=== PATIENT | female | born 1955 | race American Indian/Alaskan Native ===

== ENCOUNTER 2019-10-28 12:09 | Emergency (ER) | payer BC, OTHER ==
[~2019-10-28] VITALS: Ht 154.9 cm; Wt 74.8 kg
--- OUTSIDE RECORDS SUMMARY | ~2019-10-28 | XMS | Encounter Summary ---
Demographics + + + | Address | [address] | | | [place] [address] | + + + | Home Phone | | + + + | Preferred Language | Unknown | + + + | Marital Status | Single | + + + | Alevism Affiliation | UNK | + + + | Race | or | + + + | Ethnic Group | Not or | + + + Author + + + | Author | [facility] | + + + | Organization | [facility] | + + + | Address | Unknown | + + + | Phone | Unavailable | + + + Support + + +---------+ + | Name | Relationship | Address | Phone | + + +---------+ + | Alysa Yin | ECON | Unknown | | + + +---------+ + Care Team Providers + +------+ + | Care Tab Builder Name | Role | Phone | + +------+ + | Sary De SantiagoP | PCP | | + +------+ + Encounter Details +--------+------+ + + + | Date | Type | Department | Care Team | Description | +--------+------+ + + + | 10/23/ | Lab | Laboratory at [facility] | | Rheumatoid | | 2020 | | [address] | | arthritis, involving | | | | [facility] | | unspecified site, | | | | [address]ilion, 3rd floor | | unspecified | | | | [place], [place] | | rheumatoid factor | | | | [address] | | presence (HCC) | | | | [phone] | | | +--------+------+ + + + Social History + + + +--------+ + | Tobacco Use | Types | Packs/Day | Years | Date | | | | | Used | | + + + +--------+ + | Former Smoker | Cigarettes | 0.5 | | Quit: 05/24/1993 | + + + +--------+ + + +---+---+---+ | Smokeless Tobacco: | | | | | Never Used | | | | + +---+---+---+ + + +---------+ + | Alcohol Use | Drinks/Week | oz/Week | Comments | + + +---------+ + | No | | | | + + +---------+ + + + + | Sex Assigned at | Date Recorded | | | | + + + | Not on file | | + + + + + + + | COVID-19 Exposure | Response | Date Recorded | + + + + | In the last month, have you been in contact | No / Unsure | 10/24/2019 9:49 AM | | with someone who was confirmed or | | PDT | | suspected to have Coronavirus / COVID-19? | | | + + + + documented as of this encounter Plan of Treatment +--------+ + + + + | Date | Type | Specialty | Care Team | Description | +--------+ + + + + | 02/24/ | Telephone-S | Rheumatology | Ron, | | | 2020 | bora | | MD [address] [address] | | | | | | [address] | | | | | | [place], [place] | | | | | | [address] | | | | | | [phone] | | | | | | | | +--------+ + + + + documented as of this encounter Procedures + +--------+ + + + | Procedure Name | Priori | Date/Time | Associated Diagnosis | Comments | | | ty | | | | + +--------+ + + + | CBC AND AUTO DIFF | Routin | 10/24/2019 | Rheumatoid | Results for this | | | e | 12:03 PM | arthritis, involving | procedure are in the | | | | PDT | unspecified site, | results section. | | | | | unspecified | | | | | | rheumatoid factor | | | | | | presence (HCC) | | + +--------+ + + + | CBC, WITH | Routin | 10/24/2019 | Rheumatoid | Results for this | | DIFFERENTIAL | e | 12:03 PM | arthritis, involving | procedure are in the | | | | PDT | unspecified site, | results section. | | | | | unspecified | | | | | | rheumatoid factor | | | | | | presence (HCC) | | + +--------+ + + + | COMPLETE METABOLIC | Routin | 10/24/2019 | Rheumatoid | Results for this | | SET | e | 12:03 PM | arthritis, involving | procedure are in the | | (NA,K,CL,CO2,BUN,CRE | | PDT | unspecified site, | results section. | | AT,GLUC,CA,AST,ALT,B | | | unspecified | | | EMELY TOTAL,ALK | | | rheumatoid factor | | | PHOS,ALB,PROT TOTAL) | | | presence (HCC) | | + +--------+ + + + | CYCLIC CITRUL | Routin | 10/24/2019 | Rheumatoid | Results for this | | PEPTIDE AB IGG, | e | 12:03 PM | arthritis, involving | procedure are in the | | SERUM | | PDT | unspecified site, | results section. | | | | | unspecified | | | | | | rheumatoid factor | | | | | | presence (HCC) | | + +--------+ + + + | RHEUMATOID FACTOR, | Routin | 10/24/2019 | Rheumatoid | Results for this | | SERUM | e | 12:03 PM | arthritis, involving | procedure are in the | | | | PDT | unspecified site, | results section. | | | | | unspecified | | | | | | rheumatoid factor | | | | | | presence (HCC) | | + +--------+ + + + | C-REACTIVE PROTEIN | Routin | 10/24/2019 | Rheumatoid | Results for this | | | e | 12:03 PM | arthritis, involving | procedure are in the | | | | PDT | unspecified site, | results section. | | | | | unspecified | | | | | | rheumatoid factor | | | | | | presence (HCC) | | + +--------+ + + + | SEDIMENTATION RATE | Routin | 10/24/2019 | Rheumatoid | Results for this | | | e | 12:03 PM | arthritis, involving | procedure are in the | | | | PDT | unspecified site, | results section. | | | | | unspecified | | | | | | rheumatoid factor | | | | | | presence (HCC) | | + +--------+ + + + documented in this encounter Results CBC AND AUTO DIFF (10/24/2019 12:03 PM PDT) + + + + + + | Component | Value | Ref Range | Performed | Pathologist | | | | | At | Signature | + + + + + + | WHITE CELL | 5.13 | 3.50 - 10.80 | [facility] | | | COUNT | | K/cu mm | LABORATORY | | | | | | SERVICES, | | | | | | CORE | | + + + + + + | RED CELL | 4.59 | 4.00 - 5.20 | [facility] | | | COUNT | | M/cu mm | LABORATORY | | | | | | SERVICES, | | | | | | CORE | | + + + + + + | HEMOGLOBIN | 13.1 | 12.0 - 16.0 | [facility] | | | | | g/dL | LABORATORY | | | | | | SERVICES, | | | | | | CORE | | + + + + + + | HEMATOCRIT | 40.5 | 36.0 - 46.0 % | [facility] | | | | | | LABORATORY | | | | | | SERVICES, | | | | | | CORE | | + + + + + + | MCV | 88.2 | 80.0 - 100.0 fL | [facility] | | | | | | LABORATORY | | | | | | SERVICES, | | | | | | CORE | | + + + + + + | MCHC | 32.3 | 32.0 - 36.0 | [facility] | | | | | g/dL | LABORATORY | | | | | | SERVICES, | | | | | | CORE | | + + + + + + | RDW SD | 43.2 | 35.1 - 46.3 fL | [facility] | | | | | | LABORATORY | | | | | | SERVICES, | | | | | | CORE | | + + + + + + | PLATELET | 280 | 150 - 400 K/cu | [facility] | | | COUNT | | mm | LABORATORY | | | | | | SERVICES, | | | | | | CORE | | + + + + + + | MPV | 10.7 | 9.7 - 12.3 fL | [facility] | | | | | | LABORATORY | | | | | | SERVICES, | | | | | | CORE | | + + + + + + | NRBC% | 0.0 | 0.0 - 0.3 % | [facility] | | | | | | LABORATORY | | | | | | SERVICES, | | | | | | CORE | | + + + + + + | NRBC# | 0.00 | 0.00 - 0.02 | [facility] | | | | | K/cu mm | LABORATORY | | | | | | SERVICES, | | | | | | CORE | | + + + + + + | NEUTROPHIL | 37.2 (L) | 50.0 - 70.0 % | [facility] | | | % | | | LABORATORY | | | | | | SERVICES, | | | | | | CORE | | + + + + + + | LYMPHOCYTE | 51.5 (H) | 18.0 - 42.0 % | [facility] | | | % | | | LABORATORY | | | | | | SERVICES, | | | | | | CORE | | + + + + + + | MONOCYTE % | 7.4 | 3.5 - 9.0 % | [facility] | | | | | | LABORATORY | | | | | | SERVICES, | | | | | | CORE | | + + + + + + | EOS % | 3.3 (H) | 1.0 - 3.0 % | [facility] | | | | | | LABORATORY | | | | | | SERVICES, | | | | | | CORE | | + + + + + + | BASO % | 0.6 | 0.0 - 2.0 % | [facility] | | | | | | LABORATORY | | | | | | SERVICES, | | | | | | CORE | | + + + + + + | IG% | 0.0 | 0.0 - 1.0 % | [facility] | | | | | | LABORATORY | | | | | | SERVICES, | | | | | | CORE | | + + + + + + | NEUTROPHIL | 1.91 | 1.80 - 7.70 | [facility] | | | # | | K/cu mm | LABORATORY | | | | | | SERVICES, | | | | | | CORE | | + + + + + + | LYMPHOCYTE | 2.64 | 1.00 - 4.80 | [facility] | | | # | | K/cu mm | LABORATORY | | | | | | SERVICES, | | | | | | CORE | | + + + + + + | MONOCYTE # | 0.38 | 0.10 - 0.90 | [facility] | | | | | K/cu mm | LABORATORY | | | | | | SERVICES, | | | | | | CORE | | + + + + + + | EOS # | 0.17 | 0.00 - 0.50 | [facility] | | | | | K/cu mm | LABORATORY | | | | | | SERVICES, | | | | | | CORE | | + + + + + + | BASO # | 0.03 | 0.00 - 0.10 | [facility] | | | | | K/cu mm | LABORATORY | | | | | | SERVICES, | | | | | | CORE | | + + + + + + | IG# | 0.00 | 0.00 - 0.10 | [facility] | | | | | K/cu mm | LABORATORY | | | | | | SERVICES, | | | | | | CORE | | + + + + + + + + | Specimen | + + | Blood - Blood | | (substance) | + + + + + | Narrative | Performed At | + + + | Increased immature granulocytes (IG) define a left shift. Immature | [facility] | | granulocytes (IG) are an automated count of metamyelocytes, myelocytes | LABORATORY | | and promyelocytes. Bands are not included in the IG count. Bands are | SERVICES, CORE | | included in the neutrophil count. | | + + + + + + + + | Performing | Address | City/State/Zipcode | Phone Number | | Organization | | | | + + + + + | [facility] | [address] | [place] [address] | | | SERVICES, CORE | [address] | | | + + + + + RHEUMATOID FACTOR, SERUM (10/24/2019 12:03 PM PDT) + +-------+ + + + | Component | Value | Ref Range | Performed | Pathologist | | | | | At | Signature | + +-------+ + + + | RHEUMATOID | 10 | <=14 IU/mL | [facility] | | [facility] | | | [place] | | | | | | [place] | | + +-------+ + + + + + | Specimen | + + | Blood - Blood | | (substance) | + + + + + + + | Performing | Address | City/State/Zipcode | Phone Number | | Organization | | | | + + + + + | [facility] | [address] | [place] [address] | | | [place] | | | | + + + + + CYCLIC CITRUL PEPTIDE AB IGG, SERUM (10/24/2019 12:03 PM PDT) + + + + + + | Component | Value | Ref Range | Performed | Pathologist | | | | | At | Signature | + + + + + + | CYCLIC | 2Comment: INTERPRETIVE | 0 - 19 Units | [facility] | | | CITRUL | INFORMATION: Cyclic | | REG UNIV | | | PEPTIDE AB, | Citrullinated Peptide | | PTH - [facility] | | | IGG | Antibody, IgG 19 | | | | | | Units or less | | | | | | ................... | | | | | | Negative 20-39 Units | | | | | | ........................ | | | | | | Weak Positive 40-59 | | | | | | Units | | | | | | ........................ | | | | | | Moderate Positive 60 | | | | | | Units or greater | | | | | | ................ Strong | | | | | | Positive Anti-cyclic | | | | | | citrullinated peptide | | | | | | (anti-CCP), IgG | | | | | | antibodies are present | | | | | | in about 69-83 percent | | | | | | of patients with | | | | | | rheumatoid arthritis | | | | | | (RA) and have | | | | | | specificities of 93-95 | | | | | | percent. These | | | | | | autoantibodies may be | | | | | | present in the | | | | | | preclinical phase of | | | | | | disease, are associated | | | | | | with future RA | | | | | | development, and may | | | | | | predict radiographic | | | | | | joint destruction. | | | | | | Patients with weak | | | | | | positive results should | | | | | | be monitored and testing | | | | | | repeated.Performed By: | | | | | | [facility] [place] [address] | | | | | | [facility] | | | | | | [place], [place] [address] | | | | | | Director: Darcy Rai | | | | | | MD Mauro | | | | + + + + + + + + | Specimen | + + | Blood - Blood | | (substance) | + + + + + + + | Performing | Address | City/State/Zipcode | Phone Number | | Organization | | | | + + + + + | [facility] | [address] | [place], [place] | | | UNIV P[facility] | | [id number] | | + + + + + COMPLETE METABOLIC SET (NA,K,CL,CO2,BUN,CREAT,GLUC,CA,AST,ALT,BILI TOTAL,ALK PHOS,ALB,PROT TOTAL) (10/24/2019 12:03 PM PDT) + +---------+ + + + | Component | Value | Ref Range | Performed | Pathologist | | | | | At | Signature | + +---------+ + + + | GLUCOSE, | 79 | 70 - 99 mg/dL | [facility] | | | PLASMA | | | LABORATORY | | | (LAB) | | | SERVICES, | | | | | | CORE | | + +---------+ + + + | BUN, PLASMA | 12 | 6 - 20 mg/dL | [facility] | | | (LAB) | | | LABORATORY | | | | | | SERVICES, | | | | | | CORE | | + +---------+ + + + | CREATININE | 0.80 | 0.60 - 1.10 | [facility] | | | PLASMA | | mg/dL | LABORATORY | | | (LAB) | | | SERVICES, | | | | | | CORE | | + +---------+ + + + | EGFR | >60 | >60 mL/min | [facility] | | | - | | | LABORATORY | | | ESTONIAN | | | SERVICES, | | | | | | CORE | | + +---------+ + + + | EGFR NON | >60 | >60 mL/min | [facility] | | | -LYSSA | | | LABORATORY | | | RICAN | | | SERVICES, | | | | | | CORE | | + +---------+ + + + | SODIUM, | 140 | 136 - 145 | [facility] | | | PLASMA | | mmol/L | LABORATORY | | | (LAB) | | | SERVICES, | | | | | | CORE | | + +---------+ + + + | POTASSIUM, | 3.4 | 3.4 - 5.0 | [facility] | | | PLASMA | | mmol/L | LABORATORY | | | (LAB) | | | SERVICES, | | | | | | CORE | | + +---------+ + + + | CHLORIDE, | 104 | 97 - 108 mmol/L | [facility] | | | PLASMA | | | LABORATORY | | | (LAB) | | | SERVICES, | | | | | | CORE | | + +---------+ + + + | TOTAL CO2, | 31 | 21 - 32 mmol/L | [facility] | | | PLASMA | | | LABORATORY | | | (LAB) | | | SERVICES, | | | | | | CORE | | + +---------+ + + + | CALCIUM, | 8.3 (L) | 8.6 - 10.2 | [facility] | | | PLASMA | | mg/dL | LABORATORY | | | (LAB) | | | SERVICES, | | | | | | CORE | | + +---------+ + + + | CALCIUM(ALB | 8.4 (L) | 8.6 - 10.2 | [facility] | | | CORRECTED) | | mg/dL | LABORATORY | | | | | | SERVICES, | | | | | | CORE | | + +---------+ + + + | BILIRUBIN | 0.4 | 0.3 - 1.2 mg/dL | [facility] | | | TOTAL | | | LABORATORY | | | | | | SERVICES, | | | | | | CORE | | + +---------+ + + + | TOTAL | 7.6 | 6.4 - 8.2 g/dL | [facility] | | | PROTEIN, | | | LABORATORY | | | PLASMA | | | SERVICES, | | | (LAB) | | | CORE | | + +---------+ + + + | ALBUMIN, | 3.9 | 3.5 - 4.7 g/dL | [facility] | | | PLASMA | | | LABORATORY | | | (LAB) | | | SERVICES, | | | | | | CORE | | + +---------+ + + + | ALK PHOS | 66 | 53 - 141 U/L | [facility] | | | | | | LABORATORY | | | | | | SERVICES, | | | | | | CORE | | + +---------+ + + + | AST(SGOT) | 18 | <=41 U/L | [facility] | | | | | | LABORATORY | | | | | | SERVICES, | | | | | | CORE | | + +---------+ + + + | ALT (SGPT) | 20 | <=60 U/L | [facility] | | | | | | LABORATORY | | | | | | SERVICES, | | | | | | CORE | | + +---------+ + + + | ANION GAP | 5 | 4 - 11 mmol/L | [facility] | | | | | | LABORATORY | | | | | | SERVICES, | | | | | | CORE | | + +---------+ + + + | ANION | 5 | 4 - 11 mmol/L | [facility] | | | GAP(ALB | | | LABORATORY | | | CORRECTED) | | | SERVICES, | | | | | | CORE | | + +---------+ + + + | POTASSIUM | No Hemo | | [facility] | | | CMNT | | | LABORATORY | | | | | | SERVICES, | | | | | | CORE | | + +---------+ + + + | BILI T CMNT | No Hemo | | [facility] | | | | | | LABORATORY | | | | | | SERVICES, | | | | | | CORE | | + +---------+ + + + | AST CMNT | No Hemo | | [facility] | | | | | | LABORATORY | | | | | | SERVICES, | | | | | | CORE | | + +---------+ + + + | BUN/CREATIN | 15 | 8 - 25 | [facility] | | | INE RATIO | | | LABORATORY | | | | | | SERVICES, | | | | | | CORE | | + +---------+ + + + | GLOBULIN | 3.7 (H) | 2.3 - 3.5 gm/dL | [facility] | | | LVL | | | LABORATORY | | | | | | SERVICES, | | | | | | CORE | | + +---------+ + + + | ALBUMIN/MARJORIE | 1.1 | 0.7 - 2.8 | [facility] | | | BULIN RATIO | | | LABORATORY | | | | | | SERVICES, | | | | | | CORE | | + +---------+ + + + + + | Specimen | + + | Blood - Blood | | (substance) | + + + + + | Narrative | Performed At | + + + | GFR is estimated using the MDRD equation recommended by the National | [facility] | | Kidney Disease Education Program. Estimated GFR Interpretive | LABORATORY | | Information: <60 mL/min/1.73 sq m Chronic Kidney | SERVICES, CORE | | Disease <15 mL/min/1.73 sq m Kidney Failure | | | Estimated GFR greater than 60 mL/min/1.73 sq m is of limited clinical | | | value. The MDRD equation is not valid in the following situations: | | | - Patients under 18 years of age - Severe malnutrition or obesity | | | - Vegetarian diet - Rapidly changing kidney function - Amputees, | | | paraplegics, or other muscle-wasting diseases | | + + + + + + + + | Performing | Address | City/State/Zipcode | Phone Number | | Organization | | | | + + + + + | [facility] | [address] | [place] [address] | | | SERVICES, CORE | [address] | | | + + + + + C-REACTIVE PROTEIN (10/24/2019 12:03 PM PDT) + +-------+ + + + | Component | Value | Ref Range | Performed | Pathologist | | | | | At | Signature | + +-------+ + + + | C-REACTIVE | <2.9 | <10.0 mg/L | [facility] | | | PROTEIN | | | LABORATORY | | | | | | SERVICES, | | | | | | CORE | | + +-------+ + + + + + | Specimen | + + | Blood - Blood | | (substance) | + + + + + + + | Performing | Address | City/State/Zipcode | Phone Number | | Organization | | | | + + + + + | [facility] | [address] | [place] [address] | | | SERVICES, CORE | [address] | | | + + + + + SEDIMENTATION RATE (10/24/2019 12:03 PM PDT) + +-------+ + + + | Component | Value | Ref Range | Performed | Pathologist | | | | | At | Signature | + +-------+ + + + | SEDIMENTATI | 7 | 0 - 30 mm/hr | [facility] | | | ON RATE | | | LABORATORY | | | | | | SERVICES, | | | | | | CORE | | + +-------+ + + + + + | Specimen | + + | Blood - Blood | | (substance) | + + + + + + + | Performing | Address | City/State/Zipcode | Phone Number | | Organization | | | | + + + + + | [facility] | [address] | [place] [address] | | | SERVICES, CORE | [address] | | | + + + + + documented in this encounter Visit Diagnoses + + | Diagnosis | + + | Rheumatoid arthritis, involving unspecified site, unspecified rheumatoid factor | | presence (HCC) | + + documented in this encounter"
--- OUTSIDE RECORDS SUMMARY | ~2019-10-28 | XMS | Encounter Summary ---
Demographics + + + | Address | [address] | | | [place] [address] | + + + | Home Phone | | + + + | Preferred Language | Unknown | + + + | Marital Status | Single | + + + | Church Affiliation | Unknown | + + + | Race | White | + + + | Ethnic Group | Not or | + + + Author + + + | Author | [facility] | | | and [place] | + + + | Organization | [facility] | | | and [place] | + + + | Address | Unknown | + + + | Phone | Unavailable | + + + Support + + + + + | Name | Relationship | Address | Phone | + + + + + | Maria Luisa Minaya | ECON | [place] | | | | | [address] | | + + + + + Care Team Providers + +------+ + | Care Mathematics Academic Chair Name | Role | Phone | + +------+ + | Chantale Harrington | PCP | | + +------+ + Reason for Referral Evaluate & Treat (Routine) +--------+ + + + + + | Status | Reason | Specialty | Diagnoses / | Referred By | Referred To | | | | | Procedures | Contact | Contact | +--------+ + + + + + | Closed | Specialty | Rheumatology | Diagnoses | Rodrick, | [facility] | | | Services | | | Kalin | ARTHRITIS AND | | | Required | | Costochondri | MD Jayce | RHEUMATOLOGY | | | | | tis | [address] | [address] | | | | | | [address] | [place] | | | | | | [place] | [address] | | | | | | [place], [place] | [place], [place] | | | | | | [address] | [address] | | | | | | Phone: | Phone: | | | | | | [phone] | [phone] | | | | | | Fax: | Fax: | | | | | | [phone] | [phone] | +--------+ + + + + + Reason for Visit + + + | Reason | Comments | + + + | New Patient | | + + + | Back Pain | | + + + Evaluate & Treat (Routine) +--------+--------+ + + + + | Status | Reason | Specialty | Diagnoses / | Referred By | Referred To | | | | | Procedures | Contact | Contact | +--------+--------+ + + + + | Closed | | Neurosurgery | Diagnoses | Len, | [facility] | | | | | Lumbar | Chantale, TECHNICAL OPERATIONS MANAGER | Neurosurgery | | | | | radiculopath | [id number] | [address] | | | | | y | [address] | [address] | | | | | Discogenic | [place], | [place], | | | | | thoracic | [place] [address] | [place] [address] | | | | | pain Lumbar | Phone: | Phone: | | | | | pain | [phone] | [phone] | | | | | | Fax: | Fax: | | | | | | [phone] | [phone] | +--------+--------+ + + + + Encounter Details +--------+---------+ + + + | Date | Type | Department | Care Team | Description | +--------+---------+ + + + | 08/27/ | Office | [facility] | Kalin Mensah | Costochondritis | | 2020 | Visit | [address] | MD Jayce [address] | (Primary Dx); | | | | [address] | [address] | Degeneration of | | | | [place], [place] | [place] | intervertebral disc | | | | [address] | [address] | of thoracic region | | | | [phone] | | with osteophyte; | | | | | | Osteoarthritis, | | | | | | unspecified | | | | | | osteoarthritis type, | | | | | | unspecified site | +--------+---------+ + + + Social History + + + +--------+ + | Tobacco Use | Types | Packs/Day | Years | Date | | | | | Used | | + + + +--------+ + | Former Smoker | Cigarettes | 0.5 | 1 | 02/07/1992 - | | | | | | 05/24/1993 | + + + +--------+ + [...] on file | | + + + documented as of this encounter Last Filed Vital Signs + + + + + | Vital Sign | Reading | Time Taken | Comments | + + + + + | Blood Pressure | 108/70 | 08/28/2019 1:35 PM | | | | | PDT | | + + + + + | Pulse | 68 | 08/28/2019 1:35 PM | | | | | PDT | | + + + + + | Temperature | - | - | | + + + + + | Respiratory Rate | - | - | | + + + + + | Oxygen Saturation | 100% | 08/28/2019 1:35 PM | | | | | PDT | | + + + + + | Inhaled Oxygen | - | - | | | Concentration | | | | + + + + + | Weight | 76.2 kg (167 lb 15.9 | 08/28/2019 1:35 PM | | | | oz) | PDT | | + + + + + | Height | 154.9 cm (5' 1") | 08/28/2019 1:35 PM | | | | | PDT | | + + + + + | Body Mass Index | 31.74 | 08/28/2019 1:35 PM | | | | | PDT | | + + + + + documented in this encounter Progress Notes Kalin Mensah MD - 08/28/2019 1:10 PM PDT Kalin Mensah MD [address] [facility], [address] [place] [address] FAX: [phone] NEUROSURGERY HISTORY AND PHYSICAL EXAMINATION CHIEF COMPLAINT: Chief Complaint Patient presents with New Patient Back Pain HISTORY OF PRESENT ILLNESS: Rachel Yin presents today for evaluation of midthoraci c pain which is been rather severe for the past approximately 3 months. She does have a his tory of somewhat more chronic diffuse spinal pain. [facility] and was placed on several different medications including methotre xate without significant improvement. The pain that she presently experiences is mostly mid line and paraspinous pain along the mid thoracic region. There is noticed significant radia tion along the right and left thorax. She has no complaint of significant pain weakness num bness paresthesias in the upper or lower extremities, significant remedy weakness or spasm. No bowel or bladder dysfunction or saddle anesthesia. No steady gait unsteadiness. She lindsey s been seen by physiatry for evaluation with consideration of intercostal nerve block. PAST MEDICAL HISTORY: Past Medical History: Diagnosis Date Arthralgia Arthritis Fajardo's esophagus Chronic ethmoidal sinusitis Cluster headache Contact dermatitis Degeneration of lumbar or lumbosacral intervertebral disc Depression Depressive disorder Deviated nasal septum Disease related peripheral neuropathy IMANI (generalized anxiety disorder) GERD (gastroesophageal reflux disease) Hypercholesterolemia Insomnia Lumbar back pain Lumbosacral spondylosis Menopausal state Mixed hyperlipidemia Osteoarthritis of finger of right hand Other general symptoms and signs Plantar fasciitis RA (rheumatoid arthritis) ([facility]) Radiculopathy of lumbosacral region 08/30/2012 Seasonal allergic rhinitis Tarsal tunnel syndrome Thoracic back pain TMJ (temporomandibular joint disorder) Urethritis Urticaria Vision impairment PAST SURGICAL HISTORY: Past Surgical History: Procedure Laterality Date APPENDECTOMY CHOLECYSTECTOMY FINGER SURGERY Right 11/29/2016 Procedure: Middle Finger Arthroplasty; Surgeon: Naveen Ferrari MD; Location: [facility]; Service: Orthopedics; Laterality: Right; RT MIDDLE FINGER [facility] silicone implants HYSTERECTOMY CURRENT MEDICATIONS: Current Outpatient Medications Medication Sig Dispense Refill alendronate (FOSAMAX) 35 mg tablet Take 1 tablet by mouth every 7 days. citalopram (CELEXA) 40 mg tablet Take 40 mg by mouth Daily. diclofenac (FLECTOR) 1.3% PTCH estradiol (CLIMARA) 0.025 MG/24HR fluticasone (FLONASE) 50 mcg/nasal spray 2 sprays by Nasal route Daily. methocarbamol (ROBAXIN) 500 mg tablet Take 500 mg by mouth 3 times daily as needed for Muscle spasms Only taking 1 time daily. omeprazole (PRILOSEC) 40 MG capsule Take 40 mg by mouth 2 times daily. ondansetron (ZOFRAN) 4 mg tablet REFRESH OPTIVE SENSITIVE ophthalmic solution tiZANidine (ZANAFLEX) 4 mg tablet Take 4 mg by mouth nightly . UNABLE TO FIND Once a week Med Name: Hormone patch . No current facility-administered medications for this visit. ALLERGIES: Allergies Allergen Reactions Codeine Rash, Nausea And Vomiting and Itching Other reaction(s): Pruritus Morphine Palpitations Tolmetin Swelling Chlorpheniramine Unknown Epinephrine Unknown Erythromycin Unknown Lidocaine Unknown Patient reports that she doesn't remember reaction and doesn't believe that it caused an issue. 12/23/2018 2:21 AM Pseudoephedrine Unknown Trimethoprim-Sulfamethoxazole [Sulfamethoxazole-Trimethoprim] Unknown SOCIAL HISTORY: The patient reports that she quit smoking about 26 years ago. Her smoking use included cig arettes. She started smoking about 27 years ago. She has a 0.50 pack-year smoking history. S he has never used smokeless tobacco. She reports that she does not drink alcohol or use drug s. FAMILY HISTORY: Family History Problem Relation Age of Onset Hypertension Mother Heart disease Father Kidney cancer Brother Other cancer Sister Skin Other cancer Maternal Uncle Bone Review of Systems Constitutional: Gained 10-12 lbs Eyes: Positive for blurred vision (eye glasses). Musculoskeletal: Positive for back pain, myalgias and neck pain. Neurological: Positive for sensory change (feet neuropathy). Psychiatric/Behavioral: Positive for depression. All other systems reviewed and are negative. PHYSICAL EXAMINATION: Blood pressure 108/70, pulse 68, height 1.549 m (5' 1"), weight 76.2 kg (167 lb 15.9 oz), S pO2 100 %. Body mass index is 31.74 kg/m. GENERAL: Mildly obese lady who appears somewhat uncomfortable during examination today. HEENT: Head: Normocephalic/atraumatic with no areas of recent trauma. Eyes: Normal sclerae without icterus. NECK (ANTERIOR): Supple and without palpable masses. CHEST: Clear nonlabored HEART: Regular pulse ABDOMEN: Mild abdominal obesity. SPINE: Moderate tenderness to palpation over the primarily mid thoracic paraspinous muscul ature. Minimal midline tenderness. Much lesser cervical and lumbar tenderness. EXTREMITIES: No cyanosis, clubbing, or edema. Distal pulses are palpable. MUSCULOSKELETAL: Mild arthritic changes in the hands. No atrophy or fasciculations in the upper and lower extremities. No significant right or left hip tenderness or complaint of h ip knee or ankle pain with range of motion. Good range of motion of the right left shoulder without discomfort Patient has rather severe pain radiating from the mid thoracic paraspinous region along the right and left anterior lateral chest wall with moderate bilateral chest wall compression. NEUROLOGICAL EXAM: MENTAL STATUS: The patient is awake, alert, and oriented. She follows simple and complex commands. Her speech is fluent, she comprehends speech well, and she repeats well. She has no apparent deficits with short or fdc memory. MOTOR EXAM: (5 IS NORMAL) * Indicates pain limited MUSCLE/ MOVEMENT: RIGHT LEFT Deltoids 5 5 Biceps 5 5 Triceps 5 5 Wrist Flexion 5 5 Wrist Extension 5 5 Median Intrinsics 5 5 Ulnar Intrinsics 5 5 Hospital Director Strength 5 5 Hip Flexion 5 5 Hip Extension 5 5 Knee Flexion 5 5 Knee Extension 5 5 Dorsiflexion 5 5 Extensor Hallicus Longus 5 5 Plantarflexion 5 5 Foot Inversion 5 5 Foot Eversion 5 5 SENSORY EXAM: Sensory exam shows no diminished sensation to light touch or pain throughout the upper and lower extremities. REFLEXES: (2 OR 2+ IS NORMAL) REFLEX: RIGHT LEFT BICEPS 2+ 2+ BRACHIORADIALIS 2+ 2+ TRICEPS 2+ 2+ PATELLAR 2+ 2+ ACHILLES 2+ 2+ RIVERA'S ABSENT ABSENT CLONUS ABSENT ABSENT GAIT: Gait is steady PERIPHERAL NERVE/MISC: Straight leg raise is negative bilaterally. Christopher's test of the hips is negative bilaterally. TEST AND RADIOGRAPHIC REVIEW: The thoracic MRI from 03/18/2019 reveals chronic appearing mild upper and lower endplate T8 compression fracture without significant kyphosis or retropulsion. No residual edema in the bone. There may be slight increase signal intensity within the T7 vertebral body without d efinite fracture. Significant anterior lateral bridging osteophytes are noted at multiple levels in the midth oracic region. No evidence of significant thoracic degenerative disc disease. No definite significant spo ndylosis noted. No foraminal stenosis or canal stenosis or abnormal signal intensity within the cord. Lumbar x-ray f normal lumbar lordosis. No evidence of spondylolisthesis significant degene rative disc disease. ASSESSMENT: 1. Findings most consistent with midthoracic costochondritis. 2. Moderate bridging osteophytes-heterotopic calcification noted in the thoracic region. 3. No significant thoracic degenerative disc disease noted. No significant thoracic spond ylosis. VISIT DIAGNOSES AND ORDERS: 1. Costochondritis 2. 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 Osteoarthritis, unspecified osteoarthritis type, unspecified site PLAN: Findings were discussed at length with the patient. Options of conservative treatment, further injections in physiatry clinic, rheumatology braxton sandoval of been discussed. I do not feel that there is a surgical option for her. I do not believe that the chronic appearing relatively mild T8 compression deformity is res ponsible for her pain symptoms. She does not have definite thoracic radicular pain or evide nce of foraminal stenosis, however a series of lumbar facet blocks or intercostal blocks may be helpful. She requests that we arrange for a follow-up rheumatology referral. It is been approximate ly 5 years since she was evaluated and her symptoms have significantly changed since then. She will contact physiatry clinic for follow-up. No further neurosurgical intervention recommended at this time. 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
--- OUTSIDE RECORDS SUMMARY | ~2019-10-28 | XMS | Encounter Summary ---
Demographics + + + | Address | [address] | | | [place] [address] | + + + | Home Phone | | + + + | Preferred Language | Unknown | + + + | Marital Status | Single | + + + | Protestant Affiliation | UNK | + + + | Race | or | + + + | Ethnic Group | Not or | + + + Author + + + | Author | [facility] | + + + | Organization | [facility] | + + + | Address | Unknown | + + + | Phone | Unavailable | + + + Support + + +---------+ + | Name | Relationship | Address | Phone | + + +---------+ + | Alysa Yin | ECON | Unknown | | + + +---------+ + Care Team Providers + +------+ + | Care Mail Carrier Name | Role | Phone | + +------+ + | Poncho Nieves MD | PCP | | + +------+ + Encounter Details +--------+ + + + + | Date | Type | Department | Care Team | Description | +--------+ + + + + | 07/13/ | Documentati | Neurology | Nuris, | | | 2008 | on | [facility] | MD Santos | | | | | at [facility] | | | [facility] | | [facility] & [facility] | | | | | | [address] | | | | | | [facility] | | | | | | and Healing, | | | | | | Building | | | | | | Floor [place], [place] | | | | | | [address] | | | | | | [phone] | | | +--------+ + + + + Social History + + + +--------+ + | Tobacco Use | Types | Packs/Day | Years | Date | | | | | Used | | + + + +--------+ + | Former Smoker | Cigarettes | 0.5 | | Quit: 05/24/1993 | + + + +--------+ + + + +---------+ + | Alcohol Use | Drinks/Week | oz/Week | Comments | + + +---------+ + | No | | | | + + +---------+ + + + + | Sex Assigned at | Date Recorded | | | | + + + | Not on file | | + + + documented as of this encounter Miscellaneous Notes Telephone Encounter - Santos Lawler MD - 07/13/2008 9:52 AM PDT Component Reference Range 06/24/2008 LYME AB REYNA Borderline (A) SOURCE, INF SER/PCR Serum PATIENT SPECIMEN O. D. 0.153 REACTIVE CUTOFF O. D. 0.155 BORDERLINE CUTOFF O. D. 0.122 Plan - Recheck serum Lyme REYNA and will check serum Lyme Western blot send to [facility]. - Patient lives in [place] - this can be done locally. Gina Joe LPN , Nurse Identity Access Management Architect will arrange this test. documented in this encounter Plan of Treatment +--------+ + + + + | Date | Type | Specialty | Care Team | Description | +--------+ + + + + | 02/24/ | Telephone-S | Rheumatology | Ron, | | | 2020 | bora | | MD [address] [address] | | | [address] | | | | | | [place] | | | | | | [address] | | | | | | [phone] | | | | | | | | +--------+ + + + + documented as of this encounter Visit Diagnoses Not on filedocumented in this encounter"
--- OUTSIDE RECORDS SUMMARY | ~2019-10-28 | XMS | Encounter Summary ---
Demographics + + + | Address | [address] | | | [place] [address] | + + + | Home Phone | | + + + | Preferred Language | Unknown | + + + | Marital Status | Single | + + + | Jain Affiliation | UNK | + + + | Race | or | + + + | Ethnic Group | Not or | + + + Author + + + | Author | [facility] | + + + | Organization | [facility] | + + + | Address | Unknown | + + + | Phone | Unavailable | + + + Support + + +---------+ + | Name | Relationship | Address | Phone | + + +---------+ + | Alysa Yin | ECON | Unknown | | + + +---------+ + Care Team Providers + +------+ + | Care Web Site Admin Name | Role | Phone | + +------+ + | Sary De SantiagoP | PCP | | + +------+ + Reason for Visit + +--------+ + | Reason | Onset | Comments | | | Date | | + +--------+ + | Visual field testing | 01/22/ | | | | 2012 | | + +--------+ + Office Visit - E/M Services (Routine) +--------+--------+ + + + + | Status | Reason | Specialty | Diagnoses / | Referred By | Referred To | | | | | Procedures | Contact | Contact | +--------+--------+ + + + + | Closed | | Ophthalmology | | Non[facility] | [facility] | | | | | | Epic Dept | [facility] | | | | | | | [address] | | | | | | | [address] Center | | | | | | | for Health | | | | | | | and Healing, | | | | | | | [address], | | | | | | | [address]th Floor | | | | | | | [place], [place] | | | | | | | [address] | | | | | | | Phone: | | | | | | | [phone] | | | | | | | Fax: | | | | | | | [phone] | +--------+--------+ + + + + Encounter Details +--------+ + + + + | Date | Type | Department | Care Team | Description | +--------+ + + + + | 01/21/ | Procedure | [facility] | | Visual field testing | | 2012 | | [place] [facility] | | | | | | [facility] at [facility] [address] | | | | | | [address] [facility] | | | | | | for Health and | | | | | | Healing, [address], | | | | | | [address]th Floor | | | | | | [place], [place] | | | | | | [address] | | | | | | [phone] | | | +--------+ + + + [...] + + documented as of this encounter Progress Janette Boyer - 01/22/2013 7:26 AM PST Rachel Susanna Yin was seen in the [facility] [place] [facility] Department today, 01/06, for HVF 30-2 OU. alonso in this enc ounter Plan of Treatment +--------+ + + + + | Date | Type | Specialty | Care Team | Description | +--------+ + + + + | 02/24/ | Telephone-S | Rheumatology | Ron, | | | 2020 | bora | | MD [facility] [address] | | | | | [address] | | | | | | [place], [place] | | | | | | [address] | | | | | | [phone] | | | | | | | | +--------+ + + + + + + +--------+ + + | Name | Type | Priori | Associated Diagnoses | Order Schedule | | | | ty | | | + + +--------+ + + | [facility] | Procedures | Routin | Subjective visual | Expected: 04/22/2013 | | FIELD | | e | disturbance, | | | | | | unspecified | | + + +--------+ + + documented as of this encounter Visit Diagnoses + + | Diagnosis | + + | Subjective visual disturbance, unspecified - Primary | + + documented in this encounter"
--- OUTSIDE RECORDS SUMMARY | ~2019-10-28 | XMS | Encounter Summary ---
Demographics + + + | Address | [address] | | | [place] [address] | + + + | Home Phone | | + + + | Preferred Language | Unknown | + + + | Marital Status | Single | + + + | Sikhism Affiliation | Unknown | + + + | Race | White | + + + | Ethnic Group | Not or | + + + Author + + + | Author | [facility] | | | and [place] | + + + | Organization | [facility] | | | and [place] | + + + | Address | Unknown | + + + | Phone | Unavailable | + + + Support + + + + + | Name | Relationship | Address | Phone | + + + + + | Maria Luisa Minaya | ECON | [place], [place] | | | | | [address] | | + + + + + Care Team Providers + +------+ + | Care Product Control And Logistics Analyst Name | Role | Phone | + +------+ + PCP | Unavailable | + +------+ + Encounter Details +--------+ + + + + | Date | Type | Department | Care Team | Description | +--------+ + + + + | 01/15/ | Hospital | [facility] | | | | 2000 | Encounter | MED CTR XRAY [address] | | | | | | [address] | | | | | | [place] [address] | | | | | | [phone] | | | +--------+ + + + + Social History + +-------+ +--------+------+ | Tobacco Use | Types | Packs/Day | Years | Date | | | | | Used | | + +-------+ +--------+------+ | Never Assessed | | | | | + +-------+ +--------+------+ + + + | Sex Assigned at | Date Recorded | | | | + + + | Not on file | | + + + documented as of this encounter Plan of Treatment Not on filedocumented as of this encounter Visit Diagnoses Not on filedocumented in this encounter"
--- OUTSIDE RECORDS SUMMARY | ~2019-10-28 | XMS | Encounter Summary ---
Demographics + + + | Address | [address] | | | [place] [address] | + + + | Home Phone | | + + + | Preferred Language | Unknown | + + + | Marital Status | Single | + + + | Rastafarian Affiliation | UNK | + + + | Race | or | + + + | Ethnic Group | Not or | + + + Author + + + | Author | [facility] | + + + | Organization | [facility] | + + + | Address | Unknown | + + + | Phone | Unavailable | + + + Support + + +---------+ + | Name | Relationship | Address | Phone | + + +---------+ + | Alysa Yin | ECON | Unknown | | + + +---------+ + Care Team Providers + +------+ + | Care Sprayer Automatic Spray Machine Name | Role | Phone | + +------+ + | Poncho Burdick MD | PCP | | + +------+ + Reason for Referral Consultation (Routine) +--------+--------+ + + + + | Status | Reason | Specialty | Diagnoses / | Referred By | Referred To | | | | | Procedures | Contact | Contact | +--------+--------+ + + + + | Closed | | Rheumatology | Diagnoses | | Rhm Faculty | | | | | Pain in | Nuris, | [address] | | | | | joint, hand | Santos, | Pavmichelleon | | | | | Procedures | MD | Loop | | | | | CONSULT TO | Neurology | Physician's | | | | | RHEUMATOLOGY | [address] | | | | | | [address] | Floor | | | | | | [place], [place] | [place], [place] | | | | | | [address] | [address] | | | | | | | Phone: | | | | | | | [phone] | | | | | | | Fax: | | | | | | | [phone] | +--------+--------+ + + + + Encounter Details +--------+---------+ + + + | Date | Type | Department | Care Team | Description | +--------+---------+ + + + | 05/07/ | Office | Neurology | Nuris, | Sensory Disturbance; | | 2008 | Visit | Neuromuscular Clinic | MD Santos | Pain in Joint, | | | | at [place] [facility] | | Hand; Vitamin D | | | | Health & Healing | | Deficiency | | | | [address] | | | | | | [facility] | | | | | | and Healing, | | | | | | Building | | | | | | Floor [facility] [place] | | | | | | [address] | | | | | | [phone] | | | +--------+---------+ + + + Social History [...] + documented as of this encounter Progress Notes Moi Álvarez MD - 05/25/2008 7:11 PM PDTI am familiar with this patient's medical his tory and the current active problems as discussed with Dr. Lawler. We reviewed the ass essment and plan and I agree with the plan as outlined. Roger Foss MD - 05/07/2008 3:27 PM PDT Rachel Yin, 52 y.o. RHWF who is referred by Dr. Burdick is seen in Neuromuscular cl in for evaluation of chronic pain syndrome. Ms. Yin reports that she has constant pain in legs and hands started 4-5 months ago on top of her chronic back pain, which she has had for 10-15 years. She describes pain as achi ng and tingling. Pain is severe enough to interfere sleep and physical activity. Her pain seems to be under control with Fentanyl patch. She has tried gabapentin, cymbalta, vicodin. She also complains having swelling in hands and feeling stiff especially in the morning. She has feet swelling occasionally. She denies dysautonomic symptoms. No speech or swallow ing problem. She may be choking sometimes due to Barrette's esophagus. She feels fatigue. No weakness. No increased falls. She has bladder incontinence. Bowel pattern has no wyatt ge. No trouble with vision or hearing. REVIEW OF SYSTEMS: A complete review of systems was performed, including the following: Constitutional Eyes Ears, nose mouth, throat Cardiovascular Respiratory Gastrointestinal Genitourinary Musculoskeletal Skin Neurologic Psychiatric Hematologic or Lymphatic Allergic or immunologic The results were normal with the following exception as mentioned above. Past Medical History Diagnosis Date Other General Symptoms Fajardo's Esophagus Hypercholesterolemia Past Surgical History Procedure Date Hx appendectomy Hx cholecystectomy Family History Problem Relation Hypertension Mother Heart Father Cancer Maternal Uncle bone Cancer Brother renal Cancer Sister skin History Social History Marital Status: Single Spouse Name: N/A Number of Children: N/A Years of Education: N/A Occupational History Not on file. Social History Main Topics Tobacco Use: Quit -- 0.5 packs/day Quit date: 05/24/1993 Alcohol Use: No Drug Use: No Sexually Active: Not on file Other Topics Concern Not on file Social History Narrative No narrative on file amitriptyline 10 mg Oral Tablet, Take 1 Tab by mouth as needed BENADRYL 25 mg Oral Capsule, Take 1 Cap by mouth as needed fentanyl 12 mcg/hr Transdermal Patch 72 hr, Apply 1 Patch to skin every seventy-two hours. PRILOSEC 20 mg Oral Capsule, Delayed Release(E.C.), Take 1 Cap by mouth two times daily. promethazine (PHENERGAN) 25 mg Oral Tablet, Take 1 Tab by mouth four times daily as needed for nausea/vomiting. propranolol 20 mg Oral Tablet, Take 0.5 Tabs by mouth two times daily. Allergies Allergen Reactions Morphine Tachycardia Codeine Nausea/Vomiting, Itching and Rash Tolmetin Sodium Swelling GENERAL EXAM: VITAL SIGNS: There were no vitals taken for this visit. GENERAL: The patient is pleasant, in no acute distress. HEENT: Normocephalic and atraumatic. No icteric sclera or conjunctival injection. No oral u lcer noted. CARDIOVASCULAR: Normal S1 S2 without murmurs. No carotid bruits bilaterally. SKIN: No rashes. LUNGS: Clear to auscultation bilaterally. EXTREMITIES: PIP and DIP joint are swelling and tender without skin redness. NEUROLOGIC: Mental status, the patient is alert and oriented to person, place and date. Rec ent and remote memory appear intact. Concentration appears intact. Language is fluent and sp eech is articulate. Mood is good with appropriate affect. Cranial nerve examination: I - Smell (Not tested) II -PERRLA III,IV, - Full EOM. No nystagmus or diplopia. V - Intact to sensation in all 3 divisions. VII - There is no facial asymmetry or ptosis. Muscle strength is normal. VIII - Hearing is grossly intact bilaterally. IX,X - Uvula is midline. Palate elevates symmetrically. XI - Sternocleidomastoid and trapezius is normal. XII - Tongue is midline. There are no fasciculations or atrophy. Motor Exam: NF NE SAb EF EE WF WE FF FE Intr Right strng strng 5 5 5 5 5 5 5 strng Left - - 5 5 5 5 5 5 5 strng HF HE HAb HAd KF KE ADf APf Invrs Evrs Right 5 5 5 5 5 5 5 5 5 5 Left 5 5 5 5 5 5 5 5 5 5 Reflexes: Right side Left side Brachioradialis 2+ 2+ Biceps tendon 2+ 2+ Triceps 2+ 2+ Patellar 2+ 2+ Achilles 2+ 2+ Plantar response Down-going Down-going Jaw Jerk Normal Márquez's Absent Sensory examination: UE/Rt. UE/Lt. LE/Rt. LE/Lt. Light Touch nl nl nl nl Pin Prick nl nl nl nl Temperature nl nl nl nl Vibration w/Rydel-Seiffer tuning fork 09/13 09/13 09/13 09/13 Joint position nl nl nl nl Romberg's test: Negative Cerebellar function: Dysdiadochokinesia: Absent Scanning Speech: Absent Rftqoa-bf-Vwwtii: Intact Tremor: Absent Tandem walk: Normal Gait: Normal Heel-walking/toe-walking: Normal TESTS: EMG/NCS (05/07/08) - Right upper and lower extremities were tested. No electrophysiologica l evidence of polyneuropathy. ASSESSMENTS: 52 y.o. RHWF history of chronic back pain presents with new pain described as aching and tingling in hands, legs and feet. Neurological exam is normal. There is no carmina ctrophysiological evidence of medium or large fiber neuropathy. However, small fiber neurop athy could not be ruled out. PLANS: 1. Skin biopsy (performed today visit). 2. Will obtain blood and urine tests to screen for possible cause of neuropathy including vitamin deficiency, infection, autoimmune/connective tissue disease, diabetes/prediabetes, t hyroid dysfunction, and heavy metal toxicity. 3. Rheumatology referral for joint pain. 4. Follow up after test. 80 minutes was spent with Ken Humphrey, greater than half in counseling and coordination of care. Case has been reviewed and discussed with Dr. Álvarez who is agreeable with plan. Santos Lawler MD Fellow, Neuromuscular disease/EMG ADDENDUM: Vitamin D level - 15 L (30-80) Supplementation 50,000 iu weekly will be initiated. Script faxed to Tanya Jama ([facility]). Will notify the patient. documented in t his encounter Miscellaneous Notes Scan - Other, Faculty - 06/11/2008 3:50 PM PDT can - Other, Faculty - 06/04/2008 8:58 PM PDT Electronica lly signed by Elizabeth Collazo In at 06/04/2008 8:58 PM PDTdocumented in this encounter Plan of Treatment +--------+ + + + + | Date | Type | Specialty | Care Team | Description | +--------+ + + + + | 02/24/ | Telephone-S | Rheumatology | Ron | | | 2020 | bora | | MD [address] | | | | | | [address] | | | | | | [place], [place] | | | | | | [address] | | | | | | [phone] | | | | | | | | +--------+ + + + + + +------+--------+ + + | Name | Type | Priori | Associated Diagnoses | Order Schedule | | | | ty | | | + +------+--------+ + + | GLUCOSE KIM TEST, | Lab | Routin | Sensory | Ordered: 05/07/2008 | | 2HR(0,1,2) | | e | Disturbance Pain in | | | | | | Joint, Hand | | + +------+--------+ + + | HEAVY METALS, URINE | Lab | Routin | Sensory | Ordered: 05/07/2008 | | | | e | Disturbance Pain in | | | | | | Joint, Hand | | + +------+--------+ + + | MAGNESIUM, URINE | Lab | Routin | Sensory | Ordered: 05/07/2008 | | | | e | Disturbance | | + +------+--------+ + + documented as of this encounter Results C'4 COMPLEMENT, SERUM (05/07/2008 2:33 PM PDT) + +-------+ + + + | Component | Value | Ref Range | Performed | Pathologist | | | | | At | Signature | + +-------+ + + + | C'4 | 30.0 | 16.0 - 47.0 | | | | COMPLEMENT | | mg/dL | | | | SERUM | | | | | + +-------+ + + + + + | Specimen | + + | Blood - Blood | + + + + + | Narrative | Performed At | + + + | Reference Range Change effective | | | 03/04/08 [facility] | | | [place] [address] | | | [place] [address] | | + + + + + + + + | Performing | Address | City/State/Zipcode | Phone Number | | Organization | | | | + + + + + | [facility] | [address] | [place] [address] | | | LABORATORY | | | | + + + + + C'3 COMPLEMENT, SERUM (05/07/2008 2:33 PM PDT) + +-------+ + + + | Component | Value | Ref Range | Performed | Pathologist | | | | | At | Signature | + +-------+ + + + | C'3 | 124 | 88 - 201 mg/dL | | | | COMPLEMENT | | | | | | SERUM | | | | | + +-------+ + + + + + | Specimen | + + | Blood - Blood | + + + + + | Narrative | Performed At | + + + | Reference Range Change effective | | | 03/04/08 [facility] | | | [place] [address] | | | [place] [address] | | + + + + + + + + | Performing | Address | City/State/Zipcode | Phone Number | | Organization | | | | + + + + + | [facility] | [address] | [place] [address] | | | LABORATORY | | | | + + + + + VITAMIN D, 25-HYDROXY, SERUM (05/07/2008 2:33 PM PDT) + + + + + + | Component | Value | Ref Range | Performed | Pathologist | | | | | At | Signature | + + + + + + | VITAMIN D | 15 (L)Comment: TEST | 30 - 80 ng/mL | | | | 25 HYDROXY | INFORMATION: VITAMIN D, | | | | | | 25-HYDROXYThis assay | | | | | | accurately quantifies | | | | | | the sum of vitamin | | | | | | D3,25-hydroxy and | | | | | | vitamin D2, 25-hydroxy. | | | | | | Deficiency: Less than | | | | | | 20 ng/mL Insufficiency: | | | | | | 20-29 ng/mL Optimum | | | | | | Level: 30-80 ng/mL | | | | | | Possible Toxicity: | | | | | | Greater than 80 | | | | | | ng/mLPerformed by [facility] | | | | | | Laboratories,[address] | | | | | | [facility], [place] [address] | | | | | | [phone].[facility]. | | | | | | Moi marie, | | | | | | - Lab. Director | | | | + + + + + + + + | Specimen | + + | Blood - Blood | + + + + + + + | Performing | Address | City/State/Zipcode | Phone Number | | Organization | | | | + + + + + | [facility] | [address] | [place], [place] | | | [facility] | | [address] | | + + + + + VITAMIN B-12, SERUM (05/07/2008 2:33 PM PDT) + +-------+ + + + | Component | Value | Ref Range | Performed | Pathologist | | | | | At | Signature | + +-------+ + + + | VITAMIN | 228 | 180 - 914 pg/ml | | | | B12, SERUM | | | | | + +-------+ + + + + + | Specimen | + + | Blood - Blood | + + + + + | Narrative | Performed At | + + + | [facility] | | | [place] [address] [address] [facility] | | | [place] [address] | | + + + + + + + + | Performing | Address | City/State/Zipcode | Phone Number | | Organization | | | | + + + + + | [facility] | [address] | [place] [address] | | | LABORATORY | | | | + + + + + VITAMIN B6, PLASMA (05/07/2008 2:33 PM PDT) + + + + + + | Component | Value | Ref Range | Performed | Pathologist | | | | | At | Signature | + + + + + + | VITAMIN B6 | 6.1Comment: Performed by | 5.0 - 30.0 | | | | (LAB) | [address] | ng/mL | | | | | [address], [facility] | | | | | | [address] | | | | | | [phone].[facility]. | | | | | | Moi marie, | | | | | | - Tyesha. Director | | | | + + + + + + + + | Specimen | + + | Blood - Blood | + + + + + + + | Performing | Address | City/State/Zipcode | Phone Number | | Organization | | | | + + + + + | [facility] | [address] | [place], [place] | | | [facility] | | [address] | | + + + + + VITAMIN B1, WHOLE BLOOD (05/07/2008 2:33 PM PDT) + + + + + + | Component | Value | Ref Range | Performed | Pathologist | | | | | At | Signature | + + + + + + | VITAMIN B1, | 108.0Comment: TEST | 70.0 - 180.0 | | | | WHOLE | INFORMATION: Vitamin B1, | nmol/L | | | | BLOOD | Whole BloodThe | | | | | | concentration of | | | | | | thiamine diphosphate | | | | | | (TDP), theprimary active | | | | | | form of vitamin B1, is | | | | | | measured in thisassay. | | | | | | Approximately 90% of | | | | | | vitamin B1 present in | | | | | | wholeblood is TDP. | | | | | | Thiamine and thiamine | | | | | | monophosphate, | | | | | | whichcomprise the | | | | | | remaining 10%, are not | | | | | | measured.Performed by | | | | | | [facility],[address] | | | | | | [address], [facility] [place] | | | | | | [address] | | | | | | [phone].[employer]. | | | | | | Moi marie, | | | | | | MD Db Avila | | | | + + + + + + + + | Specimen | + + | Blood - Blood | + + + + + + + | Performing | Address | City/State/Zipcode | Phone Number | | Organization | | | | + + + + + | [facility] | [address] | [place], [place] | | | [facility] | | [address] | | + + + + + TSH (05/07/2008 2:33 PM PDT) + +-------+ + + + | Component | Value | Ref Range | Performed | Pathologist | | | | | At | Signature | + +-------+ + + + | TSH | 2.12 | 0.34 - 5.60 | | | | | | uIU/ml | | | + +-------+ + + + + + | Specimen | + + | Blood - Blood | + + + + + | Narrative | Performed At | + + + | [facility] ([facility]) | | | [facility] [address] | | | [place] [address] | | + + + + + + + + | Performing | Address | City/State/Zipcode | Phone Number | | Organization | | | | + + + + + | [facility] | [address] | [place] [address] | | | LABORATORY | | | | + + + + + SEDIMENTATION RATE (05/07/2008 2:33 PM PDT) + +-------+ + + + | Component | Value | Ref Range | Performed | Pathologist | | | | | At | Signature | + +-------+ + + + | SEDIMENTATI | 14 | <31 mm/hr | [facility] | | | ON RATE | | | DEPARTMENT | | | | | | OF | | | | | | PATHOLOGY | | + +-------+ + + + + + | Specimen | + + | Blood - Blood | + + + + + + + | Performing | Address | City/State/Zipcode | Phone Number | | Organization | | | | + + + + + | [facility]MENT [facility] | [address] | [place] [address] | | | PATHOLOGY | [address] | | | + + + + + | [facility] | [address] | [place] [address] | | | PATHOLOGY | [address] | | | + + + + + FOLATE, RBC (05/07/2008 2:33 PM PDT) + + + + + + | Component | Value | Ref Range | Performed | Pathologist | | | | | At | Signature | + + + + + + | FOLATE, RBC | See NoteComment: The | ng/mL | | | | | Folate RBC value is 1111 | | | | | | ng/mL. A female | | | | | | hematocrit of 35.2 was | | | | | | used in the | | | | | | RBCcalculation since the | | | | | | hematocrit of the | | | | | | patientwas not provided. | | | | | | Whole blood folate = | | | | | | 391 ng/ml.RBC folate = | | | | | | (whole blood folate x | | | | | | 100)/hematocrit.Performe | | | | | | d by [facility] | | | | | | Laboratories,[address] | | | | | | [place] [address] | | | | | | [phone].[facility]. | | | | | | Moi marie, | | | | | | MD Db Arambula. Director | | | | + + + + + + + + | Specimen | + + | Blood - Blood | + + + + + + + | Performing | Address | City/State/Zipcode | Phone Number | | Organization | | | | + + + + + | [facility] | [address] | [place], [place] | | | [facility] | | [address] | | + + + + + RHEUMATOID FACTOR, SERUM (05/07/2008 2:33 PM PDT) + +-------+ + + + | Component | Value | Ref Range | Performed | Pathologist | | | | | At | Signature | + +-------+ + + + | RHEUMATOID | 7 | <15 IU/mL | | | | FACTOR | | | | | + +-------+ + + + + + | Specimen | + + | Blood - Blood | + + + + + | Narrative | Performed At | + + + | Reference Range Change effective 03/04/08 | | | [facility] | | | [place] [address] [address] [facility], | | | [place] [address] | | + + + + + + + + | Performing | Address | City/State/Zipcode | Phone Number | | Organization | | | | + + + + + | [facility] | [address] [facility] | [place] [address] | | | LABORATORY | | | | + + + + + FREE T4, SERUM (05/07/2008 2:33 PM PDT) + +-------+ + + + | Component | Value | Ref Range | Performed | Pathologist | | | | | At | Signature | + +-------+ + + + | FREE T4, | 0.8 | 0.6 - 1.6 ng/dL | | | | SERUM | | | | | + +-------+ + + + + + | Specimen | + + | Blood - Blood | + + + + + | Narrative | Performed At | + + + | [facility] | | | [place] [address] [facility] | | | [place] [address] | | + + + + + + + + | Performing | Address | City/State/Zipcode | Phone Number | | Organization | | | | + + + + + | [facility] | [address] | [place] [address] | | | LABORATORY | | | | + + + + + FRANCHESCA ANTIBODIES IDENTIFICATION, SERUM (05/07/2008 2:33 PM PDT) + + + + + + | Component | Value | Ref Range | Performed | Pathologist | | | | | At | Signature | + + + + + + | WEDDING CONSULTANT AB | Negative | Negative | [facility] | | | | | | DEPARTMENT | | | | | | OF | | | | | | PATHOLOGY | | + + + + + + | SM AB | Negative | Negative | [facility] | | | | | | DEPARTMENT | | | | | | OF | | | | | | PATHOLOGY | | + + + + + + | SSA AB | Negative | Negative | [facility] | | | | | | DEPARTMENT | | | | | | OF | | | | | | PATHOLOGY | | + + + + + + | SSB AB | Negative | Negative | [facility] | | | | | | DEPARTMENT | | | | | | OF | | | | | | PATHOLOGY | | + + + + + + | SCL-70 AB | Negative | Negative | [facility] | | | | | | DEPARTMENT | | | | | | OF | | | | | | PATHOLOGY | | + + + + + + | CENTROMERE | Negative | Negative | [facility] | | | AB | | | DEPARTMENT | | | | | | OF | | | | | | PATHOLOGY | | + + + + + + | ELIZABETH-1 AB | Negative | Negative | [facility] | | | | | | DEPARTMENT | | | | | | OF | | | | | | PATHOLOGY | | + + + + + + + + | Specimen | + + | Blood - Blood | + + + + + | Narrative | Performed At | + + + | FRANCHESCA Antibody Identification | [facility] | | | DEPARTMENT OF | | | PATHOLOGY | + + + + + + + + | Performing | Address | City/State/Zipcode | Phone Number | | Organization | | | | + + + + + | [facility] | [address] | [place] [address] | | | PATHOLOGY | [address] | | | + + + + + | [facility] | [address] | [place] [address] | | | PATHOLOGY | [address] | | | + + + + + CRYOGLOBULIN SCREEN, SERUM (05/07/2008 2:33 PM PDT) + + + + + + | Component | Value | Ref Range | Performed | Pathologist | | | | | At | Signature | + + + + + + | CRYOGLOBULI | NEG 72HourComment: | ([id number]) | | | | N SCREEN, | Performed by [facility] | | | | | SERUM | [address] | | | | | | Jamal [facility] [address] | | | | | | [phone].[employer]. | | | | | | Moi marie, | | | | | | MD Db Arambula. Director | | | | + + + + + + + + | Specimen | + + | Blood - Blood | + + + + + + + | Performing | Address | City/State/Zipcode | Phone Number | | Organization | | | | + + + + + | [facility] | [address] | [place], [place] | | | [facility] | | [address] | | + + + + + CK, PLASMA (05/07/2008 2:33 PM PDT) + +-------+ + + + | Component | Value | Ref Range | Performed | Pathologist | | | | | At | Signature | + +-------+ + + + | CK | 49 | 38 - 234 U/L | [facility] | | | | | | DEPARTMENT | | | | | | OF | | | | | | PATHOLOGY | | + +-------+ + + + + + | Specimen | + + | Blood - Blood | + + + + + + + | Performing | Address | City/State/Zipcode | Phone Number | | Organization | | | | + + + + + | [facility] | [address] | [place] [address] | | | PATHOLOGY | [address] | | | + + + + + | [facility] | [address] [address] | [place] [address] | | | PATHOLOGY | [address] | | | + + + + + [facility] - COMPLETE METABOLIC SET (05/07/2008 2:33 PM PDT) + +---------+ + + + | Component | Value | Ref Range | Performed | Pathologist | | | | | At | Signature | + +---------+ + + + | GLUCOSE-[facility] | 88 | 60 - 99 mg/dL | [facility] | | | | | | DEPARTMENT | | | | | | OF | | | | | | PATHOLOGY | | + +---------+ + + + | UREA | 11 | 6 - 20 mg/dL | [facility] | | | NITROGEN-CH | | | DEPARTMENT | | | H | | | OF | | | | | | PATHOLOGY | | + +---------+ + + + | CREATININE- | 0.8 | 0.6 - 1.1 mg/dL | [facility] | | | [facility] | | | DEPARTMENT | | | | | | OF | | | | | | PATHOLOGY | | + +---------+ + + + | PROTEIN, | 7.2 | 6.3 - 8.0 g/dL | [facility] | | | TOTAL-[facility] | | | DEPARTMENT | | | | | | OF | | | | | | PATHOLOGY | | + +---------+ + + + | ALBUMIN-[facility] | 3.2 (L) | 3.4 - 4.4 g/dL | [facility] | | | | | | DEPARTMENT | | | | | | OF | | | | | | PATHOLOGY | | + +---------+ + + + | CALCIUM-[facility] | 8.8 | 8.8 - 10.9 | [facility] | | | | | mg/dL | DEPARTMENT | | | | | | OF | | | | | | PATHOLOGY | | + +---------+ + + + | BILIRUBIN, | 0.6 | 0.3 - 1.2 mg/dL | [facility] | | | TOTAL-[facility] | | | DEPARTMENT | | | | | | OF | | | | | | PATHOLOGY | | + +---------+ + + + | ALK | 77 | 42 - 98 U/L | [facility] | | | PHOS-[facility] | | | DEPARTMENT | | | | | | OF | | | | | | PATHOLOGY | | + +---------+ + + + | AST-[facility] | 43 (H) | 15 - 41 U/L | [facility] | | | | | | DEPARTMENT | | | | | | OF | | | | | | PATHOLOGY | | + +---------+ + + + | SODIUM-[facility] | 136 | 133 - 141 | [facility] | | | | | mmol/L | DEPARTMENT | | | | | | OF | | | | | | PATHOLOGY | | + +---------+ + + + | POTASSIUM-C | 4.0 | 3.6 - 5.0 | [facility] | | | HH | | mmol/L | DEPARTMENT | | | | | | OF | | | | | | PATHOLOGY | | + +---------+ + + + | CHLORIDE-CH | 102 | 97 - 104 mmol/L | [facility] | | | H | | | DEPARTMENT | | | | | | OF | | | | | | PATHOLOGY | | + +---------+ + + + | CO2 | 30 | 24 - 30 mmol/L | [facility] | | | TOTAL-[facility] | | | DEPARTMENT | | | | | | OF | | | | | | PATHOLOGY | | + +---------+ + + + | ALT-[facility] | 39 | 13 - 48 U/L | [facility] | | | | | | DEPARTMENT | | | | | | OF | | | | | | PATHOLOGY | | + +---------+ + + + + + | Specimen | + + | Blood | + + + + + + + | Performing | Address | City/State/Zipcode | Phone Number | | Organization | | | | + + + + + | [facility]MENT [facility] | [address] | [place] [address] | | | PATHOLOGY | [address] | | | + + + + + | [facility] | [address] | [place] [address] | | | PATHOLOGY | [address] | | | + + + + + C-REACTIVE PROTEIN, SERUM (05/07/2008 2:33 PM PDT) + +-------+ + + + | Component | Value | Ref Range | Performed | Pathologist | | | | | At | Signature | + +-------+ + + + | C-REACTIVE | < 0.5 | <0.6 mg/dl | | | | PROTEIN | | | | | + +-------+ + + + + + | Specimen | + + | Blood - Blood | + + + + + | Narrative | Performed At | + + + | Reference Range Change effective 03/04/08 | | | [email or web address] [facility]) [place] | | | [place] [address] | | | [place] [address] | | + + + + + + + + | Performing | Address | City/State/Zipcode | Phone Number | | Organization | | | | + + + + + | [facility] | [address] | [place] [address] | | | LABORATORY | | | | + + + + + [facility] - CBC AUTODIFF (05/07/2008 2:33 PM PDT) + + + + + + | Component | Value | Ref Range | Performed | Pathologist | | | | | At | Signature | + + + + + + | WHITE CELL | 7.0 | 3.4 - 10.0 K/cu | [facility] | | | COUNT - [facility] | | mm | DEPARTMENT | | | | | | OF | | | | | | PATHOLOGY | | + + + + + + | RED CELL | 4.60 | 3.80 - 5.20 | [facility] | | | COUNT - [facility] | | M/cu mm | DEPARTMENT | | | | | | OF | | | | | | PATHOLOGY | | + + + + + + | HEMOGLOBIN, | 12.8 | 12.2 - 15.0 | [facility] | | | BLOOD - | | g/dL | DEPARTMENT | | | [facility] | | | OF | | | | | | PATHOLOGY | | + + + + + + | HEMATOCRIT | 37.9 | 37.0 - 46.5 % | [facility] | | | - [facility] | | | DEPARTMENT | | | | | | OF | | | | | | PATHOLOGY | | + + + + + + | MCV - [facility] | 82.4 (L) | 85.0 - 95.0 fL | [facility] | | | | | | DEPARTMENT | | | | | | OF | | | | | | PATHOLOGY | | + + + + + + | MCH - [facility] | 27.8 (L) | 29.0 - 32.0 pg | [facility] | | | | | | DEPARTMENT | | | | | | OF | | | | | | PATHOLOGY | | + + + + + + | MCHC - [facility] | 33.8 | 32.6 - 33.9 | [facility] | | | | | g/dL | DEPARTMENT | | | | | | OF | | | | | | PATHOLOGY | | + + + + + + | RDW-[facility] | 14.7 | 11.5 - 15.0 % | [facility] | | | | | | DEPARTMENT | | | | | | OF | | | | | | PATHOLOGY | | + + + + + + | PLATELET | 319 | 150 - 420 K/cu | [facility] | | | COUNT, | | mm | DEPARTMENT | | | BLOOD - [facility] | | | OF | | | | | | PATHOLOGY | | + + + + + + | MPV-[facility] | 9.4 | 7.4 - 10.4 fL | [facility] | | | | | | DEPARTMENT | | | | | | OF | | | | | | PATHOLOGY | | + + + + + + | NEUTROPHIL | 56 | 48 - 65 % | [facility] | | | (%) - [facility] | | | DEPARTMENT | | | | | | OF | | | | | | PATHOLOGY | | + + + + + + | LYMPHOCYTE | 39 | 26 - 41 % | [facility] | | | (%) - [facility] | | | DEPARTMENT | | | | | | OF | | | | | | PATHOLOGY | | + + + + + + | MID-RANGE | 5 (L) | 7 - 15 % | [facility] | | | (%) - [facility] | | | DEPARTMENT | | | | | | OF | | | | | | PATHOLOGY | | + + + + + + | NEUTROPHIL | 3.9 | 2.2 - 5.2 K/cu | [facility] | | | ABSOLUTE - | | mm | DEPARTMENT | | | [facility] | | | OF | | | | | | PATHOLOGY | | + + + + + + | LYMPHOCYTE | 2.7 (H) | 1.6 - 2.6 K/cu | [facility] | | | ABSOLUTE - | | mm | DEPARTMENT | | | [facility] | | | OF | | | | | | PATHOLOGY | | + + + + + + | MID-RANGE | 0.4 | <2.1 K/cu mm | [facility] | | | ABSOLUTE - | | | DEPARTMENT | | | [facility] | | | OF | | | | | | PATHOLOGY | | + + + + + + + + | Specimen | + + | Blood | + + + + + + + | Performing | Address | City/State/Zipcode | Phone Number | | Organization | | | | + + + + + | [facility] | [address] | [place] [address] | | | PATHOLOGY | [address] | | | + + + + + | [facility] | [address] | [place] [address] | | | PATHOLOGY | [address] | | | + + + + + ANTI NEUTROPHIL CYTOPLASMIC AB SCN, SERUM (05/07/2008 2:33 PM PDT) + + + + + + | Component | Value | Ref Range | Performed | Pathologist | | | | | At | Signature | + + + + + + | ANCA | <1:20Comment: The ANCA | <1:20 | | | | -NEUTROPHIL | IFA is <1:20; therefore, | | | | | | the MPO and PR3 has not | | | | | CYTOPLASMIC | beenperformed.TEST | | | | | IGG, SERUM | INFORMATION: | | | | | | Anti-Neutrophil Cyto Ab, | | | | | | IgGNeutrophil | | | | | | Cytoplasmic Antibodies | | | | | | (C-ANCA = | | | | | | granularcytoplasmic | | | | | | staining, P-ANCA = | | | | | | perinuclear staining) | | | | | | arefound in the serum of | | | | | | over 90% of patients | | | | | | with certainnecrotizing | | | | | | systemic vasculitides, | | | | | | and usually in lessthan | | | | | | 5% of patients with | | | | | | collagen vascular | | | | | | disease orarthritis. | | | | | | | | | | | | ANCA'S IN VASCULITIC | | | | | | SYNDROMES | | | | | | | | | | | | Approx % | | | | | | Approx % of | | | | | | | | | | | | Pos ANCA patients | | | | | | | | | | | | demonstrating | | | | | | | | | | | | | | | | | | | | | | | | (combined patterns) C | | | | | | Pattern P | | | | | | PatternWegener's | | | | | | granulomatosis:-Active | | | | | | Generalized 85 - 92 | | | | | | 85 - 90 | | | | | | 2 - 5-Limited forms | | | | | | 60 - 67 | | | | | | 85 - 90 2 | | | | | | - 5-Inactive | | | | | | 30 - 35 | | | | | | 85 - 90 2 | | | | | | - 5Idiopathic | | | | | | CrescenticGlomerulonephr | | | | | | itis 80 | | | | | | some* | | | | | | majority*Polyarteritis | | | | | | Nodosa 50 | | | | | | 86 | | | | | | 14Churg - Wale | | | | | | 50 | | | | | | 80 | | | | | | 20SLE | | | | | | less than 10 | | | | | | 0 greater than | | | | | | 90Rheumatoid Arthritis | | | | | | less than 5 0 | | | | | | greater than | | | | | | 90Sjogren's Syndrome | | | | | | 25 | | | | | | 0 greater than | | | | | | 90 | | | | | | | | | | | | *No | | | | | | quantitation in the | | | | | | literature. | | | | + + + + + + | MYELOPEROXI | TNP | AU/mL | | | | DASE ABS | | | | | + + + + + + | SERINE | TNPComment: Performed by | AU/mL | | | | PROTEASE 3 | [address] | | | | | | [address], [place], [place] | | | | | | [address] | | | | | | [phone].[employer]. | | | | | | Moi marie, | | | | | | - Tyesha. Director | | | | + + + + + + + + | Specimen | + + | Blood - Blood | + + + + + + + | Performing | Address | City/State/Zipcode | Phone Number | | Organization | | | | + + + + + | [facility] | [address] | [place], [place] | | | [facility] | | [address] | | + + + + + ANTI NUCLEAR AB SCREEN, SERUM (05/07/2008 2:33 PM PDT) + + + + + + | Component | Value | Ref Range | Performed | Pathologist | | | | | At | Signature | + + + + + + | EDDIE SCREEN | Negative | Negative | | | | ON HEP | | | | | | 2,SERUM | | | | | + + + + + + + + | Specimen | + + | Blood - Blood | + + + + + | Narrative | Performed At | + + + | New performing lab for Anti DNA Antibody and Anti | | | NDNA Ab Titer effective 04/15/08. [facility] [address] | | | Lab) [facility] [place] [address] | | | [place] [address] | | + + + + + + + + | Performing | Address | City/State/Zipcode | Phone Number | | Organization | | | | + + + + + | [facility] | [address] | [place] [address] | | | LABORATORY | | | | + + + + + ALDOLASE, SERUM (05/07/2008 2:33 PM PDT) + + + + + + | Component | Value | Ref Range | Performed | Pathologist | | | | | At | Signature | + + + + + + | ALDOLASE | 7.2Comment: Performed by | 1.5 - 8.1 U/L | | | | SERUM | [address] | | | | | | [address], [facility] [place] | | | | | | [address] | | | | | | [phone].[employer]. | | | | | | [facility] hospitalMoi, | | | | | | MD Db Arambula. Director | | | | + + + + + + + + | Specimen | + + | Blood - Blood | + + + + + + + | Performing | Address | City/State/Zipcode | Phone Number | | Organization | | | | + + + + + | [facility] | [address] | [place], [place] | | | [facility] | | [address] | | + + + + + VITAMIN E, SERUM (05/07/2008 2:17 PM PDT) + + + + + + | Component | Value | Ref Range | Performed | Pathologist | | | | | At | Signature | + + + + + + | VITAMIN E | 14.9 | 5.5 - 18.0 mg/L | | | | (ALPHA | | | | | | YANDEL), SERUM | | | | | + + + + + + | VITAMIN E | 4.7Comment: Performed by | <6.1 mg/L | | | | (BERNA YANDEL) | [address] | | | | | SERUM | [place], [place] | | | | | | [address] | | | | | | [phone].[employer]. | | | | | | Moi marie, | | | | | | MD Db Judd Director | | | | + + + + + + + + | Specimen | + + | Blood - Blood | + + + + + + + | Performing | Address | City/State/Zipcode | Phone Number | | Organization | | | | + + + + + | [facility] | [address] | [place], [place] | | | [facility] | | [address] | | + + + + + documented in this encounter Visit Diagnoses + + | Diagnosis | + + | Sensory disturbance Disturbance of skin sensation | + + | Pain in joint, hand | + + | Vitamin d deficiency Unspecified vitamin D deficiency | + + documented in this encounter"
--- OUTSIDE RECORDS SUMMARY | ~2019-10-28 | XMS | Encounter Summary ---
Demographics + + + | Address | [address] | | | [place] [address] | + + + | Home Phone | | + + + | Preferred Language | Unknown | + + + | Marital Status | Single | + + + | Congregation Affiliation | UNK | + + + | Race | or | + + + | Ethnic Group | Not or | + + + Author + + + | Organization | Unknown | + + + | Address | Unknown | + + + | Phone | Unavailable | + + + Support + + +---------+ + | Name | Relationship | Address | Phone | + + +---------+ + | Alysa Yin | ECON | Unknown | | + + +---------+ + Care Team Providers + +------+ + | Care Wreath Maker Name | Role | Phone | + +------+ + | Jonnathan Sary Mary LEBLANC | PCP | | + +------+ + Encounter Details +--------+--------+ + + + | Date | Type | Department | Care Team | Description | +--------+--------+ + + + | 10/23/ | Travel | | | | | 2020 | | | | | +--------+--------+ + + + Social History + + [...] 2020 | bora | | MD Hermelindo [address] | | | | | | [address] | | | | | | [place], [place] | | | | | | [address] | | | | | | [phone] | | | | | | | | +--------+ + + + + documented as of this encounter Visit Diagnoses Not on filedocumented in this encounter"
--- OUTSIDE RECORDS SUMMARY | ~2019-10-28 | XMS | Encounter Summary ---
Demographics + + + | Address | [address] | | | [place] [address] | + + + | Home Phone | | + + + | Preferred Language | Unknown | + + + | Marital Status | Single | + + + | Nondenominational Affiliation | Unknown | + + + | Race | White | + + + | Ethnic Group | Not or | + + + Author + + + | Author | [facility] | | | and [place] | + + + | Organization | [facility] | | | and [place] | + + + | Address | Unknown | + + + | Phone | Unavailable | + + + Support + + + + + | Name | Relationship | Address | Phone | + + + + + | Maria Luisa Minaya | ECON | [place] | | | | | [address] | | + + + + + Care Team Providers + +------+ + | Care Cafe Associate Name | Role | Phone | + +------+ + | Unknown, Doctor | PCP | | + +------+ + Reason for Visit + + + | Reason | Comments | + + + | Back Pain | | + + + Encounter Details +--------+ + + + + | Date | Type | Department | Care Team | Description | +--------+ + + + + | 03/18/ | Emergency | [facility] | Hermelindo Waldron, | Right flank pain | | 2018 | | [facility] | MD [address] | (Primary Dx) | | | | CENTER [address] | [place], [place] | | | | | [place], [place] | [address] | | | | | [address] | | | | | | [phone] | | | +--------+ + + + + Social History + +-------+ +--------+------+ | Tobacco Use | Types | Packs/Day | Years | Date | | | | | Used | | + +-------+ +--------+------+ | Never Smoker | | | | | + +-------+ +--------+------+ + +---+---+---+ | Smokeless Tobacco: | | [...] + + + | Blood Pressure | 115/95 | 03/18/2017 7:45 PM | | | | | PST | | + + + + + | Pulse | 74 | 03/18/2017 7:45 PM | | | | | PST | | + + + + + | Temperature | 35.6 C (96 F) | 03/18/2017 5:04 PM | | | | | PST | | + + + + + | Respiratory Rate | 16 | 03/18/2017 5:04 PM | | | | | PST | | + + + + + | Oxygen Saturation | 95% | 03/18/2017 7:45 PM | | | | | PST | | + + + + + | Inhaled Oxygen | - | - | | | Concentration | | | | + + + + + | Weight | 72.6 kg (160 lb) | 03/18/2017 5:04 PM | | | | | PST | | + + + + + | Height | 154.9 cm (5' 1") | 03/18/2017 5:04 PM | | | | | PST | | + + + + + | Body Mass Index | 30.23 | 03/18/2017 5:04 PM | | | | | PST | | + + + + + documented in this encounter Discharge Instructions AttachmentsThe following attachments cannot be sent through Care Everywhere.Abdominal Pain, Adult (Surinamese)documented in this encounter Medications at Time of Discharge + + + +---------+ + + | Medication | Sig | Dispensed | Refills | Start | End Date | | | | | | Date | | + + + +---------+ + + | omeprazole | Take 40 mg by mouth | | 0 | 11/05/19 | | | (PRILOSEC) 40 MG | 2 times daily. | | | 17 | | | capsule | | | | | | + + + +---------+ + + | ondansetron | | | 0 | 11/05/19 | | | (ZOFRAN) 4 mg tablet | | | | 17 | | + + + +---------+ + + | citalopram | Take 40 mg by mouth | | 0 | 10/04/19 | | | (CELEXA) 40 mg | Daily. | | | 17 | 9 | | tablet | | | | | | + + + +---------+ + + | cyanocobalamin | | | 0 | 11/16/19 | | | (VITAMIN B-12) 1,000 | | | | 17 | 9 | | mcg/mL injection | | | | | | + + + +---------+ + + | diclofenac | | | 0 | 10/28/19 | | | (VOLTAREN) 1% GEL | | | | 17 | 0 | + + + +---------+ + + | ergocalciferol | Take by mouth. | | 0 | 05/25/19 | | | (VITAMIN D-2) 50,000 | | | | 09 | 0 | | units capsule | | | | | | + + + +---------+ + + | | Take 1 tablet by | 30 | 0 | 03/18/19 | | | oxyCODONE-acetaminop | mouth every 6 hours | tablet | | 18 | 9 | | hen (PERCOCET) 5-325 | as needed. | | | | | | mg per tablet | | | | | | + + + +---------+ + + | promethazine | Take 1 Tab by mouth | | 0 | 05/08/19 | | | (PHENERGAN) 25 mg | four times daily as | | | 09 | 9 | | tablet | needed for | | | | | | | nausea/vomiting. | | | | | + + + +---------+ + + | promethazine | Take 1 tablet by | 56 | 0 | 03/18/19 | | | (PHENERGAN) 25 mg | mouth every 4 hours | tablet | | 18 | 9 | | tablet | as needed. | | | | | + + + +---------+ + + | tiZANidine | | | 0 | 08/25/19 | | | (ZANAFLEX) 4 mg | | | | 17 | 9 | | tablet | | | | | | + + + +---------+ + + documented as of this encounter ED Notes Hermelindo Waldron MD - 03/18/2017 5:14 PM PSTFormatting of this note might be different fr om the original. [facility] Rachel Yin Emergency Department Encounter Note [address] [place] [address] PCP:Doctor Unknown ED11 CHIEF COMPLAINT: Chief Complaint Patient presents with Back Pain HPI Rachel Yin is a 61 y.o. female who presents to the Emergency Department with right fla nk pain that has been going on for the last 2 days. It comes in waves and is severe. It is associated with nausea and she feels sick to her stomach and the pain radiates around the f lank into her back. No fevers. No pain urinating or blood in the urine or other symptoms. Mild pain in the chest from the flank hurting her. PAST MEDICAL & SURGICAL HISTORY History reviewed. No pertinent past medical history. History reviewed. No pertinent surgical history. CURRENT MEDICATIONS Previous Medications No medications on file ALLERGIES Allergies Allergen Reactions Codeine Rash FAMILY AND SOCIAL HISTORY History reviewed. No pertinent family history. Social History Social History Marital status: Single Spouse name: N/A Number of children: N/A Years of education: N/A Social History Main Topics Smoking status: Never Smoker Smokeless tobacco: Never Used Alcohol use No Drug use: No Sexual activity: Not Asked Other Topics Concern None Social History Narrative None REVIEW OF SYSTEMS Review of Systems Constitutional: Negative for chills, fever and weight loss. HENT: Negative for ear pain, hearing loss and tinnitus. Respiratory: Negative for cough and hemoptysis. Gastrointestinal: Positive for abdominal pain and nausea. Genitourinary: Positive for flank pain. Negative for dysuria, hematuria and urgency. As in history of present illness. A 10 system review was otherwise negative. PHYSICAL EXAM VITAL SIGNS: (first vital signs):Temp: 35.6 C (96 F) Pulse: 88 Resp: 16 SpO2: 99 % BP: 132/80 Body mass index is 30.23 kg/m. Constitutional: female patient, pleasant, alert and appropriate, conversant with nurse and staff. HEENT: Atraumatic, patient follows me around the room with their eyes, PERRL, Oropharynx s hows no redness, moist mucus membranes. Neck: Supple with full range of motion. No JVD, lymphadenopathy, or meningismus. Respiratory: Good air movement bilaterally. No wheezes, no rales. Patient's work of DataRank is normal. Cardiovascular: Normal S1 S2. No rubs or murmurs Abdomen: Soft, nontender. No rebound, guarding, or masses. Bowel tones normal. No puls atile masses Back: No CVA tenderness. No midline thoracic or lumbar spinal tenderness. Extremities: Nontender. No edema, no calf asymmetry. Present distal pulses. Skin: Warm, Dry, No obvious rashes. Capillary refill is brisk <3 seconds and shows good p erfusion on areas of visible skin. Neurologic: Alert & oriented. Cranial nerves II-XII intact. No focal deficits. Gait is n ormal. Speech is normal. Psychiatric: Normal mood, affect and judgement. No evidence of suicidal or homicidal mihir ation at this time. LABS Results for orders placed or performed during the hospital encounter of 03/18/17 CBC with Differential Result Value Ref Range WBC 5.9 4.0 - 11.0 K/uL RBC 4.57 3.70 - 5.20 M/uL Hgb 12.7 11.5 - 16.0 g/dL Hct 39.2 34.0 - 47.0 % MCV 85.7 83.0 - 101.0 fL MCH 27.9 (L) 28.0 - 35.0 pg MCHC 32.5 32.0 - 36.0 g/dL RDW-CV 14.2 <15.0 % Platelet Count 273 140 - 440 K/uL MPV 8.4 fL % Neutrophils 42.4 (L) 45.0 - 82.0 % % Lymphocytes 48.7 (H) 20.0 - 45.0 % % Monocytes 5.3 4.0 - 12.0 % % Eosinophils 2.7 0.0 - 5.0 % % Basophils 0.9 0.0 - 1.0 % Absolute Neutrophils 2.50 1.80 - 8.50 K/uL Absolute Lymphocytes 2.90 0.60 - 3.20 K/uL Absolute Monocytes 0.30 0.00 - 1.00 K/uL Absolute Eosinophils 0.20 0.00 - 0.40 K/uL Absolute Basophils 0.10 0.00 - 0.10 K/uL Comprehensive Metabolic Panel Result Value Ref Range NA 138 136 - 149 mmol/L K 3.7 3.5 - 5.1 mmol/L CL 108 98 - 109 mmol/L CO2 29 24 - 31 mmol/L ANION GAP 1 (L) 3 - 16 mmol/L GLUCOSE 106 70 - 109 mg/dL BUN 10 7 - 18 mg/dL Creatinine, Serum/Plasma 0.89 0.60 - 1.30 mg/dL eGFR if not >60 >=60 mL/min/1.73m2 CALCIUM 8.4 8.3 - 10.5 mg/dL ALBUMIN 3.6 3.2 - 5.0 g/dL BILIRUBIN TOTAL 0.4 0.1 - 1.5 mg/dL Total protein 6.4 6.0 - 7.8 g/dL AST 20 10 - 42 U/L ALT 17 6 - 45 U/L ALK PHOS 64 40 - 110 U/L GLOBULIN 2.8 2.1 - 3.8 g/dL Albumin/Globulin ratio 1.3 0.8 - 2.0 BUN/CREA 11.2 Lipase Result Value Ref Range LIPASE 25 0 - 60 U/L IMAGING STUDIES Recent imaging: No results found for this or any previous visit (from the past 360 hour(s)). ED COURSE & MEDICAL DECISION MAKING Pertinent Labs & Imaging studies were reviewed along with EMS notes and detention record s if applicable. Medication and Allergy lists reviewed in [facility]. Nurses note and old record s were reviewed if available within [facility] ER course 17:14 - Patient care initiated. After introducing myself to the patient, I performed a car eful history and physical examination. Patient with right flank pain. I am concerned that she could have a ureteral stone. Howev er, her examination is fairly benign. We will provide some IV fluids, IV pain relief, and t hen reevaluate her after her CT scan is back. 19:45. CT scan is normal. There is no signs of ureteral stone. Otherwise, her labs are a ll normal. I think this is her chronic musculoskeletal back pain and recommended symptomati c outpatient management at this time. Last Set of Vital Signs: Temp: 35.6 C (96 F) Pulse: 86 Resp: 16 SpO2: 99 % BP: 145/86 FINAL IMPRESSION 1. Right flank pain Disposition: Discharge home Condition: Stable Follow-up Information [facility]. Specialty: Emergency Medicine Contact information: [address] [place] [address] New Prescriptions OXYCODONE-ACETAMINOPHEN (PERCOCET) 5-325 MG PER TABLET Take 1 tablet by mouth every 6 h ours as needed. PROMETHAZINE (PHENERGAN) 25 MG TABLET Take 1 tablet by mouth every 4 hours as needed. Discontinued Medications No medications on file Discharge References/Attachments Abdominal Pain, Adult (Surinamese) Administrations This Visit HYDROmorphone (DILAUDID) injection 1 mg Admin Date 03/18/2017 Action Given Dose 1 mg Route Intravenous Administered By Francia Young RN ketorolac (TORADOL) injection 30 mg Admin Date 03/18/2017 Action Given Dose 30 mg Route Intravenous Administered By Francia Young RN ondansetron (ZOFRAN) injection 8 mg Admin Date 03/18/2017 Action Given Dose 8 mg Route Intravenous Administered By Francia Young RN sodium chloride 0.9% (NS) bolus 1,000 mL Admin Date 03/18/2017 Action New Bag Dose 1000 mL Rate 4,000 mL/hr Route Intravenous Administered By Francia Young RN Portions of this chart may have been created with Fantex voice recognition software. Occasi onal wrong-word or sound-alike substitutions may have occurred due to the inherent cox itations of voice recognition software. Please read the chart carefully and recognize, using context, where these substitutions have occurred. Hermelindo Waldron MD 03/18/17 1949 Yadira Pérez RN - 03/18/2017 5:03 PM PSTPatient reports low back pain that started a couple of days ago, w as seen at [facility] yesterday, was given a muscle relaxer, robaxin. Today patient has had an increase in pain and the muscle relaxers are not working for her Patient reports that p ain goes into her L buttock and around to the lower abdomin at times. documented in this encounter Plan of Treatment + +------+--------+ + + | Name | Type | Priori | Associated Diagnoses | Date/Time | | | | ty | | | + +------+--------+ + + | ED INFORMATION | TRE | Routin | | 03/18/2017 4:43 PM | | EXCHANGE | | e | | PST | + +------+--------+ + + documented as of this encounter Procedures + +--------+ + + + | Procedure Name | Priori | Date/Time | Associated Diagnosis | Comments | | | ty | | | | + +--------+ + + + | EXTRA LAVENDER TOP | Routin | 03/18/2017 | | Results for this | | TUBE | e | 7:02 PM | | procedure are in the | | | | PST | | results section. | + +--------+ + + + | EXTRA GREEN TOP TUBE | Routin | 03/18/2017 | | Results for this | | | e | 7:02 PM | | procedure are in the | | | | PST | | results section. | + +--------+ + + + | EXTRA BLUE TOP TUBE | Routin | 03/18/2017 | | Results for this | | | e | 7:02 PM | | procedure are in the | | | | PST | | results section. | + +--------+ + + + | CBC WITH | STAT | 03/18/2017 | | Results for this | | DIFFERENTIAL | | 7:02 PM | | procedure are in the | | | | PST | | results section. | + +--------+ + + + | LIPASE | STAT | 03/18/2017 | | Results for this | | | | 7:02 PM | | procedure are in the | | | | PST | | results section. | + +--------+ + + + | COMPREHENSIVE | STAT | 03/18/2017 | | Results for this | | METABOLIC PANEL | | 7:02 PM | | procedure are in the | | | | PST | | results section. | + +--------+ + + + | CT RENAL STONE WO | STAT | 03/18/2017 | | Results for this | | CONTRAST | | 5:52 PM | | procedure are in the | | | | PST | | results section. | + +--------+ + + + | ED INFORMATION | Routin | 03/18/2017 | | | | EXCHANGE | e | 4:43 PM | | | | | | PST | | | + +--------+ + + + +---+--------+ | | | | | Proced | | | ure | | | Note - | | | Chuy, | | | Lab In | | | | | | Hlseve | | | n - | | | | | | 2017 | | | 4:44 | | | PM PST | | | | | | Format | | | ting | | | of | | | this | | | note | | | might | | | be | | | differ | | | ent | | | from | | | the | | | origin | | | al.CHUY | | | E?NOTI | | | FICATI | | | ON?02/ | | | | | | 8 | | | 16:41? | | | BRONSO | | | N, | | | RACHEL | | | L?MRN: | | | | | | [id number] | | | [id number] | | | his | | | patien | | | t has | | | regist | | | ered | | | at the | | | | | | Provid | | | ence | | | [facility] | [facility] | | | [facility] | | | | | | Emerge | | | ncy | | | Depart | | | ment | | | For | | | more | | | inform | | | ation | | | visit: | | | | | | https: | | | //secu | | | [email or web address] | | | ecarep | | | [email or web address] | | | m/alba | | | ent/d5 | | | [id number] | | | -[id number] | | | [id number] | | | [id number] | | | [id number] | | | [id number] | | | ED | | | Care | | | Guidel | | | inesTh | | | ere | | | are | | | curren | | | tly no | | | ED | | | Care | | | Guidel | | | martinez | | | in | | | TRE | | | for | | | this | | | patien | | | t. | | | Please | | | check | | | your | | | facili | | | ty's | | | medica | | | l | | | record | | | s | | | system | | | .Recen | | | t | | | Emerge | | | ncy | | | Depart | | | ment | | | Visit | | | Summar | | | yAdmit | | | Date | | | Facili | | | ty | | | City | | | State | | | Type | | | Major | | | Type | | | Diagno | | | ses or | | | Chief | | | | | | Compla | | | int | | | Feb | | | 10, | | | 2018 | | | Provid | | | ence | | | [facility] | | [place] | | | [place] | | | Emerge | | | ncy | | | Emerge | | | ncy | | | back | | | pain | | | E.D. | | | Visit | | | Count | | | (12 | | | mo.)Fa | | | cility | | | | | | Visits | | | Low | | | Acuity | | | | | | Provid | | | ence | | | [facility] | | | [facility] | | | Medica | | | l | | | Center | | | 1 0 | | | Total | | | 1 0 | | | Note: | | | Visits | | | | | | indica | | | te | | | total | | | known | | | visits | | | . | | | Medica | | | id Low | | | | | | Acuity | | | Dx | | | are | | | the | | | number | | | of | | | primar | | | y | | | diagno | | | ses on | | | the | | | Medica | | | id's | | | Low | | | Acuity | | | dx | | | list. | | | | | | Recent | | | | | | Inpati | | | ent | | | Visit | | | Summar | | | yNo | | | record | | | ed | | | inpati | | | ent | | | visits | | | . PDMP | | | | | | Report | | | Rx | | | Detail | | | s (6 | | | Mo.)Fi | | | ll | | | Date | | | Drug | | | Descri | | | ption | | | Qty. | | | Prescr | | | iber | | | CS MED | | | | | | 2017 | | | 1-03 | | | HYDROC | | | ODONE- | | | ACETAM | | | IN | | | 5-325 | | | MG 30 | | | SARAH | | | ADRIANE | | | 2 | | | 18.75 | | | 2017 | | | 0-24 | | | OXYCOD | | | ONE-AC | | | ETAMIN | | | OPHEN | | | 5-325 | | | 30 | | | SARAH | | | ADRIANE | | | 2 | | | 56.25 | | | Rx | | | Summar | | | y (12 | | | Mo.)Me | | | tric | | | Count | | | CS | | | II-V | | | Rx 2 | | | CS-II | | | Rx 2 | | | Quanti | | | ty | | | Dispen | | | sed 60 | | | | | | Unique | | | | | | Prescr | | | ibers | | | 1 | | | Unique | | | | | | Pharma | | | cies 1 | | | | | | Benzos | | | 0 | | | Opioid | | | s 2 | | | Long | | | Acting | | | | | | Opioid | | | s 0 | | | Care | | | Provid | | | ersEDI | | | E has | | | no | | | care | | | provid | | | ers on | | | | | | record | | | at | | | this | | | time. | | | Criter | | | ia met | | | | | | PDMPKn | | | own | | | Aliase | | | sNo | | | known | | | aliase | | | s. The | | | above | | | | | | inform | | | ation | | | is | | | provid | | | ed for | | | the | | | sole | | | purpos | | | e of | | | patien | | | t | | | treatm | | | ent. | | | Use of | | | this | | | inform | | | ation | | | beyond | | | the | | | terms | | | of | | | Data | | | Sharin | | | g | | | Memora | | | ndum | | | of | | | Unders | | | tandin | | | g and | | | Licens | | | e | | | Agreem | | | ent is | | | | | | prohib | | | ited. | | | In | | | certai | | | n | | | cases | | | not | | | all | | | visits | | | may | | | be | | | repres | | | ented. | | | | | | Consul | | | t the | | | aforem | | | ention | | | ed | | | facili | | | ties | | | for | | | additi | | | onal | | | inform | | | ation. | | | ? | | | 2018 | | | Collec | | | tive | | | Medica | | | l | | | [employer] | | | logies | | | , [employer] | | | - | | | [place] | | | [place] | | | [place], | | | [place] - | | | [email or web address] | | | ollect | | | ivemed | | | icalte | | | [email or web address] | | | | +---+--------+ documented in this encounter Results Extra Green Top Tube (03/18/2017 7:02 PM PST) + +-------+ + + + | Component | Value | Ref Range | Performed | Pathologist | | | | | At | Signature | + +-------+ + + + | Extra Green | Done | | [facility] | | | Top Tube | | | [facility] | | | | | | MEDICAL | | | | | | CENTER - | | | | | | LABORATORY | | + +-------+ + + + + + | Specimen | + + | Blood | + + + + + + + | Performing | Address | City/State/Zipcode | Phone Number | | Organization | | | | + + + + + | [facility] | [address] | [place] | [phone] | | [facility] | | [address] | | | - LABORATORY | | | | + + + + + Extra Blue Top Tube (03/18/2017 7:02 PM PST) + +-------+ + + + | Component | Value | Ref Range | Performed | Pathologist | | | | | At | Signature | + +-------+ + + + | Extra Blue | Done | | [facility] | | | Top Tube | | | [facility] | | | | | | MEDICAL | | | | | | CENTER - | | | | | | LABORATORY | | + +-------+ + + + + + | Specimen | + + | Blood | + + + + + + + | Performing | Address | City/State/Zipcode | Phone Number | | Organization | | | | + + + + + | [facility] | [address] | [place] | [phone] | | [facility] | | [address] | | | - LABORATORY | | | | + + + + + Extra Lavender Top Tube (03/18/2017 7:02 PM PST) + +-------+ + + + | Component | Value | Ref Range | Performed | Pathologist | | | | | At | Signature | + +-------+ + + + | Extra | Done | | [facility] | | | Lavender | | | [facility] | | | Top Tube | | | MEDICAL | | | | | | CENTER - | | | | | | LABORATORY | | + +-------+ + + + + + | Specimen | + + | Blood | + + + + + + + | Performing | Address | City/State/Zipcode | Phone Number | | Organization | | | | + + + + + | [facility] | [address] | [place], [place] | [phone] | | [facility] | | [address] | | | - LABORATORY | | | | + + + + + Lipase (03/18/2017 7:02 PM PST) + +-------+ + + + | Component | Value | Ref Range | Performed | Pathologist | | | | | At | Signature | + +-------+ + + + | Lipase | 25 | 0 - 60 U/L | [facility] | | | | | | [facility] | | | | | | MEDICAL | | | | | | CENTER - | | | | | | LABORATORY | | + +-------+ + + + + + | Specimen | + + | Blood | + + + + + + + | Performing | Address | City/State/Zipcode | Phone Number | | Organization | | | | + + + + + | [facility] | [address] | [place] | [phone] | | [facility] | | [address] | | | - LABORATORY | | | | + + + + + Comprehensive Metabolic Panel (03/18/2017 7:02 PM PST) + + + + + + | Component | Value | Ref Range | Performed | Pathologist | | | | | At | Signature | + + + + + + | Na | 138 | 136 - 149 | [facility] | | | | | mmol/L | [facility] | | | | | | MEDICAL | | | | | | CENTER - | | | | | | LABORATORY | | + + + + + + | K | 3.7 | 3.5 - 5.1 | [facility] | | | | | mmol/L | [facility] | | | | | | MEDICAL | | | | | | CENTER - | | | | | | LABORATORY | | + + + + + + | Cl | 108 | 98 - 109 mmol/L | [facility] | | | | | | [facility] | | | | | | MEDICAL | | | | | | CENTER - | | | | | | LABORATORY | | + + + + + + | CO2 | 29 | 24 - 31 mmol/L | [facility] | | | | | | [facility] | | | | | | MEDICAL | | | | | | CENTER - | | | | | | LABORATORY | | + + + + + + | Anion Gap | 1 (L) | 3 - 16 mmol/L | [facility] | | | | | | [facility] | | | | | | MEDICAL | | | | | | CENTER - | | | | | | LABORATORY | | + + + + + + | Glucose | 106 | 70 - 109 mg/dL | [facility] | | | | | | [facility] | | | | | | MEDICAL | | | | | | CENTER - | | | | | | LABORATORY | | + + + + + + | BUN | 10 | 7 - 18 mg/dL | [facility] | | | | | | [facility] | | | | | | MEDICAL | | | | | | CENTER - | | | | | | LABORATORY | | + + + + + + | Creatinine | 0.89 | 0.60 - 1.30 | [facility] | | | | | mg/dL | [facility] | | | | | | MEDICAL | | | | | | CENTER - | | | | | | LABORATORY | | + + + + + + | eGFR, | >60Comment: GLOMERULAR | >=60 | [facility] | | | non- | FILTRATION | mL/min/1.73m2 | [facility] | | | Ethiopian | RATE,ESTIMATED | | MEDICAL | | | | mL/min/1.76c1Xwen than | | CENTER - | | | | 60 Chronic kidney | | LABORATORY | | | | disease,if found over a | | | | | | 3-month period.Less than | | | | | | 15 Kidney failureFor | | | | | | | | | | | | Americans,multiply the | | | | | | calculated GFR by 1.21. | | | | | | | | | | + + + + + + | Calcium | 8.4 | 8.3 - 10.5 | [facility] | | | | | mg/dL | [facility] | | | | | | MEDICAL | | | | | | CENTER - | | | | | | LABORATORY | | + + + + + + | Albumin | 3.6 | 3.2 - 5.0 g/dL | [facility] | | | | | | [facility] | | | | | | MEDICAL | | | | | | CENTER - | | | | | | LABORATORY | | + + + + + + | Bilirubin | 0.4 | 0.1 - 1.5 mg/dL | [facility] | | | Total | | | [facility] | | | | | | MEDICAL | | | | | | CENTER - | | | | | | LABORATORY | | + + + + + + | Total | 6.4 | 6.0 - 7.8 g/dL | [facility] | | | Protein | | | [facility] | | | | | | MEDICAL | | | | | | CENTER - | | | | | | LABORATORY | | + + + + + + | AST | 20 | 10 - 42 U/L | [facility] | | | | | | [facility] | | | | | | MEDICAL | | | | | | CENTER - | | | | | | LABORATORY | | + + + + + + | ALT | 17 | 6 - 45 U/L | [facility] | | | | | | [facility] | | | | | | MEDICAL | | | | | | CENTER - | | | | | | LABORATORY | | + + + + + + | Alkaline | 64 | 40 - 110 U/L | [facility] | | | Phosphatase | | | [facility] | | | | | | MEDICAL | | | | | | CENTER - | | | | | | LABORATORY | | + + + + + + | Globulin | 2.8 | 2.1 - 3.8 g/dL | [facility] | | | | | | [facility] | | | | | | MEDICAL | | | | | | CENTER - | | | | | | LABORATORY | | + + + + + + | Albumin/Keely | 1.3 | 0.8 - 2.0 | [facility] | | | bulin Ratio | | | [facility] | | | | | | [facility] | | | | | | CENTER - | | | | | | LABORATORY | | + + + + + + | BUN/Creatin | 11.2 | | [facility] | | | ine Ratio | | | [facility] | | | | | | [facility] | | | | | | CENTER - | | | | | | LABORATORY | | + + + + + + + + | Specimen | + + | Blood | + + + + + + + | Performing | Address | City/State/Zipcode | Phone Number | | Organization | | | | + + + + + | [facility] | [address] | [place] | [phone] | | [facility] | | [id number] | | | - LABORATORY | | | | + + + + + CBC with Differential (03/18/2017 7:02 PM PST) + + + + + + | Component | Value | Ref Range | Performed | Pathologist | | | | | At | Signature | + + + + + + | White Blood | 5.9 | 4.0 - 11.0 K/uL | [facility] | | | Cells | | | [facility] | | | | | | [facility] | | | | | | CENTER - | | | | | | LABORATORY | | + + + + + + | Red Blood | 4.57 | 3.70 - 5.20 | [facility] | | | Cells | | M/uL | [facility] | | | | | | MEDICAL | | | | | | CENTER - | | | | | | LABORATORY | | + + + + + + | Hemoglobin | 12.7 | 11.5 - 16.0 | [facility] | | | | | g/dL | [facility] | | | | | | MEDICAL | | | | | | CENTER - | | | | | | LABORATORY | | + + + + + + | Hematocrit | 39.2 | 34.0 - 47.0 % | [facility] | | | | | | [facility] | | | | | | [facility] | | | | | | CENTER - | | | | | | LABORATORY | | + + + + + + | MCV | 85.7 | 83.0 - 101.0 fL | [facility] | | | | | | [facility] | | | | | | [facility] | | | | | | CENTER - | | | | | | LABORATORY | | + + + + + + | MCH | 27.9 (L) | 28.0 - 35.0 pg | [facility] | | | | | | [facility] | | | [facility] | | [facility] | | | | | | CENTER - | | | | | | LABORATORY | | + + + + + + | MCHC | 32.5 | 32.0 - 36.0 | [facility] | | | | | g/dL | [facility] | | | | | | [facility]ICAL | | | | | | CENTER - | | | | | | LABORATORY | | + + + + + + | RDW-CV | 14.2 | <15.0 % | [facility] | | | | | | [facility] | | | | | | [facility] | | | | | | CENTER - | | | | | | LABORATORY | | + + + + + + | Platelet | 273 | 140 - 440 K/uL | [facility] | | | Count | | | [facility] | | | | | | [facility]ICAL | | | | | | CENTER - | | | | | | LABORATORY | | + + + + + + | MPV | 8.4 | fL | [facility] | | | | | | [facility] | | | | | | [facility] | | | | | | CENTER - | | | | | | LABORATORY | | + + + + + + | % | 42.4 (L) | 45.0 - 82.0 % | [facility] | | | Neutrophils | | | [facility] | | | | | | MEDICAL | | | | | | CENTER - | | | | | | LABORATORY | | + + + + + + | % | 48.7 (H) | 20.0 - 45.0 % | [facility] | | | Lymphocytes | | | [facility] | | | | | | MEDICAL | | | | | | CENTER - | | | | | | LABORATORY | | + + + + + + | % Monocytes | 5.3 | 4.0 - 12.0 % | [facility] | | | | | | [facility] | | | | | | [facility] | | | | | | CENTER - | | | | | | LABORATORY | | + + + + + + | % | 2.7 | 0.0 - 5.0 % | [facility] | | | Eosinophils | | | [facility] | | | | | | MEDICAL | | | | | | CENTER - | | | | | | LABORATORY | | + + + + + + | % Basophils | 0.9 | 0.0 - 1.0 % | [facility] | | | | | | [facility] | | | | | | [facility] | | | | | | CENTER - | | | | | | LABORATORY | | + + + + + + | Absolute | 2.50 | 1.80 - 8.50 | [facility] | | | Neutrophils | | K/uL | [facility] | | | | | | MEDICAL | | | | | | CENTER - | | | | | | LABORATORY | | + + + + + + | Absolute | 2.90 | 0.60 - 3.20 | [facility] | | | Lymphocytes | | K/uL | [facility] | | | | | | MEDICAL | | | | | | CENTER - | | | | | | LABORATORY | | + + + + + + | Absolute | 0.30 | 0.00 - 1.00 | [facility] | | | Monocytes | | K/uL | [facility] | | | | | [facility] | | | | | | CENTER - | | | | | | LABORATORY | | + + + + + + | Absolute | 0.20 | 0.00 - 0.40 | [facility] | | | Eosinophils | | K/uL | [facility] | | | | | | [facility]ICAL | | | | | | CENTER - | | | | | | LABORATORY | | + + + + + + | Absolute | 0.10 | 0.00 - 0.10 | [facility] | | | Basophils | | K/uL | [facility] | | | | | | MEDICAL | | | | | | CENTER - | | | | | | LABORATORY | | + + + + + + + + | Specimen | + + | Blood | + + + + + + + | Performing | Address | City/State/Zipcode | Phone Number | | Organization | | | | + + + + + | [facility] | [address] | [place], [place] | [phone] | | [facility] | | [id number] | | | - LABORATORY | | | | + + + + + CT Renal Stone Wo Contrast (03/18/2017 5:52 PM PST) + + | Specimen | + + | | + + + + + | Narrative | Performed At | + + + | EXAM: CT RENAL STONE WO CONTRAST dated 03/18/2017 5:44 PM | [facility] | | HISTORY:BACK PAIN Comparison: None. TECHNIQUE: Imaging is | | | performed from the mid liver through the pubic symphysis without | | | contrast. DOSE: DLP 318.58 mGy-cm FINDINGS: LUNG BASES: | | | The lung bases are clear. There is no visible pleural effusion or | | | pneumothorax. There is no significant pericardial thickening. | | | LIVER: The visible unenhanced liver is unremarkable. GALLBLADDER: | | | The gallbladder is surgically absent. The bile ducts are not well | | | seen. SPLEEN: The visible unenhanced spleen is unremarkable. | | | PANCREAS: The unenhanced pancreas is unremarkable. No peripancreatic | | | inflammatory change. ADRENALS: No adrenal enlargement. No | | | adrenal masses. KIDNEYS: The kidneys are unremarkable in | | | attenuation. There are no visible focal renal lesions. There is | | | no nephrolithiasis. There is no obstructive uropathy. BOWEL: | | | The gastrointestinal tract is unremarkable. There is no evidence for | | | gastrointestinal tract obstruction. There is no evidence for | | | appendicitis. There is no significant diverticular disease. | | | VASCULATURE AND LYMPH NODES: There is no aneurysmal dilatation of | | | the abdominal aorta. There is no pelvic or abdominal | | | lymphadenopathy. BLADDER: The bladder is decompressed and not well | | | evaluated. UTERUS AND ADNEXA:The uterus is surgically absent. | | | There are no adnexal masses. BONES: There are no acute osseous | | | abnormalities. There are suspicious no lytic or blastic bone | | | lesions. Circumscribed lucency in the left ischium has internal | | | contents of fat. OTHER: There is no free fluid. There is no free | | | air. IMPRESSION - No CT evidence for acute abdominal or | | | pelvic process. The pulmonary report is provided by Dr. Mcgill | | | on March 18, 2017 at 6:01 PM. Dictated and Signed by: Raul Hernandez | | | MD Mary Electronically signed: 03/19/2017 1:56 PM | | + + + + + | Procedure Note | + + | Chuy, Rad Results In - 03/19/2017 1:59 PM PST EXAM: CT RENAL STONE WO CONTRAST dated | | 03/18/2017 5:44 PMHISTORY:BACK PAINComparison: None.TECHNIQUE: Imaging is performed from | | the mid liver through the pubic symphysiswithout contrast.DOSE: DLP 318.58 | | mGy-cmFINDINGS: LUNG BASES: The lung bases are clear. There is no visible pleural | | effusion orpneumothorax. There is no significant pericardial thickening.LIVER: The | | visible unenhanced liver is unremarkable.GALLBLADDER: The gallbladder is surgically | | absent. The bile ducts are not wellseen. SPLEEN: The visible unenhanced spleen is | | unremarkable. PANCREAS: The unenhanced pancreas is unremarkable. No | | peripancreaticinflammatory change.ADRENALS: No adrenal enlargement. No adrenal | | masses.KIDNEYS: The kidneys are unremarkable in attenuation. There are no visiblefocal | | renal lesions. There is no nephrolithiasis. There is no obstructiveuropathy.BOWEL: The | | gastrointestinal tract is unremarkable. There is no evidence forgastrointestinal tract | | obstruction. There is no evidence for appendicitis. There is no significant | | diverticular disease.VASCULATURE AND LYMPH NODES: There is no aneurysmal dilatation of | | the abdominalaorta. There is no pelvic or abdominal lymphadenopathy.BLADDER: The | | bladder is decompressed and not well evaluated.UTERUS AND ADNEXA:The uterus is | | surgically absent. There are no adnexal masses.BONES: There are no acute osseous | | abnormalities. There are suspicious no lyticor blastic bone lesions. Circumscribed | | lucency in the left ischium has internalcontents of fat.OTHER: There is no free fluid. | | There is no free air.IMPRESSION - No CT evidence for acute abdominal or pelvic | | process.The pulmonary report is provided by Dr. Mcgill on March 18, 2017 at | | 6:01PM.Dictated and Signed by: Raul Hernandez MD Electronically signed: 03/19/2017 | | 1:56 PM | | | |ADRENALS: No adrenal enlargement. No adrenal masses. | | | |KIDNEYS: The kidneys are unremarkable in attenuation. There are no visible | |focal renal lesions. There is no nephrolithiasis. There is no obstructive | |uropathy. | | | |BOWEL: The gastrointestinal tract is unremarkable. There is no evidence for | |gastrointestinal tract obstruction. There is no evidence for appendicitis. | |There is no significant diverticular disease. | | | |VASCULATURE AND LYMPH NODES: There is no aneurysmal dilatation of the abdominal | |aorta. There is no pelvic or abdominal lymphadenopathy. | | | |BLADDER: The bladder is decompressed and not well evaluated. | | | |UTERUS AND ADNEXA:The uterus is surgically absent. There are no adnexal masses. | | | |BONES: There are no acute osseous abnormalities. There are suspicious no lytic | |or blastic bone lesions. Circumscribed lucency in the left ischium has internal | |contents of fat. | | | |OTHER: There is no free fluid. There is no free air. | | | |IMPRESSION - | | | |No CT evidence for acute abdominal or pelvic process. | | | |The pulmonary report is provided by Dr. Mcgill on March 18, 2017 at 6:01 | |PM. | | | |Dictated and Signed by: Raul Hernandez MD | | Electronically signed: 03/19/2017 1:56 PM | + + + +---------+ + + | Performing | Address | City/State/Zipcode | Phone Number | | Organization | | | | + +---------+ + + | [facility] | | | | + +---------+ + + documented in this encounter Visit Diagnoses + + | Diagnosis | + + | Right flank pain - Primary Abdominal pain, unspecified site | + + documented in this encounter Administered Medications + +--------+ +------+------+------+ | Medication Order | MAR | Action | Dose | Rate | Site | | | Action | Date | | | | + +--------+ +------+------+------+ | HYDROmorphone (DILAUDID) | Given | 03/18/19 | 1 mg | | | | injection 1 mg 1 mg, | | 18 7:08 | | | | | Intravenous, ONCE, 03/18/17 at | | PM PST | | | | | 1720, For 1 dose | | | | | | + +--------+ +------+------+------+ +---+---+ | | | +---+---+ + +-------+ +-------+---+---+ | ketorolac (TORADOL) injection | Given | 03/18/19 | 30 mg | | | | 30 mg 30 mg, Intravenous, ONCE, | | 18 7:08 | | | | | 03/18/17 at 1720, For 1 dose | | PM PST | | | | + +-------+ +-------+---+---+ +---+---+ | | | +---+---+ + + + +------+---+---+ | ondansetron (ZOFRAN ODT) | Dispense | 03/18/19 | 4 mg | | | | disintegrating tablet (ED | to Home | 18 8:11 | | | | | homepack) 4 mg 4 mg, Oral, ONCE, | | PM PST | | | | | 03/18/17 at 1950, For 1 dose, | | | | | | | Dissolve on tongue or swallow 1 | | | | | | | or 2 tablets every 8 hours prn | | | | | | | nausea or vomiting Dispense for | | | | | | | home use., | | | | | | + + + +------+---+---+ +---+---+ | | | +---+---+ + +-------+ +------+---+---+ | ondansetron (ZOFRAN) injection | Given | 03/18/19 | 8 mg | | | | 8 mg 8 mg, Intravenous, ONCE, | | 18 7:08 | | | | | 03/18/17 at 1720, For 1 dose | | PM PST | | | | + +-------+ +------+---+---+ +---+---+ | | | +---+---+ + + + + +---+---+ | oxyCODONE-acetaminophen | Dispense | 03/18/19 | 1 tablet | | | | (PERCOCET) 5-325 mg per tablet | to Home | 18 8:10 | | | | | (ED prepack) 1 tablet 1 tablet, | | PM PST | | | | | Oral, EVERY 6 HOURS PRN, Pain, | | | | | | | Starting 03/18/17 at 1948 | | | | | | + + + + +---+---+ +---+---+ | | | +---+---+ + +-------+ + +---+---+ | oxyCODONE-acetaminophen | Given | 03/18/19 | 1 tablet | | | | (PERCOCET) 5-325 mg per tablet 1 | | 18 8:10 | | | | | tablet 1 tablet, Oral, ONCE, Sat | | PM PST | | | | | 03/18/17 at 1950, For 1 dose | | | | | | + +-------+ + +---+---+ +---+---+ | | | +---+---+ + +---------+ +--------+-------+---+ | sodium chloride 0.9% (NS) bolus | New Bag | 03/18/19 | 1,000 | 4000 | | | 1,000 mL 1,000 mL, Intravenous, | | 18 7:07 | mLs | mL/hr | | | Administer over 15 Minutes, | | PM PST | | | | | ONCE, 03/18/17 at 1720, For 1 | | | | | | | dose | | | | | | + +---------+ +--------+-------+---+ +---+---+ | | | +---+---+ documented in this encounter
--- OUTSIDE RECORDS SUMMARY | ~2019-10-28 | XMS | Encounter Summary ---
Demographics + + + | Address | [address] | | | [place] [address] | + + + | Home Phone | | + + + | Preferred Language | Unknown | + + + | Marital Status | Single | + + + | Zoroastrian Affiliation | Unknown | + + + | Race | White | + + + | Ethnic Group | Not or | + + + Author + + + | Author | [facility] | | | and [place] | + + + | Organization | [facility] | | | and [place] | + + + | Address | Unknown | + + + | Phone | Unavailable | + + + Support + + + + + | Name | Relationship | Address | Phone | + + + + + | Maria Luisa Minaya | ECON | [place], [place] | | | | | [address] | | + + + + + Care Team Providers + +------+ + | Care Filling Winder Name | Role | Phone | + +------+ + | Chantale Harrington | PCP | | + +------+ + Encounter Details +--------+ + + + + | Date | Type | Department | Care Team | Description | +--------+ + + + + | 11/05/ | Imaging | [facility] | Provider, | | | 2019 | Exam | [facility] | [facility] [address] | | | | | IMAGING [address] | | | | | [address] | [place] [address] | | | | | [place] [address] | | | | | | [phone] | | | +--------+ + + + [...] Not on filedocumented as of this encounter Procedures + +--------+ + + + | Procedure Name | Priori | Date/Time | Associated Diagnosis | Comments | | | ty | | | | + +--------+ + + + | XR THORACIC SPINE 2 | Routin | 11/04/2016 | | Results for this | | VW | e | 12:00 AM | | procedure are in the | | | | PDT | | results section. | + +--------+ + + + documented in this encounter Results XR Thoracic Spine 2 Vw (11/04/2016 12:00 AM PDT) + + | Specimen | + + | | + + + + + | Narrative | Performed At | + + + | External films for comparison only | [facility] | | | | | No results will be in the chart. | | + + + + +---------+ + + | Performing | Address | City/State/Zipcode | Phone Number | | Organization | | | | + +---------+ + + | [facility] | | | | + +---------+ + + documented in this encounter Visit Diagnoses Not on filedocumented in this encounter"
--- OUTSIDE RECORDS SUMMARY | ~2019-10-28 | XMS | Encounter Summary ---
Demographics + + + | Address | [address] | | | [place] [address] | + + + | Home Phone | | + + + | Preferred Language | Unknown | + + + | Marital Status | Single | + + + | Orthodox Affiliation | Unknown | + + + | Race | White | + + + | Ethnic Group | Not or | + + + Author + + + | Author | [facility] | | | and [place] | + + + | Organization | [facility] | | | and [place] | + + + | Address | Unknown | + + + | Phone | Unavailable | + + + Support + + + + + | Name | Relationship | Address | Phone | + + + + + | Maria Luisa Minaya | ECON | [place], [place] | | | | | [address] | | + + + + + Care Team Providers + +------+ + | Care Power House Control Room Operator Name | Role | Phone | + [...] | | | [address] | [place] [address] | | | | | [place] [address] | | | | | | [phone] | | | +--------+ + + + [...] XR THORACIC SPINE 2 | Routin | 06/22/2016 | | Results for this | | VW | e | 12:00 AM | | procedure are in the | | | | PDT | | results section. | + +--------+ + + + documented in this encounter Results XR Thoracic Spine 2 Vw (06/22/2016 12:00 AM PDT) + + | Specimen [...]
--- OUTSIDE RECORDS SUMMARY | ~2019-10-28 | XMS | Encounter Summary ---
Demographics + + + | Address | [address] | | | [place] [address] | + + + | Home Phone | | + + + | Preferred Language | Unknown | + + + | Marital Status | Single | + + + | Restorationism Affiliation | Unknown | + + + | Race | White | + + + | Ethnic Group | Not or | + + + Author + + + | Author | [facility] | | | and [place] | + + + | Organization | [facility] | | | and [place] | + + + | Address | Unknown | + + + | Phone | Unavailable | + + + Support + + + + + | Name | Relationship | Address | Phone | + + + + + | Maria Luisa Minaya | ECON | [place], [place] | | | | | [address] | | + + + + + Care Team Providers + +------+ + | Care Distance Education Coordinator Name | Role | Phone | + +------+ + | Chantale Harrington | PCP | | + +------+ + Encounter Details +--------+ + + + + | Date | Type | Department | Care Team | Description | +--------+ + + + + | 03/22/ | Imaging | [facility] | Provider, | | | 2019 | Exam | [facility] | [address] | | | | | IMAGING [address] | | | | | [address] | [place] [address] | | | | | [place] [address] | | | | | | [phone] | | | +--------+ + + + [...] | + +--------+ + + + | MRI THORACIC SPINE | Routin | 03/18/2019 | | Results for this | | WO CONTRAST | e | 12:00 AM | | procedure are in the | | | | PST | | results section. | + +--------+ + + + documented in this encounter Results MRI Thoracic Spine wo Contrast (03/18/2019 12:00 AM PST) + + | Specimen | + [...]
--- OUTSIDE RECORDS SUMMARY | ~2019-10-28 | XMS | Encounter Summary ---
Demographics + + + | Address | [address] | | | [place] [address] | + + + | Home Phone | | + + + | Preferred Language | Unknown | + + + | Marital Status | Single | + + + | Buddhist Affiliation | UNK | + + + | Race | or | + + + | Ethnic Group | Not or | + + + Author + + + | Author | [facility] | + + + | Organization | [facility] | + + + | Address | Unknown | + + + | Phone | Unavailable | + + + Support + + +---------+ + | Name | Relationship | Address | Phone | + + +---------+ + | Alysa Yin | ECON | Unknown | | + + +---------+ + Care Team Providers + +------+ + | Care Hide Spreader Name | Role | Phone | + +------+ + | Sary De SantiagoP | PCP | | + +------+ + Encounter Details +--------+------+ + + + | Date | Type | Department | Care Team | Description | +--------+------+ + + + | 01/21/ | Lab | [facility] | | Uveitis | | 2013 | | [address] | | | | | | [facility] [facility] | | | | | | and Healing, | | | | | | [address] | | | | | | [place], [place] | | | | | | [address] | | | | | | [phone] | | | +--------+------+ + + + [...] 2020 | bora | | MD Hermelindo [address] | | | | | | [address] | | | | | | [place], [place] | | | | | | [address] | | | | | | [phone] | | | | | | | | +--------+ + + + + documented as of this encounter Procedures + +--------+ + + + | Procedure Name | Priori | Date/Time | Associated Diagnosis | Comments | | | ty | | | | + +--------+ + + + | QUANTIFERON TB GOLD, | Routin | 01/21/2013 | Uveitis | Results for this | | BLOOD | e | 11:53 AM | | procedure are in the | | | | PST | | results section. | + +--------+ + + + | ANGIOTENSIN CONVERT | Routin | 01/21/2013 | Uveitis | Results for this | | ENZYME, SERUM | e | 11:53 AM | | procedure are in the | | | | PST | | results section. | + +--------+ + + + | LYME ABS TOTAL | Routin | 01/21/2013 | Uveitis | Results for this | | REYNA, SERUM | e | 11:53 AM | | procedure are in the | | | | PST | | results section. | + +--------+ + + + | RPR SERUM | Routin | 01/21/2013 | Uveitis | Results for this | | | e | 11:53 AM | | procedure are in the | | | | PST | | results section. | + +--------+ + + + | FTA, SERUM | Routin | 01/21/2013 | Uveitis | Results for this | | | e | 11:53 AM | | procedure are in the | | | | PST | | results section. | + +--------+ + + + | C-REACTIVE PROTEIN | Routin | 01/21/2013 | Uveitis | Results for this | | | e | 11:53 AM | | procedure are in the | | | | PST | | results section. | + +--------+ + + + | SEDIMENTATION RATE | Routin | 01/21/2013 | Uveitis | Results for this | | | e | 11:53 AM | | procedure are in the | | | | PST | | results section. | + +--------+ + + + documented in this encounter Results C-REACT PRTN (FOR INFLAMMATION) (01/21/2013 11:53 AM PST) + +-------+ + + + | Component | Value | Ref Range | Performed | Pathologist | | | | | At | Signature | + +-------+ + + + | C-REACTIVE | <0.5 | <=0.8 mg/dL | [facility] - | | | PROTEIN | | | AIRPORT - | | [...] + | [facility] - | [address] | [place] [address] | | | [place] | | | | + + + + + SEDIMENTATION RATE (01/21/2013 11:53 AM PST) + +-------+ + + + | Component | Value | Ref Range | Performed | Pathologist | | | | | At | Signature | + +-------+ + + + | SEDIMENTATI | 9 | 0 - 30 mm/hr | [facility] [...] [facility] | [address] | [place] [address] | | | SERVICES, CORE | [address] | | | + + + + + QUANTIFERON TB GOLD, BLOOD (01/21/2013 11:53 AM PST) + + + + + + | Component | Value | Ref Range | Performed | Pathologist | | | | | At | Signature | + + + + + + | QUANTIFERON | Negative | Negative, | [facility] | | | TB GOLD | | Indeterminate | REFERENCE | | | | | | LAB | | + + + + + + | NIL | 0.09 | IU/mL | [facility] | | | | | | REFERENCE | | | | | | LAB | | + + + + + + | TB AG | 0.14 | IU/mL | [facility] | | | | | | REFERENCE | | | | | | LAB | | + + + + + + | MITOGEN | >10.00 | IU/mL | [facility] | | | | | | REFERENCE | | | | | | LAB | | + + + + + + | MITOGEN-NIL | >10.00 | IU/mL | [facility] | | | | | | REFERENCE | | | | | | LAB | | + + + + + + | TB AG-NIL | 0.05 | IU/mL | [facility] | | | | | | REFERENCE | | | | | | LAB | | + + + + + + + + | Specimen | + + | Blood - Blood | + + + + + | Narrative | Performed At | + + + | Interpretation Criteria for QuantiFERON Testing: Interpretation | [facility] | | TB Ag-Nil Nil Mitogen-Nil | REFERENCE LAB | | (IU/mL)* (IU/mL) | | | (IU/mL)* | | | | | | | | | Positive >=0.35 | | | <=8.0 any | | | (and >= 25% of Nil) | | | | | | | | | Negative <0.35 | | | <=8.0 >=0.5 | | | (or <25% of Nil) | | | | | | | | | | | | Indeterminate <0.35 | | | <=8.0 <0.5 | | | (or <25% of Nil) | | | | | | | | | Indeterminate any | | | >8.0 any | | | | | | *Corrected for Nil response. | | | NOTE: Diagnosing or excluding | | | tuberculosis disease, and assessing the probability of LTBI, | | | requires a combination of epidemiological, | | | historical, medical, and diagnostic findings that should be | | | taken into account when interpreting QuantiFERON TB Gold results. | | | | | | See CDC QFT-G Fact Sheet at: | | | | | | http://www.cdc.gov/nchstp/tb/pubs/tbfactssheets/703193.htm | | | Test performed by: [facility] [address] | | [address] [place] [address] | | + + + + + + + + | Performing | Address | City[facility]State[facility] | Phone Number | | Organization | | | | + + + + + | [facility] | | | | + + + + + | [facility] | see below | | | + + + + + LYME ABS TOTAL REYNA, SERUM (01/21/2013 11:53 AM PST) + + + + + + | Component | Value | Ref Range | Performed | Pathologist | | | | | At | Signature | + + + + + + | LYME AB | 0.03Comment: | 0.00 - 1.20 DIMITRY | [facility] | | | REYNA, | INTERPRETIVE | | REG UNIV | | | SERUM | INFORMATION: Borrelia | | PTH - INTFC | | | | Burgdorferi Abs,Total by | | | | | | REYNA 0.99 DIMITRY or | | | | | | Less: ...... Negative: | | | | | | Antibody to Borrelia | | | | | | | | | | | | burgdorferi | | | | | | not detected. 1.00 - | | | | | | 1.20 DIMITRY......... | | | | | | Equivocal: Repeat | | | | | | testing in | | | | | | | | | | | | 10-14 days may be | | | | | | helpful. 1.21 DIMITRY or | | | | | | Greater: ... Positive: | | | | | | Probable presence of | | | | | | | | | | | | antibody to | | | | | | Borrelia | | | | | | | | | | | | burgdorferi | | | | | | detected.Performed by | | | | | | [facility] | | | | | | [address], [facility],[place] | | | | | | [address] | | | | | | [phone]. | | | | | | Pradeep marie, | | | | | | Tyesha MCLEAN. Director | | | | + + + + + + + + | Specimen | + + | Blood - Blood | + + + + + + + | Performing | Address | City/State/Zipcode | Phone Number | | Organization | | | | + + + + + | [facility] | [address] | [place], [place] | | | UNIV PTH - INTFC | | [address] | | + + + + + ANGIOTENSIN CONVERT ENZYME, SERUM (01/21/2013 11:53 AM PST) + + + + + + | Component | Value | Ref Range | Performed | Pathologist | | | | | At | Signature | + + + + + + | ANGIOTENSIN | 32Comment: INTERPRETIVE | 9 - 67 U/L | [facility] | | | CONVERTING | INFORMATION: Angiotensin | | REG UNIV | | | ENZYME, | Converting EnzymeFor | | PTH - INTFC | | | SERUM | related information, see | | | | | | | | | | | | [email or web address] | | | | | | 001Performed by [facility] | | | | | | [facility] | | | | | | Jam[place], [place] [address] | | | | | | [phone]. | | | | | | Pradeep marie, | | | | | | , Lab. Director | | | | + + + + + + + + | Specimen | + + | Blood - Blood | + + + + + + + | Performing | Address | City/State/Zipcode | Phone Number | | Organization | | | | + + + + + | [facility] | [address] | [place], [place] | | | UNIV PTH - INTFC | | [address] | | + + + + + FTA, SERUM (01/21/2013 11:53 AM PST) + + + + + + | Component | Value | Ref Range | Performed | Pathologist | | | | | At | Signature | + + + + + + | T. PALLIDUM | Non ReactiveComment: | Non Reactive | [facility] | | | AB IGG | Performed by [facility] | | REG UNIV | | | (FTA) | Laboratories,[address] | | PTH - INTFC | | | | [facility] [address] | | | | | | [phone]. | | | | | | Pradeep marie, | | | | | | , Tyesha. Director | | | | + + + + + + + + | Specimen | + + | Blood - Blood | + + + + + + + | Performing | Address | City/State/Zipcode | Phone Number | | Organization | | | | + + + + + | [facility] | [address] | [place], [place] | | | UNIV PTH - INTFC | | [address] | | + + + + + RPR SERUM (01/21/2013 11:53 AM PST) + + + + + + | Component | Value | Ref Range | Performed | Pathologist | | | | | At | Signature | + + + + + + | RPR SRM | Non-Reactive | Non-Reactive | [facility] - | | | QUAL | | | AIRPORT - | | | | | | [place] | | + + + + + + + + | Specimen | + + | Blood - Blood | + + + + + + + | Performing | Address | City/State/Zipcode | Phone Number | | Organization | | | | + + + + + | [facility] | [address] | [place] [address] | | | [place] | | | | + + + + + documented in this encounter Visit Diagnoses + + | Diagnosis | + + | Uveitis Unspecified iridocyclitis | + + documented in this encounter"
--- OUTSIDE RECORDS SUMMARY | ~2019-10-28 | XMS | Encounter Summary ---
Demographics + + + | Address | [address] | | | [place] [address] | + + + | Home Phone [...] + + + | Author | [facility] | + + + | Organization | [facility] | + + + | Address | Unknown | + + + | Phone | Unavailable | + + + Support + + +---------+ + | Name | Relationship | Address | Phone | + + +---------+ + | Alysa Yin | ECON | Unknown | | + + +---------+ + Care Team Providers + +------+ + | Care Folder Operator Name | Role | Phone | + +------+ + | Sary De SantiagoP | PCP | | + +------+ + Encounter Details +--------+------+ + + + | Date | Type | Department | Care Team | Description | +--------+------+ + + + | 07/16/ | Lab | Laboratory at [facility] | | Primary | | 2015 | | [address] | | osteoarthritis of | | | | Loop Physician's | | both hands; H/O | | | | [address]ilion, [address] floor | | calcium | | | | [place], [place] | | pyrophosphate | | | | [address] | | deposition disease | | | | [phone] | | (CPPD) | +--------+------+ + + + Social History [...] 2020 | bora | | MD Hermelindo [address] | | | | | | [address] | | | | | | [place], [place] | | | | | | [address] | | | | | | [phone] | | | | | | | | +--------+ + + + + documented as of this encounter Procedures + +--------+ + + + | Procedure Name | Priori | Date/Time | Associated Diagnosis | Comments | | | ty | | | | + +--------+ + + + | CYCLIC CITRUL | Routin | 07/16/2014 | H/O calcium | Results for this | | PEPTIDE AB IGG, | e | 3:29 PM | pyrophosphate | procedure are in the | | SERUM | | PDT | deposition disease | results section. | | | | | (CPPD) | | + +--------+ + + + | RHEUMATOID FACTOR, | Routin | 07/16/2014 | H/O calcium | Results for this | | SERUM | e | 3:29 PM | pyrophosphate | procedure are in the | | | | PDT | deposition disease | results section. | | | | | (CPPD) | | + +--------+ + + + | C-REACTIVE PROTEIN | Routin | 07/16/2014 | H/O calcium | Results for this | | | e | 3:29 PM | pyrophosphate | procedure are in the | | | | PDT | deposition disease | results section. | | | | | (CPPD) | | + +--------+ + + + | SEDIMENTATION RATE | Routin | 07/16/2014 | H/O calcium | Results for this | | | e | 3:29 PM | pyrophosphate | procedure are in the | | | | PDT | deposition disease | results section. | | | | | (CPPD) | | + +--------+ + + + | PHOSPHORUS, PLASMA | Routin | 07/16/2014 | H/O calcium | Results for this | | | e | 3:29 PM | pyrophosphate | procedure are in the | | | | PDT | deposition disease | results section. | | | | | (CPPD) | | + +--------+ + + + | FERRITIN | Routin | 07/16/2014 | Primary | Results for this | | | e | 3:29 PM | osteoarthritis of | procedure are in the | | | | PDT | both hands | results section. | + +--------+ + + + | MAGNESIUM, PLASMA | Routin | 07/16/2014 | H/O calcium | Results for this | | | e | 3:29 PM | pyrophosphate | procedure are in the | | | | PDT | deposition disease | results section. | | | | | (CPPD) | | + +--------+ + + + | IRON AND TIBC, SERUM | Routin | 07/16/2014 | Primary | Results for this | | | e | 3:29 PM | osteoarthritis of | procedure are in the | | | | PDT | both hands | results section. | + +--------+ + + + documented in this encounter Results PHOSPHORUS, PLASMA (07/16/2014 3:29 PM PDT) + +-------+ + + + | Component | Value | Ref Range | Performed | Pathologist | | | | | At | Signature | + +-------+ + + + | PHOSPHORUS, | 2.5 | 2.4 - 4.7 mg/dL | [facility] | | | PLASMA [...] | + + + + + | [facility] | [address] | [place] [address] | | | SERVICES, CORE | [address] | | | + + + + + MAGNESIUM, PLASMA (07/16/2014 3:29 PM PDT) + +-------+ + + + | Component | Value | Ref Range | Performed | Pathologist | | | | | At | Signature | + +-------+ + + + | MAGNESIUM,P | 1.9 | 1.8 - 2.5 mg/dL | [facility] | | | LASMA | | | LABORATORY | | | | | | ARJUN, | | | | | | CORE | | + +-------+ + + + + + | Specimen | + + | Blood - Blood | + + + + + + + | Performing | Address | City/State/Zipcode | Phone Number | | Organization | | | | + + + + + | [facility] | [address] | [place] [address] | | | SERVICES, CORE | [address] | | | + + + + + RHEUMATOID FACTOR, SERUM (07/16/2014 3:29 PM PDT) + +-------+ + + + | Component | Value | Ref Range | Performed | Pathologist | | | | | At | Signature | + +-------+ + + + | RHEUMATOID | <10 | <=14 IU/mL | [facility] - | [...] + | [facility] - | [address] | [place] [address] | | | [place] | | | | + + + + + CYCLIC CITRUL PEPTIDE AB IGG, SERUM (07/16/2014 3:29 PM PDT) + + + + + + | Component | Value | Ref Range | Performed | Pathologist | | | | | At | Signature | + + + + + + | CYCLIC | 3Comment: INTERPRETIVE | 0 - 19 Units | [...] | | | | | | repeated.Performed by | | | | | | [address] | | | | | | [address], [facility] | | | | | | [address] | | | | | | [phone]. | | | | | | [facility], Pradeep Boothe, | | | | | | , [...] [facility] | [address] | [place], [place] | | | UNIV PTH - INTFC | | [address] | | + + + + + C-REACTIVE PROTEIN (07/16/2014 3:29 PM PDT) + + + + + + | Component | Value | Ref Range | Performed | Pathologist | | | | | At | Signature | + + + + + + | C-REACTIVE | 18.0 (H) | <10.0 mg/L | [facility] | | | PROTEIN | | | LABORATORY | | | | | | SERVICES, | | | | | | CORE | | + + + + + + + + | Specimen | + + | Blood - Blood | + + + + + | Narrative | Performed At | + + + | New method, new reference range and new reporting units as of | [facility] | | 07/10/2013. | LABORATORY | | | [address] | + + + + + + + + | Performing | Address | City/State/Zipcode | Phone Number | | Organization | | | | + + + + + | [facility] | [address] | [place] [address] | | | SERVICES, JACK | [address] | | | + + + + + SEDIMENTATION RATE (07/16/2014 3:29 PM PDT) + +-------+ + + + | Component | Value | Ref Range | Performed | Pathologist | | | | | At | Signature | + +-------+ + + + | SEDIMENTATI | 23 | 0 - 30 mm/hr | [facility] [...] + + | [facility] | [address] | [place] [address] | | | SERVICES, CORE | [address] | | | + + + + + IRON AND TIBC (07/16/2014 3:29 PM PDT) + +--------+ + + + | Component | Value | Ref Range | Performed | Pathologist | | | | | At | Signature | + +--------+ + + + | IRON | 38 | 30 - 160 ug/dL | [facility] | | | | | | LABORATORY | | | | | | SERVICES, | | | | | | CORE | | + +--------+ + + + | IRON BIND | 350 | 240 - 450 ug/dL | [facility] | | | CAP | | | LABORATORY | | | | | | SERVICES, | | | | | | CORE | | + +--------+ + + + | % | 11 (L) | 20 - 50 % | [facility] | | | SATURATION | | | LABORATORY | | | TRANSFERRIN | | | SERVICES, | | | , | | | CORE | | + +--------+ + + + + + | Specimen | + + | Blood - Blood | + + + + + + + | Performing | Address | City/State/Zipcode | Phone Number | | Organization | | | | + + + + + | [facility] | [address] | [place] [address] | | | SERVICES, CORE | [address] | | | + + + + + FERRITIN (07/16/2014 3:29 PM PDT) + + + + + + | Component | Value | Ref Range | Performed | Pathologist | | | | | At | Signature | + + + + + + | FERRITIN | 37 (L)Comment: Male and | 50 - 200 ng/mL | [facility] | | | | Female >18 years: | | LABORATORY | | | | <20 ng/mL: | | SERVICES, | | | | Consistant with iron | | CORE | | | | deficiency 21-50 | | | | | | ng/mL: Possible | | | | | | iron deficiency 51-99 | | | | | | ng/mL: Iron | | | | | | deficiency unlikely | | | | | | unless inflammation | | | | | | present or | | | | | | patient | | | | | | >65 years of age | | | | | | 100-200 ng/mL: | | | | | | Normal, not consistent | | | | | | with iron deficiency | | | | | | >200 ng/mL: If | | | | | | transferrin saturation | | | | | | >45%, consider | | | | | | hemochromatosis | | | | + + + + + + + + | Specimen | + + | Blood - Blood | + + + + + + + | Performing | Address | City/State/Zipcode | Phone Number | | Organization | | | | + + + + + | [facility] | [address] | [place] [address] | | | SERVICES, CORE | [address] | | | + + + + + documented in this encounter Visit Diagnoses + + | Diagnosis | + + | Primary osteoarthritis of both hands | + + | H/O calcium pyrophosphate deposition disease (CPPD) Personal history of arthritis | + + documented in this encounter"
--- OUTSIDE RECORDS SUMMARY | ~2019-10-28 | XMS | Encounter Summary ---
Demographics + + + | Address | [address] | | | [place] [address] | + + + | Home Phone | | + + + | Preferred Language | Unknown | + + + | Marital Status | Single | + + + | Denominational Affiliation | Unknown | + + + | Race | White | + + + | Ethnic Group | Not or | + + + Author + + + | Author | [facility] | | | and [place] | + + + | Organization | [facility] | | | and [place] | + + + | Address | Unknown | + + + | Phone | Unavailable | + + + Support + + + + + | Name | Relationship | Address | Phone | + + + + + | Maria Luisa Minaya | ECON | [place] | | | | | [address] | | + + + + + Care Team Providers + +------+ + | Care Wastewater Technician Name | Role | Phone | + [...] | +--------+ + + + + | 12/23/ | Emergency | [facility] | Linwood Hernandes, | Acute bilateral | | 2019 | | [facility] | MD [address] | thoracic back pain | | | | CENTER [address] | [facility] [place] | (Primary Dx) | | | | [place], [place] | [place] [address] | | | | | [address] | [phone] | | | | | [phone] | | | +--------+ + + + [...] + + + | Blood Pressure | 142/98 | 12/23/2018 12:40 AM | | | | | PST | | + + + + + | Pulse | 84 | 12/23/2018 12:40 AM | | | | | PST | | + + + + + | Temperature | 36.1 C (96.9 F) | 12/23/2018 12:40 AM | | | | | PST | | + + + + + | Respiratory Rate | 18 | 12/23/2018 12:40 AM | | | | | PST | | + + + + + | Oxygen Saturation | 99% | 12/23/2018 12:40 AM | | | | | PST | | + + + + + | Inhaled Oxygen | - | - | | | Concentration | | | | + + + + + | Weight | 74.8 kg (165 lb) | 12/23/2018 12:40 AM | | | | | PST | | + + + + + | Height | 154.9 cm (5' 1") | 12/23/2018 12:40 AM | | | | | PST | | + + + + + | Body Mass Index | 31.18 | 12/23/2018 12:40 AM | | | | | PST | | + + + + + documented in this encounter Discharge Instructions Instructions Linwood Hernandes MD - 12/23/2018Stay active Increase your Robaxin to 1500 mg every 8 hours Follow-up with your primary care doctor Continue the outpatient workup Lidocaine patches AttachmentsThe following attachments cannot be sent through Care Everywhere.Back Pain (Acut e or Chronic) (Bulgarian)documented in this encounter Medications at Time of Discharge + + + +---------+ + + | Medication | Sig | Dispensed | Refills | Start | End Date | | | | | | Date | | + + + +---------+ + + | alendronate | Take 1 tablet by | | 0 | 08/28/19 | | | (FOSAMAX) 35 mg | mouth every 7 days. | | | 19 | | | tablet | | | | | | + + + +---------+ + + | fluticasone | 2 sprays by Nasal | | 0 | 06/19/19 | | | (FLONASE) 50 | route Daily. | | | 19 | | | mcg/nasal spray | | | | | | + + + +---------+ + + | methocarbamol | Take 500 mg by mouth | | 0 | 07/11/19 | | | (ROBAXIN) 500 mg | 3 times daily as | | | 19 | | | tablet | needed for Muscle | | | | | | | spasms Only taking 1 | | | | | | | time daily. | | | | | + + [...] + + + +---------+ + + | REFRESH OPTIVE | | | 0 | 11/16/19 | | | SENSITIVE ophthalmic | | | | 19 | | | solution | | | | | | + + + +---------+ + + | celecoxib | Take 100 mg by mouth | | 0 | | | | (CELEBREX) 100 mg | Twice daily as | | | | 0 | | capsule | needed for Pain. | | | | | + + + +---------+ + + | cholecalciferol | Take 1 capsule by | | 0 | 08/23/19 | | | (VITAMIN D-3) 125 | mouth Daily. | | | 19 | 0 | | mcg (5,000 units) | | | | | | | capsule | | | | | | + + + +---------+ + + | diclofenac | | | 0 | 10/28/19 | | | (VOLTAREN) 1% GEL | | | | 17 | 0 | + + + +---------+ + + | DULoxetine | Take 30 mg by mouth | | 0 | | | | (CYMBALTA) [address] | once daily. | | | | 0 | | capsule | | | | | | + + + +---------+ + + | ergocalciferol | Take by mouth. | | 0 | 05/25/19 | | | (VITAMIN D-2) 50,000 | | | | 09 | 0 | | units capsule | | | | | | + + + +---------+ + + | estrogens, | Take by mouth. | | 0 | | | | conjugated, | | | | | 0 | | (PREMARIN) 0.625 mg | | | | | | | tablet | | | | | | + + + +---------+ + + | lidocaine | Place 1-3 patches | 42 | 0 | 12/24/19 | | | (LIDODERM) 5% patch | onto the skin Daily | patch | | 19 | 9 | | | for 14 days. Apply | | | | | | | for 12 hours, then | | | | | | | remove for 12 hours. | | | | | + + + +---------+ + + | omeprazole | Take 40 mg by mouth | | 0 | | | | (PRILOSEC) 20 mg | two times daily. | | | | 0 | | capsule | | | | | | + + + +---------+ + + | | Take 1-2 tablets by | 12 | 0 | 12/24/19 | | | oxyCODONE-acetaminop | mouth every 6 hours | tablet | | 19 | 9 | | hen (PERCOCET) 5-325 | as needed for Pain | | | | | | mg per tablet | for up to 3 days. | | | | | + + + +---------+ + + documented as of this encounter Ariel Dobbs RN - 12/23/2018 2:37 AM PSTPt discharged to home with family. Instruct ions given to pt both verbally and in writing. Pt sts understanding of her instructions at time of dc. Pt left ambulatory in NAD. Electronically signed by Ariel Nuñez RN at 12/07 2:40 AM Linwood Cole MD - 12/23/2018 1:15 AM PSTFormatting of this note mi ght be different from the original. [facility] Yin Emergency Department Encounter Note [address] [place] [address] PCP:DEANA Wright CHIEF COMPLAINT Chief Complaint Patient presents with Back Pain HPI Rachel Yin is a 63 y.o. female who presents to the emergency department with mid ba ck pain. This patient has had ongoing mid back pain. Now the back pain is worse. It start s in the middle of her lower thoracic spine and radiates towards the outside bilaterally. T here was nothing that aggravated the pain. She is currently getting workup and treatment fo r back pain. No fever. No incontinence of bowel or bladder. No urinary retention. She is accompanied by family but is providing her own history. She has been taking Robaxin 500 mg 3 times a day as well as Celebrex without improvement. She had some tramadol at home but d idn't try it. She states the pain is worse when she lays down. Certain movements make the pain get worse also. PAST MEDICAL HISTORY Past Medical History: Diagnosis Date Arthralgia Arthritis Fajardo's esophagus Chronic ethmoidal sinusitis Cluster headache Contact dermatitis Degeneration of lumbar or lumbosacral intervertebral disc Depression Depressive disorder Deviated nasal septum Disease related peripheral neuropathy IMANI (generalized anxiety disorder) GERD (gastroesophageal reflux disease) Hypercholesterolemia Insomnia Lumbar back pain Lumbosacral spondylosis Menopausal state Mixed hyperlipidemia Other general symptoms and signs Plantar fasciitis RA (rheumatoid arthritis) (HCC) Seasonal allergic rhinitis Tarsal tunnel syndrome Thoracic back pain TMJ (temporomandibular joint disorder) Urethritis Urticaria Vision impairment SURGICAL HISTORY Past Surgical History: Procedure Laterality Date APPENDECTOMY CHOLECYSTECTOMY FINGER SURGERY Right 11/29/2016 Procedure: Middle Finger Arthroplasty; Surgeon: Naveen Ferrari MD; Location: [facility] HYSTERECTOMY 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 celecoxib (CELEBREX) 100 mg capsule Take 100 mg by mouth Twice daily as needed for Saran n. cholecalciferol (VITAMIN D-3) 125 mcg (5,000 units) capsule Take 1 capsule by mouth Brianne ly. diclofenac (VOLTAREN) 1% GEL DULoxetine (CYMBALTA) [address] capsule Take 30 mg by mouth once daily. ergocalciferol (VITAMIN D-2) 50,000 units capsule Take by mouth. estrogens, conjugated, (PREMARIN) 0.625 mg tablet Take by mouth. fluticasone (FLONASE) 50 mcg/nasal spray 2 sprays by Nasal route Daily. methocarbamol (ROBAXIN) 500 mg tablet Take 500 mg by mouth 3 times daily as needed for Muscle spasms. omeprazole (PRILOSEC) 20 mg capsule Take 40 mg by mouth two times daily. omeprazole (PRILOSEC) 40 MG capsule Take 40 mg by mouth 2 times daily. ondansetron (ZOFRAN) 4 mg tablet REFRESH OPTIVE SENSITIVE ophthalmic solution ALLERGIES Allergies Allergen Reactions Codeine Rash, Nausea And Vomiting and Itching Other reaction(s): Pruritus Morphine Palpitations Tolmetin Swelling Chlorpheniramine Unknown Epinephrine Unknown Erythromycin Unknown Lidocaine Unknown Patient reports that she doesn't remember reaction and doesn't believe that it caused an issue. 12/23/2018 2:21 AM Pseudoephedrine Unknown Trimethoprim-Sulfamethoxazole [Sulfamethoxazole-Trimethoprim] Unknown FAMILY HISTORY Family History Problem Relation Age of Onset Hypertension Mother Heart disease Father Kidney cancer Brother Other cancer Sister Skin Other cancer Maternal Uncle Bone SOCIAL HISTORY Social History Socioeconomic History Marital status: Single Spouse name: Not on file Number of children: Not on file Years of education: Not on file Highest education level: Not on file Occupational History Employer: [employer] Tobacco Use Smoking status: Former Smoker Packs/day: 0.50 Types: Cigarettes Last attempt to quit: 05/24/1993 Years since quittin.6 Smokeless tobacco: Never Used Substance and Sexual Activity Alcohol use: No Drug use: No REVIEW OF SYSTEMS All systems reviewed and found negative except what is in the HPI PHYSICAL EXAM VITAL SIGNS: BP (!) 142/98 | Pulse 84 | Temp 36.1 C (96.9 F) (Oral) | Resp 18 | Ht 1.549 m (5' 1") | Wt 74.8 kg (165 lb) | SpO2 99% | BMI 31.18 kg/m Constitutional: Well developed, Well nourished, No acute distress, Non-toxic appearance. HENT: Normocephalic, Atraumatic, Bilateral external ears normal, Tympanic membranes normal , Mucous membranes are moist, Nasal mucosa is normal. Eyes: PERRL, EOMI, Conjunctiva normal, No discharge. Palpebral conjunctiva are pink. Neck: Normal range of motion, No tenderness, Supple, No stridor. Respiratory: Clear to auscultation bilaterally, No respiratory distress, No wheezing Chest: Non tender, no signs of trauma Cardiovascular: Normal heart rate, Normal rhythm, No murmurs appreciated. GI: Soft, Non tenderness, No peritoneal signs, No masses Extremities: Warm and well perfused, no edema, no joint swelling or deformity. Good ROM. Back: No CVAT, moderate tenderness of the lower thoracic spine bilaterally. Minimal yeison pancho lumbar tenderness. SKIN: No erythema, No induration, No rash. Neurologic: Alert & oriented x 3, No focal motor or sensory deficits. Speech is clear. G ait is normal. ED COURSE & MEDICAL DECISION MAKING Pertinent Labs & Imaging studies reviewed. (See chart for details) The patient was seen and examined shortly after arriving in the emergency department. Hist ory and physical were obtained, vital signs were noted. I reviewed her history. I treated her with 2 Percocet tablets. I will have her increase her Robaxin. Neurologic compromise. Outpatient workup is already in process. FINAL IMPRESSION 1. Acute bilateral thoracic back pain PLAN Follow-up Information DEANA Wright. Specialty: Nurse Practitioner Contact information: [id number] [place] [id number] Discharge Medication List as of 12/23/2018 1:27 AM START taking these medications Details oxyCODONE-acetaminophen (PERCOCET) 5-325 mg per tablet Take 1-2 tablets by mouth every 6 ho urs as needed for Pain for up to 3 days.Disp-12 tablet, R-0, Print Linwood Hernandes MD 12/23/18 0618 hilltina, Cristel Saleh RN - 12/23/2018 12:41 AM PSTPatient has a history of chronic back pain and is being worke d up by her PCP. States since Monday, she has been having increased pain in the thoracic re gion of her back. Is taking anti-inflammatories and Robaxin for pain. Using heat and ice.E lectronically signed by Cristel Watkins RN at 12/23/2018 12:43 AM PSTdocumented in this encounter Plan of Treatment Not on filedocumented as of this encounter Visit Diagnoses + + | Diagnosis | + + | Acute bilateral thoracic back pain - Primary | + + documented in this encounter Administered Medications + +---------+ +---------+------+ + | Medication Order | MAR | Action | Dose | Rate | Site | | | Action | Date | | | | + +---------+ +---------+------+ + | lidocaine (LIDODERM) 5% patch 1 | Patch | 12/24/19 | 1 patch | | Back-Low | | patch 1 patch, Transdermal, | Applied | 19 2:40 | | | er | | DAILY, First dose on 12/23/18 | | AM PST | | | Middle | | at 0230, Apply for 12 hours, | | | | | | | then remove for 12 hours. Apply | | | | | | | across the back at the point of | | | | | | | pain., Time to remove patch: 3:00 | | | | | | | PM | | | | | | + +---------+ +---------+------+ + +---+---+ | | | +---+---+ + +-------+ +--------+---+---+ | methocarbamol (ROBAXIN) tablet | Given | 12/24/19 | 500 mg | | | | 500 mg 500 mg, Oral, ONCE, Mon | | 19 2:02 | | | | | 12/23/18 at 0200, For 1 dose | | AM PST | | | | + +-------+ +--------+---+---+ +---+---+ | | | +---+---+ + +-------+ +---------+---+---+ | oxyCODONE-acetaminophen | Given | 12/24/19 | 2 | | | | (PERCOCET) 5-325 mg per tablet 2 | | 19 1:25 | tablets | | | | tablet 2 tablet, Oral, ONCE, Sun | | AM PST | | | | | 12/23/18 at 0120, For 1 dose | | | | | | + +-------+ +---------+---+---+ +---+---+ | | | +---+---+ documented in this encounter
--- OUTSIDE RECORDS SUMMARY | ~2019-10-28 | XMS | Encounter Summary ---
Demographics + + + | Address | [address] | | | [place] [address] | + + + | Home Phone | | + + + | Preferred Language | Unknown | + + + | Marital Status | Single | + + + | Taoist Affiliation | Unknown | + + + | Race | White | + + + | Ethnic Group | Not or | + + + Author + + + | Author | [facility] | | | and [place] | + + + | Organization | [facility] | | | and [place] | + + + | Address | Unknown | + + + | Phone | Unavailable | + + + Support + + + + + | Name | Relationship | Address | Phone | + + + + + | Maria Luisa Minaya | ECON | [place], [place] | | | | | [phone] | | + + + + + Care Team Providers + +------+ + | Care Welfare Eligibility Worker Name | Role | Phone | + +------+ + PCP | Unavailable | + +------+ + Encounter Details +--------+ + + + + | Date | Type | Department | Care Team | Description | +--------+ + + + + | 05/06/ | Hospital | [facility] | Raul Torres | | | 2010 - | Encounter | [facility] | DO [address] | | | | | [facility] [address] | [facility] | | | 05/08/ | | [place], | [place] [address] | | | 2010 | | [place] [address] | [phone] | | | | | [phone] | | | +--------+ + + + [...] + + documented as of this encounter Medications at Time of Discharge [...] + + documented as of this encounter H&P Raul Edmonds DO - 05/06/2010 8:06 AM PDTDATE: PREOPERATIVE HISTORY AND PHYSICAL DATE OF PROCEDURE: 05/06/2010 PREOPERATIVE DIAGNOSIS: Symptomatic fibroid uterus. CHIEF COMPLAINT: Pelvic pain. HISTORY OF PRESENT ILLNESS: This is a 54-year-old female, 1, para 1, who had been menopausal for approximately 1 year, who presented on the 29 of April to discuss her pelv ic pain. T he patient states that she had onset of severe pelvic pain and heavy vaginal bleeding on the Mar ruary. That bleeding episode lasted for approximately 1 week. She states it was very heavy associated w ith severe cramps and that pain has now continued. The bleeding has resolved but the patient states that she experience s pain that is constant. She states that is present on a daily basis. It is located primarily in the mi dline of h er lower abdomen with some radiation to her low back, and is cramping in nature. She states that the pain is so severe that she is taking Vicodin on a daily basis to control this pain. A pelvic ultrasound was completed on the April. That pelvic ultrasound demonstrated a 4.5 cm mass in the uterine cavity, most consistent wi th uterine fibroid distorting the endometrial stripe. Ovaries were otherwise normal. The patient is strongly d esiring to proceed with definitive surgical intervention due to her incapacitating pain. She did undergo an en dometrial biopsy due to this postmenopausal bleeding episode. That biopsy was benign. PAST MEDICAL HISTORY: Significant for: 1. Arthritis. 2. Depression. 3. Esophageal reflux. SURGICAL HISTORY 1. Cholecystectomy. 2. Appendectomy. MEDICATIONS 1. Citalopram 20 mg daily. 2. Hydrocodone p.r.n. 3. Prilosec 20 mg daily. 4. Ultram 50 mg p.r.n. ALLERGIES: NONE. SOCIAL HISTORY: No tobacco, alcohol, or drug use. PAST GYNECOLOGICAL HISTORY: She had a Pap within the last year that was normal. She has no history of abnormal Paps in the past. PAST OBSTETRICAL HISTORY: She has had 1 vaginal delivery. REVIEW OF SYSTEMS CARDIOVASCULAR: Negative for palpitations with no history of chest pain. No history of hea rt attack or stroke. No history of DVT. PULMONARY: She denies any shortness of breath, coughing, wheezing. There is no history of asthma. URINARY: No frequency, urgency or pain with urination. GI: No recent change in her bowel habits. No bloody stools or dark, tarry stools. PHYSICAL EXAMINATION VITAL SIGNS: Her temperature is 98.5. Pulse is 60, blood pressure 112/68. Her weight is 14 4. GENERAL: The patient is alert and appropriate, in no acute distress. NECK: Supple without mass. No thyroid enlargement or neck masses. HEART: Regular rate and rhythm. LUNGS: Clear to auscultation. ABDOMEN: Soft, nondistended, with mild tenderness in the lower quadrant in the midline. No palpable abdominal or pelvic mass. GENITOURINARY: On pelvic exam she had normal external female genitalia. Vaginal vault was free of an y discharge. Cervix is multiparous in appearance. No lesions are noted. On bimanual exam, cornell misael is approximately 8 to 10 weeks size. There is a fibroid or enlargement in the fundus th at is palpable, a nd she is exquisitely tender in this area. She has bilateral adnexal tenderness but no palpable mass. No masses over the bladder or urethra. No nodularity in the cul-de-sac. RECTAL EXAMINATION: Her perianal area appears normal. ASSESSMENT: SYMPTOMATIC FIBROID UTERUS. PLAN: The patient will undergo a laparoscopic assisted vaginal hysterectomy, possible ooph orectomy. Surgical risks were discussed with the patient. These include, but are not limited to: 1. Bleeding and risks associated with transfusion for hepatitis, HIV, or transfusion reaction. 2. Infection. 3. Injury to adjacent organs or structures including bowel, bladder, nerves, blood vessels, ureters. 4. Anesthetic complications. The patient understands. She has no further questions at this time and desires to proceed. DICTATED BY: Raul Torres DO Gynecology JOB #: [id number] EXT JOB #:[id number] EDITED: 05/05/2010 10:55 <Electronically Signed by Raul Torres DO> 05/06/10 0718 documented in this encounter Miscellaneous Notes Op Note - Raul Torres DO - 05/06/2010 8:06 AM PDTDATE: 05/06/2010 PREOPERATIVE DIAGNOSIS: Symptomatic fibroid uterus. POSTOPERATIVE DIAGNOSES 1. SYMPTOMATIC FIBROID UTERUS. 2. NORMAL RIGHT TUBE AND OVARY. 3. NORMAL LEFT TUBE AND OVARY WITH APPROXIMATELY A 1 CM SIMPLE CYST. PROCEDURE PERFORMED: Laparoscopic-assisted vaginal hysterectomy. PRIMARY SURGEON: Raul Torres DO SCROLL ASSEMBLER: Marlo Washington MD ANESTHESIA: General. ANESTHESIOLOGIST: Poncho Gonzalez MD INDICATIONS FOR THE PROCEDURE: This is a 54-year-old with severe pelvic and lower abdomina l pain, ultrasound demonstrating a 4.5 cm uterine fibroid. The patient strongly desired to proceed with defin itive surgical intervention. DESCRIPTION OF THE OPERATION: After informed consent was obtained, the patient was brought to the operating room. She underwent adequate general anesthetic. She was placed in the do rsal lithotomy pos ition. She was prepped and draped in the usual sterile fashion. A 16-Sierra Leonean Castorena catheter was lisset veda. The u mbilicus was infiltrated with 0.5% Marcaine with epinephrine. An umbilical incision was made. Optivi ew trocar was passed through the umbilicus entering the peritoneal cavity, which was then insufflated wit h CO2. Sec ond and third trocars, 5 mm disposable, were placed in the right and left lower quadrants under dir ect visual ization. Inspection of the uterus revealed the uterus was approximately 8-week size, large anterior fundal fib roid noted. Right tube and ovary were normal. Left tube and ovary also appeared normal with an approxim ately 1 cm simple cyst involving the left ovary. Anterior and posterior cul-de-sac were free of any ad hesions or endometriosis. The scope was rotated in a 360-degree fashion with no adhesions noted to the anterior abdominal wall. Using our LigaSure device, the fallopian tube on the patient's left side was divided, followed by her ovarian ligament. This was followed by division of the round ligament on the patient's left side. Thi s was carried down through the broad ligament reaching the anterior bladder peritoneum on the pat ient's lef t side. Similarly, on the patient's right side, the fallopian tube was divided using our LigaSure d evice, fol lowed by the ovarian ligament. This was followed by division of the round ligament and carried down thro ugh the br oad ligament, reaching the anterior bladder peritoneum. Attention was then turned to the bladde r peritone um. This was taken down using cautery and blunt dissection, taking the bladder down off the lower ut erine segm ent and cervix. The uterine vessel complexes were divided on both right and left sides using our Li gaSure. Th is was followed by partial division of our cardinal ligament bilaterally. Good hemostasis was note d at the c onclusion of the laparoscopic portion of the procedure. Abdomen was then deflated. The patient was pl aced in st eeper lithotomy. A weighted speculum was placed. The cervix was grasped with a Laura clamp. The c ervix was circumferentially infiltrated with 0.25% Marcaine with vasopressin. A circumferential incis ion was ma de along the cervicovaginal junction. The posterior cul-de-sac was entered sharply without difficult y. Followi ng this, the uterosacral ligaments were cross-clamped on both right and left sides. Pedicle was incised and secure d with a stitch of 0 Vicryl. This stitch was held until closure of the cuff. Attention was then turn ed anterio rly. The anterior cul-de-sac was entered sharply without difficulty. The bladder was retracted super iorly. A s mall portion of the uterosacral ligament as well as cardinal ligament was cross-clamped on both right an d left chan es. That pedicle was incised and secured with a stitch of 0 Vicryl. There was another small pedicle. This was a vascular pedicle that remained on both the right and left sides. That pedicle was secured with a Hea star, and p edicle incised and secured with a stitch of 0 Vicryl. The uterus with cervix was then removed in t jeff withou t complication. Vaginal packing was placed, and all pedicle sites were inspected. The pedicle s were not ed to be hemostatic. A modified Al culdoplasty was then performed using 0 Vic[address]. Following [address] ement of o ur culdoplasty stitch, the peritoneum was reapproximated using 2-0 Vicryl. Following closure o f our yang toneum, the vaginal cuff was reapproximated using multiple [id number] stitches of 0 Vicryl wit h complete closure of the cuff and good hemostasis noted. The modified Al culdoplasty stitch was then tied in the midli ne, plicating her uterosacral ligaments to the midline. No active bleeding was noted. Attention was then turned to the laparoscopy. Copious irrigation of the peritoneal cavity was performed with return of c lear fluid . All pedicle sites inspected laparoscopically; all were noted to be hemostatic. At this time all laparos copic inst ruments were removed and the abdomen was deflated. The umbilical incision was closed with 4-0 Monocryl, and our la teral ports were closed with Steri-Strips. A sterile bandage was applied. The patient was placed on the gur star and brought to the recovery room in good condition. ESTIMATED BLOOD LOSS: 125 mL FLUIDS: 1300 mL URINE OUTPUT: 150 mL COMPLICATIONS: None. DRAINS: A 16-S[place] Leonean Castorena catheter to gravity. DICTATED BY: Raul Torres DO Gynecology JOB #: [id number] EXT JOB #:[id number] <Electronicall y Signed by Raul Torres DO> 05/06/10 1801 documented in this encounter Plan of Treatment Not on filedocumented as of this encounter Procedures + +--------+ + + + | Procedure Name | Priori | Date/Time | Associated Diagnosis | Comments | | | ty | | | | + +--------+ + + + | CBC NO DIFFERENTIAL | Routin | 05/07/2010 | | Results for this | | | e | 7:15 AM | | procedure are in the | | | | PDT | | results section. | + +--------+ + + + | CBC NO DIFFERENTIAL | Routin | 05/06/2010 | | Results for this | | | e | 9:00 AM | | procedure are in the | | | | PDT | | results section. | + +--------+ + + + documented in this encounter Results CBC no Differential (05/07/2010 7:15 AM PDT) + + + + + + | Component | Value | Ref Range | Performed | Pathologist | | | | | At | Signature | + + + + + + | White Blood | 5.9 (A) | 4.0 - 11.0 K/uL | [facility] | | | Cells | | | [facility] | | | | | | [facility] | | | | | [facility] - | | | | | | LABORATORY | | + + + + + + | Red Blood | 3.75 | 3.70 - 5.20 | [facility] | | | Cells | | M/uL | [facility] | | | | | | [facility] | | | | | | [facility] - | | | | | | LABORATORY | | + + + + + + | Hemoglobin | 10.9 (L) | 11.5 - 16.0 | [facility] | | | | | gm/dL | [facility] | | | | | | [facility] | | | | | | [facility] - | | | | | | LABORATORY | | + + + + + + | Hematocrit | 33.5 (L) | 34.0 - 47.0 % | [facility] | | | | | | [facility] | | | | | | [facility] | | | | | | [facility] - | | | | | | LABORATORY | | + + + + + + | MCV | 89.3 | 83.0 - 101.0 fL | [facility] | | | | | | [facility] | | | | | | [facility] | | | | | | [facility] - | | | | | | LABORATORY | | + + + + + + | MCH | 29.0 | 28.0 - 35.0 pg | [facility] | | | | | | [facility] | | | | | | [facility] | | | | | | [facility] - | | | | | | LABORATORY | | + + + + + + | MCHC | 32.5 | 32.0 - 36.0 | [facility] | | | | | g/dL | [facility] | | | | | | [facility] | | | | | | [facility] - | | | | | | LABORATORY | | + + + + + + | RDW-CV | 14.8 | <15.0 % | [facility] | | | | | | [facility] | | | | | | [facility] | | | | | | [facility] - | | | | | | LABORATORY | | + + + + + + | Platelet | 205 | 140 - 440 K/uL | [facility] | | | Count | | | [facility] | | | | | | [facility]ICAL [...] + | [facility] | [address] | [place], [place] | [phone] | | [facility] | | [address] | | | - LABORATORY | | | | + + + + + | [facility] | [address] | [place], [place] | | | [facility] | | [address] [place] [address] | | | - LABORATORY | | | | + + + + + CBC no Differential (05/06/2010 9:00 AM PDT) + +-------+ + + + | Component | Value | Ref Range | Performed | Pathologist | | | | | At | Signature | + +-------+ + + + | White Blood | 5.3 | 4.0 - 11.0 K/uL | [facility] | | | Cells | | | [facility] | | | | | | [facility] | | | | | | [facility] - | | | | | | LABORATORY | | + +-------+ + + + | Red Blood | 4.14 | 3.70 - 5.20 | [facility] | | | Cells | | M/uL | [facility] | | | | | | [facility]ICAL | | | | | | CENTER - | | | | | | LABORATORY | | + +-------+ + + + | Hemoglobin | 12.0 | 11.5 - 16.0 | [facility] | | | | | gm/dL | [facility] | | | | | | [facility] | | | | | | [facility] - | | | | | | LABORATORY | | + +-------+ + + + | Hematocrit | 36.6 | 34.0 - 47.0 % | [facility] | | | | | | [facility] | | | | | | [facility]ICAL | | | | | | [facility] - | | | | | | LABORATORY | | + +-------+ + + + | MCV | 88.4 | 83.0 - 101.0 fL | [facility] | | | | | | [facility] | | | | | | [facility] | | | | | | [facility] - | | | | | | LABORATORY | | + +-------+ + + + | MCH | 29.0 | 28.0 - 35.0 pg | [facility] | | | | | | [facility] | | | | | | [facility] | | | | | | [facility] - | | | | | | LABORATORY | | + +-------+ + + + | MCHC | 32.8 | 32.0 - 36.0 | [facility] | | | | | g/dL | [facility] | | | | | | [facility] | | | | | | CENTER - | | | | | | LABORATORY | | + +-------+ + + + | RDW-CV | 14.5 | <15.0 % | [facility] | | | | | | [facility] | | | | | | [facility] | | | | | | [facility] - | | | | | | LABORATORY | | + +-------+ + + + | Platelet | 226 | 140 - 440 K/uL | [facility] | | | Count | | | [facility] | | | | | | [facility] [...] + | [facility] | [address] | [place], [place] | [phone] | | [facility] | | [address] | | | - LABORATORY | | | | + + + + + | [facility] | [address] | [place], [place] | | | [facility] | | [address] | | | - LABORATORY | | | | + + + + + documented in this encounter Visit Diagnoses Not on filedocumented in this encounter"
--- OUTSIDE RECORDS SUMMARY | ~2019-10-28 | XMS | Encounter Summary ---
Demographics + + + | Address | [address] | | | [place] [address] | + + + | Home Phone | | + + + | Preferred Language | Unknown | + + + | Marital Status | Single | + + + | Yazdanism Affiliation | UNK | + + + | Race | or | + + + | Ethnic Group | Not or | + + + Author + + + | Author | [facility] [employer] [facility] | + + + | Organization | [facility] [employer] [facility] | + + + | Address | Unknown | + + + | Phone | Unavailable | + + + Support + + +---------+ + | Name | Relationship | Address | Phone | + + +---------+ + | Alysa Yin | ECON | Unknown | | + + +---------+ + Care Team Providers + +------+ + | Care Answerer Name | Role | Phone | + +------+ + | Poncho Nieves MD | PCP | | + +------+ + Encounter Details +--------+------+ + + + | Date | Type | Department | Care Team | Description | +--------+------+ + + + | 08/25/ | Lab | Laboratory at [facility] | | Arthralgia | | 2008 | | [address] | | | | | | [facility] | | | | | | [address] | | | | | | [place], [place] | | | | | | [address] | | | | | | [phone] | | | +--------+------+ + + + [...] 2020 | bora | | MD Hermelindo [address] | | | | | | [address] | | | | | | [place], [place] | | | | | | [address] | | | | | | [phone] | | | | | | | | +--------+ + + + + documented as of this encounter Procedures + +--------+ + + + | Procedure Name | Priori | Date/Time | Associated Diagnosis | Comments | | | ty | | | | + +--------+ + + + | LYME ABS TOTAL | Routin | 08/25/2008 | Arthralgia | Results for this | | REYNA, CSF | e | 10:08 AM | | procedure are in the | | | | PDT | | results section. | + +--------+ + + + | CYCLIC CITRUL | Routin | 08/25/2008 | Arthralgia | Results for this | | PEPTIDE AB IGG, | e | 10:08 AM | | procedure are in the | | SERUM | | PDT | | results section. | + +--------+ + + + | HEPATITIS B SURFACE | Routin | 08/25/2008 | Arthralgia | Results for this | | AG, SERUM | e | 10:08 AM | | procedure are in the | | | | PDT | | results section. | + +--------+ + + + | HEPATITIS C VIRUS | Routin | 08/25/2008 | Arthralgia | Results for this | | W/CONFIRMATION | e | 10:08 AM | | procedure are in the | | | | PDT | | results section. | + +--------+ + + + documented in this encounter Results CYCLIC CITRUL PEPTIDE AB IGG, SERUM (08/25/2008 10:08 AM PDT) + + + + + + | Component | Value | Ref Range | Performed | Pathologist | | | | | At | Signature | + + + + + + | CYCLIC | 1Comment: REFERENCE | <20 Units | | | | CITRUL | INTERVAL: Cyclic | | | | | PEPTIDE AB, | Citrullinated Peptide | | | | | IGG | Ab, IgG Less than 20 | | | | | | Units ...... Negative | | | | | | 20-39 Units | | | | | | ............. Weak | | | | | | Positive 40-59 Units | | | | | | ............. Moderate | | | | | | Positive 60 Units or | | | | | | greater ..... Strong | | | | | | Positive Approximately | | | | | | 70% of patients with RA | | | | | | are positive forCCP IgG, | | | | | | while only 2% of random | | | | | | blood donors and | | | | | | diseasecontrol are | | | | | | positive. The diagnostic | | | | | | value of antibodiesto | | | | | | CCP in juvenile | | | | | | rheumatoid arthritis | | | | | | patients has notbeen | | | | | | determined.Performed by | | | | | | [employer] | | | | | [address] [facility], [facility] | | | | | | [address] | | | | | | [phone]. | | | | | | [facility], Moi Petersen, | | | | | | - Tyesha. Director | | | | + + + + + + + + | Specimen | + + | Blood - Blood | + + + + + + + | Performing | Address | City/State/Zipcode | Phone Number | | Organization | | | | + + + + + | [facility] | [address] | [place] [address] | | | PATHOLOGY | [address] | | | + + + + + [facility] [place] CSF (08/25/2008 10:08 AM PDT) + + + + + + | Component | Value | Ref Range | Performed | Pathologist | | | | | At | Signature | + + + + + + | LYME AB | Borderline (A)Comment: | | [facility] | | | REYNA, CSF | Test performed by: | | [facility] | | | | [facility] | | PATH DEPT | | | | [facility] Path Dept. | | | | | | [facility] | | | | | | [place] [facility] [place] | | | | | | [place], [place] | | | | | | [address] | | | | + + + + + + | SOURCE, INF | Serum | | [facility] | | | SER/PCR | | | [facility] | | | | | | PATH DEPT | | + + + + + + | PATIENT | 0.122 | | [facility] | | | SPECIMEN | | | [facility] | | | O.D. | | | PATH DEPT | | + + + + + + | REACTIVE | 0.146 | | [facility] | | | CUTOFF O.D. | | | [facility] | | | | | | PATH DEPT | | + + + + + + | BORDERLINE | 0.114 | | [facility] | | | CUTOFF O.D. | | | [facility] | | | | | | PATH DEPT | | + + + + + + + + | Specimen | + + | | + + + + + + + | Performing | Address | City/State/Zipcode | Phone Number | | Organization | | | | + + + + + | [facility] | [address] | [place] [address] | | | PATHOLOGY | [address] | | | + + + + + | [facility] | [facility] | [place], [place] | | | [facility] PATH DEPT | AT [place] | [address] | | + + + + + HEPATITIS C AB, SERUM (08/25/2008 10:08 AM PDT) + + + + + + | Component | Value | Ref Range | Performed | Pathologist | | | | | At | Signature | + + + + + + | HEPATITIS C | Negative | Negative | | | | AB | | | | | + + + + + + + + | Specimen | + + | Blood - Blood | + + + + + | Narrative | Performed At | + + + | [facility]) [place] | [place] | | [place] [address] [facility] | DEPARTMENT OF | | [place] [address] | PATHOLOGY | + + + + + + + + | Performing | Address | City/State/Zipcode | Phone Number | | Organization | | | | + + + + + | [place] DEPARTMENT OF | [address] | [place] [address] | | | PATHOLOGY | [address] | | | + + + + + | [facility] | [address] | [place] [address] | | | PATHOLOGY | [address] | | | + + + + + HEPATITIS B SURFACE AG, SERUM (08/25/2008 10:08 AM PDT) + + + + + + | Component | Value | Ref Range | Performed | Pathologist | | | | | At | Signature | + + + + + + | HEPATITIS B | Negative | Negative | | | | SURFACE | | | | | | AG, SERUM | | | | | + + + + + + + + | Specimen | + + | Blood - Blood | + + + + + | Narrative | Performed At | + + + | [facility] ([facility] | [facility] | | [place] [address] [facility] | DEPARTMENT OF | | [place] [address] | PATHOLOGY | + + + + + + + + | Performing | Address | City/State/Zipcode | Phone Number | | Organization | | | | + + + + + | [facility] DEPARTMENT OF | [address] | [place] [address] | | | PATHOLOGY | [address] | | | + + + + + | [facility] | [address] | [place] [address] | | | PATHOLOGY | [address] | | | + + + + + documented in this encounter Visit Diagnoses + + | Diagnosis | + + | Arthralgia Pain in joint, site unspecified | + + documented in this encounter"
--- OUTSIDE RECORDS SUMMARY | ~2019-10-28 | XMS | Encounter Summary ---
Demographics + + + | Address | [address] | | | [place] [address] | + + + | Home Phone | | + + + | Preferred Language | Unknown | + + + | Marital Status | Single | + + + | Rastafari Affiliation | UNK | + + + | Race | or | + + + | Ethnic Group | Not or | + + + Author + + + | Author | [facility] | + + + | Organization | [facility] | + + + | Address | Unknown | + + + | Phone | Unavailable | + + + Support + + +---------+ + | Name | Relationship | Address | Phone | + + +---------+ + | Alysa Yin | ECON | Unknown | | + + +---------+ + Care Team Providers + +------+ + | Care Bowling Alley Mechanic Name | Role | Phone | + +------+ + | Sary De SantiagoP | PCP | | + +------+ + Reason for Visit + + + | Reason | Comments | + + + | Eye examination | Patient had an episode of a severe headache and nausea 3 weeks | | | ago, followed by bilatearal eyelid swelling. Since then the | | | patient has been having persistent headache and decreased vision. | | | Seen by an outside eye provider, Dr. 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 Had MRI which was reportedly normal. | | | Currently the patient reports that her facial swelling is | | | resolved but her poor vision has since persisted. Also having | | | light sensitivity. Difficult to drive and work at a computer. | + + + Office Visit - E/M Services (Routine) +--------+--------+ + + + + | Status | Reason | Specialty | Diagnoses / | Referred By | Referred To | | | | | Procedures | Contact | Contact | +--------+--------+ + + + + | Closed | | Ophthalmology | | Non-[facility] | Keyona Velasquez | | | | | | Epic Dept | MD [facility] [address] | | | | | | [address] | | | | | | | [place], [place] | | | | | | | [address] | | | | | | | Phone: | | | | | | | [phone] | | | | | | | Fax: | | | | | | | [phone] | +--------+--------+ + + + + Encounter Details +--------+---------+ + + + | Date | Type | Department | Care Team | Description | +--------+---------+ + + + | 11/26/ | Office | [facility] | Keyona Velasquez MD | Subjective visual | | 2012 | Visit | [place] | [address] | disturbance, | | | | ogy at [facility] [address] | [facility] [place] | unspecified (Primary | | | | [facility] Figuero[facility] for | [address] | Dx); Headache | | | | [facility], | [phone] | | | | | | | | | | | [place], [place] | | | | | | [address] | | | | | | [phone] | | | +--------+---------+ + + + [...] documented as of this encounter Progress Notes Keyona Velasquez MD - 11/26/2012 10:34 AM PDTFormatting of this note might be different from t he original. COMPREHENSIVE OPHTHALMOLOGY PROGRESS NOTE 11/26/2012 HPI: 57 y.o. year old female from [place] : Patient presents with: Eye examination - Patient had an episode of a severe headache and nausea 3 weeks ago, fol lowed by bilatearal eyelid swelling. Since then the patient has been having persistent heada jennifer and decreased vision. Seen by an outside eye provider, Dr. Florez, noted swollen optic n erves and uveitis. Had MRI which was reportedly normal. Currently the patient reports that h er facial swelling is resolved but her poor vision has since persisted. Also having light se nsitivity. Difficult to drive and work at a computer. No jaw claudication. No fevers, weight loss, or proximal muscle weakness. No recent travel or camping outdoor exposures. Tobacco use: reports that she quit smoking about 19 years ago. Her smoking use included Ci garettes. She smoked 0.50 packs per day. She has never used smokeless tobacco. Primary Care Provider: Poncho Burdick MD Past ocular history: No specialty comments on file. Family ocular history: family history includes Cancer in her brother (renal), maternal uncle, and sister (skin); H eart Disease in her father; and Hypertension in her mother. Allergies: is allergic to codeine; morphine; and tolmetin sodium. Medications: Current Outpatient Prescriptions Medication Sig BENADRYL 25 mg Oral Capsule Take 1 Cap by mouth as needed conjugated estrogens 0.625 mg Oral Tablet Take 0.625 mg by mouth once daily. ergocalciferol (VITAMIN D) 50,000 unit Oral Capsule Take 1 Cap by mouth every seven day s. folic acid 1 mg Oral tablet Take 1 mg by mouth once daily. gabapentin (NEURONTIN) 300 mg Oral Capsule Take 2 Caps by mouth once. hydroxychloroquine 200 mg Oral Tablet Take 2 Tabs by mouth once daily. INFLIXIMAB (REMICADE IV) Inject into the vein (IV). lorazepam (ATIVAN) 0.5 mg Oral Tablet Take 1 Tab by mouth once daily at bedtime. meperidine (DEMEROL) 50 mg Oral tablet Take 50 mg by mouth three times daily. ondansetron 4 mg Oral tablet Take 4 mg by mouth every eight hours. PRILOSEC 20 mg Oral Capsule, Delayed Release(E.C.) Take 1 Cap by mouth two times daily. promethazine (PHENERGAN) 25 mg Oral Tablet Take 1 Tab by mouth four times daily as need ed for nausea/vomiting. traMADol 50 mg Oral tablet Take 50 mg by mouth three times daily as needed. traZODone 50 mg Oral tablet Take 50 mg by mouth once daily at bedtime. No current facility-administered medications for this visit. Medical history/PMH/Review of systems: There is no problem list on file for this patient. Past Medical History Diagnosis Date Other general symptoms Fajardo's esophagus Hypercholesterolemia Depression has past surgical history that includes appendectomy and cholecystectomy. Reviewed systems for: fever, wt. loss, ENT, cardiovascular, pulmonary, GI, urinary, neurolo gic, endocrine, bleeding/blood disorders, AIDS/HIV, cancer/tumors, arthritis - all were nega tive except as noted above. EXAMINATION: Pain score: 7 Visual acuity CC SC PH (SC/CC) Right eye 20/25-1 20/20-1, Left eye 20/20-2 , Pupils: PERRL APD Right eye None Left eye None EOM: Full; Ortho; CVF: OD: Full OS: Full IOP Color OD 13 OS 14 IOP method: Applanation Drops for dilation: 2.5% Phenylephrine, 1.0% Mydriacyl Both eyes 10:32 AM Neuro/Psych: Oriented x3 Mood/Affect: Normal External Exam Right Eye Left Eye Normal Normal Comments: Slit Lamp Exam Right Eye Left Eye Lids Normal Normal Conjunctiva White and quiet White and quiet Cornea Epithelium intact, SN neovascularization with circular perilimbal stromal opacity at 2oclock, otherwise clear stroma, no thickening Epithelium intact, scant calcific changes te mporally, SN neovascularization with circular perilimbal stromal opacity at 2oclock, otherwi se clear stroma, no thickening AC Slightly narrow by VH, on gonio open to TM in 4/.4 quadrants with no PAS, quiet with no cell Slightly narrow by VH, on gonio open to TM in 4/.4 quadrants with no PAS, trace cell vi sualized Iris Normal Normal Lens 1+ NS 1+ NS Comments: Fundus Exam Right Eye Left Eye Vitreous Normal Normal Disc Normal, no edema or pallor Normal, no edema or pallor C/D 0.2 0.3 Macula Normal Normal Vessels Normal Normal Periphery Normal Normal Comments: See [facility] Ophthalmology Exam Module for additional exam information Outside [place] Visual Field 24-2 11/09/2012 Left Eye: Moderate to poor reliability, size III stimulus, white, 5/11 Fixation Losses, 0% False Positives, 11% False Negatives, normal blind spot, dense superior arcuate depression. Right Eye: Moderate reliability, size III stimulus, white, 10/11 Fixation Losses, 0% False Positives, 8% False Negatives, normal blind spot, non-specific general depression, inferior greater than superior. Overall: Bilateral visual defects which could be suggestive of a bilateral optic nerve proc ess, although not highly reliable visual mason. Outside Head CT 11/04/2012 Impression: no acute intracranial abnormality. Outside Face/Orbital/Neck MRI 11/12/2012 Impression: no significant pathology. Impression: 57 yo female Headache with Subjective Visual Disturbance - patient reports a severe headache with nausea and vomiting 3 weeks ago. Also reports bilateral periocular swelling.Was evaluated by an [facility] rat farmer who noted bilateral optic disc edema. Her visual mason were also abno rmal at that time (see above). She underwent CT and MRI imaging of the brain and orbits whic h were normal. Since that time, the patient reports that her periocular edema has since reso lved, headaches have improved, although her vision is not back to baseline with occasional l ight sensitivity. On exam today the patient demonstrates reasonable visual acuity, normal co bro vision, normal pupillary responses, and healthy appearing optic nerves with resolution o f her previous bilateral optic disc edema. 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 I have reviewed this case with Dr. Gian Hurt in our neuro-ophthalmology division. As we ar e not evaluating the patient in her active state, it is difficult to narrow a diagnosis. How ever, based on her previous symptoms, reported clinical findings, it may be possible that alyce christine had an infectious or inflammatory DYNAMOMETER REPAIRER process such as meningitis with elevated ICP or orbi hoa pseudotumor. Her head and orbital imaging was normal although no CSF labs were obtained. Other things to consider on the differential would be ocular migraines or allergic response to her Topamax which was taken a few days before the onset of her symptoms. That being said , the likelihood of Topamax being the causative agent seems less likely and as it is a good medication for headache control it may be reasonable to suggest a medication re-challenge wi th close supervision of her prescribing PCP or neurologist. The patient has no other symptoms to suggest GCA although we can certainly revisit this pos sibility in the future. She has a been previously been evaluated by Rheumatology here at [facility] for arthritis which was not felt to be inflammatory in nature. Her ESR and CRP back in 200 9 were normal. She has taken Hydroxychloroquine in the past but is no longer taking this med ication. She is now followed by an outside provider for possible RA and is taking Methotrexa te and Remicade. At this time, the patient's acute episode seems to have resolved and her clinical exam find ings are improving. We recommend following this patient and will plan on a repeat visual jame t in 1 month's time. In the mean time, I have asked that Rachel see her PCP or neurologist fo r further evaluation of her headaches which could represent migraines. We will defer to thei r expertise regarding options for medication management. Rachel agreed to let me know if she experiences any acute new visual concerns as I am happy to see her anytime. Plan: Order repeat HVF 30-2 Refer to PCP or neurology for further evaluation and management of headaches Letter sent to the referring rat farmer, Dr. Florez today RTC 1 month, sooner PRFerny [place] MD Alarm Technician [facility] Physician: Keyona Velasquez MD, 11/26/2012 documented in this encou nter Plan of Treatment +--------+ + + + + | Date | Type | Specialty | Care Team | Description | +--------+ + + + + | 02/24/ | Telephone-S | Rheumatology | Ron, | | | 2020 | bora | | MD [place] [address] | | | | | [address] | | | | | | [place], [place] | | | | | | [address] | | | | | | [phone] | | | | | | | | +--------+ + + + + + + +--------+ + + | Name | Type | Priori | Associated Diagnoses | Order Schedule | | | | ty | | | + + +--------+ + + | B[facility]ON VISUAL | Procedures | Routin | Subjective visual | Expected: 02/26/2013 | | FIELD | | e | disturbance, | | | | | | unspecified | | + + +--------+ + + documented as of this encounter Visit Diagnoses + + | Diagnosis | + + | Subjective visual disturbance, unspecified - Primary | + + | Headache(784.0) Headache | + + documented in this encounter"
--- OUTSIDE RECORDS SUMMARY | ~2019-10-28 | XMS | Encounter Summary ---
Demographics + + + | Address | [address] | | | [place] [address] | + + + | Home Phone | | + + + | Preferred Language | Unknown | + + + | Marital Status | Single | + + + | Pentecostal Affiliation | UNK | + + + | Race | or | + + + | Ethnic Group | Not or | + + + Author + + + | Author | [facility] | + + + | Organization | [facility] | + + + | Address | Unknown | + + + | Phone | Unavailable | + + + Support + + +---------+ + | Name | Relationship | Address | Phone | + + +---------+ + | Alysa Yin | ECON | Unknown | | + + +---------+ + Care Team Providers + +------+ + | Care Board Winder Name | Role | Phone | + +------+ + | Sary De Santiago | PCP | | + +------+ + Reason for Visit + +--------+ + | Reason | Onset | Comments | | | Date | | + +--------+ + | Request For Records | 10/23/ | | | | 2020 | | + +--------+ + Encounter Details +--------+ + + + + | Date | Type | Department | Care Team | Description | +--------+ + + + + | 10/23/ | Telephone | Rheumatology at | Ron | Request For Records | | 2019 | | [facility] [place] | MD [place] [address] | | | | | [address] | [facility] | | | | | Loop Physician's | [place], [place] | | | | | [place], [facility] Floor | [address] | | | | | [place], [place] | [phone] | | | | | [address] | | | | | | [phone] | | | +--------+ + + + [...] this encounter Miscellaneous Notes Telephone Encounter - Aly Sanchez - 10/25/2019 9:25 AM PDTUploading MACIE for [facility]'s Dr. Jones. elephone Encounter - Aly Sanchez - 10/24/2019 3:34 PM PDTFaxed request for records to [facility] Rheumatology. Med records fax: [phone]. P DTdocumented in this encounter Plan of Treatment +--------+ + + + + | Date | Type | Specialty | Care Team | Description | +--------+ + + + + | 02/24/ | Telephone-S | Rheumatology | Ron, | | | 2020 | bora | | MD [place] [address] | | | | [address] | | | | | | [place] | | | | | | [address] | | | | | | [phone] | | | | | | | | +--------+ + + + + documented as of this encounter Visit Diagnoses Not on filedocumented in this encounter"
--- OUTSIDE RECORDS SUMMARY | ~2019-10-28 | XMS | Encounter Summary ---
Demographics + + + | Address | [address] | | | [place] [address] | + + + | Home Phone | | + + + | Preferred Language | Unknown | + + + | Marital Status | Single | + + + | Advent Affiliation | UNK | + + + | Race | or | + + + | Ethnic Group | Not or | + + + Author + + + | Author | [facility] | + + + | Organization | [facility] | + + + | Address | Unknown | + + + | Phone | Unavailable | + + + Support + + +---------+ + | Name | Relationship | Address | Phone | + + +---------+ + | Alysa Yin | ECON | Unknown | | + + +---------+ + Care Team Providers + +------+ + | Care Manager Social Name | Role | Phone | + +------+ + | Poncho Nieves MD | PCP | | + +------+ + Encounter Details +--------+------+ + + + | Date | Type | Department | Care Team | Description | +--------+------+ + + + | 05/07/ | Lab | Laboratory at [facility] | | Sensory Disturbance; | | 2008 | | [address] | | Pain in Joint, Hand | | | | [facility] for [facility] | | | | | | and Healing, | | | | | | [address] | | | | | | [place], [place] | | | | | | [address] | | | | | | [phone] | | | +--------+------+ + + + Social History + +-------+ [...] | bora | | MD Hermelindo [address] | | | | | [address] | | | | | | [place], [place] | | | | | | [address] | | | | | | [phone] | | | | | | | | +--------+ + + + + documented as of this encounter Procedures + +--------+ + + + | Procedure Name | Priori | Date/Time | Associated Diagnosis | Comments | | | ty | | | | + +--------+ + + + | [facility] - COMPLETE | Routin | 05/07/2008 | Sensory | Results for this | | METABOLIC SET | e | 2:33 PM | Disturbance Pain in | procedure are in the | | | | PDT | Joint, Hand | results section. | + +--------+ + + + | RACHAEL WRIGHT W | Routin | 05/07/2008 | Sensory | Results for this | | DIFFERENTIAL | e | 2:33 PM | Disturbance Pain in | procedure are in the | | | | PDT | Joint, Hand | results section. | + +--------+ + + + | VITAMIN B1, WHOLE | Routin | 05/07/2008 | Sensory | Results for this | | BLOOD | e | 2:33 PM | Disturbance Pain in | procedure are in the | | | | PDT | Joint, Hand | results section. | + +--------+ + + + | VITAMIN D, | Routin | 05/07/2008 | Sensory | Results for this | | 25-HYDROXY, SERUM | e | 2:33 PM | Disturbance | procedure are in the | | | | PDT | | results section. | + +--------+ + + + | VITAMIN B6, PLASMA | Routin | 05/07/2008 | Sensory | Results for this | | | e | 2:33 PM | Disturbance Pain in | procedure are in the | | | | PDT | Joint, Hand | results section. | + +--------+ + + + | ANTI NUCLEAR AB | Routin | 05/07/2008 | Sensory | Results for this | | SCREEN, SERUM | e | 2:33 PM | Disturbance Pain in | procedure are in the | | | | PDT | Joint, Hand | results section. | + +--------+ + + + | CRYOGLOBULIN SCREEN, | Routin | 05/07/2008 | Sensory | Results for this | | SERUM | e | 2:33 PM | Disturbance Pain in | procedure are in the | | | | PDT | Joint, Hand | results section. | + +--------+ + + + | RHEUMATOID FACTOR, | Routin | 05/07/2008 | Sensory | Results for this | | SERUM | e | 2:33 PM | Disturbance Pain in | procedure are in the | | | | PDT | Joint, Hand | results section. | + +--------+ + + + | FRANCHESCA ANTIBODIES | Routin | 05/07/2008 | Sensory | Results for this | | IDENTIFICATION, | e | 2:33 PM | Disturbance Pain in | procedure are in the | | SERUM | | PDT | Joint, Hand | results section. | + +--------+ + + + | C'4 COMPLEMENT, | Routin | 05/07/2008 | Sensory | Results for this | | SERUM | e | 2:33 PM | Disturbance | procedure are in the | | | | PDT | | results section. | + +--------+ + + + | C'3 COMPLEMENT, | Routin | 05/07/2008 | Sensory | Results for this | | SERUM | e | 2:33 PM | Disturbance | procedure are in the | | | | PDT | | results section. | + +--------+ + + + | ANTI NEUTROPHIL | Routin | 05/07/2008 | Sensory | Results for this | | CYTOPLASMIC AB SCN, | e | 2:33 PM | Disturbance Pain in | procedure are in the | | SERUM | | PDT | Joint, Hand | results section. | + +--------+ + + + | C-REACTIVE PROTEIN | Routin | 05/07/2008 | Sensory | Results for this | | | e | 2:33 PM | Disturbance Pain in | procedure are in the | | | | PDT | Joint, Hand | results section. | + +--------+ + + + | SEDIMENTATION RATE | Routin | 05/07/2008 | Sensory | Results for this | | | e | 2:33 PM | Disturbance Pain in | procedure are in the | | | | PDT | Joint, Hand | results section. | + +--------+ + + + | FOLATE, RBC | Routin | 05/07/2008 | Sensory | Results for this | | | e | 2:33 PM | Disturbance Pain in | procedure are in the | | | | PDT | Joint, Hand | results section. | + +--------+ + + + | FREE T4 | Routin | 05/07/2008 | Sensory | Results for this | | | e | 2:33 PM | Disturbance Pain in | procedure are in the | | | | PDT | Joint, Hand | results section. | + +--------+ + + + | TSH | Routin | 05/07/2008 | Sensory | Results for this | | | e | 2:33 PM | Disturbance Pain in | procedure are in the | | | | PDT | Joint, Hand | results section. | + +--------+ + + + | ALDOLASE, SERUM | Routin | 05/07/2008 | Sensory | Results for this | | | e | 2:33 PM | Disturbance Pain in | procedure are in the | | | | PDT | Joint, Hand | results section. | + +--------+ + + + | VITAMIN B-12 | Routin | 05/07/2008 | Sensory | Results for this | | | e | 2:33 PM | Disturbance Pain in | procedure are in the | | | | PDT | Joint, Hand | results section. | + +--------+ + + + | CK, PLASMA | Routin | 05/07/2008 | Sensory | Results for this | | | e | 2:33 PM | Disturbance Pain in | procedure are in the | | | | PDT | Joint, Hand | results section. | + +--------+ + + + | VITAMIN E, SERUM | Routin | 05/07/2008 | Sensory | Results for this | | | e | 2:17 PM | Disturbance Pain in | procedure are in the | | | | PDT | Joint, Hand | results section. | + +--------+ + + + documented in this encounter Results C'4 COMPLEMENT, SERUM (05/07/2008 [...] | | 03/04/[address] [facility] [address] [facility]) [facility] | | | [place] [address] | | | [place] [address] | | + + + + + + + + | Performing | Address | City/State/Zipcode | Phone Number | | Organization | | | | + + + + + | [facility] | [address] | [place] [address] | | | LABORATORY | | | [...] Change effective | | | 03/04/08 [facility] [address] [facility]) [place] | | | [place] [address] [address] | | | [place] [address] | | + + + + + + + + | Performing | Address | City/State/Zipcode | Phone Number | | Organization | | | | + + + + + | [facility] | [address] | [place] [address] | | | LABORATORY | | | [...] | | | | | ng/mLPerformed by [facility] | | | | | | [facility],[address] [facility] [address] | | | | | | [place] [address] | | | | | | [phone].[employer].uplab. | | | | | | Moi [...] [facility] | [address] | [place], [place] | | | UN[facility] INTFC | | [address] | | + + + + + [...] At | + + + | [facility] ([address] [facility]) [facility] | | | [place] [address] [facility] | | | [place] [address] | | + + + + + + + + | Performing | Address | City/State/Zipcode | Phone Number | | Organization | | | | + + + + + | [facility] | [address] | [place] [address] | | | LABORATORY | | | [...] 30.0 | | | | (LAB) | cloud.IQ,500 | ng/mL | | | | | Corey [place], [facility] | | | | | | [address] | | | | | | [phone].[employer]lab. | | | | | | Moi [...] | + + + + + | [facility] | [address] | [place], [place] | | | [facility] [place] | | [address] | | + + + + + [...] by | | | | | | cloud.IQ,500 | | | | | | [place], [place] | | | | | | [address] | | | | | | [phone].Pearltrees. | | | | | | Moi [...] [facility] | [address] | [place], [place] | | | UN[facility] [place] [place] | | [address] | | + + + + + [...] + + | [facility] ([facility]) | | | [facility] [address] [address] | | | [place] [address] | | + + + + + + + + | Performing | Address | City/State/Zipcode | Phone Number | | Organization | | | | + + + + + | [facility] | [address] | [place] [address] | | | LABORATORY | | | [...] | + + + + + | [facility] | [facility] | [place] [address] | | | PATHOLOGY | [address] | | | + + + + + | [facility] | [facility] | [place] [address] | | | PATHOLOGY | [address] [...] | | | | | d by [facility] | | | | | | [facility],[address] [place] [address] | | | | | | [place] [address] | | | | | | [phone].Microventureslab. | | | | | | Moi [...] [facility] | [address] | [place], [place] | | | UN[facility] [place] | | [address] | | + + + + + [...] | | | [facility] ([address] [facility]) [facility] | | | [place] [address] [address] [facility], | | | [place] [address] | | + + + + + + + + | Performing | Address | City/State/Zipcode | Phone Number | | Organization | | | | + + + + + | [facility] | [address] | [place] [address] | | | LABORATORY | | | [...] + + + | [facility] ([address] [facility]) [facility] | | | [place] [address] | | | [place] [address] | | + + + + + + + + | Performing | Address | City/State/Zipcode | Phone Number | | Organization | | | | + + + + + | [facility] | [address] | [place] [address] | | | LABORATORY | | | | + + + + + FRANCHESCA ANTIBODIES IDENTIFICATION, SERUM (05/07/2008 2:33 PM PDT) + + + + + + | Component | Value | Ref Range | Performed | Pathologist | | | | | At | Signature | + + + + + + | SOFT METALS HAND ENGRAVER AB | Negative | Negative | [facility] [...] | + + + + + | [facility] | [address] [facility] | [place] [address] | | | PATHOLOGY | [address] | | | + + + + + | [facility] | [address] [facility] | [place] [address] | | | PATHOLOGY | [address] | | | + + + + + CRYOGLOBULIN SCREEN, SERUM (05/07/2008 2:33 PM PDT) + + + + + + | Component | Value | Ref Range | Performed | Pathologist | | | | | At | Signature | + + + + + + | CRYOGLOBULI | NEG 72HourComment: | ([id number]) | | | | N SCREEN, | Performed by [facility] | | | | | SERUM | Laboratories,[address] | | | | | | [place] [address] | | | | | | [phone].aruplab. | | | | | | Moi [...] [facility] | [address] | [place], [place] | | | UN[facility] [place] [place] | | [address] | | + + + + + [...] + | [facility] DEPARTMENT OF | [address] [facility] | [place] [address] | | | PATHOLOGY | [address] | | | + + + + + | [facility] DEPARTMENT OF | [address] [facility] | [facility] [place] [address] | | | PATHOLOGY | [address] [...] | + + + + + | [facility] DEPARTMENT OF | [address] | [place] [address] | | | PATHOLOGY | [address] | | | + + + + + | [facility] DEPARTMENT OF | [address] | [place] [address] | | | PATHOLOGY | [address] [...] | | | [facility] ([facility] [address] [facility]) [facility] | | | [place] [address] | | | [place] [address] | | + + + + + + + + | Performing | Address | City/State/Zipcode | Phone Number | | Organization | | | | + + + + + | [facility] | [address] | [place] [address] | | | LABORATORY | | | [...] | + + + + + | [facility] DEPARTMENT OF | [address] | [place] [address] | | | PATHOLOGY | [address] | | | + + + + + | [facility] DEPARTMENT OF | [address] | [place] [address] | | | PATHOLOGY | [address] [...] | | | | PROTEASE 3 | cloud.IQ,500 | | | | | | [place]y Berry, [facility] | | | | | | [address] | | | | | | [phone].Pearltrees. | | | | | | Moi [...] [facility] | [address] | [place], [place] | | | UN[facility] [place] INT[place] | | [address] | | + + + + + [...] | NDNA Ab Titer effective 04/15/08. [facility] | | | Lab) [facility] [place] [address] [address] | | [place] [address] | | + + + + + + + + | Performing | Address | City/State/Zipcode | Phone Number | | Organization | | | | + + + + + | [facility] | [address] | [place] [address] | | | LABORATORY | | | [...] U/L | | | | SERUM | cloud.IQ,500 | | | | | | Corey Berry, [place], [place] | | | | | | [address] | | | | | | [phone].aruplab. | | | | | | Moi [...] [facility] | [address] | [place], [place] | | | [place] [facility] [place] | | [address] | | + + + + + [...] | | | | (BERNA YANDEL) | cloud.IQ,500 | | | | | SERUM | [place], [place] | | | | | | [address] | | | | | | [phone].Microventureslab. | | | | | | comMoi, | | | | | | - [...] [facility] | [address] | [place], [place] | | | [place] [facility] [place] | | [address] | | + + + + + documented in this encounter Visit Diagnoses + + | Diagnosis | + + | Sensory disturbance Disturbance of skin sensation | + + | Pain in joint, hand | + + documented in this encounter"
--- OUTSIDE RECORDS SUMMARY | ~2019-10-28 | XMS | Encounter Summary ---
Demographics + + + | Address | [address] | | | [place] [address] | + + + | Home Phone | | + + + | Preferred Language | Unknown | + + + | Marital Status | Single | + + + | Confucianism Affiliation | UNK | + + + | Race | or | + + + | Ethnic Group | Not or | + + + Author + + + | Author | [facility] | + + + | Organization | [facility] [employer] [facility] | + + + | Address | Unknown | + + + | Phone | Unavailable | + + + Support + + +---------+ + | Name | Relationship | Address | Phone | + + +---------+ + | Alysa Yin | ECON | Unknown | | + + +---------+ + Care Team Providers + +------+ + | Care Site Engineer Name | Role | Phone | + +------+ + | Sary De SantiagoP | PCP | | + +------+ + Encounter Details +--------+ + + + + | Date | Type | Department | Care Team | Description | +--------+ + + + + | 10/23/ | Hospital | Diagnostic | Yumi Tyson MD | | | 2020 | Encounter | Radiology at [facility] | [address] | | | | | [address] | [facility], | | | | | Loop Physician's | [place] [address] | | | | | [address], [address] Floor | [phone] | | | | | [place] | | | | | | [address] | | | | | | [phone] | | | +--------+ + + + [...] + + + +---------+ + + | calcitonin-salmon | Instill 1 spray in | | 0 | 10/07/19 | | | 200 unit/actuation | nose once daily. | | | 20 | | | nasal | | | | | | | spray,non-aerosol | | | | | | + + + +---------+ + + | conjugated | Take 0.625 mg by | | 0 | | | | estrogens 0.625 mg | mouth once daily. | | | | | | Oral Tablet | | | | | | + + + +---------+ + + | DULoxetine 30 mg | Take 30 mg by mouth | | 0 | | | | oral capsule,delayed | once daily. | | | | | | release(DR/EC) | | | | | | + + + +---------+ + + | ergocalciferol | Take 1 Cap by mouth | 4 | 3 | 05/25/19 | | | (VITAMIN D) 50,000 | every seven days. | | | 09 | | | unit Oral Capsule | | | | | | + + + +---------+ + + | fluticasone | Instill 2 sprays | | 0 | 09/16/19 | | | propionate 50 | into each nostril | | | 20 | | | mcg/actuation nasal | once daily. | | | | | | spray,suspension | | | | | | + + + +---------+ + + | furosemide 20 mg | Take 20 mg by mouth | | 0 | | | | oral tablet | once daily. | | | | | + + + +---------+ + + | | Take 1 tablet by | | 0 | 10/11/19 | | | HYDROcodone-acetamin | mouth four times | | | 20 | | | ophen 5-325 mg oral | daily. | | | | | | tablet | | | | | | + + + +---------+ + + | ondansetron ODT 4 | Dissolve 4 mg on | | 0 | 09/26/19 | | | mg oral | tongue and swallow | | | 20 | | | tablet,disintegratin | once daily. | | | | | | g | | | | | | + + + +---------+ + + | PRILOSEC 20 mg | Take 40 mg by mouth | | 0 | | | | Oral Capsule, | two times daily. | | | | | | Delayed | | | | | | | Release(E.C.) | | | | | | + + + +---------+ + + | promethazine | Take 1 Tab by mouth | 4 | 0 | 05/08/19 | | | (PHENERGAN) 25 mg | four times daily as | | | 09 | | | Oral Tablet | needed for | | | | | | | nausea/vomiting. | | | | | + + + +---------+ + + | traMADol 50 mg | Take 50 mg by mouth | | 0 | | | | Oral tablet | three times daily as | | | | | | | needed. | | | | | + + + +---------+ + + | traZODone 50 mg | Take 125 mg by mouth | | 0 | | | | Oral tablet | once daily at | | | | | | | bedtime. | | | | | + + + +---------+ + + documented as of this encounter Plan of Treatment +--------+ + + + + | Date | Type | Specialty | Care Team | Description | +--------+ + + + + | 02/24/ | Telephone-S | Rheumatology | Ron, | | | 2020 | bora | | MD [place] [address] | | | | | [address] | | | | | | [place], [place] | | | | | | [address] | | | | | | [phone] | | | | | | | | +--------+ + + + + documented as of this encounter Procedures + +--------+ + + + | Procedure Name | Priori | Date/Time | Associated Diagnosis | Comments | | | ty | | | | + +--------+ + + + | X-RAY HAND 1 VIEWS | Routin | 10/24/2019 | Rheumatoid | Results for this | | BILATERAL | e | 11:48 AM | arthritis, involving | procedure are in the | | | | PDT | unspecified site, | results section. | | | | | unspecified | | | | | | rheumatoid factor | | | | | | presence (HCC) | | + +--------+ + + + documented in this encounter Results X-RAY HAND 1 VIEWS BILATERAL (10/24/2019 11:48 AM PDT) + + | Specimen | + + | | + + + + + | Narrative | Performed At | + + + | EXAM: HAND 1 VIEW BILATERAL HISTORY: Prior diagnosis of | [facility] | | rheumatoid arthritis. Looking for signs of inflammatory disease vs | RADIOLOGY VOICE | | osteoarthritis COMPARISON: 07/16/2014 FINDINGS: On the | RECOGNITION 2 | | left, there is no fracture or focal osseous destruction. Joint space | | | narrowing and spurring are observed, severe at the first CMC, | | | moderate at the triscaphe, severe at the middle and index finger PIPs | | | and mild to moderate at additional IP and several MCP joints, | | | progressed since the prior exam. No erosions are observed. There is no | | | chondrocalcinosis. There is mild ulnar/angulation at the middle and | | | index PIP joints with associated soft tissue swelling. On the | | | right, there has been arthroplasty of the middle finger PIP joint with | | | mild residual radial ulnar angulation. At the ring finger PIP joint, | | | faint lucency at the middle phalanx and concavity at the head of the | | | proximal phalanx could represent erosions. Otherwise no additional | | | erosions are seen. Multifocal mild/moderate interphalangeal and MCP | | | joint space narrowing and osteophyte formation, progressed. Mild | | | triscaphe and moderate thumb CMC joint space narrowing and spurs are | | | present, progressed. There is no chondrocalcinosis. No fracture or | | | focal osseous destruction is present. Mild soft tissue swelling is | | | seen about the middle finger PIP joint. IMPRESSION: | | | Postsurgical changes at right middle finger PIP joint status post | | | arthroplasty with no apparent complication. Progressed multifocal | | | osteoarthrosis involving triscaphe, first carpometacarpal, | | | metacarpophalangeal and interphalangeal joints as outlined. | | | Questionable erosions at the right ring finger PIP joint. I have | | | personally reviewed the images and, if necessary, edited the report. I | | | agree with the report as now presented. Final signature: Kay | | | MD Wen 10/24/2019 1:13 PM Preliminary: Shruthi Candelaria | | Dictation initiated: Kay Carver MD 10/24/2019 1:04 | | | PM | | + + + + + | Procedure Note | + + | Service Account, [facility] - 10/24/2019 1:14 PM PDT EXAM: HAND 1 VIEW | | BILATERAL HISTORY: Prior diagnosis of rheumatoid arthritis. Looking for signs of | | inflammatory disease vs osteoarthritis COMPARISON: 07/16/2014 FINDINGS: On the left, | | there is no fracture or focal osseous destruction. Joint space narrowing and spurring | | are observed, severe at the first CMC, moderate at the triscaphe, severe at the middle | | and index finger PIPs and mild to moderate at additional IP and several MCP joints, | | progressed since the prior exam. No erosions are observed. There is no | | chondrocalcinosis. There is mild ulnar/angulation at the middle and index PIP joints | | with associated soft tissue swelling. On the right, there has been arthroplasty of the | | middle finger PIP joint with mild residual radial ulnar angulation. At the ring finger | | PIP joint, faint lucency at the middle phalanx and concavity at the head of the proximal | | phalanx could represent erosions. Otherwise no additional erosions are seen. Multifocal | | mild/moderate interphalangeal and MCP joint space narrowing and osteophyte formation, | | progressed. Mild triscaphe and moderate thumb CMC joint space narrowing and spurs are | | present, progressed. There is no chondrocalcinosis. No fracture or focal osseous | | destruction is present. Mild soft tissue swelling is seen about the middle finger PIP | | joint. IMPRESSION: Postsurgical changes at right middle finger PIP joint status post | | arthroplasty with no apparent complication. Progressed multifocal osteoarthrosis | | involving triscaphe, first carpometacarpal, metacarpophalangeal and interphalangeal | | joints as outlined. Questionable erosions at the right ring finger PIP joint. I have | | personally reviewed the images and, if necessary, edited the report. I agree with the | | report as now presented. Final signature: Kay Carver MD 10/24/2019 1:13 PM | | Preliminary: Kay Carver MD Dictation initiated: Kay Carver MD | | 10/24/2019 1:04 PM | | | |Final signature: Kay Carver MD 10/24/2019 1:13 PM | |Preliminary: Kay Carver MD | |Dictation initiated: Kay Carver MD 10/24/2019 1:04 PM | + + + +---------+ + + | Performing | Address | City/State/[facility] | Phone Number | | Organization | | | | + +---------+ + + | [facility] | | | | | VOICE RECOGNITION 2 | | | | + +---------+ + + documented in this encounter Visit Diagnoses + + | Diagnosis | + + | Rheumatoid arthritis, involving unspecified site, unspecified rheumatoid factor | | presence (HCC) | + + documented in this encounter"
--- OUTSIDE RECORDS SUMMARY | ~2019-10-28 | XMS | Encounter Summary ---
Demographics + + + | Address | [address] | | | [place] [address] | + + + | Home Phone | | + + + | Preferred Language | Unknown | + + + | Marital Status | Single | + + + | Congregational Affiliation | Unknown | + + + | Race | White | + + + | Ethnic Group | Not or | + + + Author + + + | Author | [facility] | | | and [place] | + + + | Organization | [facility] | | | and [place] | + + + | Address | Unknown | + + + | Phone | Unavailable | + + + Support + + + + + | Name | Relationship | Address | Phone | + + + + + | Maria Luisa Minaya | ECON | [place] | | | | | [address] | | + + + + + Care Team Providers + +------+ + | Care Social Insurance Analyst Name | Role | Phone | + +------+ + | Chantale Harrington | PCP | | + +------+ + Reason for Visit + +--------+ + | Reason | Onset | Comments | | | Date | | + +--------+ + | Referral | 08/28/ | | | | 2019 | | + +--------+ + Encounter Details +--------+ + + + + | Date | Type | Department | Care Team | Description | +--------+ + + + + | 08/28/ | Telephone | [facility] | Kalin Mensah | Referral | | 2020 | | [address] | MD Jay[address] | | | | | [address] | [address] | | | | | [place], [place] | [place] | | | | | [address] | [address] | | | | | [phone] | | | +--------+ + + + [...] this encounter Miscellaneous Notes Telephone Encounter - Ashtyn Monzon RN - 08/29/2019 12:43 PM PDTSpoke with Rachel and she s aid she has been to [place] and [facility] in the past. She said she would like to be [facility] for rheumatology. Advised their office would call once authorized and ready to s chedule. Message sent to auth team. elephone Encounter - Ashtyn Monzon RN - 08/29/2019 11:42 AM PDTMultiple attemsusan ts made to contact Rachel regarding location of audio visual collections coordinator. I left a message with her sis ter to have her call so we can clarify referral. Will update auth team once I hear back. Dr Mensah states patient did not want to return to previous audio visual collections coordinator and wanted a local MD which we don't have. Will see if she had one in mind or try [facility] providers.Electronical ly signed by Ashtyn Monzon RN at 08/29/2019 11:49 AM PDTdocumented in this encounter Plan of Treatment Not on filedocumented as of this encounter Visit Diagnoses Not on filedocumented in this encounter"
--- OUTSIDE RECORDS SUMMARY | ~2019-10-28 | XMS | Encounter Summary ---
Demographics + + + | Address | [address] | | | [place] [address] | + + + | Home Phone | | + + + | Preferred Language | Unknown | + + + | Marital Status | Single | + + + | Mu-Ism Affiliation | Unknown | + + + | Race | White | + + + | Ethnic Group | Not or | + + + Author + + + | Author | [facility] | | | and [place] | + + + | Organization | [facility] | | | and [place] | + + + | Address | Unknown | + + + | Phone | Unavailable | + + + Support + + + + + | Name | Relationship | Address | Phone | + + + + + | Maria Luisa Minaya | ECON | [place], [place] | | | | | [address] | | + + + + + Care Team Providers + +------+ + | Care Network Engineering Advisor Name | Role | Phone | + +------+ + | Unknown, Doctor | PCP | | + +------+ + Encounter Details +--------+ + + + + | Date | Type | Department | Care Team | Description | +--------+ + + + + | 09/05/ | Orders Only | [facility] | Provider, | | | 2019 | | SYSTEM GENERIC OP | MD Avery Carroll | | | | | [address] | [place] | | | | | [address] [place], [place] | [place] [address] | | | | | [address] | | | | | | [phone] | | | +--------+ + + + [...]
--- OUTSIDE RECORDS SUMMARY | ~2019-10-28 | XMS | Encounter Summary ---
Demographics + + + | Address | [address] | | | [place] [address] | + + + | Home Phone | | + + + | Preferred Language | Unknown | + + + | Marital Status | Single | + + + | Anglican Affiliation | Unknown | + + + | Race | White | + + + | Ethnic Group | Not or | + + + Author + + + | Author | [facility] | | | and [place] | + + + | Organization | [facility] | | [...] [place] | | | | | [address] | | + + + + + Care Team Providers + +------+ + | Care Machine Worker Name | Role | Phone | + +------+ + PCP | Unavailable | + +------+ + Encounter Details +--------+ + + + + | Date | Type | Department | Care Team | Description | +--------+ + + + + | 04/02/ | [facility] | [facility] | Lino Tna, | | | 2004 | Encounter | MED CTR XRAY [address] | [address] | | | | | [place] | [place] | | | | | [place] [address] | [address] | | | | | [phone] | | | +--------+ + + + [...]
--- OUTSIDE RECORDS SUMMARY | ~2019-10-28 | XMS | Encounter Summary ---
Demographics + + + | Address | [address] | | | [place] [address] | + + + | Home Phone | | + + + | Preferred Language | Unknown | + + + | Marital Status | Single | + + + | Synagogue Affiliation | UNK | + + + | Race | or | + + + | Ethnic Group | Not or | + + + Author + + + | Author | [facility] | + + + | Organization | [facility] [employer] [facility] | + + + | Address | Unknown | + + + | Phone | Unavailable | + + + Support + + +---------+ + | Name | Relationship | Address | Phone | + + +---------+ + | Alysa Yin | ECON | Unknown | | + + +---------+ + Care Team Providers + +------+ + | Care Apartment Rental Clerk Name | Role | Phone | + +------+ + | Poncho Nieves MD | PCP | | + +------+ + Reason for Visit + + + | Reason | Comments | + + + | Return Patient | | + + + Encounter Details +--------+---------+ + + + | Date | Type | Department | Care Team | Description | +--------+---------+ + + + | 10/28/ | Office | Neurology | Nuris, | Myalgia; Back Pain; | | 2008 | Visit | Neuromuscular Clinic | MD Santos | Vitamin D | | | | at [facility] | | Deficiency; | | | | Health & Healing | | Magnesium Deficiency | | | | [address] | | | | | | [facility] | | | | | | and Healing, | | | | | | Building | | | | | | Floor [place], [place] | | | | | | [address] | | | | | | [phone] | | | +--------+---------+ + + + [...] + + + | Blood Pressure | 102/62 | 10/28/2008 2:30 PM | | | | | PDT | | + + + + + | Pulse | 67 | 10/28/2008 2:30 PM | | | | | PDT | | + + + + + | Temperature | - | - | | + + + + + | Respiratory Rate | 18 | 10/28/2008 2:30 PM | | | | | PDT | | + + + + + | Oxygen Saturation | - | - | | + + + + + | Inhaled Oxygen | - | - | | | Concentration | | | | + + + + + | Weight | 71.7 kg (158 lb) | 10/28/2008 2:30 PM | | | | | PDT | | + + + + + | Height | 154.9 cm (5' 1") | 10/28/2008 2:30 PM | | | | | PDT | | + + + + + | Body Mass Index | 29.85 | 10/28/2008 2:30 PM | | | | | PDT | | + + + + + documented in this encounter Patient Instructions Patient Instructions Santos Lawler MD - 10/28/2008 2:53 PM PDTPlease take magnesi um oxide 400 mg daily Please continue take vitamin D 50,000 iu for 1-2 month (until you run out of medicint) Recommend taking calcium+vitamin daily Start Neurontin 300 mg 1 cap at night for couple days then increase to 2 caps at night. Please call Dr. Amaya if itching could be caused by hydroxychloroquine.Electronically sign ed by Santos Lawler MD at 10/28/2008 2:56 PM PDT documented in this encounter Progress Notes Santos Lawler MD - 10/28/2008 2:02 PM PDTFormatting of this note might be differe nt from the original. RACHEL BRIGITTE OMAYRA, 53 y.o. RHWF who is seen in neuromuscular clinic for evaluation of sens ory disturbance (tingling in hands and legs) returns to clinic for follow-up. Ms. Yin was last seen in clinic 06/24/08. She was referred to rheumatology due to hand s stiffness and swollen. She was evaluated by Dr. Amaya and inflammatory arthritis was fel t to be less likely. She was placed on a trial of hydroxychloroquine for osteoarthritis quoc ns, which had helped her hand pain but she developed itching. Therefore she stopped taking hydroxychloroquine 2 weeks ago. She has not called and asked Dr. Amaya about the medicatio n causing itching. She takes Benadryl for itching. Serum Lyme revealed borderline result with 2 occasions. Lyme Western blot was done locally that was negative. Tingling in hands, feet, legs are more pronounced at night. - She has no longer take amitriptyline due to causing nightmare. - Taking vit D 50,000 iu every 2 weeks. Last level checked was on 10/06/08 was 47. Skin biopsy was normal. Past Medical History Diagnosis Date Other General Symptoms Fajardo's Esophagus Hypercholesterolemia Depression Past Surgical History Procedure Date Hx appendectomy Hx cholecystectomy amitriptyline 25 mg Oral Tablet, Take 25 mg by mouth once daily at bedtime. BENADRYL 25 mg Oral Capsule, Take 1 Cap by mouth as needed conjugated estrogens 0.625 mg Oral Tablet, Take 0.625 mg by mouth once daily. ergocalciferol (VITAMIN D) 50,000 unit Oral Capsule, Take 1 Cap by mouth every seven days. fentanyl 12 mcg/hr Transdermal Patch 72 hr, Apply 1 Patch to skin every seventy-two hours. hydroxychloroquine 200 mg Oral Tablet, Take 2 Tabs by mouth once daily. omeprazole 20 mg Oral Capsule, Delayed Release(E.C.), Take 20 mg by mouth two times daily. PRILOSEC 20 mg Oral Capsule, Delayed Release(E.C.), Take 1 Cap by mouth two times daily. promethazine (PHENERGAN) 25 mg Oral Tablet, Take 1 Tab by mouth four times daily as needed for nausea/vomiting. propranolol 20 mg Oral Tablet, Take 0.5 Tabs by mouth two times daily. Allergies Allergen Reactions Morphine Tachycardia Codeine Nausea/Vomiting, Itching and Rash Tolmetin Sodium Swelling EXAM: BP 102/62 | Pulse 67 | Resp 18 | Ht 1.549 m (5' 1") | Wt 71.668 kg (158 lb) Ms. Yin is pleasant. She is not in acute distress. Both hands have no redness or swel ling. She could not make a fist well in the right hand. TEST: SOURCE OF SPECIMEN:A Skin Biopsy-PGP, left ankle SOURCE OF SPECIMEN:B Skin Biopsy-PGP, left thigh Final Pathologic Diagnosis: A. Skin, left ankle, biopsy for epidermal nerve fiber density: - No significant reduction in epidermal nerve fiber density (6.58/mm) (see comment) - No amyloid deposition by Congo Red stain - No evidence of inflammation or vasculitis B. Skin, left thigh, biopsy for epidermal nerve fiber density: - No significant reduction in epidermal nerve fiber density (9.56/mm) (see comment) - No amyloid deposition by Congo Red stain - No evidence of inflammation or vasculitis Comment: These repeat biopsies show epidermal nerve fiber densities within normal ranges. Published lower limits of normal (5th percentile) for adults are 3.8-4.5/mm for the distal leg (Vincenzo, 2001) and slightly higher for the thigh (Adrián, Justina). Vincenzo et al. Acta Neuropathol 102:455-461, 2001 Adrián et al. Arch Neurol 55:8815-0151, 1997 Case seen by: Sally Frank M.D., Ph.D. / Neuropathologist 07/08/2008 Clinical History: The patient is a 52 year old woman with a six month history of pain in her legs and hands. Gross Description: The specimen is received in PLP fixative in two parts, labeled with the patient's name (initials TB). Part A is labeled "left ankle" and consists of a olmos punch biopsy of skin measuring 0.3 cm in diameter. Part B is labeled "left thigh" and consists of a olmos punch biopsy of skin measuring 0.3 cm in diameter. Both specimens are entirely frozen for immunohistochemical studies and other stains. Microscopic Description: Both specimens are stained using immunohistochemistry for PGP 9.5 on 50 micron thick sections. The number of positively stained epidermal nerve fibers was counted in twelve 1mm diameter mason, from four sections for part A and nine 1mm diameter mason, from three sections for part B. This analysis resulted in an epidermal nerve fiber density of 6.58/mm for the ankle (A) and 9.56/mm for the thigh (B). The dermal axons appear normal and show no varicosities or other abnormalities. Hematoxylin and eosin stains are performed on 4 micron thick sections and Congo red stains on 10 micron thick sections. No inflammation or amyloid is identified. In part B, there are focal, linear to round structures that are Congo Red positive, but when viewed under polarized light have a pink to yellow color that is more consistent with collagen than amyloid. (Analyte specific reagents are used in many laboratory tests necessary for standard medical care and generally do not require FDA approval. This test was developed and its performance characteristics determined by [employer] It has not been cleared or approved by the U.S. Food and Drug Administration.) Rendering Diagnostician: Sally Frank M.D., Ph.D. Pathologist Electronically Signed 07/08/2008 Urine heavy metal (10/06/08) - wnl Urine magnesium 24 hr (10/06/08) - 36 mg/day ASSESSMENTS: 52 y.o. RHWF history of chronic back pain presents with 4-5 month of pain desc ribed as aching and tingling in hands, legs and feet. She is also found to have vitamin D d eficiency. Neurological exam is normal. There is no electrophysiological evidence of medium or large fiber neuropathy form EDX. Skin biopsy showed no evidence of small fiber neuropath y. Hand pain was felt to be from osteoarthritis and had benefit from hydroxychloroquine. I as sure Ms. Yin that there is no evidence of neuropathy that could explain itching and ting ling in her feet and legs. PLANS: 1. To follow with clinical informatics spec for hand pain. 2. Recommend taking Neurontin 600 mg at night to see if this helps tingling at night. Dose can be increased to 900 mg nightly if this helps. 3. Vitamin D level is normalized (47). I would recommend continuing the same dose for 1 mo re month or till runs out of it (she has couple left). 4. She is found to have low magnesium excretion (36 mg/day). Recommend taking magnesium 40 0 mg daily for 1 weeks and then increase to 400 mg twice daily if tolerated. 5. Follow-up in clinic as needed. On today visit I have discussed about lab results and gave Ms. Yin an opportunity to as k questions that were answered to the best of my knowledge. 30 minutes was spent with Ms. Lisa alejandro, greater than half in counseling and coordination of care. Case has been reviewed and discussed with Dr. Álvarez who is agreeable with plan. Santos Lawler MD Fellow, Neuromuscular disease/EMG documented in this encounter Miscellaneous Notes Scan - Other, Faculty - 10/28/2008 2:57 PM PDTAssociated Order(s): LAB REPORTS can - Other, Faculty - 10/06/2008 12:00 AM PDTAssociated Order(s): LAB REPORTS can - Other, Faculty - 05/01/2008 12:00 AM PDT can - Other, Faculty - 02/27/2008 12:00 AM PST can - Other, Faculty - 02/25/2007 12:00 AM PST documented in this encou nter Plan of Treatment +--------+ + + + + | Date | Type | Specialty | Care Team | Description | +--------+ + + + + | 02/24/ | Telephone-S | Rheumatology | Ron, | | | 2020 | chekong | | MD [address] [address] | | | [address] | | | | | | [place], [place] | | | | | | [address] | | | | | | [phone] | | | | | | | | +--------+ + + + + documented as of this encounter Procedures + +--------+ + + + | Procedure Name | Priori | Date/Time | Associated Diagnosis | Comments | | | ty | | | | + +--------+ + + + | LAB REPORTS | | 10/28/2008 | | Results for this | | | | 2:57 PM | | procedure are in the | | | | PDT | | results section. | + +--------+ + + + | LAB REPORTS | | 10/06/2008 | | Results for this | | | | 12:00 AM | | procedure are in the | | | | PDT | | results section. | + +--------+ + + + documented in this encounter Results LAB REPORTS (10/28/2008 2:57 PM PDT) + + + | Narrative | Performed At | + + + | | | + + + + + | Procedure Note | + + | Priscilla Stephens - 10/28/2008 2:57 PM PDT | | | + + LAB REPORTS (10/06/2008 12:00 AM PDT) + + + | Narrative | Performed At | + + + | | | + + + + + | Procedure Note | + + | Kat Faculty - 10/06/2008 12:00 AM PDT | | | + + documented in this encounter Visit Diagnoses + + | Diagnosis | + + | Myalgia Mylagia and myositis, unspecified | + + | Back pain Backache, unspecified | + + | Vitamin d deficiency Unspecified vitamin D deficiency | + + | Magnesium deficiency Disorders of magnesium metabolism | + + documented in this encounter
--- OUTSIDE RECORDS SUMMARY | ~2019-10-28 | XMS | Encounter Summary ---
Demographics + + + | Address | [address] | | | [place] [address] | + + + | Home Phone | | + + + | Preferred Language | Unknown | + + + | Marital Status | Single | + + + | Scientologist Affiliation | UNK | + + + | Race | or | + + + | Ethnic Group | Not or | + + + Author + + + | Author | [facility] | + + + | Organization | [facility] | + + + | Address | Unknown | + + + | Phone | Unavailable | + + + Support + + +---------+ + | Name | Relationship | Address | Phone | + + +---------+ + | Alysa Yin | ECON | Unknown | | + + +---------+ + Care Team Providers + +------+ + | Care Engine Repairer Name | Role | Phone | + +------+ + | Sary De SantiagoP | PCP | | + +------+ + Encounter Details +--------+ + + + + | Date | Type | Department | Care Team | Description | +--------+ + + + + | 07/16/ | Hospital | Diagnostic | | | | 2014 | Encounter | Radiology at [facility] | | | | | | [address] | | | | | | [address] | | | | | | [address], [address] Floor | | | | | | [place], [place] | | | | | | [address] | | | | | | [phone] | | | +--------+ + + + [...] 2020 | bora | | MD [address] | | | | | | [address] | | | | | | [place], [place] | | | | | | [address] | | | | | | [phone] | | | | | | | | +--------+ + + + + documented as of this encounter Procedures + +--------+ + + + | Procedure Name | Priori | Date/Time | Associated Diagnosis | Comments | | | ty | | | | + +--------+ + + + | X-RAY HAND 2 VIEWS | Routin | 07/16/2014 | Primary | Results for this | | BILATERAL | e | 3:23 PM | osteoarthritis of | procedure are in the | | | | PDT | both hands | results section. | + +--------+ + + + documented in this encounter Results X-RAY HAND 2 VIEWS BILATERAL (07/16/2014 3:23 PM PDT) + + + + + + | Component | Value | Ref Range | Performed | Pathologist | | | | | At | Signature | + + + + + + | HAND 2 | EXAM: HAND 2 VIEWS | | | | | VIEWS | BILATERAL 07/16/14 | | | | | BILATERAL | 15:23:00 HISTORY: | | | | | | Evaluate for CPPD | | | | | | COMPARISON: 06/24/2008. | | | | | | FINDINGS:On the left, | | | | | | there is no fracture or | | | | | | focal osseous | | | | | | destruction. Joint | | | | | | spacenarrowing and | | | | | | spurring are moderately | | | | | | severe at the first CMC, | | | | | | mild attriscaphe, | | | | | | severe at the middle and | | | | | | index finger PIPs and | | | | | | mild at additional IPand | | | | | | several MCP joints, | | | | | | progressed since the | | | | | | prior exam. No definite | | | | | | erosion isobserved. | | | | | | There is no | | | | | | chondrocalcinosis. There | | | | | | is mild ulnar/dorsal | | | | | | subluxationof the middle | | | | | | finger middle phalanx | | | | | | in relation to the | | | | | | proximal phalanx. | | | | | | Mildsoft tissue swelling | | | | | | is seen about the index | | | | | | and middle finger PIP | | | | | | joints. On the right, | | | | | | there is multifocal | | | | | | mild/moderate | | | | | | interphalangeal and MCP | | | | | | jointspace narrowing. | | | | | | Mild triscaphe and thumb | | | | | | CMC joint space | | | | | | narrowing is present.The | | | | | | findings have | | | | | | progressed since the | | | | | | prior exam. Lucencies at | | | | | | the margin ofthe middle | | | | | | finger PIP joint are | | | | | | new since the prior exam | | | | | | and may reflect | | | | | | smallerosions. No | | | | | | additional erosion is | | | | | | identified. There is | | | | | | incidental | | | | | | capsularcalcification at | | | | | | the ulnar aspect of the | | | | | | little finger DIP | | | | | | joint. There is | | | | | | nochondrocalcinosis. No | | | | | | fracture or focal | | | | | | osseous destruction is | | | | | | present. Mildsoft tissue | | | | | | swelling is seen about | | | | | | the middle finger PIP | | | | | | joint. IMPRESSION: | | | | | | Progressive multifocal | | | | | | degenerative joint | | | | | | disease of both hands, | | | | | | as described.Lucencies | | | | | | about the right middle | | | | | | finger PIP joint may | | | | | | reflect marginal | | | | | | erosionsof rheumatoid | | | | | | arthritis or | | | | | | seronegative | | | | | | spondyloarthropathy, | | | | | | although atypicalerosive | | | | | | osteoarthritis is | | | | | | conceivable, given lack | | | | | | of erosions at either | | | | | | joint. No specific | | | | | | radiographic evidence of | | | | | | CPPD arthropathy. | | | | | | Attending Radiologists: | | | | | | DANIEL KESSLER, | | | | | | MDAuthor: GÉNESIS PEREZ, | | | | | | I have personally | | | | | | viewed this | | | | | | procedure/exam, reviewed | | | | | | this report, and | | | | | | madechanges to it where | | | | | | appropriate. | | | | | | Final/Electronically | | | | | | signed / DANIEL | | | | | | CHECO 07/16/2014 15:40 | | | | | | PM | | | | + + + + + + + + | Specimen | + + | | + + + +---------+ + + | Performing | Address | City/State/Zipcode | Phone Number | | Organization | | | | + +---------+ + + | [facility] | | | | | RADIOLOGY | | | | + +---------+ + + documented in this encounter Visit Diagnoses + + | Diagnosis | + + | Primary osteoarthritis of both hands | + + documented in this encounter"
--- OUTSIDE RECORDS SUMMARY | ~2019-10-28 | XMS | Encounter Summary ---
Demographics + + + | Address | [address] | | | [place] [address] | + + + | Home Phone [...] Author + + + | Author | [facility] | + + + | Organization | [facility] | + + + | Address | Unknown | + + + | Phone | Unavailable | + + + Support + + +---------+ + | Name | Relationship | Address | Phone | + + +---------+ + | Alysa Yin | ECON | Unknown | | + + +---------+ + Care Team Providers + +------+ + | Care Template Storage Clerk Name | Role | Phone | + +------+ + | Sary De Santiago | PCP | | + +------+ + Encounter Details +--------+ + + + + | Date | Type | Department | Care Team | Description | +--------+ + + + + | 04/16/ | Document-Sc | UNKNOWN DEPARTMENT | Unknown . | | | 2015 | anned | [address] | | | | | [address] | | | | | | [place], [place] | | | | | | [address] | | | +--------+ + + + [...] 2020 | bora | | MD [address] | | | | | | [address] | | | | | | [place], [place] | | | | | | [address] | | | | | | [phone] | | | | | | | | +--------+ + + + + documented as of this encounter Procedures + +--------+ + + + | Procedure Name | Priori | Date/Time | Associated Diagnosis | Comments | | | ty | | | | + +--------+ + + + | RADIOLOGY | | 04/16/2014 | | Results for this | | | | 12:00 AM | | procedure are in the | | | | PDT | | results section. | + +--------+ + + + documented in this encounter Results RADIOLOGY (04/16/2014 12:00 AM PDT) + + + | Narrative | Performed At | + + + | | | + + + documented in this encounter Visit Diagnoses Not on filedocumented in this encounter"
--- OUTSIDE RECORDS SUMMARY | ~2019-10-28 | XMS | Encounter Summary ---
Demographics + + + | Address | [address] | | | [place] [address] | + + + | Home Phone | | + + + | Preferred Language | Unknown | + + + | Marital Status | Single | + + + | Sabianism Affiliation | UNK | + + + | Race | or | + + + | Ethnic Group | Not or | + + + Author + + + | Author | [facility] | + + + | Organization | [facility] | + + + | Address | Unknown | + + + | Phone | Unavailable | + + + Support + + +---------+ + | Name | Relationship | Address | Phone | + + +---------+ + | Alysa Yin | ECON | Unknown | | + + +---------+ + Care Team Providers + +------+ + | Care Tone Artist Apprentice Name | Role | Phone | + +------+ + | Sary De Santiago | PCP | | + +------+ + Reason for Visit + +--------+ + | Reason | Onset | Comments | | | Date | | + +--------+ + | Medical Records | 02/26/ | | | Review | 2014 | | + +--------+ + Encounter Details +--------+ + + + + | Date | Type | Department | Care Team | Description | +--------+ + + + + | 02/26/ | Telephone | [facility] | Keyona Velasquez MD | Medical Records | | 2014 | | [facility] | [address] | Review | | | | ogy at [facility] [address] | [place], [place] | | | | | [facility] | [address] | | | | | Health and Healing, | [phone] | | | | | [facility] | | | | | | Floor [place], [place] | | | | | | [address] | | | | | | [phone] | | | +--------+ + + + [...] this encounter Miscellaneous Notes Telephone Encounter - Keyona Velasquez MD - 02/26/2013 10:57 AM PSTBrief Ophthalmology Update I received a fax containing information about the patient's most recent outside sinus CT re sults from [facility]. 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 I have already sent a letter to update both the patient's outside ey e provider and her PCP of my recent findings. I will upload this outside fax into our [employer] system for future review. Keyona Velasquez MD Marking Machine Operator [facility] documented in this encou nter Plan of Treatment +--------+ + + + + | Date | Type | Specialty | Care Team | Description | +--------+ + + + + | 02/24/ | Telephone-S | Rheumatology | Ron | | | 2020 | bora | | MD [address] | | | | | | [address] | | | | | | [place], [place] | | | | | | [address] | | | | | | [phone] | | | | | | | | +--------+ + + + + documented as of this encounter Visit Diagnoses Not on filedocumented in this encounter
--- OUTSIDE RECORDS SUMMARY | ~2019-10-28 | XMS | Encounter Summary ---
Demographics + + + | Address | [address] | | | [place] [address] | + + + | Home Phone | | + + + | Preferred Language | Unknown | + + + | Marital Status | Single | + + + | Uatsdin Affiliation | Unknown | + + + | Race | White | + + + | Ethnic Group | Not or | + + + Author + + + | Author | [facility] | | | and [place] | + + + | Organization | [facility] | | | and [place] | + + + | Address | Unknown | + + + | Phone | Unavailable | + + + Support + + + + + | Name | Relationship | Address | Phone | + + + + + | Maria Luisa Minaya | ECON | [place] | | | | | [address] | | + + + + + Care Team Providers + +------+ + | Care Tin Can Laborer Name | Role | Phone | + +------+ + | Chantale Harrington | PCP | | + +------+ + Encounter Details +--------+ + + + + | Date | Type | Department | Care Team | Description | +--------+ + + + + | 08/27/ | [facility] | [facility] | Kalin Mensah | Lumbar radiculopathy | | 2020 | Encounter | MED CTR XRAY [address] | MD Jayce [address] | | | | | [place] | [address] | | | | | [place] [address] | [place], [place] | | | | | [phone] | [address] | | | | | | | [...] | | 0 | | | | (CELEXA) 40 mg | Daily. | | | | | | tablet | | | | | | + + + +---------+ + + | diclofenac | | | 0 | 08/15/19 | | | (FLECTOR) 1.3% PTCH | | | | 20 | | + + + +---------+ + + | estradiol | | | 0 | 08/15/19 | | | (CLIMARA) 0.025 | | | | 20 | | | MG/24HR | | | | | | + [...] + +---------+ + + | tiZANidine | Take 4 mg by mouth | | 0 | 08/15/19 | | | (ZANAFLEX) 4 mg | nightly . | | | 20 | | | tablet | | | | | | + + + +---------+ + + | UNABLE TO FIND | Once a week Med | | 0 | | | | | Name: Hormone patch | | | | | | | . | | | | | + + + +---------+ + + documented as of this encounter Plan of Treatment Not on filedocumented as of this encounter Procedures + +--------+ + + + | Procedure Name | Priori | Date/Time | Associated Diagnosis | Comments | | | ty | | | | + +--------+ + + + | XR LUMBAR SPINE 2 OR | Routin | 08/28/2019 | Lumbar | Results for this | | 3 VW | e | 12:50 PM | radiculopathy | procedure are in the | | | | PDT | | results section. | + +--------+ + + + documented in this encounter Results XR Lumbar Spine 2 or 3 Vw (08/28/2019 12:50 PM PDT) + + | Specimen | + + | | + + + + + | Impressions | Performed At | + + + | No acute findings. No evidence of dynamic listhesis. Mild | [facility] | | early multilevel degenerative changes of the lumbar spine. | | | Electronically signed by Mamadou Del Toro MD 08/28/2019 2:33 PM | | + + + + + + | Narrative | Performed At | + + + | XR LUMBAR SPINE 2 OR 3 VW 08/28/2019 12:40 PM HISTORY: Back pain. | [facility] | | COMPARISON: 12/20/2017 FINDINGS: There are no acute osseous | | | findings. Vertebral body height are preserved with no evidence for | | | compression fractures. Mild multilevel disc marginal osteophytosis | | | and endplate sclerosis. Mild facet spondylosis. Intervertebral disc | | | spaces are preserved. Facets are intact. Visualized ribs and pelvic | | | osseous structures show no acute findings. Soft tissues are | | | unremarkable. | | + + + + + | Procedure Note | + + | Pan[place], [id number] - 08/28/2019 2:36 PM PDT XR LUMBAR SPINE 2 OR 3 VW 08/28/2019 12:40 PM | | | | HISTORY: Back pain. | | | | COMPARISON: 12/20/2017 | | | | FINDINGS: | | There are no acute osseous findings. Vertebral body height are | | preserved with no evidence for compression fractures. Mild multilevel | | disc marginal osteophytosis and endplate sclerosis. Mild facet | | spondylosis. Intervertebral disc spaces are preserved. Facets are | | intact. Visualized ribs and pelvic osseous structures show no acute | | findings. Soft tissues are unremarkable. | | | | IMPRESSION: | | No acute findings. | | | | No evidence of dynamic listhesis. | | | | Mild early multilevel degenerative changes of the lumbar spine. | | | | Electronically signed by Mamadou Del Toro MD 08/28/2019 2:33 PM | + + + +---------+ + + | Performing | Address | City/State/Zipcode | Phone Number | | Organization | | | | + +---------+ + + | [facility] | | | | + +---------+ + + documented in this encounter Visit Diagnoses + + | Diagnosis | + + | Lumbar radiculopathy Thoracic or lumbosacral neuritis or radiculitis, unspecified | + + documented in this encounter"
--- OUTSIDE RECORDS SUMMARY | ~2019-10-28 | XMS | Clinical Summary ---
Demographics + + + | Address | [address] | | | [place] [address] | + + + | Home Phone | | + + + | Preferred Language | Unknown | + + + | Marital Status | Single | + + + | Sabianist Affiliation | UNK | + + + | Race | or | + + + | Ethnic Group | Not or | + + + Author + + + | Author | [facility] | + + + | Organization | [facility] | + + + | Address | Unknown | + + + | Phone | Unavailable | + + + Support + + +---------+ + | Name | Relationship | Address | Phone | + + +---------+ + | Alysa Yin | ECON | Unknown | | + + +---------+ + Care Team Providers + +------+ + | Care Tmd Teacher Assistant Name | Role | Phone | + +------+ + | Sary De SantiagoP | PCP | | + +------+ + Source Comments ALEJA is fully live on both [facility] Ambulatory and [facility] InPatient.[facility] Allergies + + + + + + | Active Allergy | Reactions | Severity | Noted | Comments | | | | | Date | | + + + + + + | Codeine | Nausea/Vomiting, | High | 05/08/19 | | | | Pruritus, Rash | | 09 | | + + + + + + | Morphine | Tachycardia | High | 05/08/19 | | | | | | 09 | | + + + + + + | Tolmetin Sodium | Edema | High | 05/08/19 | | | | | | 09 | | + + + + + + Medications + + + +---------+------+------+-------+ | Medication | Sig | Dispensed | Refills | Star | End | Statu | | | | | | t | Date | s | | | | | | Date | | | + + + +---------+------+------+-------+ | PRILOSEC 20 mg | Take 40 mg by mouth | | 0 | | | Activ | | Oral Capsule, | two times daily. | | | | | e | | Delayed | | | | | | | | Release(E.C.) | | | | | | | + + + +---------+------+------+-------+ | promethazine | Take 1 Tab by mouth | 4 | 0 | 04/0 | | Activ | | (PHENERGAN) 25 mg | four times daily as | | | 1/20 | | e | | Oral Tablet | needed for | | | 09 | | | | | nausea/vomiting. | | | | | | + + + +---------+------+------+-------+ | ergocalciferol | Take 1 Cap by mouth | 4 | 3 | 04/1 | | Activ | | (VITAMIN D) 50,000 | every seven days. | | | 8/20 | | e | | unit Oral Capsule | | | | 09 | | | + + + +---------+------+------+-------+ | conjugated | Take 0.625 mg by | | 0 | | | Activ | | estrogens 0.625 mg | mouth once daily. | | | | | e | | Oral Tablet | | | | | | | + + + +---------+------+------+-------+ | traMADol 50 mg | Take 50 mg by mouth | | 0 | | | Activ | | Oral tablet | three times daily as | | | | | e | | | needed. | | | | | | + + + +---------+------+------+-------+ | traZODone 50 mg | Take 125 mg by mouth | | 0 | | | Activ | | Oral tablet | once daily at | | | | | e | | | bedtime. | | | | | | + + + +---------+------+------+-------+ | DULoxetine 30 mg | Take 30 mg by mouth | | 0 | | | Activ | | oral capsule,delayed | once daily. | | | | | e | | release(/FRANKI) | | | | | | | + + + +---------+------+------+-------+ | furosemide 20 mg | Take 20 mg by mouth | | 0 | | | Activ | | oral tablet | once daily. | | | | | e | + + + +---------+------+------+-------+ | | Take 1 tablet by | | 0 | 09/0 | | Activ | | HYDROcodone-acetamin | mouth four times | | | 4/20 | | e | | ophen 5-325 mg oral | daily. | | | 20 | | | | tablet | | | | | | | + + + +---------+------+------+-------+ | fluticasone | Instill 2 sprays | | 0 | 08/1 | | Activ | | propionate 50 | into each nostril | | | 0/20 | | e | | mcg/actuation nasal | once daily. | | | 20 | | | | spray,suspension | | | | | | | + + + +---------+------+------+-------+ | calcitonin-salmon | Instill 1 spray in | | 0 | 08/3 | | Activ | | 200 unit/actuation | nose once daily. | | | 1/20 | | e | | nasal | | | | 20 | | | | spray,non-aerosol | | | | | | | + + + +---------+------+------+-------+ | ondansetron ODT 4 | Dissolve 4 mg on | | 0 | 08/2 | | Activ | | mg oral | tongue and swallow | | | 0/20 | | e | | tablet,disintegratin | once daily. | | | 20 | | | | g | | | | | | | + + + +---------+------+------+-------+ | leflunomide 10 mg | Take 2 tablets by | 60 | 3 | 10/07 | | Activ | | oral | mouth once daily. | tablet | | 09/25 | | e | | tabletIndications: | Indications: | | | 20 | | | | rheumatoid arthritis | rheumatoid arthritis | | | | | | + + + +---------+------+------+-------+ Active Problems + + + | Problem | Noted Date | + + + | Primary osteoarthritis of both hands | 07/16/2014 | + + + Encounters +--------+ + + + + | Date | Type | Specialty | Care Team | Description | +--------+ + + + + | 10/24/ | Telephone | Rheumatology | Ron | Follow-up Plan | | 2020 | | | MD [place] | | +--------+ + + + + | 10/23/ | Lab | Phlebotomy | | Rheumatoid | | 2020 | | | | arthritis, involving | | | | | | unspecified site, | | | | | | unspecified | | | | | | rheumatoid factor | | | | | | presence (HCC) | +--------+ + + + + | 10/23/ | Hospital | Radiology | Yumi Tyson MD | | | 2019 | Encounter | | | | +--------+ + + + + | 10/23/ | Office | Rheumatology | Ron | Rheumatoid | | 2019 | Visit | | MD [place] | arthritis, involving | | | | | | unspecified site, | | | | | | unspecified | | | | | | rheumatoid factor | | | | | | presence (HCC) | | | | | | (Primary Dx); | | | | | | Primary | | | | | | osteoarthritis of | | | | | | both hands | +--------+ + + + + | 10/23/ | Telephone | Rheumatology | Ron | Request For Records | | 2019 | | | MD [place] | | +--------+ + + + + | 10/23/ | Travel | | | | | 2019 | | | | | +--------+ + + + + from Last 3 Months Family History + + +------+ + | Medical History | Relation | Name | Comments | + + +------+ + | Cancer | Brother | | renal | + + +------+ + | Heart Disease | Father | | | + + +------+ + | Cancer | Maternal | | bone | | | Uncle | | | + + +------+ + | Hypertension | Mother | | | + + +------+ + | Cancer | Sister | | skin | + + +------+ + + +------+--------+ + | Relation | Name | Status | Comments | + +------+--------+ + | Brother | | | | + +------+--------+ + | Father | | | | + +------+--------+ + | Maternal Uncle | | | | + +------+--------+ + | Mother | | | | + +------+--------+ + | Sister | | | | + +------+--------+ + Social History + + + +--------+ [...] | | | + + + + Last Filed Vital Signs + + + + + | Vital Sign | Reading | Time Taken | Comments | + + + + + | Blood Pressure | 122/71 | 10/24/2019 10:07 AM | | | | | PDT | | + + + + + | Pulse | 68 | 10/24/2019 10:07 AM | | | | | PDT | | + + + + + | Temperature | 36.7 C (98.1 F) | 10/24/2019 10:07 AM | | | | | PDT | | + + + + + | Respiratory Rate | 18 | 10/28/2008 2:30 PM | | | | | PDT | | + + + + + | Oxygen Saturation | 100% | 10/24/2019 10:07 AM | | | | | PDT | | + + + + + | Inhaled Oxygen | - | - | | | Concentration | | | | + + + + + | Weight | 75.4 kg (166 lb 3.6 | 10/24/2019 10:07 AM | | | | oz) | PDT | | + + + + + | Height | 154.9 cm (5' 1") | 07/16/2014 2:03 PM | | | | | PDT | | + + + + + | Body Mass Index | 31.41 | 07/16/2014 2:03 PM | | | | | PDT | | + + + + + Plan of Treatment +--------+ + + + + | Date | Type | Specialty | Care Team | Description | +--------+ + + + + | 02/24/ | Telephone-S | Rheumatology | Ron | | | 2020 | bora | | MD [address] | | | | | | [address] | | | | | | [place], [place] | | | | | | [address] | | | | | | [phone] | | | | | | | | +--------+ + + + + + + + + + | Health Maintenance | Due Date | Last | Comments | | | | Done | | + + + + + | Pneumococcal | | 01/23/20 | | | vaccination (2 of 3 | 1 | 10 | | | - PCV13) | | | | + + + + + | Influenza (Flu) | | 11/15/19 | | | vaccination (#1) | 0 | 19, | | | | | 01/02/20 | | | | | 18, | | | | | 11/02/19 | | | | | 17, | | | | | Addition | | | | | al | | | | | history | | | | | exists | | + + + + + Procedures + +--------+ + + + | [...] | | + +--------+ + + + from Last 3 Months Results CBC AND AUTO DIFF (10/24/2019 12:03 [...] [facility] | [address] | [place] [address] | | | SERVICES, CORE | PARK [...] | | | LABORATORY | | | EMIRATI | | | SERVICES, | | | [...] MDRD equation recommended by the National | [facility] | | Kidney Disease Education Program. Estimated [...] + + + + | [facility] | [address] | [place] [address] | | | SERVICES, CORE | PARK [...] By: | | | | | | [facility] Technologies[facility] | | | | | | [facility] | | | | | | [place], [place] [address]Ubzqkpkvva | | | | | | Director: [...] [facility] | [address] | [place], [place] | | | [facility] | | [address] | | + + + + + [...] + | [facility] - | [address] | [place] [address] | | | [place] | | | | + + + [...] [facility] | [address] | [place] [address] | | | SERVICES, CORE | PARK [...] + + + + | 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 | | | | | VOICE RECOGNITION 2 | | | | + +---------+ + + from Last 3 Months Insurance + +--------+ +--------+ + +--------+ | Payer | Benefi | Subscriber | Effect | Phone | Address | Type | | | t Plan | ID | mary grace | | | | | | / | | Dates | | | | | | Group | | | | | | + +--------+ +--------+ + +--------+ | [place] | BLUE | [id number] | 02/06/19 | [phone] | [address] | PPO | | | CROSS | | 20-Pre | 8 | [id number] | | | | [place] | | sent | | [place], | | | | [place] | | | | [place] [address] | | + +--------+ +--------+ + +--------+ | [employer] | AMERICAN | [id number] | Effect | | | Agency | | SERVICE | | | mary grace | | | | | | HEALTH | | for | | | | | | | | all | | | | | | SERVIC | | dates | | | | | | E | | | | | | + +--------+ +--------+ + +--------+ + +--------+ +--------+ + + | Guarantor Name | Accoun | Relation to | Date | Phone | Billing Address | | | t Type | Patient | of | | | | | | | | | | + +--------+ +--------+ + + | Rachel Yin | Person | Self | [birth year] | [address] | | | al/Fam | | 1955 | [phone] | [place] [address] | | | dea | | | 0 (Home) | | + +--------+ +--------+ + + | [place],Rachel Susanna | Agency | Self | [birth year] | [address] | | | | | 1955 | [phone] | [place] [address] | | | | | | 0 (Home) | | + +--------+ +--------+ + + Advance Directives + + + + + | Type | Date Recorded | Patient | Explanation | | | | 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
--- OUTSIDE RECORDS SUMMARY | ~2019-10-28 | XMS | Encounter Summary ---
Demographics + + + | Address | [address] | | | [place] [address] | + + + | Home Phone | | + + + | Preferred Language | Unknown | + + + | Marital Status | Single | + + + | Anabaptist Affiliation | UNK | + + + | Race | or | + + + | Ethnic Group | Not or | + + + Author + + + | Author | [facility] | + + + | Organization | [facility] | + + + | Address | Unknown | + + + | Phone | Unavailable | + + + Support + + +---------+ + | Name | Relationship | Address | Phone | + + +---------+ + | Alysa Yin | ECON | Unknown | | + + +---------+ + Care Team Providers + +------+ + | Care Owner Name | Role | Phone | + +------+ + PCP | Unavailable | + +------+ + Encounter Details +--------+ + + + + | Date | Type | Department | Care Team | Description | +--------+ + + + + | 05/01/ | 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 | Moi Álvarez, | Chronic Pain | | 2008 | | Neuromuscular Clinic | MD | Syndrome (Primary | | | | at [facility] | | Dx) | | | | Health & Healing | | | | | | [address] | | | | | | [facility] | | | | | | and Healing, | | | | | | Building | | | | | | Floor [place], [place] | | | | | | [address] | | | | | | [phone] | | | +--------+ + + + [...] this encounter Miscellaneous Notes Telephone Encounter - Ravi Aguilar - 05/01/2008 10:50 AM PDTPatient to have EMG for cons ultation in the Neuromuscular clinic per review of referring physician's chart notesJeromy damico by Ravi Aguilar at 05/01/2008 10:50 AM PDTdocumented in this encounter Plan of [...] [address] | | | | | | [place], [place] | | | | | | [address] | | | | | | [phone] | | | | | | | | +--------+ + + + + + + +--------+ + + | Name | Type | Priori | Associated Diagnoses | Order Schedule | | | | ty | | | + + +--------+ + + | EMG/NERVE CONDUCTION | Procedures | Routin | Chronic Pain | Ordered: 05/01/2008 | | STUDIES - NEUROLOGY | | e | Syndrome | | + + +--------+ + + documented as of this encounter Visit Diagnoses + + | Diagnosis | + + | Chronic pain syndrome - Primary | + + documented in this encounter"
--- OUTSIDE RECORDS SUMMARY | ~2019-10-28 | XMS | Encounter Summary ---
Demographics + + + | Address | [address] | | | [place] [address] | + + + | Home Phone | | + + + | Preferred Language | Unknown | + + + | Marital Status | Single | + + + | Catholic Affiliation | Unknown | + + + | Race | White | + + + | Ethnic Group | Not or | + + + Author + + + | Author | [facility] | | | and [place] | + + + | Organization | [facility] | | | and [place] | + + + | Address | Unknown | + + + | Phone | Unavailable | + + + Support + + + + + | Name | Relationship | Address | Phone | + + + + + | Maria Luisa Minaya | ECON | [place] | | | | | [address] | | + + + + + Care Team Providers + +------+ + | Care [employer] Combination Teacher Name | Role | Phone | + +------+ + | Chantale Harrington | PCP | | + +------+ + Reason for Referral Diagnostic/Screening (Routine) +--------+--------+ + + + + | Status | Reason | Specialty | Diagnoses / | Referred By | Referred To | | | | | Procedures | Contact | Contact | +--------+--------+ + + + + | Closed | | MRI | Diagnoses | Alexandr | [facility] | | | | | Thoracic | [facility] | | | | | radiculopath | GEORGI Sánchez | [address] | | | | | y | [address] | [address] | | | | | Procedures | [address] | [place], [place] | | | | | MRI Thoracic | STREET | [address] | | | | | Spine wo | [address] | Phone: | | | | | Contrast | [place], | [phone] | | | | | 02/21>PEND | [place] [address] | Fax: | | | | | DOS | Phone: | [phone] | | | | | | [phone] | | | | | | | Fax: | | | | | | | [phone] | | +--------+--------+ + + + + Reason for Visit + + + | Reason | Comments | + + + | New Patient | | + + + | Back Pain | | + + + Evaluate & Treat (Routine) + +--------+ + + + + | Status | Reason | Specialty | Diagnoses / | Referred By | Referred To | | | | | Procedures | Contact | Contact | + +--------+ + + + + | Authorized | | Physical | Diagnoses | Len, | Janett, | | | | Medicine and | Back pain, | [place] | Blanco Hernandez MD | | | | Rehabilitatio | thoracic | [id number] | [address] | | | | n | Lumbar back | [address] | [place] | | | | | pain | [place], | [place], [place] | | | | | Procedures | [place] [address] | [address] Phone: | | | | | IN OFFICE | Phone: | [phone] | | | | | OUTPATIENT | [phone] | Fax: | | | | | VISIT 25 | Fax: | [phone] | | | | | MINUTES | [phone] | | | | | | 03/26>PEND | | | | | | | [facility] DOS | | | | | | | 04/17/19 | | | + +--------+ + + + + Encounter Details +--------+---------+ + + + | Date | Type | Department | Care Team | Description | +--------+---------+ + + + | 12/12/ | Office | [facility] | [facility] Strange | Thoracic | | 2018 | Visit | PHYSIATRY [address] | [address] S[address] | radiculopathy | | | | [address] | [address] | (Primary Dx); | | | | [place], [place] | [address] [place], [place] | Osteopenia, | | | | [address] | [address] | unspecified location | | | | [phone] | | | +--------+---------+ + + + [...] + + + | Blood Pressure | 127/77 | 12/12/2018 3:17 PM | | | | | PST | | + + + + + | Pulse | 80 | 12/12/2018 3:17 PM | | | | | PST | | + + + + + | Temperature | - | - | | + + + + + | Respiratory Rate | 16 | 12/12/2018 3:17 PM | | | | | PST | | + + + + + | Oxygen Saturation | - | - | | + + + + + | Inhaled Oxygen | - | - | | | Concentration | | | | + + + + + | Weight | 74.8 kg (165 lb) | 12/12/2018 3:17 PM | | | | | PST | | + + + + + | Height | 152.4 cm (5') | 12/12/2018 3:17 PM | | | | | PST | | + + + + + | Body Mass Index | 32.22 | 12/12/2018 3:17 PM | | | | | PST | | + + + + + documented in this encounter Patient Instructions Patient Instructions Victoria Strange PA-C - 12/12/2018 4:00 PM PSTX-ray orders have been sent to [facility] for the thoracic spine. I will call you with r esults when they are available. A thoracic MRI order has been placed. Once authorized we will call you to schedule this.El ectronically signed by Victoria Strange PA-C at 12/12/2018 3:54 PM PST documented in this encounter Progress Notes Victoria Strange PA-C - 12/12/2018 4:00 PM PSTFormatting of this note might be diffe rent from the original. Codi Strange PA-C [address] [facility], [address] [place] [address] PHONE: FAX: PHYSIATRY HISTORY AND PHYSICAL EXAMINATION CHIEF COMPLAINT: Chief Complaint Patient presents with New Patient Back Pain HISTORY OF PRESENT ILLNESS: The patient is a 63 y.o. female with the complaint of back sym ptoms that began 4 years ago with progression in the last year. The patient describes sympt om onset following no particular incident. The symptoms have been rapidly worsening. She rates the pain as moderate and rated a 8/10. The symptoms are daily. She describes th e pain as sharp and tight band. The patient reports thoracic radiculopathy on the left about the T7-10 range on occasion. The patient does not report any change in bowel or bladder function recently. Her symptoms improve with sitting. Her symptoms worsen with bending and twisting. She has tried Chiropactic, Muscle relaxers and Accupuncture. . PAST MEDICAL HISTORY: Past Medical History: Diagnosis [...] Finger Arthroplasty; Surgeon: Naveen Ferrari MD; Location: [facility] HYSTERECTOMY CURRENT MEDICATIONS: Current Outpatient Medications Medication [...] mg tablet REFRESH OPTIVE SENSITIVE ophthalmic solution traMADol (ULTRAM) 50 mg tablet Take by mouth. No current facility-administered medications for this visit. ALLERGIES: Allergies Allergen Reactions Codeine Rash, Nausea And Vomiting and Itching Other reaction(s): Pruritus Morphine Palpitations Tolmetin Swelling Chlorpheniramine Unknown Epinephrine Unknown Erythromycin Unknown Lidocaine Unknown Pseudoephedrine Unknown Trimethoprim-Sulfamethoxazole [Sulfamethoxazole-Trimethoprim] Unknown SOCIAL HISTORY: The patient reports that she quit smoking about 25 years ago. Her smoking use included cig arettes. She smoked 0.50 packs per day. She has never used smokeless tobacco. She reports th at she does not drink alcohol or use drugs. FAMILY HISTORY: Family History Problem Relation Age of Onset Hypertension Mother Heart disease Father Kidney cancer Brother Other cancer Sister Skin Other cancer Maternal Uncle Bone REVIEW OF SYSTEMS: GENERALLY: No fever, no night sweats, no anemia, no fatigue, no recent profound weight ch anges. EYES: No eye problems, no impaired sight, + use of corrective lenses, no eye injury, no do uble vision, no transient blindness. EARS, NOSE, AND THROAT: No changes in taste or smell, no hearing difficulty, no ringing in the ears, no ear drainage, no ear injury, no dizziness, no voice changes, no difficulty swa llowing, no significant snoring, no sleep apnea/CPAP, no sinus problems, no major dental wor k. NEUROLOGICALLY: Please see the review of systems discussed above in the history of present illness. In addition, She has muscle aching, pain in back. PSYCHIATRIC: No depression, no difficulty sleeping, no anxiety, no bipolar disorder. CARDIOVASCULAR: No heart attacks, no heart murmur, no heart fluttering, no chest pain, no ankle swelling. LUNG DISEASE: No shortness of breath, no cough, no tuberculosis, no bloody cough, no asthm a, no emphysema/COPD. GASTROINTESTINAL: No bowel disease, no nausea or vomiting, no rectal bleeding, no constipa tion, no fecal stool incontinence, no liver/gallbladder disease, no abdominal pain, no ulcer s. KIDNEY DISEASE: No urinary frequency, no painful or difficult urination, no urinary incont inence, no bladder problems, no impotence. ENDOCRINE: No diabetes, no thyroid disease, no osteopenia or osteoporosis, no breast drain age. SKIN: No breast lumps, no skin disease or skin changes, no rashes/itches. HEMATOLOGIC/LYMPHATIC: No enlarged lymph nodes, no easy or unusual bleeding, no personal h istory of cancer. RHEUMATOLOGIC: No joint pain/arthritis, no rheumatoid arthritis. PHYSICAL EXAMINATION: Blood pressure 127/77, pulse 80, resp. rate 16, height 1.524 m (5'), weight 74.8 kg (165 lb ). Body mass index is 32.22 kg/m. GENERAL: Rachel Yin is in no acute distress with unlabored respirations. She does not appear uncomfortable throughout the exam today. HEENT: Head: Normocephalic/atraumatic with no areas of recent trauma. Eyes: Normal sclerae without icterus. Ears: No drainage or tenderness. Nasopharynx: Clear without drainage. Oropharynx: Clear without erythema. NECK (ANTERIOR): Supple and without palpable masses. CHEST: Unlabored respirations HEART: No lower extremity edema noted ABDOMEN: Soft, non-tender, non-distended, and without palpable masses. The patient is obes e. NEUROLOGICAL: The patient is awake, alert, and oriented to time, place, person. She follows simple and complex commands. Her speech is fluent. She comprehends speech well. She has no apparent deficits with short or detention memory. Cranial nerves 2-12 appear grossly intact. Sensory exam does not show diminished sensation to light touch in the bilateral lower extr emities. EXTREMITIES: No cyanosis, clubbing, or edema. Distal pulses are palpable. PHYSICAL EXAM: MENTAL STATUS: She is awake, alert, and oriented. She follows simple and complex commands. Her speech is fluent, she comprehends speech well, and she repeats well. 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 CRANIAL NERVES: II: Acuity is intact. Franco are full to confrontation. III, IV, : The pupils are reactive. Extraocular movements are intact. No ptosis is note d. V: Facial sensation is intact and symmetric. VII: Facial movements are symmetric. VIII: Hearing is intact bilaterally. IX, X: The uvula and palate move appropriately. XI: Shrug is equal bilaterally. XII: Tongue protrusion is midline. MOTOR EXAM: (5 IS NORMAL) * Indicates pain limited MUSCLE/ MOVEMENT: RIGHT LEFT Hip Flexion 5 5 Hip Extension 5 5 Knee Flexion 5 5 Knee Extension 5 5 Dorsiflexion 5 5 Extensor Hallicus Longus 5 5 Plantarflexion 5 5 REFLEXES: (2 OR 2+ IS NORMAL) REFLEX: RIGHT LEFT PATELLAR 2 2 ACHILLES 2 2 RIVERA'S ABSENT ABSENT PLANTAR DOWNGOING DOWNGOING GAIT: Gait is steady. Patient is able to demonstrate heel walk but is unable to tiptoe walk.alba ent reports pain in lumbar flexion in the mid thoracic region TEST AND RADIOGRAPHIC REVIEW: Thoracic x-rays dated 11/04/2016 show slight anterior wedging of the T8 vertebrae associated with DDD. ASSESSMENT: NEUROSURGICAL DIAGNOSES: Encounter Diagnoses Name Primary? Thoracic radiculopathy Yes Osteopenia, unspecified location GENERAL DIAGNOSES: Past Medical History: Diagnosis Date Arthralgia Arthritis [...] (temporomandibular joint disorder) Urethritis Urticaria Vision impairment PLAN: Rachel Villedan Humphrey presented today, and it was a pleasure seeing this patient and assessing her problems. The patient has a known prior small anterior wedge at T6 8 with progression of pain in the midthoracic region 1) Today we discussed the patient's differential diagnosis with the likely primary issue be ing thoracic spondylosis. Patient's description of symptoms, physical exam, and imaging sugg est this diagnosis at this time. 2) I counseled patient on treatment options which included conservative self management usi ng OTC NSAIDs/Ice and heat packs, physical therapy, prescription medications, epidural stero id injection, neuromodulation therapies, as well as possible surgical intervention. 3) Imaging: As descibed above in radiology review. Thoracic MRI was ordered to assess lumbar spine for herniation, disc pathology, and/or nerv e root impingement that may be contributing to patient's symptoms. 4) The patient has had significant conservative care including medications (NSAIDS and narc otics), PT (multiple sessions over the years) and career and guidance counselor. Unfortunately Rachel Yin continues to have significant discomfort. It appears to me that the pain is prima rily coming from potential progression of T8 wedge deformity or associated spondylosis from old wedge. I did feel that Rachel Yin would be a good candidate for interventional procedur es and I offered a HARISH to be done pending MRI findings. 5) patient will be notified by phone the results of the MRI and treatment options at that p oint. I spent 30 minutes in visit with Rachel Yin today with the majority of time spent c ounselling the patient on her diagnosis, options for her care, and coordinating her care. 12/13/18 ELECTRONICALLY SIGNED BY: Coid Strange PA-C, 12/13/2018 11:19 documented in this encounter Plan of Treatment + +---------+--------+ + + | Name | Type | Priori | Associated Diagnoses | Order Schedule | | | | ty | | | + +---------+--------+ + + | XR Thoracic Spine 2 | Imaging | Routin | Thoracic | Expected: | | Vw | | e | radiculopathy | 12/12/2018, Expires: | | | | | Osteopenia, | 12/13/2019 | | | | | unspecified location | | + +---------+--------+ + + | MRI Thoracic Spine | Imaging | Routin | Thoracic | Expected: | | wo Contrast | | e | radiculopathy | 12/12/2018, Expires: | | | | | | 12/13/2019 | + +---------+--------+ + + documented as of this encounter Visit Diagnoses + + | Diagnosis | + + | Thoracic radiculopathy - Primary Thoracic or lumbosacral neuritis or radiculitis, | | unspecified | + + | Osteopenia, unspecified location | + + documented in this encounter"
--- OUTSIDE RECORDS SUMMARY | ~2019-10-28 | XMS | Encounter Summary ---
Demographics + + + | Address | [address] | | | [place] [address] | + + + | Home Phone | | + + + | Preferred Language | Unknown | + + + | Marital Status | Single | + + + | Synagogue Affiliation | Unknown | + + + | Race | White | + + + | Ethnic Group | Not or | + + + Author + + + | Author | [facility] | | | and [place] | + + + | Organization | [facility] | | | and [place] | + + + | Address | Unknown | + + + | Phone | Unavailable | + + + Support + + + + + | Name | Relationship | Address | Phone | + + + + + | Maria Luisa Minaya | ECON | [place], [place] | | | | | [address] | | + + + + + Care Team Providers + +------+ + | Care Music Researcher Name | Role | Phone | + [...] | | | [address] [place] | [place] [address] | | | | | [place] [address] | | | | | | [phone] | | | +--------+ + + + [...] LUMBAR SPINE 2 OR | Routin | 03/23/2017 | | Results for this | | 3 VW | e | 12:00 AM | | procedure are in the | | | | PST | | results section. | + +--------+ + + + documented in this encounter Results XR Lumbar Spine 2 or 3 Vw (03/23/2017 12:00 AM PST) + + | Specimen [...]
--- OUTSIDE RECORDS SUMMARY | ~2019-10-28 | XMS | Encounter Summary ---
Demographics + + + | Address | [address] | | | [place] [address] | + + + | Home Phone | | + + + | Preferred Language | Unknown | + + + | Marital Status | Single | + + + | Confucianism Affiliation | Unknown | + + + | Race | White | + + + | Ethnic Group | Not or | + + + Author + + + | Author | [facility] | | | and [place] | + + + | Organization | [facility] | | | and [place] | + + + | Address | Unknown | + + + | Phone | Unavailable | + + + Support + + + + + | Name | Relationship | Address | Phone | + + + + + | Maria Luisa Minaya | ECON | [place] | | | | | [address] | | + + + + + Care Team Providers + +------+ + | Care Bath Solution Maker Name | Role | Phone | + +------+ + PCP | Unavailable | + +------+ + Encounter Details +--------+ + + + + | Date | Type | Department | Care Team | Description | +--------+ + + + + | 12/15/ | Hospital | [facility] | Conversion | Pain | | 2017 | Encounter | CONVERSION DEP [address] | Transaction, | | | | | [address] | Provider Unknown | | | | | [place] | | | | | | [address] | | | | | | [phone] | | | +--------+ + + + [...] + +--------+ + + + | XR HAND LEFT 3 + VW | Routin | 06/22/2016 | | Results for this | | | e | 11:12 PM | | procedure are in the | | | | PDT | | results section. | + +--------+ + + + documented in this encounter Results XR Hand Left 3 + Vw (06/22/2016 11:12 PM PDT) + + | Specimen | + + | | + + + + + | Narrative | Performed At | + + + | This is a non-reportable procedure without a radiologist report and | | | is used for image storage only | | + + + + + | Procedure Note | + + | Kit Mott - 09/19/2018 11:01 PM PDT This is a non-reportable procedure | | without a radiologist report and isused for image storage only | + + documented in this encounter Visit Diagnoses + + | Diagnosis | + + | Pain Generalized pain | + + documented in this encounter"
--- OUTSIDE RECORDS SUMMARY | ~2019-10-28 | XMS | Encounter Summary ---
Demographics + + + | Address | [address] | | | [place] [address] | + + + | Home Phone | | + + + | Preferred Language | Unknown | + + + | Marital Status | Single | + + + | Baptism Affiliation | UNK | + + + | Race | or | + + + | Ethnic Group | Not or | + + + Author + + + | Author | [facility] | + + + | Organization | [facility] | + + + | Address | Unknown | + + + | Phone | Unavailable | + + + Support + + +---------+ + | Name | Relationship | Address | Phone | + + +---------+ + | Alysa Yin | ECON | Unknown | | + + +---------+ + Care Team Providers + +------+ + | Care Lead Generation Representative Name | Role | Phone | + +------+ + | Poncho Nieves MD | PCP | | + +------+ + Reason for Visit + + + | Reason | Comments | + + + | New patient | | | consultation | | + + + Encounter Details +--------+---------+ + + + | Date | Type | Department | Care Team | Description | +--------+---------+ + + + | 08/25/ | Office | Rheumatology at | Stephanie Amaya, | Arthralgia (Primary | | 2008 | Visit | [facility] | | Dx) | | | | [address] | | | | | | [address] [facility] | | | | | | [place], [facility] Floor | | | | | | [place], [place] | | | | | | [address] | | | | | | [phone] | | | +--------+---------+ + + + [...] + + + | Blood Pressure | 114/68 | 08/25/2008 8:55 AM | | | | | PDT | | + + + + + | Pulse | 80 | 08/25/2008 8:55 AM | | | | | PDT | | + + + + + | Temperature | - | - | | + + + + + | Respiratory Rate | - | - | | + + + + + | Oxygen Saturation | 99% | 08/25/2008 8:55 AM | | | | | PDT | | + + + + + | Inhaled Oxygen | - | - | | | Concentration | | | | + + + + + | Weight | 74.8 kg (165 lb) | 08/25/2008 8:55 AM | | | | | PDT | | + + + + + | Height | - | - | | + + + + + | Body Mass Index | 31.18 | 05/07/2008 1:16 PM | | | | | PDT | | + + + + + documented in this encounter Progress Notes Geetha Cavanaugh MD - 2008 6:50 AM PDTI have repeated grijalva portions of the histor y and physical exam with the rheumatology fellow and was directly involved in the management of the care of the patient. Please refer to the fellow's note for details of the history, e xam and plan of care. GEETHA CAVANAUGH MD RHEUMATOLOGY FELLOWS [address] [facility] Mailcode: [id number] [facility] [address] Geetha Mayers MD - 09/01/2008 10:23 AM PDTI have repeated grijalva portions of the history and physical exa m with the rheumatology fellow and was directly involved in the management of the care of th e patient. Please refer to the fellow's note for details of the history, exam and plan of ca re. GEETHA CAVANAUGH MD RHEUMATOLOGY FELLOWS [facility] Mailcode: [id number] [facility] [place] [address] Stephanie June MD - 08/25/2008 9:11 AM PDT RHEUMATOLOGY NEW PATIENT CONSULT This patient was referred by: ROWENA EDWARDS [address] [place] [address], CC: Chief Complaint Patient presents with New patient consultation HPI: This is a 52 y.o. female, here for consultation regarding arthralgias. Saw Neurology 06/14 aching and tingling in hands, legs, feet. Neurological exam was normal. There is no electrophysiological evidence of medium or large fiber neuropathy form EDX. Ski n biopsy is inconclusive for small fiber neuropathy. Tingling has resolved. Patient reports hand pain started 1 year ago, progressive. Now notices swelling in hands.Ti me of day does not affect hand pain. Hands feel stiff due to swelling, not stiff before swel ling started.Hands feel worse if she uses them on computer. Has foot pain in morning, points to MTPs and tells me pain is on bottom of feet. Has never had that before. Has back pain th at comes up upon ROS, has had since her 20s. Her back hurts if she gets tired. Feels worse w ith activity. Is taking Vit D 50,000units every other week without taking a Vit D daily supplement. Has n ot noticed any change. Does not take NSAIDs due to Barrets Esophagus. Has used prednisone in the past for trochanteric bursitis. None recently. ROS: General: No constitutional symptoms of fatigue, weakness, fevers, night sweats. Eyes: No changes in visual acuity, diplopia or amaurosis, no discharge, matting, redness, tearing or eye pain. Ears/Nose/Throat: No sore throat, dental pain, hoarseness, dysphagia, oral or tongue lesio ns. No history of hearing loss, ear pain, tinnitus or aural discharge. Musculoskeletal: No symptoms of joint pain, swelling, myalgias or back pain. Gastrointestinal: No abdominal or flank pain, anorexia, nausea or vomiting, dysphagia, norberto nge in bowel habits or black or bloody stools or weight loss. Neurologic:The patient denies any symptoms of neurological impairment or TIAs; no amaurosis , diplopia, dysphasia, or unilateral disturbance of motor or sensory function. No loss of ba cachorro or vertigo. Heme/Lymphatic: The patient denies abnormal bruising, abnormal bleeding or enlarged lymph nodes. PMH: Past Medical History Diagnosis Date Other General Symptoms Fajardo's Esophagus Hypercholesterolemia Depression PSH: Past Surgical History Procedure Date Hx appendectomy Hx cholecystectomy Meds: Current outpatient prescriptions Medication Sig amitriptyline 25 mg Oral Tablet Take 25 mg by mouth once daily at bedtime. BENADRYL 25 mg Oral Capsule Take 1 Cap by mouth as needed conjugated estrogens 0.625 mg Oral Tablet Take 0.625 mg by mouth once daily. ergocalciferol (VITAMIN D) 50,000 unit Oral Capsule Take 1 Cap by mouth every seven day s. fentanyl 12 mcg/hr Transdermal Patch 72 hr Apply 1 Patch to skin every seventy-two hour s. omeprazole 20 mg Oral Capsule, Delayed Release(E.C.) Take 20 mg by mouth two times eusebia y. PRILOSEC 20 mg Oral Capsule, Delayed Release(E.C.) Take 1 Cap by mouth two times daily. promethazine (PHENERGAN) 25 mg Oral Tablet Take 1 Tab by mouth four times daily as need ed for nausea/vomiting. propranolol 20 mg Oral Tablet Take 0.5 Tabs by mouth two times daily. Allergies: Morphine, Codeine and Tolmetin sodium Social History: Rachel reports that she quit using tobacco about 15 years ago. Her tobacco use included cigarettes. She smoked 0.5 packs per day. She reports that she does not curr ently drink alcohol or use illicit drugs. Vaccinations: There is no immunization history on file for this patient. FH: family history includes Cancer in her brother (renal), maternal uncle, and sister (skin ); Heart in her father; and Hypertension in her mother. Exam: Vital Signs: BP 114/68 | Pulse 80 | Wt 74.844 kg (165 lb) | SpO2 99% Pain Score: 10 Gen: Well nourished, well developed, in NAD HEENT: PERRLA, EOMI, O/P clear, no facial rash or alopecia Neck: supple, no lymphadenopathy, FROM Lungs: clear to ausculation bilaterally CVS: S1S2, RRR, no murmurs, rubs or gallops Abd: normal BS, soft, NT, ND Ext: no clubbing, cyanosis or edema M/S: no synovitis and full range of motion Right 3rd PIP with bony enlargement +Heberdons and Bouchards nodes Skin:possibly some skin thickening distal to PIPs Neuro: CN intact, sensory exam intact, strength full, reflexes normal and symmetric Labs: Lab Results Component Value Date/Time WBC 7.0 05/07/08 2:33 PM HB 12.8 05/07/08 2:33 PM HCT 37.9 05/07/08 2:33 PM PLT 319 05/07/08 2:33 PM MCV 82.4 05/07/08 2:33 PM RDW 14.7 05/07/08 2:33 PM Lab Results Component Value Date/Time NA 136 05/07/08 2:33 PM K 4.0 05/07/08 2:33 PM CL 102 05/07/08 2:33 PM BICARB 30 05/07/08 2:33 PM BUN 11 05/07/08 2:33 PM CR 0.8 05/07/08 2:33 PM GLU 88 05/07/08 2:33 PM CA 8.8 05/07/08 2:33 PM AST 43 05/07/08 2:33 PM ALT 39 05/07/08 2:33 PM AP 77 05/07/08 2:33 PM TBILI 0.6 05/07/08 2:33 PM TP 7.2 05/07/08 2:33 PM ALB 3.2 05/07/08 2:33 PM Lab Results Component Value Date/Time ESR 13 06/24/08 2:04 PM Radiology: EXAM: PA and lateral bilateral hands. 06/24/08. HISTORY: Evaluate for rheumatoid arthritis. COMPARISON: None. FINDINGS: Left: No acute fracture or focal destruction is seen. There is mild narrowing of the triscaphe and first carpometacarpal joint spaces, with spurring. Minimal narrowing is present at the distal interphalangeal joint spaces. The other joint spaces of the hand are preserved. No metacarpophalangeal or interphalangeal marginal erosions are seen. Right: No acute fracture or focal destruction is seen. There is mild narrowing of the first, second, and third metacarpophalangeal joints. Soft tissue fullness is present about these joints without definite erosions. Mild narrowing is present at the triscaphe and first carpometacarpal joint spaces, with spurring. There is minimal narrowing of the distal interphalangeal joint spaces. IMPRESSION: 1. Mild narrowing of the first, second, and third metacarpophalangeal joints, with soft tissue fullness, of the right hand. This may be seen with early inflammatory arthropathy. 2. 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 I have personally viewed this procedure/exam and reviewed this report. Author: QUINTIN BASS M.D. Reviewer: TARA TORRES M.D. STATUS FINAL / Dr. TARA TORRES EXAM: Two views sacroiliac joints. 06/24/08. HISTORY: Evaluate for rheumatoid arthritis. COMPARISON: None. FINDINGS: The left posterior oblique view is suboptimal. The bony margins of the right and left sacroiliac joints are well defined without sclerosis. The visualized bony structures are intact without acute fracture or focal destruction. IMPRESSION: Normal right and left sacroiliac joints. Suboptimal left posterior oblique view. An attempt to recall the patient for a repeat exam will be made and an addendum will be made at that time. I have personally viewed this procedure/exam and reviewed this report. Author: QUINTIN BASS M.D. Reviewer: TARA TORRES M.D. Impression: This is a 52 y.o. female, here for evaluation of arthralgias present for 1 year . History and exam are c/w osteoarthritis causing arthralgias including hand pains with Hebe rdens and Bouchards nodes. No synovitis on exam to suggest inflammatory arthritis. RF, EDDIE a nd ESR are wnl. Reassured patient today that she does not have inflammatory arthritis. Will order a few more tests to rule out other causes of arthralgias. Discussed with patient today the option of using trial of hydroxychloroquine for osteoarthritis pains given that there i s some inflammation involved. Discussed potential risks and benefits. Patient is interested in trial of this. Recommendations: -checking Hep B sAg and Hep C Ab -Recheck Lyme and if positive will confirm with Western blot -Replete Vit D given history of deficiency that may be contributing to arthralgias -Check CCP -hydroxychloroquine trial for osteoarthritis pain and patient will need annual eye exam if she continues this RTC PRN The history, findings and treatment plan that I have documented were reviewed with the kam fernando physician at the time of this visit. He agrees that my assessment plan and services provid ed are appropriate. STEPHANIE AMAYA MD RHEUMATOLOGY FELLOWS [address] [facility] Mailcode: [id number] [facility] [address] documented in this e ncounter Miscellaneous Notes Scan - Other, Faculty - 09/04/2008 8:34 AM PDT documented in t his encounter Plan of Treatment +--------+ + + + + | Date | Type | Specialty | Care Team | Description | +--------+ + + + + | 02/24/ | Telephone-S | Rheumatology | Ron | | | 2020 | bora | | MD Quintin [address] | | | | | | [facility] | | | | | | [place], [place] | | | | | | [address] | | | | | | [phone] | | | | | | | | +--------+ + + + + documented as of this encounter Results CYCLIC CITRUL PEPTIDE AB [...] by | | | | | | Vocab Moda Operandi,[address] | | | | | | Corey Berry, [facility] [place], [place] | | | | | | [address] | | | | | | [phone].BuildOutlab. | | | | | | Moi [...] | + + + + + | [facility] | [address] | [place] [address] | | | PATHOLOGY | [address] | | | + + + + + LYME AB [facility], SERUM OR CSF (08/25/2008 10:08 AM PDT) [...] | | CTR-[facility] | | | | [facility] | | PATH DEPT | | | | [facility] Path Dept. | | | | | | [facility] | | | | | | [facility] | | | | | | [place], [place] | | | | | | [address] | | | | + + + [...] | + + + + + | [facility] | [address] | [place] [address] | | | PATHOLOGY | [address] | | | + + + + + | [facility] | [facility] | [place], [place] | | | CTR-S[facility] PATH DEPT | AT [address] | [address] | | + + + + + [...] | [facility] [facility]) Benny | [place] | | [facility] [address] [facility] | DEPARTMENT | | [place] [address] | PATHOLOGY | + + + + + + + + | Performing | Address | City/State/Zipcode | Phone Number | | Organization | | | | + + + + + | [facility] | [facility] | [place] [address] | | | PATHOLOGY | [address] | | | + + + + + | [facility] | [address] [place] [address] | [place] [address] | | | PATHOLOGY | [address] [...] At | + + + | [facility] ([facility] [address] [facility]) Benny | [place] | | [place] [address] [place] [facility] | DEPARTMENT | | [place] [address] | PATHOLOGY | + + + + + + + + | Performing | Address | City/State/Zipcode | Phone Number | | Organization | | | | + + + + + | [facility] | [address] | [place] [address] | | | PATHOLOGY | [address] | | | + + + + + | [facility] | [address] [place] [address] [address] | [place] [address] | | | PATHOLOGY | [address] | | | + + + + + documented in this encounter Visit Diagnoses + + | Diagnosis | + + | Arthralgia - Primary Pain in joint, site unspecified | + + documented in this encounter"
--- OUTSIDE RECORDS SUMMARY | ~2019-10-28 | XMS | Encounter Summary ---
Demographics + + + | Address | [address] | | | [place] [address] | + + + | Home Phone [...] Author + + + | Author | [facility] | | | and [place] | + + + | Organization | [facility] | | | and [place] | + + + | Address | Unknown | + + + | Phone | Unavailable | + + + Support + + + + + | Name | Relationship | Address | Phone | + + + + + | Maria Luisa Minaya | ECON | [place] | | | | | [address] | | + + + + + Care Team Providers + +------+ + | Care Db2 Systems Programmer Name | Role | Phone | + +------+ + | Chantale Harrington | PCP | | + +------+ + Reason for Visit + + + | Reason | Comments | + + + | Pain Management | inital encounter | + + + Encounter Details +--------+ + + + + | Date | Type | Department | Care Team | Description | +--------+ + + + + | 08/26/ | Documentati | [facility] | Kalin Mensah | Pain Management | | 2020 | on | NEUROSURGERY [address] | MD Jayce [address] | (inital encounter) | | | | [address] | [address] | | | | | [place] | [place] | | | | | [address] | [address] | | | | | [phone] | | | +--------+ + + + [...] + documented as of this encounter Progress Isis Merchant CMA - 08/27/2019 8:07 AM PDT The following information was obtained from https://[employer].GAMINSIDE.gov/myAccess/saw/select .do on 08/27/19. [facility] MATCHBOOK MAKER was checked on 08/27/19 and no pain medications have been dispens ed in the last 3 months. documented in this e ncounter Plan of Treatment Not on filedocumented as of this encounter Visit Diagnoses Not on filedocumented in this encounter"
--- OUTSIDE RECORDS SUMMARY | ~2019-10-28 | XMS | Encounter Summary ---
Demographics + + + | Address | [address] | | | [place] [address] | + + + | Home Phone | | + + + | Preferred Language | Unknown | + + + | Marital Status | Single | + + + | Taoist Affiliation | UNK | + + + | Race | or | + + + | Ethnic Group | Not or | + + + Author + + + | Author | [facility] | + + + | Organization | [facility] | [...] Team Providers + +------+ + | Care Rivet Hole Machine Operator Name | Role | Phone | + +------+ + | Sary De Santiago | PCP | | + +------+ + Encounter Details +--------+ + + + + | Date | Type | Department | Care Team | Description | +--------+ + + + + | 10/30/ | Document-Sc | Health Information | Other, Faculty | | | 2014 | anned | Services [address] | [phone] | | | | | [address] | | | | | | Mailcode: [id number] | | | | | | [facility] | | | | | | [place], [place] | | | | | | [address] | | | | | | [phone] | | | +--------+ + + + [...] + + | 02/24/ | Telephone-S | Griselda Velasquez | | | 2020 | bora | | MD Hermelindo [address] | | | | | | [address] | | | | | | [place], [place] | | | | | | [address] | | | | | | [phone] | | | | | | | | +--------+ + + + + documented as of this encounter Visit Diagnoses Not on filedocumented in this encounter"
--- OUTSIDE RECORDS SUMMARY | ~2019-10-28 | XMS | Encounter Summary ---
Demographics + + + | Address | [address] | | | [place] [address] | + + + | Home Phone | | + + + | Preferred Language | Unknown | + + + | Marital Status | Single | + + + | Holiness Affiliation | Unknown | + + + | Race | White | + + + | Ethnic Group | Not or | + + + Author + + + | Author | [facility] | | | and [place] | + + + | Organization | [facility] | | [...] [place], [place] | | | | | [address] | | + + + + + Care Team Providers + +------+ + | Care Cash Applications Analyst Name | Role | Phone | + +------+ + PCP | Unavailable | + +------+ + Encounter Details +--------+ + + + + | Date | Type | Department | Care Team | Description | +--------+ + + + + | 05/22/ | [facility] | [facility] | | | | 2002 | Encounter | MED CTR GENERIC OP | | | | | | CONV DEPT [address] | | | | | | [place], | | | | | | [place] [address] | | | | | | [phone] | | | +--------+ + + + [...]
--- OUTSIDE RECORDS SUMMARY | ~2019-10-28 | XMS | Encounter Summary ---
Demographics + + + | Address | [address] | | | [place] [address] | + + + | Home Phone | | + + + | Preferred Language | Unknown | + + + | Marital Status | Single | + + + | Druze Affiliation | UNK | + + + | Race | or | + + + | Ethnic Group | Not or | + + + Author + + + | Author | [facility] | + + + | Organization | [facility] | + + + | Address | Unknown | + + + | Phone | Unavailable | + + + Support + + +---------+ + | Name | Relationship | Address | Phone | + + +---------+ + | Alysa Yin | ECON | Unknown | | + + +---------+ + Care Team Providers + +------+ + | Care Warehouse Worker 2Nd Shift Name | Role | Phone | + +------+ + | Sary De Santiago | PCP | | + +------+ + Reason for Visit + + + | Reason | Comments | + + + | Follow-up visit | visual disturbance | + + + Office Visit - [...] | | | | | | | [place], [place] | | | | | | | [address] | | | | | | | Phone: | | | | | | | [phone] | | | | | | | Fax: | | | | | | | [phone] | +--------+--------+ + + + + Encounter Details +--------+---------+ + + + | Date | Type | Department | Care Team | Description | +--------+---------+ + + + | 01/21/ | Office | [facility] | Hammad Velasquez MD | Uveitis (Primary Dx) | | 2012 | Visit | [facility] | [address] | | | | | ogy at [address] | [place], [place] | | | | | [facility] | [address] | | | | | Health and Healing, | [phone] | | | | | Building | | | | | | Floor [place], [place] | | | | | | [address] | | | | | | [phone] | | | +--------+---------+ + + + [...] documented as of this encounter Progress Notes Hammad Velasquez MD - 01/22/2013 6:42 PM PSTFaculty Staffing Note: Personally repeated grijalva elements of history and physical and agree with documentation by finesse monae on this progress note. Assisted Resident and conferred with patient in regards to diagnosis and management plan. Hammad Velasquez MD News Gathering Technician [facility] Celestino Dickey MD - 1 03/24/2012 10:54 AM PST COMPREHENSIVE OPHTHALMOLOGY PROGRESS NOTE 01/21/2013 HPI: 57 y.o. year old female from [place] : Patient presents with: Follow-up visit - visual disturbance Feels her vision in her left eye is "weaker" than prior to the headaches she experienced pr eviously. Takes tramadol or meperidine when she "feels a headache coming" and that seems to manage it well. The headaches she has been having are not as severe as before, feels like "s inus pressure." Not taking topamax. No eye pain, no double vision. Does have eye "strain", mostly in left eye. Also having more "dry eye" problems with eye itchiness and watering. Tobacco use: reports that she quit smoking about 19 years ago. Her smoking use included Ci garettes. She smoked 0.50 packs per day. She has never used smokeless tobacco. Primary Care Provider: DEANA Ty Past ocular history: Headache with Subjective Visual Disturbance - see full discussion of ddx in Dr. Velasquez's note. Outside referring garage mechanic: Dr. Jhoan Florez [place], [place] . Outside [facility] Visual Field 24-2 11/09/2012 Bilateral visual defects which could be suggestive of a bilateral optic nerve process, alth ough not highly reliable visual franco. Outside Head CT 11/04/2012 Impression: no acute intracranial abnormality. Outside Face/Orbital/Neck MRI 11/12/2012 Impression: no significant pathology. Outside records scanned into [facility]. Family ocular history: family history includes Cancer in her brother (renal), maternal uncle, and sister (skin); H eart Disease in her father; and Hypertension in her mother. See scanned intake form for full Family ocular and medical history. Allergies: is allergic to codeine; morphine; and tolmetin sodium. Medications: Current Outpatient Prescriptions (Other) Medication Sig BENADRYL Take 1 Cap by mouth as needed conjugated estrogens Take 0.625 mg by mouth once daily. ergocalciferol Take 1 Cap by mouth every seven days. folic acid Take 1 mg by mouth once daily. gabapentin Take 2 Caps by mouth once. hydroxychloroquine Take 2 Tabs by mouth once daily. INFLIXIMAB (REMICADE IV) Inject into the vein (IV). meperidine Take 50 mg by mouth three times daily. ondansetron Take 4 mg by mouth every eight hours. PriLOSEC Take 1 Cap by mouth two times daily. promethazine Take 1 Tab by mouth four times daily as needed for nausea/vomiting. traMADol Take 50 mg by mouth three times daily as needed. traZODone Take 50 mg by mouth once daily at bedtime. Medical history/PMH/Review of systems: There is no [...] nega tive except as noted above. EXAMINATION: Base Exam Visual Acuity Right Left Dist cc 20/20 -1 20/20 -2 Method: Snellen - Linear Correction: Glasses Tonometry Right Left Pressure 11 12 Method: Applanation Time: 11:11 AM Dilation Both eyes: 2.5% Phenylephrine, 1.0% Mydriacyl @ 11:11 AM Pupils Dark Light APD Right 4 2 None Left 4 2 None Visual Franco Left Right Result Full Full Slit Lamp and Fundus Exam External Exam Right Left External Normal Normal Slit Lamp Exam Right Left Lids/Lashes Normal Normal Conjunctiva/Sclera White and quiet White and quiet Cornea Epithelium intact, SN neovascularization with circular perilimbal stromal opacity at 2oclock, otherwise clear stroma, no thickening Epithelium intact, scant calcific changes te mporally, SN neovascularization with circular perilimbal stromal opacity at 2oclock, otherwi se clear stroma, no thickening Anterior Chamber Trace Cells (1-2 cells) Deep and quiet Iris Normal Normal Lens 1+ NS 1+ NS Vitreous Normal Superonasal condensation Fundus Exam Right Left Disc Normal, no edema or pallor Normal, no edema or pallor C/D Ratio 0.2 0.3 Macula Normal Normal Vessels Normal Normal Periphery 1DD nevus superior to distal arcade Normal See [facility] Ophthalmology Exam Module for additional exam information VISUAL FIELD INTERPRETATION - HVF 30-2 01/21/2013 Reliability: excellent OS and good OD normal blind spot, foveal sensitivity 38, MD -2.44, and ?superior arcuate with nasal step, Right Eye normal blind spot, foveal sensitivity 37, MD -1.31, and superior arcuate, Left Eye Impression/Plan: 1. Headache with Subjective Visual Disturbance - see full discussion of ddx in Dr. Velasquez's no te from 11/26/12. Visual field today confirms the presence of bilateral visual field defects which are consistent with an optic neuropathy which likely occurred at the time of her acut e presentation of bilateral optic disc edema. The patient still endorses occasional headache s which have since improved. 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 There is no signs of active optic disc edema on exam today. At this point, I feel that it would be reasonable to proceed with some serologic work up to exclude the possibility of infectious or inflammatory causes of bilateral optic disc edema and anterior uveitis. If the patient remains clinically active, will discuss with Dr. Gian pate whether or not she requires further work up including repeat LP and MRI. - Will send Quantiferon TB Gold, ALONSO, RPR, FTA, Lyme - Will discuss with Dr. Hurt. - If repeat episode or worsening symptoms, consider repeat LP and MRI RTC 1 month to re-check for active inflammation and review labs, sooner PRN worsening heada jennifer or acute visual changes. Patient seen and examined with physician: Hammad Velasquez MD, 01/21/2013 Celestino Parsons MD Resident, Ophthalmology [facility] Addendum: Lab results received and are negative. Called the patient to update her with the results. W ill follow up as planned. RPR non-reactive FTA non-reactive ALONSO 32 (normal) Lyme 0.03 (negative) TB Quantiferon negative ESR 9 CRP <0.5 Hammad Velasquez MD News Gathering Technician [facility] documented in this encou nter Miscellaneous Notes Addendum Note - Hammad Velasquez MD - 01/21/2013 11:59 AM PST Addended by: HAMMAD VELASQUEZ MD on: 01/21/2013 11:59 AM Modules accepted: Orders documented in this enc ounter Plan of Treatment +--------+ + + + + | Date | Type | Specialty | Care Team | Description | +--------+ + + + + | 02/24/ | Telephone-S | Rheumatology | Ron, | | | 2020 | bora | | MD [address] | | | | | | [address] | | | | | | [place], [place] | | | | | | [address] | | | | | | [phone] | | | | | | | | +--------+ + + + + documented as of this encounter Results C-REACT PRTN (FOR INFLAMMATION) [...] + | [facility] | [address] | [place] [address] | | | [place] | | | [...] + + + + + | [facility] | [address] | [place] [address] | | | JACK D[address]AZ | [address] | | | + [...] at: | | | | | | http://www.cdc.gov/nchstp/tb/pubs/tbfactssheets/414028.htm | | | Test performed by: [facility] [address] [place] [address] | | + + + + + + + + | Performing | Address | City/State/Inscription House Health Centercode | Phone Number | | Organization | [...] by | | | | | | [employer],[address] | | | | | | [address], [facility] [place] | | | | | | [address] | | | | | | [phone].[facility]. | | | | | | cynthia, Pradeep Boothe, | | | | | [...] [facility] | [address] | [place], [place] | | | [facility] | | [address] | | + + + + + [...] | | | | | | | [email or web address] | | | | | | 001Performed by [facility] | | | | | | [facility],[address] | | | | | | [place] [address] | | | | | | [phone].[facility]. | | | | | | Pradeep [...] [facility] | [address] | [place], [place] | | | [facility] | | [address] | | + + + + + [...] PTH - [facility] | | | | Jamal, [place] [address] | | | | | | [phone].[facility]. | | | | | | Pradeep [...] [facility] | [address] | [place], [place] | | | [facility] | | [address] | | + + + + + [...] - | | | | | | [facility] | | + + + + + + + + | Specimen | + + | Blood - Blood | + + + + + + + | Performing | Address | City/State/Zipcode | Phone Number | | Organization | | | | + + + + + | [facility] | [address] | [place] [address] | | | [place] | | | | + + + + + documented in this encounter Visit Diagnoses + + | Diagnosis | + + | Uveitis - Primary Unspecified iridocyclitis | + + documented in this encounter
--- OUTSIDE RECORDS SUMMARY | ~2019-10-28 | XMS | Encounter Summary ---
Demographics + + + | Address | [address] | | | [place] [address] | + + + | Home Phone | | + + + | Preferred Language | Unknown | + + + | Marital Status | Single | + + + | Congregational Affiliation | UNK | + + + | Race | or | + + + | Ethnic Group | Not or | + + + Author + + + | Author | [facility] | + + + | Organization | [facility] | + + + | Address | Unknown | + + + | Phone | Unavailable | + + + Support + + +---------+ + | Name | Relationship | Address | Phone | + + +---------+ + | Alysa Yin | ECON | Unknown | | + + +---------+ + Care Team Providers + +------+ + | Care Osteopathy Doctor Name | Role | Phone | + +------+ + | Poncho Nieves MD | PCP | | + +------+ + Encounter Details +--------+------+ + + + | Date | Type | Department | Care Team | Description | +--------+------+ + + + | 06/24/ | Lab | Laboratory at [facility] | | Sensory Disturbance | | 2008 | | [address] | | | | | | [place] [facility] | | | | | | and Healing, | | | | | | [address] | | | | | | [place], [place] | | | | | | [address] | | | | | | [phone] | | | +--------+------+ + + + [...] 2020 | bora | | MD [address] | | | | | | [address] | | | | | | [place], [place] | | | | | | [address] | | | | | | [phone] | | | | | | | | +--------+ + + + + documented as of this encounter Procedures + +--------+ + + + | Procedure Name | Priori | Date/Time | Associated Diagnosis | Comments | | | ty | | | | + +--------+ + + + | LYME ABS TOTAL | Routin | 06/24/2008 | Sensory | Results for this | | REYNA, CSF | e | 2:04 PM | Disturbance | procedure are in the | | | | PDT | | results section. | + +--------+ + + + | ANGIOTENSIN CONVERT | Routin | 06/24/2008 | Sensory | Results for this | | ENZYME, SERUM | e | 2:04 PM | Disturbance | procedure are in the | | | | PDT | | results section. | + +--------+ + + + | C-REACTIVE PROTEIN | Routin | 06/24/2008 | Sensory | Results for this | | | e | 2:04 PM | Disturbance | procedure are in the | | | | PDT | | results section. | + +--------+ + + + | SEDIMENTATION RATE | Routin | 06/24/2008 | Sensory | Results for this | | | e | 2:04 PM | Disturbance | procedure are in the | | | | PDT | | results section. | + +--------+ + + + documented in this encounter Results ANGIOTENSIN CONVERT ENZYME, SERUM (06/24/2008 2:04 PM PDT) + + + + + + | Component | Value | Ref Range | Performed | Pathologist | | | | | At | Signature | + + + + + + | ANGIOTENSIN | 53Comment: TEST | 9 - 67 U/L | | | | CONVERTING | INFORMATION: Angiotensin | | | | | ENZYME, | Converting EnzymeFor | | | | | SERUM | related information, see | | | | | | | | | | | | [email or web address] | | | | | | 001Performed by [facility] | | | | | | [address]mita,[address] | | | | | | [place] [address] | | | | | | [phone]. | | | | | | Moi [...] | + + + + + | [facility] | [address] | [place], [place] | | | [facility] | | [address] | | + + + + + LYME AB REYNA [facility], SERUM OR CSF (06/24/2008 2:04 PM PDT) + + + + + + | Component | Value | Ref Range | Performed | Pathologist | | | | | At | Signature | + + + + + + | LYME AB | Borderline (A)Comment: | | [facility] | | | REYNA, CSF | Test performed by: | | [facility] | | | | [facility] | | PATH DEPT | | | | [place] Path Dept. | | | | | | [facility] | | | | | | [facility] | | | | | | [place], [place] | | | | | | [address] | | | | + + + + + + | SOURCE, INF | Serum | | [facility] | | | SER/PCR | | | [facility] | | | | | | PATH DEPT | | + + + + + + | PATIENT | 0.153 | | [facility] | | | SPECIMEN | | | [facility] | | | O.D. | | | PATH DEPT | | + + + + + + | REACTIVE | 0.155 | | [facility] | | | CUTOFF O.D. | | | [facility] | | | | | | PATH DEPT | | + + + + + + | BORDERLINE | 0.122 | | [facility] | [...] + + + | [facility] | [facility] | [place], [place] | | | [facility] PATH DEPT | AT [address] | [address] | | + + + + + C-REACTIVE PROTEIN, SERUM (06/24/2008 2:04 PM PDT) + +-------+ + + + [...] Change effective 03/04/08 | | | [facility] [address] | | | [place] [address] [facility] | | | [place] [address] | | + + + + + + + + | Performing | Address | City/State/Zipcode | Phone Number | | Organization | | | | + + + + + | [facility] | [address] | [place] [address] | | | LABORATORY | | | | + + + + + SEDIMENTATION RATE (06/24/2008 2:04 PM PDT) + +-------+ + + + | Component | Value | Ref Range | Performed | Pathologist | | | | | At | Signature | + +-------+ + + + | SEDIMENTATI | 13 | <31 mm/hr | [facility] | | [...] + + + + + | [facility] | [address] | [place] [address] | | | PATHOLOGY | [address] | | | + + + + + | [facility] | [facility] [address] | [place] [address] | | | PATHOLOGY | [address] | | | + + + + + documented in this encounter Visit Diagnoses + + | Diagnosis | + + | Sensory disturbance Disturbance of skin sensation | + + documented in this encounter"
--- OUTSIDE RECORDS SUMMARY | ~2019-10-28 | XMS | Encounter Summary ---
Demographics + + + | Address | [address] | | | [place] [address] | + + + | Home Phone | | + + + | Preferred Language | Unknown | + + + | Marital Status | Single | + + + | Buddhist Affiliation | Unknown | + + + | Race | White | + + + | Ethnic Group | Not or | + + + Author + + + | Author | [facility] | | | and [place] | + + + | Organization | [facility] | | | and [place] | + + + | Address | Unknown | + + + | Phone | Unavailable | + + + Support + + + + + | Name | Relationship | Address | Phone | + + + + + | Maria Luisa Minaya | ECON | [place] | | | | | [address] | | + + + + + Care Team Providers + +------+ + | Care Security System Installer Name | Role | Phone | + [...] + + | Closed | Specialty | Physical | Diagnoses | Shruthi Strange | | | Services | Therapy | Intercostal | [facility] | | | Required | | neuritis | GEORGI Sánchez | PHYSICAL | | | | | Myalgia | [address] | [address]AP[address] | | | | | Obesity (BMI | [address] | [place] | | | | | 30.0-34.9) | [address] | [place], [place] | | | | | | [address] | [address] | | | | | | [place], | Phone: | | | | | | [place] [address] | [phone] | | | | | | Phone: | Fax: | | | | | | [phone] | [phone] | | | | | | Fax: | | | | | | | [phone] | | +--------+ + + + + + Reason for Visit + + + | Reason | Comments | + + + | Follow-up | | + + + | Back [...] | | | Rehabilitatio | thoracic | [address] | [address] | | | | n | Lumbar back | [address] | [address] [place] | | | | | pain | [place], | [place] | | | | | Procedures | [place] [address] | [address] Phone: | | | | | [place] OFFICE | Phone: | [phone] | | | | | OUTPATIENT | [phone] | Fax: | | | | | VISIT 25 | Fax: | [phone] | | | | | MINUTES | [phone] | | | | | | 03/26>PEND | | | | | | | YH DOS | | | | | | | 04/17/19 | | | + +--------+ + + + + Encounter Details +--------+---------+ + + + | Date | Type | Department | Care Team | Description | +--------+---------+ + + + | 04/16/ | Office | [facility] [place] | Victoria Strange | Intercostal neuritis | | 2020 | Visit | PHYSIATRY [address] | GEORGI Sánchez [address] | (Primary Dx); | | | | [address] | [address] | Myalgia; Obesity | | | | [place] | [address] [place] | (BMI 30.0-34.9) | | | | [address] | [address] | | | | | [phone] | | | +--------+---------+ + + + [...] + + + | Blood Pressure | 136/81 | 04/17/2019 2:26 PM | | | | | PDT | | + + + + + | Pulse | 76 | 04/17/2019 2:26 PM | | | | | PDT [...] Weight | 74.8 kg (165 lb) | 04/17/2019 2:26 PM | | | | | PDT | | + + + + + | Height | 154.9 cm (5' 1") | 04/17/2019 2:26 PM | | | | | PDT | | + + + + + | Body Mass Index | 31.18 | 04/17/2019 2:26 PM | | | | | PDT | | + + + + + documented in this encounter Patient Instructions Patient Instructions Victoria Strange PA-C - 04/17/2019 2:40 PM PDT1. I placed orde rs for you to return to physical therapy at the [facility]. 2. A prescription for prednisone pills was sent to your pharmacy. You can take half as mu ch as directed to decrease the dose and side effects. documented in this encounter Progress Notes Victoria Strange PA-C - 04/17/2019 2:40 PM PDTFormatting of this note might be diffe rent from the original. Codi Strange PA-C [address] [facility] [address] [place] [address] PHONE: FAX: PHYSIATRY HISTORY AND PHYSICAL EXAMINATION CHIEF COMPLAINT: Chief Complaint Patient presents with Follow-up Back Pain HISTORY OF PRESENT ILLNESS: The patient is a 63 y.o. female with the complaint of back sym ptoms that began 4 years ago with progression in the last year. The patient describes sympt om onset following no particular incident. The symptoms have been rapidly worsening. The susan peñaloza was last seen for this complaint on 12/12/2018 by me where an MRI of the thoracic spin e was recommended. She presents today for MRI review and treatment options. She rates the pain as moderate and rated a 8/10. The symptoms are daily. She describes th e pain as sharp and tight band. At times deep respiration can aggravate her pain and she al so finds it hard to walk. The patient reports thoracic radiculopathy on the bilateral lower posterior thoracic region . The patient does not report any change [...] Finger Arthroplasty; Surgeon: Naveen Ferrari MD; Location: [facility]ST[facility] CURRENT MEDICATIONS: Current Outpatient Medications Medication Sig Dispense Refill alendronate (FOSAMAX) 35 mg tablet Take 1 tablet by mouth every 7 days. celecoxib (CELEBREX) 100 mg capsule Take 100 mg by mouth Twice daily as needed for Saran n. fluticasone (FLONASE) 50 mcg/nasal spray 2 sprays by Nasal route Daily. methocarbamol (ROBAXIN) 500 mg tablet Take 500 mg by mouth 3 times daily as needed for Muscle spasms. methylPREDNISolone (MEDROL DOSEPAK) 4 mg tablet Follow package directions. 21 tablet 0 omeprazole (PRILOSEC) 40 MG capsule Take 40 mg by mouth 2 times daily. ondansetron (ZOFRAN) 4 mg tablet REFRESH OPTIVE SENSITIVE ophthalmic solution No current facility-administered medications for this visit. [...] no rheumatoid arthritis. PHYSICAL EXAMINATION: Blood pressure 136/81, pulse 76, height 1.549 m (5' 1"), weight 74.8 kg (165 lb). Body mass index is 31.18 kg/m. GENERAL: Rachel Yin is in no [...] has no apparent deficits with short or jail memory. Cranial nerves 2-12 appear grossly intact. EXTREMITIES: No cyanosis, clubbing, or edema. Distal pulses are palpable. PHYSICAL EXAM: MENTAL STATUS: She is awake, alert, and oriented. She follows simple and complex commands. Her speech is fluent, she comprehends speech well, and she repeats well. She has no apparent deficits with short or jail memory. CRANIAL NERVES: II: Acuity is intact. [...] heel walk but is unable to tiptoe walk. Patient has tenderness to palpation over the lateral ribs in the posterior thorax bilateral . She does not have any midline C, T or L-spine pain. Patient also directs a component of her pain to be around the bra line and midline. TEST AND RADIOGRAPHIC REVIEW: Thoracic x-rays dated 11/04/2016 show slight anterior wedging of the T8 vertebrae associated with DDD. Thoracic MRI dated 03/18/2019 shows stable mild T8 compression fracture and otherwise unrema rkable scan. ASSESSMENT: NEUROSURGICAL DIAGNOSES: Encounter Diagnoses Name Primary? Intercostal neuritis Yes Myalgia Obesity (BMI 30.0-34.9) GENERAL DIAGNOSES: Past Medical History: Diagnosis Date [...] disorder) Urethritis Urticaria Vision impairment PLAN: Rachel Yin presented today, and it was a pleasure seeing this patient and assessing her problems. Patient returns today with MRI findings showing mild T8 compression fracture . Her symptoms do not quite match her MRI and may be related to epigastric radiation of saran n posteriorly or myalgia from slight thoracic kyphosis. We did discuss that when she gains weight her breasts enlarge and this is extra weight for her low back which may be contributi ng to her kyphosis and back pain. 1) Today we discussed the patient's differential diagnosis with the likely primary issue be ing thoracic spondylosis, intercostal neuritis, old T8 compression fracture with kyphosis an d obesity. Patient's description of symptoms, physical exam, and imaging suggest this diagno sis at this time. 2) I counseled patient on treatment options which included conservative self management usi ng OTC NSAIDs/Ice and heat packs, physical therapy, prescription medications, epidural stero id injection, neuromodulation therapies, as well as possible surgical intervention. 3) Imaging: As descibed above in radiology review. 4) The patient has had significant conservative care including medications (NSAIDS and narc otics), PT (multiple sessions over the years) and primary health care nurse. Unfortunately Rachel Yin continues to have significant discomfort. It appears to me that the pain is prima rily coming from results of T8 wedge deformity in combination with large breasts that may be causing exaggeration of thoracic kyphosis and myalgia. 5) I do think that Ms. Yin would be a good candidate for return to PT, weight loss and possible intercostal nerve blocks in the future. I spent 20 minutes in visit with Rachel Yin today with the majority of time spent c ounselling the patient on her diagnosis, options for her care, and coordinating her care. 04/17/19 ELECTRONICALLY SIGNED BY: Codi Strange PA-C, 04/17/2019 2:58 PM documented in this encounter Plan of Treatment + + +--------+ + + | Name | Type | Priori | Associated Diagnoses | Order Schedule | | | | ty | | | + + +--------+ + + | AMB REFERRAL TO [facility] | Outpatient | Routin | Intercostal | Ordered: 04/17/2019 | | PHYSICAL THERAPY | Referral | e | neuritis Myalgia | | | | | | Obesity (BMI | | | | | | 30.0-34.9) | | + + +--------+ + + documented as of this encounter Visit Diagnoses + + | Diagnosis | + + | Intercostal neuritis - Primary Other nerve root and plexus disorders | + + | Myalgia Mylagia and myositis, unspecified | + + | Obesity (BMI 30.0-34.9) Obesity, unspecified | + + documented in this encounter
--- OUTSIDE RECORDS SUMMARY | ~2019-10-28 | XMS | Encounter Summary ---
Demographics + + + | Address | [address] | | | [place] [address] | + + + | Home Phone | | + + + | Preferred Language | Unknown | + + + | Marital Status | Single | + + + | Jewish Affiliation | UNK | + + + | Race | or | + + + | Ethnic Group | Not or | + + + Author + + + | Author | [facility] [employer] [facility] | + + + | Organization | [facility] [facility] | + + + | Address | Unknown | + + + | Phone | Unavailable | + + + Support + + +---------+ + | Name | Relationship | Address | Phone | + + +---------+ + | Alysa Yin | ECON | Unknown | | + + +---------+ + Care Team Providers + +------+ + | Care Staff Climate Scientist Name | Role | Phone | + +------+ + | Sary De Santiago | PCP | | + +------+ + Reason for Visit + + + | Reason | Comments | + + + | New patient | | | consultation | | + + + Intake Referral (Routine) + +--------+ + + + + | Status | Reason | Specialty | Diagnoses / | Referred By | Referred To | | | | | Procedures | Contact | Contact | + +--------+ + + + + | Authorized | | Rheumatology | Diagnoses | Rod[place], | [facility] | | | | | | MD Kalin | [address] | | | | | Costochondri | [address] | Pavilion | | | | | tis | [address] | [address] | | | | | Procedures | [address] | Physician's | | | | | [place] | [place], | Pavilion, 4th | | | | | PATIENT | [place] [address] | Floor | | | | | LEV[address] | Phone: | [place], [place] | | | | | | [phone] | [address] | | | | | | Fax: | Phone: | | | | | | [phone] | [phone] | | | | | | | Fax: | | | | | | | [phone] | + +--------+ + + + + Encounter Details +--------+---------+ + + + | Date | Type | Department | Care Team | Description | +--------+---------+ + + + | 10/23/ | Office | Rheumatology at | [place], | Rheumatoid | | 2020 | Visit | Shalini العلي | MD Hermelindo [address] | arthritis, involving | | | | [address] | [address] | unspecified site, | | | | Loop Physician's | [place], [place] | unspecified | | | | Pavilion, 4th Floor | [address] | rheumatoid factor | | | | [place], [place] | [phone] | presence (HCC) | | | | [address] | | (Primary Dx); | | | | [phone] | | Primary | | | | | | osteoarthritis of | | | | | | both hands | +--------+---------+ + + + Social History [...] + documented in this encounter Progress Notes Yumi Tyson MD - 10/24/2019 10:30 AM PDTI have evaluated the patient with Dr Boateng and prasanth dasilva with the history, findings, assessment and plan. Yumi Tyson M.D. [address] [place] [address] Mailcode: [id number] [facility] [place] [id number] signed by Yumi Tyson MD at 10/25/2019 8:37 AM Hermelindo Gregory MD - 10/24/2019 10:30 AM PDTFormatting of this note might be different fro m the original. RHEUMATOLOGY NEW PATIENT CONSULT This consultation was requested by: Kalin Mensah MD [address] [address] fax: [phone] CC: Chief Complaint Patient presents with New patient consultation HPI: Rachel Yin is a 64 y.o. female, here for consultation from Kalin denny g diagnosis, and possible change in therapy for rheumatoid arthritis. (the patient was not very consistent with her timeline and she was guessing for much of the therapies she thinks she has tried for her RA) Patient was diagnosed in the past with RA ([facility]) but it has been over 5 years she said since she's seen him. Patient tried HCQ in the distant past years ago. Patient has tried MTX for months about a year ago. Has t ried subQ injections (like Enbrel didn't help). Patient was getting infusions (she thinks it was infliximab) then she went into remission. Last time of infusion was 5 years. She says a fter she went into remission that she was told she has osteoarthritis. She has had steroid i njections in her fingers before which helped a lot. Cannot close her hands; she feels joints are getting worse. Has 1-2 hours of morning stiffness, that improves with activity. Her carlota ateral PIPs tend to swell. Can feel changing weather in bones. Patient has hand OT in [facility], a long time ago. No major trauma to her hands. Patient takes OTC Motrin only when she's really bad (taken twice in the last two weeks). It helps. Also uses CBD oil on hands which helps. And has tried diclofenac gel on hands (helpe d a little) but stopped that. Patient has thoracic vertebrae fracture for the last 2 months of unclear cause. Patient is taking Fosamax for brittle bones (for last 6 months). She has also noted swelling in her forearms for the last year (like globs of fat). It comes and goes and is not painful, it's just that patient would like to know what it is. ROS: A questionnaire was provided to the patient with more than 10 ROS, and the pertinent positi ves and negatives were reviewed with the patient as in the HPI. PMH: Past Medical History: Diagnosis Date Fajardo's esophagus Depression Hypercholesterolemia Other general symptoms(780.99) PSH: Past Surgical History Procedure Laterality Date Appendectomy Cholecystectomy Meds: Current Outpatient Medications Medication Sig calcitonin-salmon 200 unit/actuation nasal spray,non-aerosol Instill 1 spray in nose on ce daily. conjugated estrogens 0.625 mg Oral Tablet Take 0.625 mg by mouth once daily. DULoxetine 30 mg oral capsule,delayed release(DR/EC) Take 30 mg by mouth once daily. ergocalciferol (VITAMIN D) 50,000 unit Oral Capsule Take 1 Cap by mouth every seven day s. fluticasone propionate 50 mcg/actuation nasal spray,suspension Instill 2 sprays into ea ch nostril once daily. furosemide 20 mg oral tablet Take 20 mg by mouth once daily. HYDROcodone-acetaminophen 5-325 mg oral tablet Take 1 tablet by mouth four times daily. ondansetron ODT 4 mg oral tablet,disintegrating Dissolve 4 mg on tongue and swallow onc e daily. PRILOSEC 20 mg Oral Capsule, Delayed Release(E.C.) Take 40 mg by mouth two times daily. promethazine (PHENERGAN) 25 mg Oral Tablet Take 1 Tab by mouth four times daily as need ed for nausea/vomiting. traMADol 50 mg Oral tablet Take 50 mg by mouth three times daily as needed. traZODone 50 mg Oral tablet Take 125 mg by mouth once daily at bedtime. No current facility-administered medications for this visit. Allergies: Codeine, Morphine, and Tolmetin sodium Social History: Social History Socioeconomic History Marital status: Single Spouse name: Not on file Number of children: Not on file Years of education: Not on file Highest education level: Not on file Occupational History Not on file Social Needs Financial resource strain: Not on file Food insecurity Worry: Not on file Inability: Not on file Transportation needs Medical: Not on file Non-medical: Not on file Tobacco Use Smoking status: Former Smoker Packs/day: 0.50 Types: Cigarettes Quit date: 05/24/1993 Years since quittin.4 Smokeless tobacco: Never Used Substance and Sexual Activity Alcohol use: No Drug use: No Sexual activity: Not on file Lifestyle Physical activity Days per week: Not on file Minutes per session: Not on file Stress: Not on file Relationships Social connections Talks on phone: Not on file Gets together: Not on file Attends zoroastrianism service: Not on file Active member of club or organization: Not on file Attends meetings of clubs or organizations: Not on file Relationship status: Not on file Other Topics Concern Not on file Social History Narrative Not on file Vaccinations: There is no immunization history on file for this patient. FH: Family history includes Cancer in her brother (renal), maternal uncle, and sister (skin ); Heart Disease in her father; and Hypertension in her mother. Rapid 3 MHAQ: 3.7 (10/24/19 1000) PAIN LEVEL: 8 (10/24/19 1000) GLOBAL ASSESSMENT: 9 (10/24/19 1000) RAPID 3: 6.9 (10/24/19 1000) Exam: Vital Signs: BP 122/71 (BP Location: Right upper arm, Patient Position: Sitting) | Pulse 6 8 | Temp 36.7 C (98.1 F) (Oral) | Wt 75.4 kg (166 lb 3.6 oz) | SpO2 100% | BMI 31.41 kg/m | BSA 1.8 m Pain Score: 8 | Pain Location: Back (Upper) | | Gen: Well nourished, well developed, in NAD HEENT: PERRLA, EOMI, O/P clear, no facial rash or alopecia Ext: no clubbing, cyanosis or edema M/S: Has Heberden and Cesar nodes diffusely on fingers. No overt joint swelling, warmth or erythema, but all joints of her hands and wrists were tender.Ulnar deviation of fingers. +Prayer sign, cannot make full claw or fist. Left knee crepitus. She also has point tenderne ss over a mid-thoracic vertebrae. Skin: has a small subcutaneous nodules/lump near the brachioradialis of both forearms witho ut tenderness to palpation Neuro: sensory normal; strength full Labs: No new labs in the last couple years. No records of RF or anti-CCP in our system. Radiology: 08/2019 Lumbar X-ray FINDINGS: There are no acute osseous findings. Vertebral body height are preserved with no evidence for compression fractures. Mild multilevel disc marginal osteophytosis and endplate sclerosis. Mild facet spondylosis. Intervertebral disc spaces are preserved. Facets are intact. Visualized ribs and pelvic osseous structures show no acute findings. Soft tissues are unremarkable. IMPRESSION: No acute findings. No evidence of dynamic listhesis. Mild early multilevel degenerative changes of the lumbar spine. 04/2014 Bilateral Hand X-ray Assessment: Rachel Yin is a 64 y.o. female, here for evaluation and possible change in manageme nt of rheumatoid arthritis with likely large contribution to her pain by osteoarthritis. #Osteoarthritis/?Rheumatoid Arthritis Ms. Yin had a prior diagnosis of rheumatoid arthritis in the past and has tried and bridgette led HCQ, MTX, etanercept and then went into remission with infliximab so was tapered off ove r 5 years ago. She continues to have hand pain so she is seeking rheumatologic care again. H er prior physician had noted the patient likely had OA and on exam today she has notable fin dings of OA including Heberden/Bourchard notes and hand radiographs from 2015 with findings c/w OA. Although the prior imaging could not rule out RA. On exam today, she does not have o vert signs of synovitis but she does have diffuse tenderness in the joints of her hands and wrist. Given our lack of prior medical records, it is difficult to assess purely based on to days exam. Before we consider starting a DMARD, we would like to gather more information to ensure that she does have an inflammatory arthritis like RA at work here, in addition to the OA that the patient definitively has. 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 Tyson, who agrees with the ab ove assessment and plan. Hermelindo Velasquez M.D. Rheumatology Fellow Pager: [phone] documented in this encounter Plan of Treatment +--------+ + + + + | Date | Type | Specialty | Care Team | Description | +--------+ + + + + | 02/24/ | Telephone-S | Rheumatology | Ron, | | | 2020 | bora | | MD Hermelindo [address] | | | | | [address] | | | | | | [place], [place] | | | | | | [address] | | | | | | [phone] | | | | | | | | +--------+ + + + + documented as of this encounter Results RHEUMATOID FACTOR, SERUM (10/24/2019 12:03 PM PDT) + +-------+ + + + | Component | Value | Ref Range | Performed | Pathologist | | | | | At | Signature | + +-------+ + + + | RHEUMATOID | 10 | <=14 IU/mL | [facility] | | [facility] | | | [facility] | | | | | | [place] | | + +-------+ + + + + + | Specimen | + + | Blood - Blood | | (substance) | + + + + + + + | Performing | Address | City/State/Zipcode | Phone Number | | Organization | | | | + + + + + | [facility] | [address] | [place] [address] | | | [place] | | | [...] By: | | | | | | [facility] [id number] | | | | | | [facility] | | | | | | [place], [place] [id number] | | | | | | Director: [...] [facility] | [address] | [place], [place] | | | [facility] | | [address] | | + + + + + [...] | | | LABORATORY | | | [facility] | | | SERVICES, | | | [...] MDRD equation recommended by the National | [facility] | | Kidney Disease Education Program. Estimated [...] | + + + + + | [facility] | [address] | [place] [address] | | | SERVICES, CORE | [address] [...] [facility] | [address] | [place] [address] | | | SERVICES, CORE | PARK [...] | + + + + + | [facility] | [address] | [place] [address] | | | SERVICES, [facility] | [address] | | | + [...] | MD Wen 10/24/2019 1:13 PM Preliminary: Kay Carver | | | Dictation initiated: Kay Carver MD 10/24/2019 1:04 | | | PM | | + + + + + | Procedure Note | + + | Service Account, [employer] In Interface - 10/24/2019 1:14 PM PDT [...] unspecified rheumatoid factor | | presence (HCC) - Primary | + + | Primary osteoarthritis of both hands | + + documented in this encounter"
--- OUTSIDE RECORDS SUMMARY | ~2019-10-28 | XMS | Encounter Summary ---
Demographics + + + | Address | [address] | | | [place] [address] | + + + | Home Phone | | + + + | Preferred Language | Unknown | + + + | Marital Status | Single | + + + | Jehovah'S Witness Affiliation | Unknown | + + + | Race | White | + + + | Ethnic Group | Not or | + + + Author + + + | Author | [facility] | | | and [place] | + + + | Organization | [facility] | | | and [place] | + + + | Address | Unknown | + + + | Phone | Unavailable | + + + Support + + + + + | Name | Relationship | Address | Phone | + + + + + | Maria Luisa Minaya | ECON | [place] | | | | | [address] | | + + + + + Care Team Providers + +------+ + | Care Paste Mixer Liquid Name | Role | Phone | + +------+ + PCP | Unavailable | + +------+ + Encounter Details +--------+ + + + + | Date | Type | Department | Care Team | Description | +--------+ + + + + | 12/15/ | Hospital | [facility] | Conversion | Pain | | 2017 | Encounter | CONVERSION DEP [address] | Transaction, | | | | | [address] | Provider Unknown | | | | | [place] | | | | | | [address] | | | | | | [phone] | | | +--------+ + + + [...] +--------+ + + + | XR HAND RIGHT 3 + VW | Routin | 06/22/2016 | | Results for this | | | e | 11:12 PM | | procedure are in the | | | | PDT | | results section. | + +--------+ + + + documented in this encounter Results XR Hand Right 3 + Vw (06/22/2016 11:12 PM PDT) [...] | Procedure Note | + + | Pantera Kit Edwin - 09/19/2018 11:01 PM PDT This is a non-reportable procedure | | without a radiologist report and isused for image storage only | + + documented in this encounter Visit Diagnoses + + | Diagnosis | + + | Pain Generalized pain | + + documented in this encounter"
--- OUTSIDE RECORDS SUMMARY | ~2019-10-28 | XMS | Encounter Summary ---
Demographics + + + | Address | [address] | | | [place] [address] | + + + | Home Phone | | + + + | Preferred Language | Unknown | + + + | Marital Status | Single | + + + | Religion Affiliation | Unknown | + + + | Race | White | + + + | Ethnic Group | Not or | + + + Author + + + | Author | [facility] | | | and [place] | + + + | Organization | [facility] | | | and [place] | + + + | Address | Unknown | + + + | Phone | Unavailable | + + + Support + + + + + | Name | Relationship | Address | Phone | + + + + + | Maria Luisa Minaya | ECON | [place] | | | | | [address] | | + + + + + Care Team Providers + +------+ + | Care Gas Engine Operator Generators Name | Role | Phone | + +------+ + PCP | Unavailable | + +------+ + Encounter Details +--------+ + + + + | Date | Type | Department | Care Team | Description | +--------+ + + + + | 04/19/ | [facility] | [facility] | Lino Tan, | | | 2004 | Encounter | MED CTR XRAY [address] | [address] | | | | | [place] | [place] | | | | | [place] [id number] | [address] | | | | | [phone] | | | +--------+ + + + [...]
--- OUTSIDE RECORDS SUMMARY | ~2019-10-28 | XMS | Clinical Summary ---
Demographics + + + | Address | [address] | | | [place] [address] | + + + | Home Phone | | + + + | Preferred Language | Unknown | + + + | Marital Status | Single | + + + | Hinduism Affiliation | Unknown | + + + | Race | White | + + + | Ethnic Group | Not or | + + + Author + + + | Author | [facility] | | | and [place] | + + + | Organization | [facility] | | | and [place] | + + + | Address | Unknown | + + + | Phone | Unavailable | + + + Support + + + + + | Name | Relationship | Address | Phone | + + + + + | Maria Luisa Minaya | ECON | [place] | | | | | [phone] | | + + + + + Care Team Providers + +------+ + | Care Animal Shelter Supervisor Name | Role | Phone | + +------+ + | Chantale Harrington | PCP | | + +------+ + Allergies + + + + + + | Active Allergy | Reactions | Severity | Noted | Comments | | | | | Date | | + + + + + + | Chlorpheniramine | Unknown | | | | + + + + + + | Codeine | Rash, Nausea And | High | 05/08/19 | Other reaction(s): | | | Vomiting, Itching | | 09 | Pruritus | + + + + + + | Epinephrine | Unknown | | | | + + + + + + | Erythromycin | Unknown | | | | + + + + + + | Lidocaine | Unknown | | | Patient reports | | | | | | that she doesn't | | | | | | remember reaction | | | | | | and doesn't believe | | | | | | that it caused an | | | | | | issue. 12/23/2018 | | | | | | 2:21 AM | + + + + + + | Morphine | Palpitations | High | 05/08/19 | | | | | | 09 | | + + + + + + | Pseudoephedrine | Unknown | | | | + + + + + + | Tolmetin | Swelling | High | 05/08/19 | | | | | | 09 | | + + + + + + | Sulfamethoxazole-Tri | Unknown | | | | | methoprim | | | | | + + + + + + Medications + + + +---------+------+------+-------+ | Medication | Sig | Dispensed | Refills | Star | End | Statu | | | | | | t | Date | s | | | | | | Date | | | + + + +---------+------+------+-------+ | omeprazole | Take 40 mg by mouth | | 0 | 09/2 | | Activ | | (PRILOSEC) 40 MG | 2 times daily. | | | 9/20 | | e | | capsule | | | | 17 | | | + + + +---------+------+------+-------+ | ondansetron | | | 0 | 09/2 | | Activ | | (ZOFRAN) 4 mg tablet | | | | 9/20 | | e | | | | | | 17 | | | + + + +---------+------+------+-------+ | alendronate | Take 1 tablet by | | 0 | 07/2 | | Activ | | (FOSAMAX) 35 mg | mouth every 7 days. | | | 2/20 | | e | | tablet | | | | 19 | | | + + + +---------+------+------+-------+ | fluticasone | 2 sprays by Nasal | | 0 | 05/1 | | Activ | | (FLONASE) 50 | route Daily. | | | 20 | | e | | mcg/nasal spray | | | | 19 | | | + + + +---------+------+------+-------+ | methocarbamol | Take 500 mg by mouth | | 0 | 06/0 | | Activ | | (ROBAXIN) 500 mg | 3 times daily as | | | 4/20 | | e | | tablet | needed for Muscle | | | 19 | | | | | spasms Only taking 1 | | | | | | | | time daily. | | | | | | + + + +---------+------+------+-------+ | REFRESH OPTIVE | | | 0 | 10/1 | | Activ | | SENSITIVE ophthalmic | | | | 0/20 | | e | | solution | | | | 19 | | | + + + +---------+------+------+-------+ | estradiol | | | 0 | 07/0 | | Activ | | (ANNAARA) 0.025 | | | | 9/20 | | e | | MG/24HR | | | | 20 | | | + + + +---------+------+------+-------+ | diclofenac | | | 0 | 07/0 | | Activ | | (FLECTOR) 1.3% PTCH | | | | 9/20 | | e | | | | | | 20 | | | + + + +---------+------+------+-------+ | tiZANidine | Take 4 mg by mouth | | 0 | 07/0 | | Activ | | (ZANAFLEX) 4 mg | nightly . | | | 9/20 | | e | | tablet | | | | 20 | | | + + + +---------+------+------+-------+ | citalopram | Take 40 mg by mouth | | 0 | | | Activ | | (CELEXA) 40 mg | Daily. | | | | | e | | tablet | | | | | | | + + + +---------+------+------+-------+ | UNABLE TO FIND | Once a week Med | | 0 | | | Activ | | | Name: Hormone patch | | | | | e | | | . | | | | | | + + + +---------+------+------+-------+ Active Problems + + + | Problem | Noted Date | + + + | Osteoarthritis of finger of right hand | 11/21/2016 | + + + + + | Overview: Overview: | | Added automatically from request for surgery [id number] | + + + + + | Primary osteoarthritis of both hands | 07/16/2014 | + + + | Low back pain | 10/25/2012 | + + + | Radiculopathy of lumbosacral region | 08/30/2012 | + + + Encounters +--------+ + + + + | Date | Type | Specialty | Care Team | Description | +--------+ + + + + | 08/28/ | Telephone | Neurosurgery | Kalin Mensah | Referral | | 2019 | | | MD Jayce | | +--------+ + + + + | 08/27/ | Office | Neurosurgery | Kalin Mensah | Costochondritis | | 2019 | Visit | | MD Jayce | (Primary Dx); | | | | | | 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 | | | | | | of thoracic region | | | | | | with osteophyte; | | | | | | Osteoarthritis, | | | | | | unspecified | | | | | | osteoarthritis type, | | | | | | unspecified site | +--------+ + + + + | 08/27/ | Hospital | Radiology | Kalin Mensah | Lumbar radiculopathy | | 2019 | Encounter | | MD Jayce | | +--------+ + + + + | 08/26/ | Documentati | Neurosurgery | Kalin Mnesah | Pain Management | | 2020 | on | | MD Jayce | (inital encounter) | +--------+ + + + + | 08/18/ | Abstract | Neurosurgery | Provider, | | | 2019 | | | MD Glen | | +--------+ + + + + | 08/04/ | Orders Only | Neurosurgery | Kalin Mensah | Lumbar radiculopathy | | 2019 | | | MD Jayce | (Primary Dx) | +--------+ + + + + from Last 3 Months Family History + + + + + | Medical History | Relation | Name | Comments | + + + + + | Kidney cancer | Brother | | | + + + + + | Heart disease | Father | Rae | | | | | [place] | | | | | [place] | | + + + + + | Other cancer | Maternal | | Bone | | | Uncle | | | + + + + + | Hypertension | Mother | Alysa L | | | | | [place] | | + + + + + | Other cancer | Sister | | Skin | + + + + + + + + + + | Relation | Name | Status | Comments | + + + + + | Brother | | | | + + + + + | Father | Rae W | | | | | [place] | | | + + + + + | Maternal Uncle | | | | + + + + + | Mother | Alysa L | Alive | | | | [place] | | | + + + + + | Sister | | | | + + + + + Social History + [...] on file | | + + + Last Filed Vital Signs [...] + + + + Plan of Treatment + + + + + | Health Maintenance | Due Date | Last | Comments | | | | Done | | + + + + + | Hepatitis C | | | | | Screening | 8 | | | + + + + + | Medication | | | | | Management | 8 | | | + + + + + | Cervical Cancer | | | | | Screening (Pap) | 8 | | | + + + + + | Colorectal Cancer | | | | | Screening | 8 | | | | (Colonoscopy) | | | | + + + + + | Vaccine: Zoster (1 | | | | | of 2) | 8 | | | + + + + + | Breast Cancer | | | | | Screening | 3 | | | + + + + + | Med Mgmt: BUN | | 03/18/19 | | | | 9 | 18 | | + + + + + | Med Mgmt: Cr | | 03/18/19 | | | | 9 | 18 | | + + + + + | Med Mgmt: eGFR | | 03/18/19 | | | | 9 | 18 | | + + + + + | Vaccine: Influenza | | 11/15/19 | | | (#1) | 0 | 19, | | | | | 01/02/20 | | | | | 18, | | | | | 11/02/19 | | | | | 17, | | | | | Addition | | | | | al | | | | | history | | | | | exists | | + + + + + | Vaccine: | | 09/02/19 | | | Dtap/Tdap/Td (2 - | 2 | 12 | | | Td) | | | | + + + + + Implants + +------+--------+ +--------+--------+--------+ | Implanted | Type | Area | Manufacture | Device | Shelf | Model | | | | | r | | Expira | / | | | | | | Identi | tion | Serial | | | | | | fier | Date | / Lot | + +------+--------+ +--------+--------+--------+ | Imp Finger Virginia Sz2 - | | Right: | PASTOR | | 06/05/ | 470-00 | | SunknownImplanted: Qty: 1 on | | Hand | MEDICAL | | 2024 | 02 | | 11/29/2016 by Naveen Ferrari | | | TECH Db BRYAN | | | /UNKNO | | MD [place] | | | | | | [place] | | | | | | | | /[id number] | | | | | | | | 19 | + +------+--------+ +--------+--------+--------+ Procedures + +--------+ + + + | [...] section. | + +--------+ + + + from Last 3 Months Results XR Lumbar Spine 2 or 3 [...] Procedure Note | + + | Pantera, [id number] - 08/28/2019 2:36 PM PDT XR LUMBAR [...] from Last 3 Months Insurance + +--------+ +--------+-------+---------+--------+ | Payer | Benefi | Subscriber | Effect | Phone | Address | Type | | | t Plan | ID | mary grace | | | | | | / | | Dates | | | | | | Group | | | | | | + +--------+ +--------+-------+---------+--------+ | BCBS | BCBS | [id number] | 02/06/19 | | | PPO | | | FEDERA | | 20-Pre | | | | | | L FEP | | sent | | | | + +--------+ +--------+-------+---------+--------+ | [employer] | IHS | [id number] | | | | Indemn | | SERVICE | YELLOW | | 958-Pr | | | ity | | | HAWK | | esent | | | | + +--------+ +--------+-------+---------+--------+ + +--------+ +--------+ + + | Guarantor Name | Accoun | Relation to | Date | Phone | Billing Address | | | t Type | Patient | of | | | | | | | | | | + +--------+ +--------+ + + | Rachel Yin | Person | Self | [birth year] | [address] | | | al/Fam | | 1956 | [phone] | [place] [address] | | | dea | | | 0 (Home) | | + +--------+ +--------+ + + | Rachel Yin | Person | Self | [birth year] | | [address] | | | al/Fam | | 1956 | [phone] | [place] [address] | | | dea | | | 0 (Home) | | + +--------+ +--------+ + + Advance Directives + + + + + | Type | Date Recorded | Patient | Explanation | | | | 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
--- OUTSIDE RECORDS SUMMARY | ~2019-10-28 | XMS | Encounter Summary ---
Demographics + + + | Address | [address] | | | [place] [address] | + + + | Home Phone | | + + + | Preferred Language | Unknown | + + + | Marital Status | Single | + + + | Hindu Affiliation | UNK | + + + | Race | or | + + + | Ethnic Group | Not or | + + + Author + + + | Author | [facility] | + + + | Organization | [facility] | [...] Team Providers + +------+ + | Care Absence Management Consultant Name | Role | Phone | + +------+ + | Sary De Santiago | PCP | | + +------+ + Encounter Details +--------+ + + + + | Date | Type | Department | Care Team | Description | +--------+ + + + + | 11/23/ | Document-Sc | UNKNOWN DEPARTMENT | Unknown . | | | 2012 | anned | [address] | | | | | | [address] | | | | | | [place], [place] | | | | | | [address] | | | +--------+ + + + [...] documented as of this encounter Miscellaneous Notes Scan - Other, Faculty - 12/05/2012 9:57 AM PDTElectronically signed by Faculty Other at 9:57 AM PDTdocumented in this encounter Plan of Treatment +--------+ + + + + | Date | Type | Specialty | Care Team | Description | +--------+ + + + + | 02/24/ | Telephone-S | Rheumatology | Ron, | | | 2020 | bora | | MD Hermelindo [address] | | | [address] | | | | | | [place] | | | | | | [address] | | | | | | [phone] | | | | | | | | +--------+ + + + + documented as of this encounter Visit Diagnoses Not on filedocumented in this encounter"
--- OUTSIDE RECORDS SUMMARY | ~2019-10-28 | XMS | Encounter Summary ---
Demographics + + + | Address | [address] | | | [place] [address] | + + + | Home Phone | | + + + | Preferred Language | Unknown | + + + | Marital Status | Single | + + + | Rastafari Affiliation | Unknown | + + + | Race | White | + + + | Ethnic Group | Not or | + + + Author + + + | Author | [facility] | | | and [place] | + + + | Organization | [facility] | | | and [place] | + + + | Address | Unknown | + + + | Phone | Unavailable | + + + Support + + + + + | Name | Relationship | Address | Phone | + + + + + | Maria Luisa Minaya | ECON | [place], [place] | | | | | [address] | | + + + + + Care Team Providers + +------+ + | Care Aquaculture Worker Name | Role | Phone | + +------+ + PCP | Unavailable | + +------+ + Encounter Details +--------+ + + + + | Date | Type | Department | Care Team | Description | +--------+ + + + + | 12/21/ | [facility] | [facility] | | | | 2003 | Encounter | MED CTR GENERIC OP | | | | | | CONV DEPT [address] | | | | | | [place], | | | | | | [place] [address] | | | | | | [phone] | | | +--------+ + + + [...]
--- OUTSIDE RECORDS SUMMARY | ~2019-10-28 | XMS | Encounter Summary ---
Demographics + + + | Address | [address] | | | [place] [address] | + + + | Home Phone | | + + + | Preferred Language | Unknown | + + + | Marital Status | Single | + + + | Jew Affiliation | UNK | + + + | Race | or | + + + | Ethnic Group | Not or | + + + Author + + + | Author | [facility] | + + + | Organization | [facility] | [...] Team Providers + +------+ + | Care Cigar Making Supervisor Name | Role | Phone | + +------+ + | Sary De Santiago | PCP | | + +------+ + Reason for Visit + + + | Reason | Comments | + + + | Follow-up visit | | + + + Office Visit - [...] | | | | | | | [facility] | | | | | | | for Health | | | | | | | and Healing, | | | | | | | Building [address], | | | | | | | 11th Floor | | | | | | | [place], [place] | | | | | | | [address] | | | | | | | Phone: | | | | | | | [phone] | | | | | | | Fax: | | | | | | | [phone] | +--------+--------+ + + + + Encounter Details +--------+---------+ + + + | Date | Type | Department | Care Team | Description | +--------+---------+ + + + | 02/14/ | Office | [facility] | Keyona Velasquez MD | Optic neuropathy of | | 2013 | Visit | [place] | [address] [facility] | both eyes (Primary | | | | ogy at [facility] [address] | [place], [place] | Dx); Anterior | | | | [address] [place] for | [address] | uveitis | | | | Health and [facility], | [phone] | | | | | [facility] | | | | | | Floor [place], [place] | | | | | | [address] | | | | | | [phone] | | | +--------+---------+ + + + [...] encounter Progress Notes Keyona Velasquez MD - 02/14/2013 12:47 PM PSTFormatting of this note might be different from t juju original. COMPREHENSIVE OPHTHALMOLOGY PROGRESS NOTE 02/14/2013 HPI: 57 y.o. year old female from [place] : Patient presents with: Follow-up visit Patient says vision is about the same but having more headaches. Currently has low grade o ne now. Saw PCP who ordered a sinus CT, reportedly has some sinus issues which are being braxton luated. Patient wondering if some of the sinus problem may be contributing to headache. Tobacco use: reports that she quit smoking about 19 years ago. Her smoking use included Ci garettes. She smoked 0.50 packs per day. She has never used smokeless tobacco. Primary Care Provider: DEANA Ty Past ocular history: Headache with Subjective Visual Disturbance - see full discussion of ddx in Dr. Velasquez's note from 11/26/12. Outside referring car porter: Dr. Jhoan Florez, [place], [place] . Outside [facility] Visual Field 24-2 11/09/2012 Bilateral visual defects which could be suggestive of a bilateral optic nerve process, alth ough not highly reliable visual mason. Outside Head CT 11/04/2012 Impression: no acute intracranial abnormality. Outside Face/Orbital/Neck MRI 11/12/2012 Impression: no significant pathology. Outside records scanned into [facility]. [facility] Labs: RPR non-reactive FTA non-reactive ALONSO 32 (normal) Lyme 0.03 (negative) TB Quantiferon negative ESR 9 CRP <0.5 Family ocular history: family history includes Cancer [...] IV) Inject into the vein (IV). meperidine (DEMEROL) 50 mg Oral tablet Take [...] nega tive except as noted above. EXAMINATION: Visual acuity CC SC Right eye 20/20-2 Left eye 20/20-3 Pupils: PERRL APD Right eye None Left eye None EOM: Full; Ortho; IOP Color OD OS IOP method: Tonopen Drops for dilation: 2.5% Phenylephrine, 1.0% Mydriacyl Both eyes 12:40 PM Neuro/Psych: Oriented x3 Mood/Affect: Normal External Exam Right Eye Left Eye Normal Normal Comments: Slit Lamp Exam Right Eye Left Eye Lids Normal Normal Conjunctiva White and quiet White and quiet Cornea Epithelium intact, early nasal neovascularization with circular perilimbal stromal o pacity at 2oclock, otherwise clear stroma, scant endopigment Epithelium intact, scant calcif ic changes temporally, early nasal neovascularization with circular perilimbal stromal opaci ty at 11oclock, otherwise clear stroma, scant endopigment AC Deep and quiet Deep and quiet Iris Normal Normal Lens 1+ NS 1+ NS Comments: Fundus Exam Right Eye Left Eye Vitreous Normal Superonasal condensation Disc Normal, no edema or pallor Normal, no edema or pallor C/D 0.25 0.3 Macula Normal Normal Vessels Normal Normal Periphery Normal Normal Comments: See [facility] Ophthalmology Exam Module for additional exam information [facility] Visual Field 30-2 01/21/2013 Left Eye: Moderate reliability, size III stimulus, white, 0/20 Fixation Losses, 0% False Po sitives, 6% False Negatives, normal blind spot, superior arcuate defect. Right Eye: Poor reliability, size III stimulus, white 3/21 Fixation losses, 4% False Positi ves, 11% False Negatives, normal blind spot, inferior nasal step and mild peripheral superio r depression. Overall: Only moderately reliable visual mason but suggestive of defects associated with a bilateral optic neuropathy.Overall stable to slightly improved compared to prior outside vi sual mason. Outside Head CT 11/04/2012 Impression: no acute intracranial abnormality. Outside Face/Orbital/Neck MRI 11/12/2012 Impression: no significant pathology. [facility] Labs: RPR non-reactive FTA non-reactive ALONSO 32 (normal) Lyme 0.03 (negative) TB Quantiferon negative ESR 9 CRP <0.5 Impression: 1. Headache 2. Bilateral Optic Neuropathy 3. Anterior Uveitis Rachel Yin is a 57 year old female who presented with severe headache, nausea/vomiting, periocular edema, and bilateral visual disturbances during Oct 2012. She was seen by an out side eye provider, Dr. Florez who noted bilateral optic disc edema and anterior uveitis at t hat time. Her visual mason were also abnormal and suggestive of a bilateral optic neuropath y. She underwent head/orbital MRI imaging which was negative for an acute process. The patient was referred to [facility] for further evaluation. Since that initial episode, the pat ient's clinical findings of bilateral optic disc edema and anterior uveitis have now resolve d. Her follow up visual field testing re-confirms the presence of bilateral visual field def ects that are suggestive of a previous optic neuropathy and correlates with her known histor y of optic disc edema. I have reviewed this case with Dr. Hurt from our [facility] Neuro-ophthalmo logy division who feels that Rachel could have experienced an infectious or inflammatory CONTRACT ADMINISTRATION COORDINATOR process with meningitis and/or elevated ICP. Pseudotumor cerebri is another consideration. H er head and orbital imaging were normal although no CSF labs were obtained. Her infectious l aboratory work up here at [facility] has also been negative. At this time, the patient's acute episode seems to have resolved and her clinical exam find ings are now quiescent. We recommend a repeat exam and follow up visual field test in 3 camila hs. As the patient travels a long distance for her appts, we feel that it would be reasonabl e for her to resume care with Dr. Florez in [place]. He is welcome to refer the patient ba to [facility] at any time should she develop any new or recurrent findings. I have also asked that Rachel follow up with her PCP regarding her persistent low grade head aches that could represent ocular migraines. Rachel also mentioned that a follow up outside s inus CT has been performed and could be suggestive of a sinus disease for which she is being evaluated. Plan: Headache and sinus disease evaluation per PCP or ENT Patient can follow up with outside eye provider, Dr. Florez in 3 months for follow up exam and visual field testing. Keyona Velasquez MD Group Insurance Specialist [facility] [place] Physician: Keyona Velasquez MD, 02/14/2013 documented in this encou nter Procedure Notes Other, Faculty - 03/06/2013 12:54 PM PSTAssociated Order(s): RADIOLOGY documented in this encounter Plan of Treatment +--------+ + + + + | Date | Type | Specialty | Care Team | Description | +--------+ + + + + | 02/24/ | Telephone-S | Rheumatology | Ron, | | | 2020 | bora | | MD [address] | | | | | | [address] | | | | | | [place], [place] | | | | | | [address] | | | | | | [phone] | | | | | | | | +--------+ + + + + documented as of this encounter Procedures + +--------+ + + + | Procedure Name | Priori | Date/Time | Associated Diagnosis | Comments | | | ty | | | | + +--------+ + + + | RADIOLOGY | | 01/25/2013 | | Results for this | | | | 12:00 AM | | procedure are in the | | | | PST | | results section. | + +--------+ + + + documented in this encounter Results RADIOLOGY (01/25/2013 12:00 AM PST) + + + | Narrative | Performed At | + + + | | | | | | + + + + + | Procedure Note | + + | Priscilla Stephens - 03/06/2013 12:54 PM PST | + + documented in this encounter Visit Diagnoses + + | Diagnosis | + + | Optic neuropathy of both eyes - Primary Other optic neuritis | + + | Anterior uveitis Unspecified iridocyclitis | + + documented in this encounter"
--- OUTSIDE RECORDS SUMMARY | ~2019-10-28 | XMS | Encounter Summary ---
Demographics + + + | Address | [address] | | | [place] [address] | + + + | Home Phone | | + + + | Preferred Language | Unknown | + + + | Marital Status | Single | + + + | Gnosticism Affiliation | UNK | + + + | Race | or | + + + | Ethnic Group | Not or | + + + Author + + + | Author | [facility] | + + + | Organization | [facility] | + + + | Address | Unknown | + + + | Phone | Unavailable | + + + Support + + +---------+ + | Name | Relationship | Address | Phone | + + +---------+ + | Alysa Yin | ECON | Unknown | | + + +---------+ + Care Team Providers + +------+ + | Care Targeting Acquisition Officer Name | Role | Phone | + +------+ + | Poncho Nieves MD | PCP | | + +------+ + Encounter Details +--------+ + + + + | Date | Type | Department | Care Team | Description | +--------+ + + + + | 06/24/ | Hospital | Radiology/Imaging | | | | 2008 | Encounter | Lab at [facility] [address] | | | | | | [place] [facility] | | | | | | [facility] and He[facility], | | | | | | [address] | | | | | | Floor [place], [place] | | | | | | [address] | | | | | | [phone] | | | +--------+ + + + [...] | 2020 | chekong | | MD Quintin [address] | | | | | | [address] | | | | | | [place], [place] | | | | | | [address] | | | | | | [phone] | | | | | | | | +--------+ + + + + documented as of this encounter Procedures + +--------+ + + + | Procedure Name | Priori | Date/Time | Associated Diagnosis | Comments | | | ty | | | | + +--------+ + + + | X-RAY HAND 2 VIEWS | Routin | 06/24/2008 | Sensory | Results for this | | BILATERAL | e | 2:34 PM | Disturbance | procedure are in the | | | | PDT | | results section. | + +--------+ + + + documented in this encounter Results X-RAY HAND 2 VIEWS BILATERAL (06/24/2008 2:34 PM PDT) + + + + + + | Component | Value | Ref Range | Performed | Pathologist | | | | | At | Signature | + + + + + + | HAND 2 | EXAM: PA and lateral | | | | | VIEWS | bilateral hands. | | | | | BILATERAL | 06/24/08.HISTORY: | | | | | | Evaluate for | | | | | | rheumatoid | | | | | | arthritis.COMPARISON: | | | | | | None.FINDINGS:Left: No | | | | | | acute fracture or focal | | | | | | destruction is seen. | | | | | | There is mildnarrowing | | | | | | of the triscaphe and | | | | | | first carpometacarpal | | | | | | joint spaces,with | | | | | | spurring. Minimal | | | | | | narrowing is present at | | | | | | the | | | | | | distalinterphalangeal | | | | | | joint spaces. The | | | | | | other joint spaces of | | | | | | the hand arepreserved. | | | | | | No metacarpophalangeal | | | | | | or interphalangeal | | | | | | marginalerosions are | | | | | | seen.Right: No acute | | | | | | fracture or focal | | | | | | destruction is seen. | | | | | | There is mildnarrowing | | | | | | of the first, second, | | | | | | and third | | | | | | metacarpophalangeal | | | | | | joints. Soft tissue | | | | | | fullness is present | | | | | | about these joints | | | | | | without | | | | | | definiteerosions. Mild | | | | | | narrowing is present at | | | | | | the triscaphe and | | | | | | firstcarpometacarpal | | | | | | joint spaces, with | | | | | | spurring. There is | | | | | | minimalnarrowing of the | | | | | | distal interphalangeal | | | | | | joint | | | | | | spaces.IMPRESSION:1. | | | | | | Mild narrowing of the | | | | | | first, second, and | | | | | | thirdmetacarpophalangeal | | | | | | joints, with soft | | | | | | tissue fullness, of the | | | | | | righthand. This may be | | | | | | seen with early | | | | | | inflammatory | | | | | | arthropathy.2. Mild | | | | | | bilateral degenerative | | | | | | joint disease of the | | | | | | hands and wrists.I have | | | | | | personally viewed this | | | | | | procedure/exam and | | | | | | reviewed this | | | | | | report.Author: QUINTIN | | | | | | [facility] BASSReviewer: | | | | | | TARA TORRES | | | | | | HermelindoSTATUS FINAL / | | | | | | TARA WRIGHT | | | | | | PENDING FINAL APPROVAL / | | | | | | Dr. QUINTIN BASS | | | | + + + [...]
--- OUTSIDE RECORDS SUMMARY | ~2019-10-28 | XMS | Encounter Summary ---
Demographics + + + | Address | [address] | | | [place] [address] | + + + | Home Phone | | + + + | Preferred Language | Unknown | + + + | Marital Status | Single | + + + | Mormonism Affiliation | Unknown | + + + | Race | White | + + + | Ethnic Group | Not or | + + + Author + + + | Author | [facility] | | | and [place] | + + + | Organization | [facility] | | [...] [place], [place] | | | | | [address] | | + + + + + Care Team Providers + +------+ + | Care Projector Booth Operator Name | Role | Phone | [...] | | | [address] | [place] [address] | | | | | [place] [address] | | | | | | [phone] | | | +--------+ + + + [...] XR THORACIC SPINE 2 | Routin | 03/18/2016 | | Results for this | | VW | e | 12:00 AM | | procedure are in the | | | | PST | | results section. | + +--------+ + + + documented in this encounter Results XR Thoracic Spine 2 Vw (03/18/2016 12:00 AM PST) + + | Specimen [...]
--- OUTSIDE RECORDS SUMMARY | ~2019-10-28 | XMS | Encounter Summary ---
Demographics + + + | Address | [address] | | | [place] [address] | + + + | Home Phone [...] + + | Author | [facility] [employer] [facility] | + + + | Organization | [facility] | + + + | Address | Unknown | + + + | Phone | Unavailable | + + + Support + + +---------+ + | Name | Relationship | Address | Phone | + + +---------+ + | Alysa Yin | ECON | Unknown | | + + +---------+ + Care Team Providers + +------+ + | Care Cap And Hat Production Supervisor Name | Role | Phone | + +------+ + | Poncho Nieves MD | PCP | | + +------+ + Reason for Visit + + + | Reason | Comments | + + + | New patient | | | consultation | | + + + | BX - Biopsy | skin | + + + Encounter Details +--------+ + + + + | Date | Type | Department | Care Team | Description | +--------+ + + + + | 05/07/ | Procedure | Neurology | Nuris, | New patient | | 2008 | | [facility] | MD Santos | consultation; BX - | | | | at [facility] | | Biopsy (skin) | | | | Health & Healing | | | | | | [address] | | | | | | [facility] | | | | | | and Healing, | | | | | | Building | | | | | | Floor [place], [place] | | | | | | [address] | | | | | | [phone] | | | +--------+ + + + [...] + + + | Blood Pressure | 117/86 | 05/07/2008 1:16 PM | | | | | PDT | | + + + + + | Pulse | 74 | 05/07/2008 1:16 PM | | | | | PDT | | + + + + + | Temperature | - | - | | + + + + + | Respiratory Rate | 18 | 05/07/2008 1:16 PM | | | | | PDT | | + + + + + | Oxygen Saturation | - | - | | + + + + + | Inhaled Oxygen | - | - | | | Concentration | | | | + + + + + | Weight | 77.1 kg (170 lb) | 05/07/2008 1:16 PM | | | | | PDT | | + + + + + | Height | 154.9 cm (5' 1") | 05/07/2008 1:16 PM | | | | | PDT | | + + + + + | Body Mass Index | 32.12 | 05/07/2008 1:16 PM | | | | | PDT | | + + + + + documented in this encounter Progress Notes Santos Lawler MD - 05/07/2008 2:54 PM PDTProcedure note: Skin Biopsy x2 Diagnosis: sensation disorder r/o Small fiber neuropathy Procedure: 1. Punch skin biopsy lateral thigh at the level of the pubis 2. Punch skin biopsy lateral leg 10 cm above the lateral malleolus BP 117/86 | Pulse 74 | Resp 18 | Ht 1.549 m (5' 1") | Wt 77.111 kg (170 lb) Anesthesia: Lidocaine 1% without epinephrine 2 cc subcutaneous Closure: Steri-strips Complications: none Description of procedure: After obtaining informed consent, the patient was prepared in the usual sterile manner. Lid ocaine 1% without epinephrine was infiltrated into the skin at both sites. A punch skin biop sy was preformed at both sites. The skin was closed with Steri-strips and a dressing was amy lied. The patient tolerated the procedure well and there were no immediate complications. A follow up appointment was scheduled. Santos Lawler MD Fellow, Neuromuscular disease/EMG documented in this encounter Miscellaneous Notes Priscilla George - 06/11/2008 12:47 PM PDT documented in this encounter Plan of Treatment +--------+ + + + + | Date | Type | Specialty | Care Team | Description | +--------+ + + + + | 02/24/ | Telephone-S | Rheumatology | Ron, | | | 2018 | bora | | MD Hermelindo [address] | | | | | [address] | | | | | | [place], [place] | | | | | | [address] | | | | | | [phone] | | | | | | | | +--------+ + + + + + + +--------+ + + | Name | Type | Priori | Associated Diagnoses | Order Schedule | | | | ty | | | + + +--------+ + + | AZ BIOPSY OF SKIN | Procedures | Routin | Sensory | Ordered: 05/18/2008 | | LESION | | e | Disturbance | | + + +--------+ + + | AZ BIOPSY, EACH | Procedures | Routin | Sensory | Ordered: 05/18/2008 | | ADDED LESION | | e | Disturbance | | + + +--------+ + + documented as of this encounter Procedures + +--------+ + + + | Procedure Name | Priori | Date/Time | Associated Diagnosis | Comments | | | ty | | | | + +--------+ + + + | LAB OTHER | Routin | 05/07/2008 | Sensory | Results for this | | | e | 2:13 PM | Disturbance | procedure are in the | | | | PDT | | results section. | + +--------+ + + + | SURGICAL PATHOLOGY | Routin | 05/07/2008 | | Results for this | | | e | | | procedure are in the | | | | | | results section. | + +--------+ + + + documented in this encounter Results LAB OTHER (05/07/2008 2:13 PM PDT) + + + + + + | Component | Value | Ref Range | Performed | Pathologist | | | | | At | Signature | + + + + + + | MISC REF | Nerve fiber density, | | [facility] | | | TEST NAME | skin | | DEPARTMENT | | | | | | OF | | | | | | PATHOLOGY | | + + + + + + | MISC REF | See cmnt | | [facility] | | | TEST RESULT | | | DEPARTMENT | | | | | | OF | | | | | | PATHOLOGY | | + + + + + + + + | Specimen | + + | Skin | + + + + + | Narrative | Performed At | + + + | See report | [facility] | | | DEPARTMENT OF | | | PATHOLOGY | + + + + + + + + | Performing | Address | City/State/Zipcode | Phone Number | | Organization | | | | + + + + + | [facility] DEPARTMENT OF | [address] | [place] [address] | | | PATHOLOGY | [address] | | | + + + + + | [facility] DEPARTMENT | [address] | [place] [address] | | | PATHOLOGY | [address] | | | + + + + + SURGICAL PATHOLOGY (05/07/2008) + + + + + + | Component | Value | Ref Range | Performed | Pathologist | | | | | At | Signature | + + + + + + | SURGICAL | SOURCE OF SPECIMEN:A | | [facility] | | | PATHOLOGY | Skin Biopsy-PGP, right | | DEPARTMENT | | | | ankleSOURCE OF | | OF | | | | SPECIMEN:B Skin | | PATHOLOGY | | | | Biopsy-PGP, right | | | | | | thighFinal Pathologic | | | | | | Diagnosis:A. Skin, right | | | | | | ankle, biopsy for | | | | | | epidermal nerve fiber | | | | | | density: - See | | | | | | comment regarding | | | | | | epidermal nerve fiber | | | | | | density - No | | | | | | amyloid deposition by | | | | | | Congo Red stain - | | | | | | No evidence of | | | | | | inflammation or | | | | | | vasculitisB. Skin, right | | | | | | thigh, biopsy for | | | | | | epidermal nerve fiber | | | | | | density: - See | | | | | | comment regarding | | | | | | epidermal nerve fiber | | | | | | density- No amyloid | | | | | | deposition by Congo Red | | | | | | stain - No | | | | | | evidence of inflammation | | | | | | or vasculitisComment: | | | | | | The epidermal nerve | | | | | | fiber analysis resulted | | | | | | in an epidermal | | | | | | nervefiber density of | | | | | | 0/mm for the ankle (A) | | | | | | and 1.67/mm for the | | | | | | thigh (B).There are some | | | | | | dermal axons that stain | | | | | | in both specimens, but | | | | | | the overallstaining is | | | | | | light, and I am | | | | | | concerned that these | | | | | | numbers may | | | | | | beartificially low. | | | | | | Clinical correlation | | | | | | is required. | | | | | | .Published lowerlimits | | | | | | of normal (5th | | | | | | percentile) for adults | | | | | | are 3.8-4.5/mm for the | | | | | | distalleg (Vincenzo, 2000) | | | | | | and slightly higher for | | | | | | the thigh (Adrián | | | | | | 1997).Vincenzo et al. | | | | | | Acta Neuropathol | | | | | | [phone], | | | | | | 2000Mcelizabeth Byers al. | | | | | | Arch Neurol | | | | | | [phone], 1997Case | | | | | | seen by:Sally Ivy | | | | | | [facility] Frank, Ph.D. / | | | | | | Neuropathologist | | | | | | 9Clinical History:The | | | | | | patient is a 52 year old | | | | | | woman with pain in her | | | | | | hands and | | | | | | burning,tingling | | | | | | sensations in her feet. | | | | | | EMG and NCV studies | | | | | | were normal.Gross | | | | | | Description:The specimen | | | | | | is received in PLP | | | | | | fixative in two parts, | | | | | | labeled with | | | | | | thepatient's name | | | | | | (initials TB). Part A | | | | | | is labeled "rt ankle" | | | | | | and consists ofa olmos | | | | | | punch biopsy of skin | | | | | | measuring 0.3 cm in | | | | | | diameter. Part B is | | | | | | labeled"rt thigh" and | | | | | | consists of a olmos punch | | | | | | biopsy of skin measuring | | | | | | 0.3 cm indiameter. | | | | | | Both specimens are | | | | | | entirely frozen for | | | | | | immunohistochemicalstudi | | | | | | es and other | | | | | | stains.Microscopic | | | | | | Description:Both | | | | | | specimens are stained | | | | | | using | | | | | | immunohistochemistry for | | | | | | PGP 9.5 on 50micron | | | | | | thick sections. The | | | | | | number of positively | | | | | | stained epidermal | | | | | | nervefibers was counted | | | | | | in twelve 1mm diameter | | | | | | mason, from 4 sections | | | | | | for partA and twelve 1mm | | | | | | diameter mason, from 4 | | | | | | sections for part B. | | | | | | Thisanalysis resulted | | | | | | in an epidermal nerve | | | | | | fiber density of 0/mm | | | | | | for the ankle(A) and | | | | | | 1.67/mm for the thigh | | | | | | (B). There are some | | | | | | dermal axons that | | | | | | stainin both specimens, | | | | | | but the overall staining | | | | | | is light, and I am | | | | | | concernedthat these | | | | | | numbers may be | | | | | | artificially low. The | | | | | | PGP stains were | | | | | | repeated,but the repeat | | | | | | stains were less | | | | | | satisfactory than the | | | | | | original | | | | | | stains.Hematoxylin and | | | | | | eosin stains are | | | | | | performed on 4 micron | | | | | | thick sections and[place]ongo | | | | | | red stains on 10 micron | | | | | | thick sections. No | | | | | | inflammation or | | | | | | amyloidis | | | | | | identified.(Analyte | | | | | | specific reagents are | | | | | | used in many laboratory | | | | | | tests necessary | | | | | | [facility] | | | | | | and generally do not | | | | | | require FDA approval. | | | | | | This testwas developed | | | | | | and its performance | | | | | | characteristics | | | | | | determined by | | | | | | [facility]. It | | | | | | has not been cleared or | | | | | | approved by the U.S. | | | | | | Food andDrug | | | | | | Administration.)Renderin | | | | | | g Diagnostician: | | | | | | Sally Frank M.D., | | | | | | | | | | | | Ph.D.PathologistElectr | | | | | | onically Signed | | | | | | 05/28/2008 | | | | + + + + + + + + | Specimen | + + | Other | + + + + + + + | Performing | Address | City/State/Zipcode | Phone Number | | Organization | | | | + + + + + | [facility] | [address] | [place] [address] | | | PATHOLOGY | [address] | | | + + + + + | [facility] DEPARTMENT OF | [address] | [place] [address] | | | PATHOLOGY | [address] | | | + + + + + documented in this encounter Visit Diagnoses + + | Diagnosis | + + | Sensory disturbance - Primary Disturbance of skin sensation | + + documented in this encounter
--- OUTSIDE RECORDS SUMMARY | ~2019-10-28 | XMS | Encounter Summary ---
Demographics + + + | Address | [address] | | | [place] [address] | + + + | Home Phone [...] Author + + + | Author | [facility] | + + + | Organization | [facility] | + + + | Address | Unknown | + + + | Phone | Unavailable | + + + Support + + +---------+ + | Name | Relationship | Address | Phone | + + +---------+ + | Alysa Yin | ECON | Unknown | | + + +---------+ + Care Team Providers + +------+ + | Care Employment Interviewer Name | Role | Phone | + [...] + + + | Closed | | Orthopedics | Diagnoses | Geovani Ratliff | Kartik, | | | | | Primary | MD Adelaida | MD Poncho | | | | | osteoarthrit | [address] | [address] | | | | | is of both | [address] | [address] | | | | | hands | Rd | Rd [place], | | | | | Procedures | [place], [place] | [place] | | | | | CONSULT TO | [address] | [address] | | | | | ORTHO | Phone: | Phone: | | | | | WRIST/HAND | [phone] | [phone] | | | | | | Fax: | Fax: | | | | | | [phone] | [phone] | +--------+--------+ + + + + Reason for Visit + + + | Reason | Comments | + + + | New patient | | | consultation | | + + + Consultation (Routine) +--------+--------+ + + + + | Status | Reason | Specialty | Diagnoses / | Referred By | Referred To | | | | | Procedures | Contact | Contact | +--------+--------+ + + + + | Closed | | Rheumatology | Diagnoses | Sophia, | Geovani Ratliff, | | | | | "To | Josh Holt MD | MD Adelaida | | | | | eval/treat | [facility] | [address] | | | | | RA or OA, | [place] | [facility] | | | | | abnormal | Health | Rd [place], | | | | | joints in | Center | [place] | | | | | hands" | [address] | [address] | | | | | Procedures | [place] | Phone: | | | | | [place] | Way | [phone] | | | | | PATIENT | [place], | Fax: | | | | | LEVEL I | [place] [address] | [phone] | | | | | | Phone: | | | | | | | [phone] | | | | | | | Fax: | | | | | | | [phone] | | +--------+--------+ + + + + Encounter Details +--------+---------+ + + + | Date | Type | Department | Care Team | Description | +--------+---------+ + + + | 07/16/ | Office | Rheumatology at | Adelaida Humphries, | H/O calcium | | 2015 | Visit | [facility] | [address] | pyrophosphate | | | | [address] | deposition disease | | | | Loop [facility] | [place] [address] | (CPPD) (Primary Dx); | | | | [facility], [address]th Floor | [phone] | Primary | | | | [place], [place] | | osteoarthritis of | | | | [address] | | both hands | | | | [phone] | | | +--------+---------+ + + + [...] + + + | Blood Pressure | 125/73 | 07/16/2014 2:03 PM | | | | | PDT | | + + + + + | Pulse | 72 | 07/16/2014 2:03 PM | | | [...] + + + + | Weight | 67.6 kg (149 lb) | 07/16/2014 2:03 PM | | | | | PDT | | + + + + + | Height | 154.9 cm (5' 1") | 07/16/2014 2:03 PM | | | | | PDT | | + + + + + | Body Mass Index | 28.15 | 07/16/2014 2:03 PM | | | | | PDT | | + + + + + documented in this encounter Progress Notes Adelaida Ratliff MD - 07/16/2014 2:29 PM PDT Rheumatology New Patient Consult This consultation was requested by Josh Cortes MD [address] [address] F: [phone] Date:07/16/2014 Rachel Yin -1955 [facility] ID: Rachel Yin is a 58 y.o. female referred here for evaluation of joint pain. HPI: she had jt pain. Initially dx as RA then only OA. Has been Rxed w MTX, SSZ, HCQ, Arava , Orencia, Remicade, prednisone,, none of which helped. Pain meds help. [place] seen Dr Tal[place] in [place]. Dx w seroneg RA or hand OA. Unresponsive to meds. She has had hand pain for ~10 yes, worse for 5 yrs. Worst wrists down. Also in foot. Left s mera mcgarry recently had burstis and had an injection which helped. Her 'bones hurt'. Feels deep pain. Travels in diff parts of her body. But constant in her hands. Doesn't get any jt swelling. Review of Systems: positive as above and those in bold below: General: fevers, fatigue, weight loss or drenching night sweats. Skin: Unusual Hair loss, malar rash, other rash, Raynauds. Eyes: visual loss, diplopia, photosensitivity, Significant dry eyes/ gritty eyes/ need for use of eye drops; painful red eye Oral: significant dry mouth; oral sores ENT: recurrent sinususitis, difficulty swallowing or getting stuck in chest, or GERD. Neurologic: unusual headaches, unilateral persistent numbness, tingling, Wrist drop or fo ot drops, recurrent strokes. Respiratory: unusual shortness of breath, coughing up blood, excessive sputum, cough, pleur itic chest pain or wheezing. Cardiovascular: Anginal chest pain, orthopnea, or edema. Gastrointestinal: loss of appetite, vomiting, nausea, abdominal pain, diarrhea, bloody sto ols or dark tarry stools. Genitourinary: urinary frequency, blood in urine, bubbly/ frothy urine/ discharge, painful urination or genital sores. Psychological: abnormal anxiety, depression, thoughts of suicide or hallucinations. Heme/Lymphatic: enlarged lymph nodes. hx of blood clots/ losses (in females). Current Medication List Name Sig CONJUGATED ESTROGENS 0.625 MG TABLET Take 0.625 mg by mouth once daily. DULOXETINE 30 MG CAPSULE,DELAYED RELEASE Take 30 mg by mouth once daily. ERGOCALCIFEROL (VITAMIN D2) 50,000 UNIT CAPSULE Take 1 Cap by mouth every seven days. FUROSEMIDE 20 MG TABLET Take 20 mg by mouth once daily. PRILOSEC 20 MG CAPSULE,DELAYED RELEASE Take 40 mg by mouth two times daily. PROMETHAZINE 25 MG TABLET Take 1 Tab by mouth four times daily as needed for nausea/vomitin g. TRAMADOL 50 MG TABLET Take 50 mg by mouth three times daily as needed. TRAZODONE 50 MG TABLET Take 125 mg by mouth once daily at bedtime. There is no problem list on file for this patient. PSH: Non-contributory- PEDRO 2010. FH: Non-contributory SH: no significant t/e/d Examination BP 125/73 | Pulse 72 | Ht 1.549 m (5' 1") | Wt 67.586 kg (149 lb) | BMI 28.17 kg/(m^2) Last 3 Rapid 3 MHAQ: 6.0 (07/16/141399) MHAQ: 2.3 (08/25/08899) PAIN LEVEL: 10 (07/16/141399) PAIN LEVEL: 10 (08/25/08899) GLOBAL ASSESSMENT: 10 (07/16/141399) GLOBAL ASSESSMENT: 7.5 (08/25/08899) RAPID 3: 8.67 (07/16/141399) RAPID 3: 6.6 (08/25/08899) Gen: NAD. HEENT: EOMI, no conjunctival erythema. No lymphadenopathy. Lungs: clear to ausculation bilaterally. CVS: S1S2, RRR, no murmurs. Abd: soft, NT. Ext: no edema. Neuro: Grossly Nonfocal Skin: no psoriasis Nails: martina Joints: no synovitis. Has very ttp wrists, b 2,3 mcps, and 3 pip - c, 3 pip b/l is severely deformed and probably fused w dec rom, and bony osteophytes c/w OA. DIPs dont hurt oddly en ough but do have mild heberden nodes. 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 Impression: 58 y.o. female with arthralgias in distribution concerning for inflammatory ar thritis But lack of inflammatory markers, and radiographic e/o inflammation makes OA more l ikely. One other possibility is chronic CPPD of hands given mcp distribution. Hand xrays not available for review so will repeat them here since pt travels from far. Orders Placed This Encounter X-RAY HAND 2 VIEWS BILATERAL FERRITIN IRON AND TIBC ESR (Sedimentation rate) CRP (C-reactive protein) Anti - CCP Rheumatoid Factor Magnesium Phosphorus I think her arthritis is most likely hand OA. Reviewed Management for hand OA. Consider loc al injections, braces, paraffin hand bath, capsaicin crams and in he end surgery. B/l 3 pip joints are already probably end stage, recommend surgeyr for this, referral provided. Add ty lenol. cymbalta - low dose, can increase the dose, good med forhand OA. Follow up as needed I spent 60 minutes rjyi-ts-eerx with the patient with over 50% in counseling the patient re garding her disease. Adelaida Ratliff MD Instructor, Division of Arthritis and Rheumatic Diseases Pager- [phone] Mail Code [id number] [address] [place] [address] documented in this encount er Miscellaneous Notes Addendum Note - Adelaida Ratliff MD - 07/16/2014 2:58 PM PDT Addended by: ADELAIDA RATLIFF MD on: 07/07 02:58 PM Modules accepted: Orders documented in this enc nter Plan of Treatment +--------+ + + + + | Date | Type | Specialty | Care Team | Description | +--------+ + + + + | 02/24/ | Telephone-S | Rheumatology | Ron, | | | 2018 | bora | | MD Hermelindo [address] | | [address] | | | | | | [place], [place] | | | | | | [address] | | | | | | [phone] | | | | | | | | +--------+ + + + + documented as of this encounter Results PHOSPHORUS, PLASMA (07/16/2014 3:29 [...] | + + + + + | [facility] | [address] | [place] [address] | | | SERVICES, CORE | [address] | | | + + + + + MAGNESIUM, PLASMA (07/16/2014 3:29 PM PDT) + +-------+ + + + | Component | Value | Ref Range | Performed | Pathologist | | | | | At | Signature | + +-------+ + + + | MAGNESIUM,P | 1.9 | 1.8 - 2.5 mg/dL | [facility] | | | LASMA | | | [...] + + + + + | [facility] | [address] | [place] [address] | | | SERVICES, JACK | [address] | | | + [...] + | [facility] - | [address] | [place] [address] | | | [place] | | | [...] by | | | | | | [address] | | | | | | Corey [address], [facility] [place] | | | | | | [address] | | | | | | [phone].ApplyMaplab. | | | | | | Pradeep [...] [facility] | [address] | [place], [place] | | | [facility] | | [address] | | + + + + + [...] and new reporting units as of | [facility] | | 07/10/2013. | LABORATORY | | | SERVICES, CORE | + + + + + + + + | Performing | Address | City/State/Zipcode | Phone Number | | Organization | | | | + + + + + | [facility] | [address] | [place] [address] | | | SERVICES, CORE | [address] [...] | + + + + + | [facility] | [address] | [place] [address] | | | SERVICES, CORE | [address] [...] + | [facility] | [address] | [place] [address] | | | SERVICES, CORE | [address] [...] | + + + + + | [facility] | [address] | [place] [address] | | | SERVICES, CORE | [address] | | | + + + + + X-RAY HAND 2 VIEWS BILATERAL (07/16/2014 3:23 [...] | | + +---------+ + + | [facility] DEPARTMENT OF | | | | | RADIOLOGY | | | | + +---------+ + + documented in this encounter Visit Diagnoses + + | Diagnosis | + + | H/O calcium pyrophosphate deposition disease (CPPD) - Primary Personal history of | | arthritis | + + | Primary osteoarthritis of both hands | + + documented in this encounter
--- OUTSIDE RECORDS SUMMARY | ~2019-10-28 | XMS | Encounter Summary ---
Demographics + + + | Address | [address] | | | [place] [address] | + + + | Home Phone | | + + + | Preferred Language | Unknown | + + + | Marital Status | Single | + + + | Anabaptism Affiliation | UNK | + + + | Race | or | + + + | Ethnic Group | Not or | + + + Author + + + | Author | [facility] | + + + | Organization | [facility] | + + + | Address | Unknown | + + + | Phone | Unavailable | + + + Support + + +---------+ + | Name | Relationship | Address | Phone | + + +---------+ + | Alysa Yin | ECON | Unknown | | + + +---------+ + Care Team Providers + +------+ + | Care Administrative Fellow Name | Role | Phone | + +------+ + | Poncho Nieves MD | PCP | | + +------+ + Reason for Visit + +--------+ + | Reason | Onset | Comments | | | Date | | + +--------+ + | Refill Request | 09/15/ | | | | 2008 | | + +--------+ + Encounter Details +--------+--------+ + + + | Date | Type | Department | Care Team | Description | +--------+--------+ + + + | 09/15/ | Refill | Rheumatology at | Stephanie Amaya, | Refill Request | | 2008 | | [facility] | | | | | | [address] | | | | | | [address] [facility] | | | | | | [address], [address] | | | | | | [place], [place] | | | | | | [address] | | | | | | [phone] | | | +--------+--------+ + + + [...] this encounter Miscellaneous Notes Telephone Encounter - Uyen Kong - 09/15/2008 12:52 PM PDTPt is out of [facility] refill today. Medication pended and pharmacy verified. documented in this encounter Plan of Treatment +--------+ + + + + | Date | Type | Specialty | Care Team | Description | +--------+ + + + + | 02/24/ | Telephone-S | Rheumatology | Ron, | | | 2018 | bora | | MD Hermelindo [address] | | | | [address] | | | | | | [place] | | | | | | [address] | | | | | | [phone] | | | | | | | | +--------+ + + + + documented as of this encounter Visit Diagnoses Not on filedocumented in this encounter"
--- OUTSIDE RECORDS SUMMARY | ~2019-10-28 | XMS | Encounter Summary ---
Demographics + + + | Address | [address] | | | [place] [address] | + + + | Home Phone | | + + + | Preferred Language | Unknown | + + + | Marital Status | Single | + + + | Evangelical Affiliation | Unknown | + + + | Race | White | + + + | Ethnic Group | Not or | + + + Author + + + | Author | [facility] | | | and [place] | + + + | Organization | [facility] | | | and [place] | + + + | Address | Unknown | + + + | Phone | Unavailable | + + + Support + + + + + | Name | Relationship | Address | Phone | + + + + + | Maria Luisa Minaya | ECON | [place], [place] | | | | | [address] | | + + + + + Care Team Providers + +------+ + | Care Creative Consultant Name | Role | Phone | + +------+ + | Chantale Harrington | PCP | | + +------+ + Encounter Details +--------+ + + + + | Date | Type | Department | Care Team | Description | +--------+ + + + + | 12/11/ | Abstract | [facility] | Provider, | | | 2019 | | [address]SIATRY [address] | MD [address] | | | | | [address] | [address] | | | | | [place] [address] | [place] [address] | | | | | [address] | | | | | | [phone] | | | +--------+ + + + [...]
--- OUTSIDE RECORDS SUMMARY | ~2019-10-28 | XMS | Encounter Summary ---
Demographics + + + | Address | [address] | | | [place] [address] | + + + | Home Phone | | + + + | Preferred Language | Unknown | + + + | Marital Status | Single | + + + | Bahai Affiliation | UNK | + + + | Race | or | + + + | Ethnic Group | Not or | + + + Author + + + | Author | [facility] | + + + | Organization | [facility] | + + + | Address | Unknown | + + + | Phone | Unavailable | + + + Support + + +---------+ + | Name | Relationship | Address | Phone | + + +---------+ + | Alysa Yin | ECON | Unknown | | + + +---------+ + Care Team Providers + +------+ + | Care Night Baker Name | Role | Phone | + [...] [address] | | | | | | [place], [place] | | | | | | [address] | | | +--------+ + + + [...] 2020 | bora | | MD Hermelindo [address] | | | | | | [address] | | | | | | [place], [place] | | | | | | [address] | | | | | | [phone] | | | | | | | [...]
--- OUTSIDE RECORDS SUMMARY | ~2019-10-28 | XMS | Encounter Summary ---
Demographics + + + | Address | [address] | | | [place] [address] | + + + | Home Phone [...] + + + | Author | [facility] | | | and [place] | + + + | Organization | [facility] | | | and [place] | + + + | Address | Unknown | + + + | Phone | Unavailable | + + + Support + + + + + | Name | Relationship | Address | Phone | + + + + + | Maria Luisa Minaya | ECON | [place] | | | | | [address] | | + + + + + Care Team Providers + +------+ + | Care Community Services Officer Name | Role | Phone | + +------+ + | Chantale Harrington | PCP | | + +------+ + Reason for Visit + +--------+ + | Reason | Onset | Comments | | | Date | | + +--------+ + | Appointment | 02/20/ | | | | 2020 | | + +--------+ + | Imaging Only | 02/20/ | | | | 2020 | | + +--------+ + Encounter Details +--------+ + + + + | Date | Type | Department | Care Team | Description | +--------+ + + + + | 02/20/ | Telephone | [facility] | Vitcoria Strange | Appointment; Imaging | | 2019 | | [address] | GEORGI Sánchez [address] | Only | | | | [facility] [address] | [facility] | | | | | [place] | [address] | | | | | [address] | [address] | | | | | [phone] | | | +--------+ + + + [...] this encounter Miscellaneous Notes Telephone Encounter - Mayelin Bell - 02/20/2019 8:51 AM PSTI called the patient to resche dule her appt on 02/25/19 with Princess, she has not completed her MRI yet. Unable to LVM to ca ll back. documented in this encounter Plan of Treatment Not on filedocumented as of this encounter Visit Diagnoses Not on filedocumented in this encounter"
--- OUTSIDE RECORDS SUMMARY | ~2019-10-28 | XMS | Encounter Summary ---
Demographics + + + | Address | [address] | | | [place] [address] | + + + | Home Phone | | + + + | Preferred Language | Unknown | + + + | Marital Status | Single | + + + | Yazidism Affiliation | UNK | + + + | Race | or | + + + | Ethnic Group | Not or | + + + Author + + + | Author | [facility] | + + + | Organization | [facility] | [...] Team Providers + +------+ + | Care Harbor Boat Pilot Name | Role | Phone | + +------+ + | Poncho Nieves MD | PCP | | + +------+ + Encounter Details +--------+ + + + + | Date | Type | Department | Care Team | Description | +--------+ + + + + | 05/07/ | Hospital | Neurophysiology | Moi Álvarez, | | | 2008 | Encounter | [facility] at [facility] [address] | Marcie Hauser | | | | | [facility] | [address] | | | | | Health and Healing, | [address] [place], | | | | | Building | [place] [address] | | | | | Floor [place], [place] | [phone] | | | | | [address] | | | | | | [phone] | | | +--------+ + + + [...] 2020 | bora | | MD Hermelindo [address] | | | | | | [address] | | | | | | [place], [place] | | | | | | [address] | | | | | | [phone] | | | | | | | | +--------+ + + + + documented as of this encounter Visit Diagnoses Not on filedocumented in this encounter"
--- OUTSIDE RECORDS SUMMARY | ~2019-10-28 | XMS | Encounter Summary ---
Demographics + + + | Address | [address] | | | [place] [address] | + + + | Home Phone | | + + + | Preferred Language | Unknown | + + + | Marital Status | Single | + + + | Episcopalian Affiliation | UNK | + + + | Race | or | + + + | Ethnic Group | Not or | + + + Author + + + | Author | [facility] | + + + | Organization | [facility] | + + + | Address | Unknown | + + + | Phone | Unavailable | + + + Support + + +---------+ + | Name | Relationship | Address | Phone | + + +---------+ + | Alysa Yin | ECON | Unknown | | + + +---------+ + Care Team Providers + +------+ + | Care Blueprinting Machine Operator Name | Role | Phone | + +------+ + | Sary De SantiagoP | PCP | | + +------+ + Reason for Visit + +--------+ + | Reason | Onset | Comments | | | Date | | + +--------+ + | Follow-up Plan | 10/24/ | | | | 2020 | | + +--------+ + Encounter Details +--------+ + + + + | Date | Type | Department | Care Team | Description | +--------+ + + + + | 10/24/ | Telephone | Rheumatology at | Ron, | Follow-up Plan | | 2020 | | [facility] | MD Hermelindo [address] | | | | | [address] | [facility] [address] | | | | | Loop Physician's | [place], [place] | | | | | [place], [facility] Floor | [address] | | | | | [place], [place] | [phone] | | | | | [address] | | | | | | [phone] | | | +--------+ + + + [...] this encounter Miscellaneous Notes Telephone Encounter - Hermelindo Velasquez MD - 10/25/2019 8:57 AM PDTFormatting of this no te might be different from the original. I spoke to Ms. Yin to let her know her lab and X-ray results. Lab Results Component Value Date WBC 5.13 10/24/2019 HB 13.1 10/24/2019 HCT 40.5 10/24/2019 PLT 280 10/24/2019 MCV 88.2 10/24/2019 RDW 43.2 10/24/2019 Lab Results Component Value Date NA 140 10/24/2019 K 3.4 10/24/2019 CL 104 10/24/2019 BICARB 31 10/24/2019 BUN 12 10/24/2019 CR 0.80 10/24/2019 GLU 79 10/24/2019 CA 8.3 10/24/2019 AST 18 10/24/2019 ALT 20 10/24/2019 AP 66 10/24/2019 TBILI 0.4 10/24/2019 TP 7.6 10/24/2019 ALB 3.9 10/24/2019 ANIONGAP 5 10/24/2019 ANIONALBCOR 5 10/24/2019 Lab Results Component Value Date ESR 7 10/24/2019 Lab Results Component Value Date CRP <2.9 10/24/2019 10/24/19 Xray of hands IMPRESSION: Postsurgical changes at right middle finger PIP joint status post arthroplasty with no appa rent complication. Progressed multifocal osteoarthrosis involving triscaphe, first carpometacarpal, metacarpop halangeal and interphalangeal joints as outlined. Questionable erosions at the right ring finger PIP joint. It think given the possible erosion on X-rays, it is reasonable to trail leflunomide for ab out 3 months to see if the patient has any improvement in her symptoms. If not, then we may need to escalate therapy. Regardless she will need to address her osteoarthritis with NSAIDs , perhaps topical gels, and hand therapy. Hermelindo Velasquez MD RHEUMATOLOGY AT [address] [place] [address] documented in this encounter Plan of Treatment +--------+ + + + + | Date | Type | Specialty | Care Team | Description | +--------+ + + + + | 02/24/ | Telephone-S | Rheumatology | Ron, | | | 2020 | chekong | | MD Hermelindo [address] | | | | | | [facility] | | | | | | [place], [place] | | | | | | [address] | | | | | | [phone] | | | | | | | | +--------+ + + + + documented as of this encounter Visit Diagnoses Not on filedocumented in this encounter"
--- OUTSIDE RECORDS SUMMARY | ~2019-10-28 | XMS | Encounter Summary ---
Demographics + + + | Address | [address] | | | [place] [address] | + + + | Home Phone | | + + + | Preferred Language | Unknown | + + + | Marital Status | Single | + + + | Jewish Affiliation | Unknown | + + + | Race | White | + + + | Ethnic Group | Not or | + + + Author + + + | Author | [facility] | | | and [place] | + + + | Organization | [facility] | | [...] [place] | | | | | [address] | | + + + + + Care Team Providers + +------+ + | Care Real Estate Teacher Name | Role | Phone | + +------+ + | Chantale Harrington | PCP | | + +------+ + Reason for Visit + +--------+ + | Reason | Onset | Comments | | | Date | | + +--------+ + | Imaging | 03/07/ | | | | 2020 | | + +--------+ + | Appointment | 03/07/ | | | | 2020 | | + +--------+ + Encounter Details +--------+ + + + + | Date | Type | Department | Care Team | Description | +--------+ + + + + | 03/07/ | Telephone | [facility] | Victoria Strange | Imaging; Appointment | | 2019 | | [address] | GEORGI Sánchez [address] | | | | | [facility] [address] | [facility] | | | | | [place] | [address] | | | | | [address] | [address] | | | | | [phone] | | | +--------+ + + + [...] Notes Telephone Encounter - Mayelin Bell - 03/07/2019 9:14 AM PSTI called the patient to resche dule her appt on 03/14/2019 with Princess. Rachel is scheduled for her MRI at [facility] on 03/18/2019 madina Diggs at [facility]. Unable to LVM to reschedule. documented in this encounter Plan of Treatment Not on filedocumented as of this encounter Visit Diagnoses Not on filedocumented in this encounter"
--- OUTSIDE RECORDS SUMMARY | ~2019-10-28 | XMS | Encounter Summary ---
Demographics + + + | Address | [address] | | | [place] [address] | + + + | Home Phone | | + + + | Preferred Language | Unknown | + + + | Marital Status | Single | + + + | Judaism Affiliation | UNK | + + + | Race | or | + + + | Ethnic Group | Not or | + + + Author + + + | Author | [facility] | + + + | Organization | [facility] | + + + | Address | Unknown | + + + | Phone | Unavailable | + + + Support + + +---------+ + | Name | Relationship | Address | Phone | + + +---------+ + | Alysa Yin | ECON | Unknown | | + + +---------+ + Care Team Providers + +------+ + | Care Coconut Jelly Roller Name | Role | Phone | + +------+ + | Poncho Nieves MD | PCP | | + +------+ + Encounter Details +--------+ + + + + | Date | Type | Department | Care Team | Description | +--------+ + + + + | 06/24/ | Hospital | Radiology/Imaging | | | | 2008 | Encounter | Lab at [facility] [address] | | | | | | [place] for | | | | | | Health and Healing, | | | | | | [address] | | | | | | Floor [place], [place] | | | | | | [address] | | | | | | [phone] | | | +--------+ + + + [...] 2020 | chekong | | MD Quintin [address] | | | | | | [address] | | | | | | [place], [place] | | | | | | [address] | | | | | | [phone] | | | | | | | | +--------+ + + + + documented as of this encounter Procedures + +--------+ + + + | Procedure Name | Priori | Date/Time | Associated Diagnosis | Comments | | | ty | | | | + +--------+ + + + | X-RAY SACROILIAC | Routin | 06/24/2008 | Sensory | Results for this | | JOINTS 2 VIEWS | e | 2:34 PM | Disturbance | procedure are in the | | | | PDT | | results section. | + +--------+ + + + documented in this encounter Results X-RAY SACROILIAC JOINTS 2 VIEWS (06/24/2008 2:34 PM PDT) + + + + + + | Component | Value | Ref Range | Performed | Pathologist | | | | | At | Signature | + + + + + + | SACROILIAC | EXAM: Two views | | | | | JOINTS 2 | sacroiliac joints. | | | | | VIEWS | 06/24/08.HISTORY: | | | | | | Evaluate for | | | | | | rheumatoid | | | | | | arthritis.COMPARISON: | | | | | | None.FINDINGS:The left | | | | | | posterior oblique view | | | | | | is suboptimal. The | | | | | | bony margins ofthe right | | | | | | and left sacroiliac | | | | | | joints are well defined | | | | | | withoutsclerosis. The | | | | | | visualized bony | | | | | | structures are intact | | | | | | without acutefracture or | | | | | | focal | | | | | | destruction.IMPRESSION:N | | | | | | ormal right and left | | | | | | sacroiliac | | | | | | joints.Suboptimal left | | | | | | posterior oblique view. | | | | | | An attempt to recall | | | | | | thepatient for a repeat | | | | | | exam will be made and an | | | | | | addendum will be madeat | | | | | | that time.I have | | | | | | personally viewed this | | | | | | procedure/exam and | | | | | | reviewed this | | | | | | report.Author: QUINTIN | | | | | | Hermelindo BASSReviewer: | | | | | | TARA TORRES, | | | | | | HermelindoSTATUS [...] | | + +---------+ + + | [facility] DEPARTMENT OF | | | | | RADIOLOGY | | | | + +---------+ + + documented in this encounter Visit Diagnoses + + | Diagnosis | + + | Sensory disturbance Disturbance of skin sensation | + + documented in this encounter"
--- OUTSIDE RECORDS SUMMARY | ~2019-10-28 | XMS | Encounter Summary ---
Demographics + + + | Address | [address] | | | [place] [address] | + + + | Home Phone | | + + + | Preferred Language | Unknown | + + + | Marital Status | Single | + + + | Congregation Affiliation | Unknown | + + + | Race | White | + + + | Ethnic Group | Not or | + + + Author + + + | Author | [facility] | | | and [place] | + + + | Organization | [facility] | | | and [place] | + + + | Address | Unknown | + + + | Phone | Unavailable | + + + Support + + + + + | Name | Relationship | Address | Phone | + + + + + | Maria Luisa Minaya | ECON | [place], [place] | | | | | [address] | | + + + + + Care Team Providers + +------+ + | Care Director Global Development Name | Role | Phone | + +------+ + | Chantale Harrington | PCP | | + +------+ + Encounter Details +--------+ + + + + | Date | Type | Department | Care Team | Description | +--------+ + + + + | 08/18/ | Abstract | [facility] | Lupis, | | | 2019 | | [address] | MD [address] | | | | | [address] | [address] | | | | | [address] | [place] [address] | | | | | [address] | | | | | | [phone] | | | +--------+ + + + [...]
--- OUTSIDE RECORDS SUMMARY | ~2019-10-28 | XMS | Encounter Summary ---
Demographics + + + | Address | [address] | | | [place] [address] | + + + | Home Phone | | + + + | Preferred Language | Unknown | + + + | Marital Status | Single | + + + | Mormon Affiliation | UNK | + + + | Race | or | + + + | Ethnic Group | Not or | + + + Author + + + | Author | [facility] | + + + | Organization | [facility] | + + + | Address | Unknown | + + + | Phone | Unavailable | + + + Support + + +---------+ + | Name | Relationship | Address | Phone | + + +---------+ + | Alysa Yin | ECON | Unknown | | + + +---------+ + Care Team Providers + +------+ + | Care School Janitor Name | Role | Phone | + +------+ + | Poncho Nieves MD | PCP | | + +------+ + Encounter Details +--------+ + + + + | Date | Type | Department | Care Team | Description | +--------+ + + + + | 06/24/ | Procedure | Neurology | Nuris, | | | 2008 | | Neuromuscular Clinic | MD Santos | | | | | at [facility] | | | | | | Health & Healing | | | | | | [address] | | | | | | [facility] | | | | | | and Healing, | | | | | | Building | | | | | | Floor [place], [place] | | | | | | [address] | | | | | | [phone] | | | +--------+ + + + [...] documented as of this encounter Progress Notes Santos Lawler MD - 06/24/2008 10:24 PM PDTProcedure note: Skin Biopsy x2 Diagnosis: sensation disorder, r/o small fiber neuropathy Procedure: 1. Punch skin biopsy lateral thigh at the level of the pubis 2. Punch skin biopsy lateral leg 10 cm above the lateral malleolus There were no vitals taken for this visit. Anesthesia: Lidocaine 1% without epinephrine 2 cc [...] complications. A follow up appointment was scheduled. documented in t his encounter Plan of Treatment +--------+ + + + + | Date | Type | Specialty | Care Team | Description | +--------+ + + + + | 02/24/ | Telephone-S | Rheumatology | Ron, | | | 2020 | bora | | MD Hermelindo [address] | | | | | [address] | | | | | | [place], [place] | | | | | | [address] | | | | | | [phone] | | | | | | | | +--------+ + + + + + + +--------+ + + | Name | Type | Priori | Associated Diagnoses | Order Schedule | | | | ty | | | + + +--------+ + + | MS BIOPSY OF SKIN | Procedures | Routin | Skin Sensation | Ordered: 06/25/2008 | | LESION | | e | Disturbance | | + + +--------+ + + | MS BIOPSY, EACH | Procedures | Routin | Skin Sensation | Ordered: 06/25/2008 | | ADDED LESION | | e | Disturbance | | + + +--------+ + + documented as of this encounter Procedures + +--------+ + + + | Procedure Name | Priori | Date/Time | Associated Diagnosis | Comments | | | ty | | | | + +--------+ + + + | LAB OTHER | Urgent | 06/24/2008 | Skin Sensation | Results for this | | | | 2:42 PM | Disturbance | procedure are in the | | | | PDT | | results section. | + +--------+ + + + documented in this encounter Results LAB OTHER (06/24/2008 2:42 PM PDT) + + + + + + | Component | Value | Ref Range | Performed | Pathologist | | | | | At | Signature | + + + + + + | MISC REF | intra epidural nerve | | [facility] | | | TEST NAME | fiber density, skin | | DEPARTMENT | | | | | | OF | | | | | | PATHOLOGY | | + + + + + + | MISC REF | See results under | | [facility] | | | TEST RESULT | Pathology Report. | | DEPARTMENT | | | | [...] + + + + + | [facility] | [address] | [place] [address] | | | PATHOLOGY | [address] | | | + + + + + | [facility] | [address] [facility] | [place] [address] | | | PATHOLOGY | [address] | | | + + + + + documented in this encounter Visit Diagnoses + + | Diagnosis | + + | Skin sensation disturbance - Primary Disturbance of skin sensation | + + documented in this encounter"
--- OUTSIDE RECORDS SUMMARY | ~2019-10-28 | XMS | Encounter Summary ---
Demographics + + + | Address | [address] | | | [place] [address] | + + + | Home Phone | | + + + | Preferred Language | Unknown | + + + | Marital Status | Single | + + + | Roman Catholic Affiliation | UNK | + + + | Race | or | + + + | Ethnic Group | Not or | + + + Author + + + | Author | [facility] | + + + | Organization | [facility] | + + + | Address | Unknown | + + + | Phone | Unavailable | + + + Support + + +---------+ + | Name | Relationship | Address | Phone | + + +---------+ + | Alysa Yin | ECON | Unknown | | + + +---------+ + Care Team Providers + +------+ + | Care Propeller Engineer Name | Role | Phone | [...] [address] | | | | | joint | [place], | [place] | | | | | involving | | Loop | | | | | hand | Neurology | Physician's | | | | | Procedures | [address] | [place], [address] | | | | | CONSULT TO | Anton Figueroa | Floor | | | | | RHEUMATOLOGY | [place], [place] | [place], [place] | | | | | | [address] | [address] | | | | | | | Phone: | | | | | | | [phone] | | | | | | | Fax: | | | | | | | [phone] | +--------+--------+ + + + + Reason for Visit + + + | Reason | Comments | + + + | Return Patient | | + + + Encounter Details +--------+---------+ + + + | Date | Type | Department | Care Team | Description | +--------+---------+ + + + | 06/24/ | Office | Neurology | Nuris, | Sensory Disturbance | | 2008 | Visit | [facility] | MD Santos | (Primary Dx); Pain | | | | at [place] for | | in Joint Involving | | | | Health & Healing | | Hand | | | | [address] | | | | | | [facility] | | | | | | and Healing, | | | | | | Building , | | | | | | Floor [place], [place] | | | | | | [address] | | | | | | [phone] | | | +--------+---------+ + + + [...] + + + | Blood Pressure | 135/89 | 06/24/2008 12:54 PM | | | | | PDT | | + + + + + | Pulse | 100 | 06/24/2008 12:54 PM | | | | | PDT | | + + + + + | Temperature | - | - | | + + + + + | Respiratory Rate | 16 | 06/24/2008 12:54 PM | | | | | PDT | | + + + + + | Oxygen Saturation | - | - | | + + + + + | Inhaled Oxygen | - | - | | | Concentration | | | | + + + + + | Weight | 76.2 kg (168 lb) | 06/24/2008 12:54 PM | | | | | PDT | | + + + + + | Height | - | - | | + + + + + | Body Mass Index | 31.74 | 05/07/2008 1:16 PM | | | | | PDT | | + + + + + documented in this encounter Patient Instructions Patient Instructions Santos Lawler MD - 06/24/2008 1:49 PM PDT- Skin biopsy is te sted fo "small fiber neuropathy". - Increase amitriptylline to full tablet (50 mg) nighttime. - Call to report symptoms in 1-2 weeks. General multivitamin 1 daily B-complex 1 tablet twice daily Vitamin C 1000 mg twice daily Vitamin E 400 IU twice daily Alpha lipoic acid 200 mg twice daily Avoid medications known to cause neuropathy. Limit alcohol intake. Avoid exposures to chemicals and heavy metals like lead, aluminum, arsenic, and mercury. El ectronically signed by Santos Lawler MD at 06/24/2008 1:51 PM PDT documented in this encounter Progress Notes Moi Álvarez MD - 07/13/2008 7:49 PM PDTI am familiar with this patient's medical his tory and the current active problems as discussed with Dr. Lawler. We reviewed the ass essment and plan and I agree with the plan as outlined. Roger Foss MD - 07/06/2008 10:27 AM PDT Rachel Yin, 52 y.o.RHF returns to clinic for follow-up of sensory disturbance. Ms. Yin has not had GTT and urine heavy metal tested. She complains of having pain in both hands. They are swollen and stiff especially in the morning. She uses Fentanyl patch for pain. Tingling and aching in hands, feet, and legs have remained unchanged. Last night she experienced a feeling of numbing/sleeping leg but transient. For pain medication, she tried gabapentin, lyrica, cymbalta in the past with no benefit. She denies nausea and vomit ing. No lightheadedness or fainting spell. She complains of having pain at SI joint area. Past Medical History Diagnosis Date Other General Symptoms Fajardo's Esophagus Hypercholesterolemia Past Surgical History Procedure Date Hx appendectomy Hx cholecystectomy amitriptyline 25 mg Oral Tablet, Take 25 mg by mouth once daily at bedtime. BENADRYL 25 mg Oral Capsule, Take 1 Cap by mouth as needed ergocalciferol (VITAMIN D) 50,000 unit Oral Capsule, [...] and Rash Tolmetin Sodium Swelling EXAM: BP 135/89, Pulse 100, RR 16, Wt 76.204 kg (168 lbs)( < 3 %ile). Ms. Yin is alert, awake and oriented. She is not in acute distress. CNII-XII are inta ct. Muscle strength is normal. DTRs are symmetric and normal throughout. Gait is normal p attern. Both hands: MCP, PIP, DIP are swollen and painful; no redness or warm to touch. TESTS: Component Reference Range 05/07/2008 WHITE CELL COUNT 3.4-10.0 K/cu mm 7.0 RED CELL COUNT 3.80-5.20 M/cu mm 4.60 HEMOGLOBIN 12.2-15.0 g/dL 12.8 HEMATOCRIT 37.0-46.5 % 37.9 MCV 85.0-95.0 fL 82.4 (L) MCH 29.0-32.0 pg 27.8 (L) MCHC 32.6-33.9 g/dL 33.8 RDW 11.5-15.0 % 14.7 PLATELET COUNT 150-420 K/cu mm 319 MPV 7.4-10.4 fL 9.4 NEUTROPHIL % 48-65 % 56 LYMPHOCYTE % 26-41 % 39 MID-RANGE (%) 7-15 % 5 (L) NEUTROPHIL # 2.2-5.2 K/cu mm 3.9 LYMPHOCYTE # 1.6-2.6 K/cu mm 2.7 (H) MID-RANGE ABSOLUTE Low: < 2.1 K/cu mm 0.4 GLUCOSE, PLASMA 60-99 mg/dL 88 BUN 6-20 mg/dL 11 CREATININE 0.6-1.1 mg/dL 0.8 TOTAL PROTEIN 6.3-8.0 g/dL 7.2 ALBUMIN 3.4-4.4 g/dL 3.2 (L) CALCIUM 8.8-10.9 mg/dL 8.8 TOTAL BILIRUBIN 0.3-1.2 mg/dL 0.6 ALK PHOS 42-98 U/L 77 AST (SGOT) 15-41 U/L 43 (H) SODIUM 133-141 mmol/L 136 POTASSIUM 3.6-5.0 mmol/L 4.0 CHLORIDE 97-104 mmol/L 102 CO2 24-30 mmol/L 30 ALT (SGPT) 13-48 U/L 39 EPOXY FABRICATION SUPERVISOR AB Low: Negative Negative SM AB Low: Negative Negative SSA AB Low: Negative Negative SSB AB Low: Negative Negative SCL-70 AB Low: Negative Negative CENTROMERE AB Low: Negative Negative ELIZABETH-1 AB Low: Negative Negative NEUTROPHIL CYTOPLASMIC AB, IGG Low: <1:20 <1:20 MYELOPEROXIDASE ABS AU/mL TNP SERINE PROTEASE 3 AU/mL TNP ALPHA TOCOPHEROL (VIT E) 5.5-18.0 mg/L 14.9 GAMMA TOCOPHEROL(VIT E) Low: < 6.1 mg/L 4.7 ALDOLASE 1.5-8.1 U/L 7.2 EDDIE SCREEN ON HEP 2, SERUM Low: Negative Negative C-REACTIVE PROTEIN Low: < 0.6 mg/dl < 0.5 CK 38-234 U/L 49 CRYOGLOBULIN SCREEN, SERUM Low: ([id number]) NEG 72Hour FREE T4, SERUM 0.6-1.6 ng/dL 0.8 RHEUMATOID FACTOR, QUANT Low: <15 IU/mL 7 FOLATE, RBC, WHOLE BLOOD ng/mL See Note SEDIMENTATION RATE Low: < 31 mm/hr 14 TSH, SERUM 0.34-5.60 uIU/ml 2.12 VITAMIN B1, WHOLE BLOOD 70.0-180.0 nmol/L 108.0 VITAMIN B6, PLASMA 5.0-30.0 ng/mL 6.1 VITAMIN B12 180-914 pg/ml 228 VITAMIN D 25 HYDROXY, SERUM 30-80 ng/mL 15 (L) C'3 COMPLEMENT 88-201 mg/dL 124 C'4 COMPLEMENT 16.0-47.0 mg/dL 30.0 SOURCE OF SPECIMEN:A Skin Biopsy-PGP, right ankle SOURCE OF SPECIMEN:B Skin Biopsy-PGP, right thigh Final Pathologic Diagnosis: A. Skin, right ankle, biopsy for epidermal nerve fiber density: - See comment regarding epidermal nerve fiber density - No amyloid deposition by Congo Red stain - No evidence of inflammation or vasculitis B. Skin, right thigh, biopsy for epidermal nerve fiber density: - See comment regarding epidermal nerve fiber density - No amyloid deposition by Congo Red stain - No evidence of inflammation or vasculitis Comment: The epidermal nerve fiber analysis resulted in an epidermal nerve fiber density of 0/mm for the ankle (A) and 1.67/mm for the thigh (B). There are some dermal axons that stain in both specimens, but the overall staining is light, and I am concerned that these numbers may be artificially low. Clinical correlation is required. .Published lower limits of normal (5th percentile) for adults are 3.8-4.5/mm for the distal leg (Vincenzo, 2001) and slightly higher for the thigh (Adrián, Justina). Vincenzo et al. Acta Neuropathol [id number], 2001 Adrián et al. Arch Neurol [id number], 1997 Case seen by: Sally Frank M.D., Ph.D. / Neuropathologist 05/28/2008 Clinical History: The patient is a 52 year old woman with pain in her hands and burning, tingling sensations in her feet. EMG and NCV studies were normal. Gross Description: The specimen is received in PLP fixative in two parts, labeled with the patient's name (initials TB). Part A is labeled "rt ankle" and consists of a olmos punch biopsy of skin measuring 0.3 cm in diameter. Part B is labeled "rt thigh" and consists of a olmos punch biopsy of skin measuring 0.3 cm in diameter. Both specimens are entirely frozen for immunohistochemical studies and other stains. Microscopic Description: Both specimens are stained using immunohistochemistry for PGP 9.5 on 50 micron thick sections. The number of positively stained epidermal nerve fibers was counted in twelve 1mm diameter mason, from 4 sections for part A and twelve 1mm diameter mason, from 4 sections for part B. This analysis resulted in an epidermal nerve fiber density of 0/mm for the ankle (A) and 1.67/mm for the thigh (B). There are some dermal axons that stain in both specimens, but the overall staining is light, and I am concerned that these numbers may be artificially low. The PGP stains were repeated, but the repeat stains were less satisfactory than the original stains. Hematoxylin and eosin stains are performed on 4 micron thick sections and Congo red stains on 10 micron thick sections. No inflammation or amyloid is identified. (Analyte specific reagents are used in many laboratory tests necessary for standard medical care and generally do not require FDA approval. This test was developed and its performance characteristics determined by [employer]. It has not been cleared or approved by the U.S. Food and Drug Administration.) Rendering Diagnostician: Sally Frank M.D., Ph.D. Pathologist Electronically Signed 05/28/2008 ASSESSMENTS: 52 y.o. RHWF history of chronic back pain presents with 4-5 month of pain rahel cribed as aching and tingling in hands, legs and feet. Neurological exam is normal. There is no electrophysiological evidence of medium or large fiber neuropathy form EDX. Skin biopsy is inconclusive for small fiber neuropathy. Blood test revealed vitamin D deficiency. PLANS: 1. Re-obtain skin biopsy (performed on today visit) 2. Ms. Yin takes amitriptyline 25 mg nightly. She could increase to 50 mg - full table t. Currently she uses 50 mg tablet. 3. I elect to order x-ray hands and SI joint and reconsult Rheumatology for possible rheuma tological condition given history of joint in hands stiffness, pain and swollen. 4. Continue Vitamin D 50,000 iu weekly. 5. Order Glucose tolerance test, urine heavy metal, urine magnesium, serum ALONSO, Lyme, CRP, and ESR. 6. Encourage taking vitamins and supplement for nerve health. Written instruction provided . 7. Return in 4 months or sooner if needed. On today visit I have discussed [...] Miscellaneous Notes Scan - Other, Faculty - 07/16/2008 8:23 AM PDT documented in t his encounter Plan of Treatment +--------+ + + + + | Date | Type | Specialty | Care Team | Description | +--------+ + + + + | 02/24/ | Telephone-S | Rheumatology | Ron | | | 2018 | bora | | MD [address] | | | | | | [facility] | | | | | | [place], [place] | | | | | | [address] | | | | | | [phone] | | | | | | | | +--------+ + + + + + +------+--------+ + + | Name | Type | Priori | Associated Diagnoses | Order Schedule | | | | ty | | | + +------+--------+ + + | HEAVY METALS, URINE | Lab | Routin | Sensory | Ordered: 06/24/2008 | | | | e | Disturbance | | + +------+--------+ + + | GLUCOSE KIM TEST, | Lab | Routin | Sensory | Ordered: 06/24/2008 | | 2HR(0,1,2) | | e | Disturbance | | + +------+--------+ + + documented as of this encounter Procedures + +--------+ + + + | Procedure Name | Priori | Date/Time | Associated Diagnosis | Comments | | | ty | | | | + +--------+ + + + | SURGICAL PATHOLOGY | Routin | 06/24/2008 | | Results for this | | [...] BASSReviewer: | | | | | | Shruthi LOMAS | | | | | HermelindoSTATUS FINAL [...] | | | + +---------+ + + X-RAY HAND 2 VIEWS BILATERAL (06/24/2008 2:34 [...] | | | | HermelindoSTATUS FINAL / DrKen | | | | | | TARA [...] | | + +---------+ + + | [facility] DEPARTMENT OF | | | | | RADIOLOGY | | | | + +---------+ + + ANGIOTENSIN CONVERT ENZYME, SERUM (06/24/2008 2:04 PM [...] | | | | | | | [email or web address] | | | | | | 001Performed by [facility] | | | | | | Amtia,Pancho Nicole | | | | | | [place] [address] | | | | | | [phone] | | | | | | Moi [...] [facility] | [address] | [place], [place] | | | [facility] | | [address] | | + + + + + LYME AB REYNA STONYBROOK, SERUM OR CSF (06/24/2008 2:04 PM PDT) [...] | | [facility] | | | | [facility] | | PATH DEPT | | | | [facility] Path Dept. | | | | | | [facility] | | | | | | [facility] | | | | | | [place], [place] | | | | | | [address] | | | | + + + [...] + + + | [facility] | [facility] | [place], [place] | | | [facility] PATH DEPT | AT [place] | [address] | | + + + + + [...] Change effective 03/04/08 | | | [facility] [address] | | | [place] [address] [place] [address] [facility] | | | [place] [address] | | + + + + + + + + | Performing | Address | City/State/Zipcode | Phone Number | | Organization | | | | + + + + + | [facility] | [address] | [place] [address] | | | LABORATORY | | | [...] | + + + + + | [facility] | [address] | [place] [address] | | | PATHOLOGY | [address] | | | + + + + + | [facility] | [address] | [place] [address] | | | PATHOLOGY | [address] | | | + + + + + SURGICAL PATHOLOGY (06/24/2008) + + + + + + | Component | Value | Ref Range | Performed | Pathologist | | | | | At | Signature | + + + + + + | SURGICAL | SOURCE OF SPECIMEN:A | | [facility] | | | PATHOLOGY | Skin Biopsy-PGP, left | | DEPARTMENT | | | | ankleSOURCE OF | | OF | | | | SPECIMEN:B Skin | | PATHOLOGY | | | | Biopsy-PGP, left | | | | | | thighFinal Pathologic | | | | | | Diagnosis:A. Skin, left | | | | | | ankle, biopsy for | | | | | | epidermal nerve fiber | | | | | | density: - No | | | | | | significant reduction in | | | | | | epidermal nerve fiber | | | | | | density (6.58/mm)(see | | | | | | comment) - No | | | | | | amyloid deposition by | | | | | | Congo Red stain - | | | | | | No evidence of | | | | | | inflammation or | | | | | | vasculitisB. Skin, left | | | | | | thigh, biopsy for | | | | | | epidermal nerve fiber | | | | | | density: - No | | | | | | significant reduction in | | | | | | epidermal nerve fiber | | | | | | density (9.56/mm)(see | | | | | | comment)- No amyloid | | | | | | deposition by Congo Red | | | | | | stain - No | | | | | | evidence of inflammation | | | | | | or vasculitisComment: | | | | | | These repeat biopsies | | | | | | show epidermal nerve | | | | | | fiber densities | | | | | | withinnormal ranges. | | | | | | Published lower limits | | | | | | of normal (5th | | | | | | percentile) foradults | | | | | | are 3.8-4.5/mm for the | | | | | | distal leg (Vincenzo, 2000) | | | | | | and slightly higherfor | | | | | | the thigh (Adrián, | | | | | | 1997).Vincenzo et al. | | | | | | Acta Neuropathol | | | | | | [id number], | | | | | | 2000McZeeshan et al. | | | | | | Arch Neurol | | | | | | [id number], 1997Case | | | | | | seen by:Sally Ivy | | | | | | Hermelindo Frank, Ph.D. / | | | | | | Neuropathologist07/08/2008 | | | | | | Clinical History:The | | | | | | patient is a 52 year old | | | | | | woman with a six month | | | | | | history of pain in | | | | | | herlegs and hands.Gross | | | | | | Description:The specimen | | | | | | is received in PLP | | | | | | fixative in two parts, | | | | | | labeled with | | | | | | thepatient's name | | | | | | (initials TB). Part A | | | | | | is labeled "left ankle" | | | | | | and consistsof a olmos | | | | | | punch biopsy of skin | | | | | | measuring 0.3 cm in | | | | | | diameter. Part B | | | | | | islabeled "left thigh" | | | | | | and consists of a olmos | | | | | | punch biopsy of skin | | | | | | measuring0.3 cm in | | | | | | diameter. Both | | | | | | specimens are entirely | | | | | | frozen | | | | | | forimmunohistochemical | | | | | | studies and other | | | | | [...] | | | | | mason, from four | | | | | | sections forpart A and | | | | | | nine 1mm diameter | | | | | | mason, from three | | | | | | sections for part B. | | | | | | Thisanalysis resulted | | | | | | in an epidermal nerve | | | | | | fiber density of 6.58/mm | | | | | | for theankle (A) and | | | | | | 9.56/mm for the thigh | | | | | | (B). The dermal axons | | | | | | appear normaland show no | | | | | | varicosities or other | | | | | | abnormalities.Hematoxyli | | | | | | n and eosin stains are | | | | | | performed on 4 micron | | | | | | thick sections andCongo | | | | | | red stains on 10 micron | | | | | | thick sections. No | | | | | | inflammation or | | | | | | amyloidis identified. | | | | | | In part B, there are | | | | | | focal, linear to round | | | | | | structures thatare Congo | | | | | | Red positive, but when | | | | | | viewed under polarized | | | | | | light have a pinkto | | | | | | yellow color that is | | | | | | more consistent with | | | | | | collagen than | | | | | | amyloid.(Analyte | | | | | | specific reagents are | | | | | | used in many laboratory | | | | | | tests necessary | | | | | | [facility] | | | | | | and [...] Signed | | | | | | 07/08/2008 | | | | + + + + + + + + | Specimen | + + | Other | + + + + + + + | Performing | Address | City/State/Zipcode | Phone Number | | Organization | | | | + + + + + | [facility] DEPARTMENT | [address] | [place] [address] | | | PATHOLOGY | [address] | | | + + + + + | [facility] DEPARTMENT OF | [address] | [place] [address] | | | PATHOLOGY | [address] | | | + + + + + documented in this encounter Visit Diagnoses + + | Diagnosis | + + | Sensory disturbance - Primary Disturbance of skin sensation | + + | Pain in joint involving hand Pain in joint, hand | + + documented in this encounter
--- OUTSIDE RECORDS SUMMARY | ~2019-10-28 | XMS | Encounter Summary ---
Demographics + + + | Address | [address] | | | [place] [address] | + + + | Home Phone [...] Author + + + | Author | [facility] | + + + | Organization | [facility] [employer] [facility] | + + + | Address | Unknown | + + + | Phone | Unavailable | + + + Support + + +---------+ + | Name | Relationship | Address | Phone | + + +---------+ + | Alysa Yin | ECON | Unknown | | + + +---------+ + Care Team Providers + +------+ + | Care Landscape Crew Leader Name | Role | Phone | + +------+ + | Poncho Nieves MD | PCP | | + +------+ + Reason for Visit + +--------+ + | Reason | Onset | Comments | | | Date | | + +--------+ + | Lab Results | 09/04/ | Lyme | | | 2008 | | + +--------+ + Encounter Details +--------+ + + + + | Date | Type | Department | Care Team | Description | +--------+ + + + + | 09/04/ | Telephone | Rheumatology at | Stephanie Amaya, | Lab Results (Lyme) | | 2008 | | [facility] | | | | | | [address] | | | | | | [address] | | | | | | [address] | | | | | | [place], [place] | | | | | | [address] | | | | | | [phone] | | | +--------+ + + + [...] Notes Telephone Encounter - Uyen Kong - 09/05/2008 10:04 AM PDTSpoke with pt, she underst ood and would call Dr. Nieves's office. Electronically signed by Uyen Kong at 2008 10:04 AM PDTTelephone Encounter - Stephanie Amaya MD - 09/04/2008 4:12 PM PDTIf she is concerned about restless legs she should talk to her PCP. It would be best if she continu ed plaquenil if she thinks it is helpingElectronically signed by Stephanie Amaya MD at 08/08 4:12 PM PDTTelephone Encounter - Uyen Kong - 09/04/2008 3:56 PM PDTPt would like to have labs done closer to home. I faxed orders to [facility] in [place]. Pt says the plaquenil is working well for reducing the swelling in her hands, but she is st arting to experience restless legs. She is curious about Requip. Please advise elephone Encounter - Stephanie Amaya MD - 09/04/2008 3:45 PM PDTPlease inform patient that her Lyme test came back inconclusiv e again. I would like her to go to lab for them to test Lyme in a different way. Also have o rdered a Vit D level that was not collected last time. Her other tests came back normalElect ronically signed by Stephanie Amaya MD at 09/04/2008 3:45 PM PDTdocumented in this encount er Plan of Treatment +--------+ + + + + | Date | Type | Specialty | Care Team | Description | +--------+ + + + + | 02/24/ | Telephone-S | Rheumatology | Ron, | | | 2020 | bora | | MD [address] | | | | | | [facility] [address] | | | | | | [place], [place] | | | | | | [address] | | | | | | [phone] | | | | | | | | +--------+ + + + + + +------+--------+ + + | Name | Type | Priori | Associated Diagnoses | Order Schedule | | | | ty | | | + +------+--------+ + + | LYME AB WESTERN | Lab | Urgent | Arthralgia | Ordered: 09/04/2008 | | BLOT, SERUM | | | | | + +------+--------+ + + | VITAMIN D, | Lab | Urgent | Arthralgia | Ordered: 09/04/2008 | | 25-HYDROXY, SERUM | | | | | + +------+--------+ + + documented as of this encounter Visit Diagnoses + + | Diagnosis | + + | Arthralgia - Primary Pain in joint, site unspecified | + + documented in this encounter"
--- OUTSIDE RECORDS SUMMARY | ~2019-10-28 | XMS | Encounter Summary ---
Demographics + + + | Address | [address] | | | [place] [address] | + + + | Home Phone | | + + + | Preferred Language | Unknown | + + + | Marital Status | Single | + + + | Muslim Affiliation | UNK | + + + | Race | or | + + + | Ethnic Group | Not or | + + + Author + + + | Author | [facility] | + + + | Organization | [facility] | + + + | Address | Unknown | + + + | Phone | Unavailable | + + + Support + + +---------+ + | Name | Relationship | Address | Phone | + + +---------+ + | Alysa Yin | ECON | Unknown | | + + +---------+ + Care Team Providers + +------+ + | Care Photography Manager Name | Role | Phone | + +------+ + | Poncho Nieves MD | PCP | | + +------+ + Reason for Visit + +--------+ + | Reason | Onset | Comments | | | Date | | + +--------+ + | Medication actions | 12/08/ | hydroxychloroquine causing itching | | | 2008 | | + +--------+ + Encounter Details +--------+ + + + + | Date | Type | Department | Care Team | Description | +--------+ + + + + | 12/08/ | Telephone | Rheumatology at | Stephanie Amaya, | Medication actions | | 2008 | | [facility] | MD | (hydroxychloroquine | | | | [address] | | causing itching) | | | | [facility] | | | | | | [place], [address] | | | | | | [place], [place] | | | | | | [address] | | | | | | [phone] | | | +--------+ + + + [...] this encounter Miscellaneous Notes Telephone Encounter - Esmer Slater - 12/12/2008 11:32 AM PSTPt's PCP office just called. I lindsey ve informed them about what you have documented. No further questions. elephone Encounter - Stephanie Amaya MD - 009 2:17 PM PSTCalled patient and line busy x 2. If patient calls back you can tell her the following AND/OR she can leave better number for me to call back. 1)hydroxychloroquine was given on a trial basis to see if it made her osteoarthritis joint pain feel better 2)No medications have been shown to stop or reverse osteoarthritis so unfortunately there i s no replacement medicine if hydroxychloroquine caused her itching 3)she should work with her PCP to come up with plan to control her osteoarthritis painElect ronically signed by Stephanie Amaya MD at 12/11/2008 2:17 PM PSTTelephone Encounter - Esmer Slater - 12/08/2008 12:04 PM PSTPt called and states that she was prescribed hydroxychloroqu ine at her last visit with you in August. Pt felt the medication caused too much itching, so s he discontinued medication. Pt reports pain 8/10, in her hands, and whole body. Pt would like to know what other medication she can try. Please advise. documented in t his encounter Plan of Treatment +--------+ + + + + | Date | Type | Specialty | Care Team | Description | +--------+ + + + + | 02/24/ | Telephone-S | Rheumatology | Ron, | | | 2020 | bora | | MD [address] | | | | | | [address] | | | | | | [place], [place] | | | | | | [address] | | | | | | [phone] | | | | | | | | +--------+ + + + + documented as of this encounter Visit Diagnoses Not on filedocumented in this encounter"
--- OUTSIDE RECORDS SUMMARY | ~2019-10-28 | XMS | Encounter Summary ---
Demographics + + + | Address | [address] | | | [place] [address] | + + + | Home Phone | | + + + | Preferred Language | Unknown | + + + | Marital Status | Single | + + + | Worship Affiliation | Unknown | + + + | Race | White | + + + | Ethnic Group | Not or | + + + Author + + + | Author | [facility] | | | and [place] [...] [place] | | | | | [address] | | + + + + + Care Team Providers + +------+ + | Care Carbonator Name | Role | Phone | + +------+ + | Chantale Harrington | PCP | | + +------+ + Encounter Details +--------+ + + + + | Date | Type | Department | Care Team | Description | +--------+ + + + + | 08/04/ | Orders Only | [facility] | Kalin Mensah | Lumbar radiculopathy | | 2020 | | NEUROSURGERY [address] | MD Jayce [address] | (Primary Dx) | | | | [address] | [address] | | | | | [place], [place] | [place] | | | | | [address] | [address] | | | | | [phone] | | | +--------+ + + + [...] Not on filedocumented as of this encounter Results XR Lumbar Spine 2 [...] Procedure Note | + + | [place], [id number] - 08/28/2019 2:36 PM PDT XR LUMBAR [...] Diagnosis | + + | Lumbar radiculopathy - Primary Thoracic or lumbosacral neuritis or radiculitis, | | unspecified | + + documented in this encounter"
--- OUTSIDE RECORDS SUMMARY | ~2019-10-28 | XMS | Encounter Summary ---
Demographics + + + | Address | [address] | | | [place] [address] | + + + | Home Phone | | + + + | Preferred Language | Unknown | + + + | Marital Status | Single | + + + | Christian Affiliation | Unknown | + + + | Race | White | + + + | Ethnic Group | Not or | + + + Author + + + | Author | [facility] | | | and [place] | + + + | Organization | [facility] | | | and [place] | + + + | Address | Unknown | + + + | Phone | Unavailable | + + + Support + + + + + | Name | Relationship | Address | Phone | + + + + + | Maria Luisa Minaya | ECON | [place], [place] | | | | | [address] | | + + + + + Care Team Providers + +------+ + | Care Forms Builder Name | Role | Phone | + +------+ + | Chantale Harrington | PCP | | + +------+ + Encounter Details +--------+ + + + + | Date | Type | Department | Care Team | Description | +--------+ + + + + | 11/20/ | Imaging | [facility]ON[facility]DA YOON | Provider, | | | 2019 | Exam | [facility] | [address] | | | | | IMAGING [address] | [address]ela[address]. [address] | | | | | [address] [place] | [place] [address] | | | | | [place] [address] | | | | | | [phone] | | | +--------+ + + + [...] + +--------+ + + + | MRI LUMBAR SPINE WO | Routin | 12/20/2017 | | Results for this | | CONTRAST | e | 12:00 AM | | procedure are in the | | | | PST | | results section. | + +--------+ + + + documented in this encounter Results MRI Lumbar Spine wo Contrast (12/20/2017 12:00 AM PST) + + | Specimen [...]
[~2019-10-28 12:09] MED LIST: CELEXA40 MG PO; MEPERIDINE HCL50 MG PO; OXYCODONE HCL5 MG PO; PRILOSEC20 MG PO; REMICADE100 MG/10 IV; TOPAMAX25 MG PO; TRAZODONE HCL50 MG PO; ZOFRAN ODT4 MG SL
[2019-10-28] MEDS ORDERED: LEFLUNOMIDE10 MG PO (12:26)
[2019-10-28] MEDS ORDERED: ALENDRONATE SOD35 MG PO (12:27)
[2019-10-28] MEDS ORDERED: ESTRADIOL1 EAC2 TD (12:27)
[2019-10-28] MEDS ORDERED: HYDROCODON-ACE1 EA10 PO (12:28)
[2019-10-28] MEDS ORDERED: ZANAFLEX4 MG PO (12:28)
[2019-10-28] MEDS ORDERED: CALCITONIN-SAL3.7 ML NAS (12:28)
[2019-10-28] MEDS ORDERED: DICLOFENAC EPO1 EACH TD (12:29)
--- NOTE | 2019-10-28 18:53 | EKG ---
[facility] [address] [facility] [place], [place] [address] Signed Normal sinus rhythm Normal ECG No previous ECGs available Confirmed by RUBINA JACKSON MD ([id number]) on 10/28/2019 6:53:10 PM Electronically Signed By: RUBINA JACKSON MD 10/28/19 1853 PATIENT NAME: AURORA CUTLER Electrocardiogram DATE OF : 59 PHYSICIAN: RUBINA JACKSON MD REPORT #: [id number] REPORT IS CONFIDENTIAL AND NOT TO BE RELEASED WITHOUT AUTHORIZATION
== END 2019-10-28 14:09 | disposition home or self-care (01) ==
LOC: ED 12:09
DX: R07.9 Chest pain, unspecified (principal); Z87.891 Personal history of nicotine dependence; Z88.8 Allergy status to other drugs, medicaments and biological substances; Z88.5 Allergy status to narcotic agent; Z79.899 Other long term (current) drug therapy
CPT/HCPCS: 71045; 80053; 83735; 84484; 85025; 93005; 93010; 99285-25

== ENCOUNTER 2020-03-06 17:00 | Emergency (ER) | payer BC, OTHER ==
[~2020-03-06] VITALS: Ht 154.9 cm; Wt 74.8 kg
[~2020-03-06 17:00] MED LIST changes: +ALENDRONATE SOD35 MG PO; +CALCITONIN-SAL3.7 ML NAS; +DICLOFENAC EPO1 EACH TD; +ESTRADIOL1 EAC2 TD; +HYDROCODON-ACE1 EA10 PO; +LEFLUNOMIDE10 MG PO; +ZANAFLEX4 MG PO
--- OUTSIDE RECORDS SUMMARY | 2020-03-06 17:02 | XMS ---
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 Dulce has no Care Guidelines for this patient. Leo VISIT COUNT (12 MO.) 2 [facility] TOTAL 2 NOTE: Visits indicate total known visits. ED/C VISIT TRACKING (12 MO.) 03/06/2020 17:00 [facility] [place] TYPE: Emergency COMPLAINT: - CHEST PAIN 10/28/2019 12:10 [facility] [place] TYPE: Emergency COMPLAINT: - CHEST PAIN DIAGNOSES: - Chest pain, unspecified - Precordial pain - Personal history of nicotine dependence - Allergy status to narcotic agent - Other fdc (current) drug therapy - Allergy status to other drugs, medicaments and biological substances INPATIENT VISIT TRACKING (12 MO.) No inpatient visits to display in this time frame [email or web address]
[2020-03-06] MEDS ORDERED: HYDROMORPHONE HC2 MG PO (17:04)
[2020-03-06] MEDS ORDERED: PREGABALIN150 MG PO (17:05)
[2020-03-06] MEDS ORDERED: OMEPRAZOLE40 MG PO (17:06)
[2020-03-06] MEDS ORDERED: CITALOPRAM HBR40 MG PO (17:06)
[2020-03-06] MEDS ORDERED: AZITHROMYCIN250 MG PO (17:07)
[2020-03-06] MEDS ORDERED: HYDROCODONE-AC118 M1 PO (17:11)
[2020-03-06] MEDS ORDERED: NARCAN4 MG NAS (17:13)
--- NOTE | 2020-03-07 13:58 | EKG ---
[facility] [address] [facility] [place], [place] [address] Signed Normal sinus rhythm Possible Inferior infarct , age undetermined Abnormal ECG When compared with ECG of 28-OCT-2019 12:15, Borderline criteria for Inferior infarct are now present Confirmed by NIXON NORMAN DO ([id number]) on 03/07/2020 1:58:38 PM Electronically Signed By: NIXON NORMAN DO 03/07/20 1358 PATIENT NAME: CHEMO CUTLERJACKY BRIGGS Electrocardiogram DATE OF : 59 PHYSICIAN: NIXON NORMAN DO REPORT #: [id number] REPORT IS CONFIDENTIAL AND NOT TO BE RELEASED WITHOUT AUTHORIZATION
== END 2020-03-06 20:41 | disposition home or self-care (01) ==
LOC: ED 17:00
DX: R07.89 Other chest pain (principal); K21.9 Gastro-esophageal reflux disease without esophagitis; Z87.891 Personal history of nicotine dependence; Z88.5 Allergy status to narcotic agent; Z88.8 Allergy status to other drugs, medicaments and biological substances; Z79.899 Other long term (current) drug therapy
CPT/HCPCS: 71045; 80053; 84484; 85025; 93005; 93010; 99285-25

== ENCOUNTER 2021-04-08 13:53 | Emergency (ER) | payer BC, OTHER ==
[~2021-04-08] VITALS: Ht 154.9 cm; Wt 74.8 kg
[~2021-04-08 13:53] MED LIST changes: +AZITHROMYCIN250 MG PO; +CITALOPRAM HBR40 MG PO; +HYDROCODONE-AC118 M1 PO; +HYDROMORPHONE HC2 MG PO; +NARCAN4 MG NAS; +OMEPRAZOLE40 MG PO; +PREGABALIN150 MG PO
--- OUTSIDE RECORDS SUMMARY | 2021-04-08 13:56 | XMS ---
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 PHONE: [phone] Dulce has no Care Guidelines for this patient. Care History Medical/Surgical 03/09/2020 [facility] PATIENT IS [facility] ELIGIBLE, \T\middot;\T\nbsp; PLEASE REFER PATIENT TO [facility] FOR NON EMERGENT MEDICAL NEEDS. \T\middot;\T\nbsp; [facility] CAN SEE PATIENTS SAME DAY FOR APTS IF PATIENT CALLS FIRST THING IN THE MORNING. E.D. VISIT COUNT (12 MO.) [address] [place] [address] TOTAL 1 NOTE: Visits indicate total known visits. ED/UCC VISIT TRACKING (12 MO.) 04/08/2021 13:55 [facility] [place] TYPE: Emergency COMPLAINT: - POSS UTI INPATIENT VISIT TRACKING (12 MO.) No inpatient visits to display in this time frame [id number]
[2021-04-08] MEDS ORDERED: FLUTICASONE PRO16 GM NAS (14:41)
[2021-04-08] MEDS ORDERED: CITALOPRAM HBR20 MG PO (14:41)
[2021-04-08] MEDS ORDERED: BACTRIM DS TAB1 EACH PO (19:18)
== END 2021-04-08 19:30 | disposition home or self-care (01) ==
LOC: ED 13:53
DX: N39.0 Urinary tract infection, site not specified (principal); K21.9 Gastro-esophageal reflux disease without esophagitis; M06.9 Rheumatoid arthritis, unspecified; Z88.1 Allergy status to other antibiotic agents; Z88.5 Allergy status to narcotic agent; Z88.8 Allergy status to other drugs, medicaments and biological substances; Z79.899 Other long term (current) drug therapy
CPT/HCPCS: 36415; 74177; 80053; 81001; 85025; 87088; 99284-25; A9270

== ENCOUNTER 2021-04-15 13:36 | Emergency (ER) | payer BC, OTHER ==
[~2021-04-15] VITALS: Ht 154.9 cm; Wt 72.6 kg
[~2021-04-15 13:36] MED LIST changes: +BACTRIM DS TAB1 EACH PO; +CITALOPRAM HBR20 MG PO; +FLUTICASONE PRO16 GM NAS
--- OUTSIDE RECORDS SUMMARY | 2021-04-15 13:40 | XMS ---
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 Care History Medical/Surgical 03/09/2020 [facility] PATIENT IS [facility] ELIGIBLE, \T\middot;\T\nbsp; PLEASE REFER PATIENT TO [facility] FOR NON EMERGENT MEDICAL NEEDS. \T\middot;\T\nbsp; [facility] CAN SEE PATIENTS SAME DAY FOR APTS IF PATIENT CALLS FIRST THING IN THE MORNING. E.D. VISIT COUNT (12 MO.) 2 [facility] TOTAL 2 NOTE: Visits indicate total known visits. ED/UCC VISIT TRACKING (12 MO.) 04/15/2021 13:[address] 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
[2021-04-15] MEDS ORDERED: ONDANSETRON ODT8 MG PO (14:14)
== END 2021-04-15 21:56 | disposition home or self-care (01) ==
LOC: ED 13:36
DX: R10.30 Lower abdominal pain, unspecified (principal); R30.0 Dysuria; M19.90 Unspecified osteoarthritis, unspecified site; M06.9 Rheumatoid arthritis, unspecified; K21.9 Gastro-esophageal reflux disease without esophagitis; Z88.5 Allergy status to narcotic agent; Z88.6 Allergy status to analgesic agent; Z88.8 Allergy status to other drugs, medicaments and biological substances; Z88.1 Allergy status to other antibiotic agents; Z79.899 Other long term (current) drug therapy
CPT/HCPCS: 36415; 74177; 80053; 81001; 83690; 85025; 87088; 87210; 99284-25; J2405; J7030; Q9967

== ENCOUNTER 2022-02-23 15:32 | Emergency (ER) | payer BC, OTHER ==
[~2022-02-23] VITALS: Ht 154.9 cm; Wt 72.6 kg
[~2022-02-23 15:32] MED LIST changes: +ONDANSETRON ODT8 MG PO
--- OUTSIDE RECORDS SUMMARY | 2022-02-23 15:36 | XMS ---
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 Care History Medical/Surgical 03/09/2020 [facility] PATIENT IS [facility] ELIGIBLE, \T\middot;\T\nbsp; PLEASE REFER PATIENT TO [facility] FOR NON EMERGENT MEDICAL NEEDS. \T\middot;\T\nbsp; [facility] CAN SEE PATIENTS SAME DAY FOR APTS IF PATIENT CALLS FIRST THING IN THE MORNING. E.D. VISIT COUNT (12 MO.) 3 [facility] TOTAL 3 NOTE: Visits indicate total known visits. 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 [place] TYPE: Emergency COMPLAINT: - POSS UTI DIAGNOSES: - Lower abdominal pain, unspecified - Allergy status to other antibiotic agents - Gastro-esophageal reflux disease without esophagitis - Rheumatoid arthritis, unspecified - Urinary tract infection, site not specified - Allergy status to other drugs, medicaments and biological substances - Other penitentiary (current) drug therapy - Allergy status to narcotic agent INPATIENT VISIT TRACKING (12 MO.) No inpatient visits to display in this time frame [email or web address]
[2022-02-23] MEDS ORDERED: CITALOPRAM HBR20 MG PO (15:48)
[2022-02-23] MEDS ORDERED: ATORVASTATIN CA10 MG PO (15:48)
[2022-02-23] MEDS ORDERED: DOXYCYCLINE HY100 MG PO ×2 (18:45→18:49)
[2022-02-23] MEDS ORDERED: PREDNISONE20 MG PO ×2 (18:45→18:49)
--- NOTE | 2022-02-24 21:21 | EKG ---
[facility] [address] [place] [address] Signed Normal sinus rhythm Normal ECG When compared with ECG of 06-MAR-2020 17:06, Borderline criteria for Inferior infarct are no longer present Confirmed by Sal Grimaldo MD () on 02/24/2022 9:21:03 PM Electronically Signed By: SAL GRIMALDO MD 02/24/222120 PATIENT NAME: CHEMO CUTLERJACKY BRIGGS Electrocardiogram DATE OF : 59 PHYSICIAN: SAL GRIMALDO MD REPORT #: [id number] REPORT IS CONFIDENTIAL AND NOT TO BE RELEASED WITHOUT AUTHORIZATION
== END 2022-02-23 19:12 | disposition home or self-care (01) ==
LOC: ED 15:32
DX: J20.9 Acute bronchitis, unspecified (principal); K21.9 Gastro-esophageal reflux disease without esophagitis; Z88.1 Allergy status to other antibiotic agents; Z88.5 Allergy status to narcotic agent; Z88.8 Allergy status to other drugs, medicaments and biological substances; Z79.899 Other long term (current) drug therapy
CPT/HCPCS: 36415; 71045; 80053; 84484; 85025; 93005; 93010; 94640; 96374; 99285-25; A9270; J2930

== ENCOUNTER 2023-03-03 06:20 | Day surgery (SDC) | payer BC, OTHER ==
[~2023-03-03] VITALS: Ht 154.9 cm; Wt 68.2 kg
[~2023-03-03 06:20] MED LIST changes: +ATORVASTATIN CA10 MG PO; +DOXYCYCLINE HY100 MG PO; +PREDNISONE20 MG PO
[2023-03-03 06:36] VITALS: BP 131/66
[2023-03-03] MEDS ORDERED: OXYCODONE-ACET1 EAC1 PO (06:43)
[2023-03-03] MEDS ORDERED: TRAZODONE HCL50 MG NG (06:44)
[2023-03-03] MEDS ORDERED: PANTOPRAZOLE SO40 MG PO (06:44)
--- NOTE | 2023-03-03 08:39 | NUR ---
03/03/23 0839 Lin Quintero 0833- PT ARRIVES TO PACU, LEFT LATERAL POSITION. LR INFUSING TO LH IV. O2 AT 2L PER NC. PT AWAKE BUT DROWSY, ANSWERING AND ASKING QUESTIONS. ABD SOFT, NON DISTENDED. ENCOURAGED TO PASS GAS. DENIES PAIN AND NAUSEA. ALL MONITORS IN PLACE.
[2023-03-03 09:36] VITALS: BP 100/66
--- NOTE | 2023-03-07 10:00 | OR ---
[facility] [address] [place], [place] [address] Signed DATE OF OPERATION: 03/03/2023 SURGEON: Harris Frazier MD PREOPERATIVE DIAGNOSES: 1. Gastroesophageal reflux with dysphagia. 2. Colon screening. POSTOPERATIVE DIAGNOSES: 1. Hiatal hernia with mild distal esophagitis. No evidence of stricture. 2. Normal colon to cecum. PROCEDURES: 1. Esophagogastroduodenoscopy with biopsy. 2. Total colonoscopy to cecum. ANESTHESIA: Intravenous sedation; fentanyl 200 mcg and Versed 11 mg total. INDICATION: This 67-year-old woman is a patient of Uyen Flowers with [facility]. She is referred for screening colonoscopy and she has never had that before. She has no symptoms of bleeding, diarrhea, or constipation. She has no family history of colon cancer. She is admitted to undergo colonoscopy on that basis. The patient was coincidentally noted to have gastroesophageal reflux, though she is on Protonix medication and has episodes of dysphagia. She has had no hematemesis. Given her symptoms of dysphagia, upper endoscopy was additionally recommended. She understands the risk of both procedures including, but not limited to bleeding, infection, perforation and wished to proceed. FINDINGS: Upper endoscopy showed no actual stricture. There was distal esophagitis and mild hiatal hernia was noted. Stomach and duodenum were essentially normal. There was a small polyp in the stomach, which was excised, but specimen not retrieved. Most likely it was hyperplastic or a fundic gland polyp, benign. She did not have stigmata of eosinophilic esophagitis, so that remains a possibility. On colonoscopy, the prep was excellent. Complete colonoscopy was undertaken with full intubation of the cecum showing no evidence of polyps, diverticular formation, colitis, Electronically Signed By: HARRIS FRAZIER MD 03/07/23 1000 PATIENT NAME: AURORA CUTLER OPERATIVE REPORT DATE OF : 59 REPORT #: [id number] PHYSICIAN: HARRIS FRAZIER MD PCP: UYEN FLOWERS REPORT IS CONFIDENTIAL AND NOT TO BE RELEASED WITHOUT AUTHORIZATION [facility] [address] [place], [place] [address] Signed or cancer. DESCRIPTION OF PROCEDURE: The patient was brought to the endoscopy suite, given lidocaine hypopharyngeal anesthesia in the lateral decubitus position, given intravenous sedation to the point of slurred speech and nystagmus with full cardiopulmonary monitoring. A bite block was placed. Olympus video upper endoscope was passed in the hypopharynx. The vocal cords were visualized as normal. The scope was advanced to the esophagus without problem. The distal portion had mild inflammatory change with no evidence of stricture, neoplasm and no Fajardo's epithelium so far as could be told. The scope was advanced to the stomach which was insufflated with air. Rugal folds were normal. There was no bile in the stomach. The antrum was normal. Pylorus was normal. Scope was passed through into the duodenum, which was normal. Biopsies were obtained to assess for celiac disease. The scope was withdrawn and biopsies taken of the antrum for both MARCELO and pathologic testing. Retroflexed view showed a hiatal hernia. The scope was withdrawn to the distal esophagus where biopsies were obtained. Further withdrawal to the midesophagus did not show stigmata of the eosinophilic esophagitis, so biopsies were obtained nevertheless on the basis of her dysphagia. The scope was further withdrawn and removed. Plans were then made for colonoscopy. Additional sedation was given. Digital rectal examination was normal. An Olympus video colonoscope was passed in the rectum and manipulated throughout the colon ultimately intubating the cecum itself. The ileocecal valve and appendiceal orifice were normal. The scope was withdrawn and examination throughout showed no sign of polyps, diverticular formation, colitis, or cancer. Retroflexed view of the colon was normal. Scope was removed and the patient was taken to the recovery room in good condition. CONCLUDING DIAGNOSES: 1. Normal colon. Recommend repeat colonoscopy in 10 years, sooner if symptoms should occur. 2. Distal esophagitis, mild with hiatal hernia. She should continue on her Protonix medication. I will see her back in the office for further evaluation of her dysphagia and in particular to assess for eosinophilic esophagitis based on biopsies. Electronically Signed By: HARRIS FRAZIER MD 03/07/23 [facility] PATIENT NAME: AURORA CUTLER OPERATIVE REPORT DATE OF : 59 REPORT #: [id number] PHYSICIAN: HARRIS FRAZIER MD PCP: UYEN FLOWERS REPORT IS CONFIDENTIAL AND NOT TO BE RELEASED WITHOUT AUTHORIZATION [facility] [address] [facility] [place], [place] [address] Signed Harris Frazier MD JM/MODL /[id number] cc: Uyen Flowers Copies: UYEN FLOWERS ~ Electronically Signed By: HARRIS FRAZIER MD 03/07/23 1000 PATIENT NAME: AURORA CUTLER OPERATIVE REPORT DATE OF : 59 REPORT #: [id number] PHYSICIAN: HARRIS FRAZIER MD PCP: UYEN FLOWERS REPORT IS CONFIDENTIAL AND NOT TO BE RELEASED WITHOUT AUTHORIZATION
--- NOTE | 2023-03-07 11:30 | PATH ---
[facility] [address] [facility] [place], [place] [address] Signed SPECIMEN(S): A DUODENAL BIOPSY SPECIMEN(S): B ANTRUM BIOPSY SPECIMEN(S): C LOWER ESOPHAGEAL BIOPSY SPECIMEN(S): D MIDDLE ESOPHAGEAL BIOPSY SPECIMEN SOURCE: A. DUODENAL BIOPSY B. ANTRUM BIOPSY C. LOWER ESOPHAGEAL BIOPSY D. MIDDLE ESOPHAGEAL BIOPSY CLINICAL HISTORY: Pre: Distal esophagitis and GERD, initial screening colonoscopy. Post: Hiatal hernia, normal colon. FINAL PATHOLOGIC DIAGNOSIS: A. Duodenum, biopsy: - Duodenal mucosa with no significant pathologic changes B. Stomach, antrum, biopsy: - Gastric antral mucosa with no significant pathologic changes - Negative for Helicobacter pylori with HE stains C. Esophagus, lower, biopsy: - Esophageal squamous mucosa with reactive epithelial changes D. Esophagus, middle, biopsy: - Esophageal squamous mucosa with focal active esophagitis COMMENT: For part D, a special stain for fungal organisms has been ordered and will be reported in an addendum. [facility] MICROSCOPIC EXAMINATION: Histologic sections of all submitted blocks are examined by light microscopy. These findings, together with the gross examination, support the pathologic diagnosis. GROSS DESCRIPTION: A. The specimen, labeled and designated "Mary Yin, " and designated on the requisition "duodenum (NOS) biopsy," is received in formalin and consists of olmos soft tissue fragments measuring 0.2 to 1.5 cm, both specimens are submitted entirely in (A1). PATIENT NAME: AURORA YIN PATHOLOGY DATE OF : 59 REPORT #: [id number] PHYSICIAN: KRISTY PATHOLOGY PCP: HIEU FLOWERS REPORT IS CONFIDENTIAL AND NOT TO BE RELEASED WITHOUT AUTHORIZATION [facility] [address] [place], [place] [address] Signed B. The specimen, labeled and designated "Humphrey, T, " and designated on the requisition "stomach, antrum/pylorus biopsy," is received in formalin and consists of one olmos soft tissue fragment measuring 0.8 cm, the specimen is submitted entirely in (B1). C. The specimen, labeled and designated "Humphrey, T, " and designated on the requisition "esophagus, lower esophagus biopsy," is received in formalin and consists of three olmos-white soft tissue fragments measuring 0.2 to 0.6 cm, all specimens are submitted entirely in (C1). D. The specimen, labeled and designated "Humphrey, T, " and designated on the requisition "middle esophagus biopsy," is received in formalin and consists of multiple fragments of olmos-white soft tissue measuring 0.3 to 0.6 cm, all specimens are submitted entirely in (D1). MMA (under the direct supervision of a pathologist) The Gross Description was prepared using a voice recognition system. The report was reviewed for accuracy; however, sound-alike word errors, addition and/or deletions may occur. If there is any question about this report, please contact Client Services. ADDITIONAL NOTES: Immunohistochemical and/or in situ hybridization studies if performed in this case included appropriate positive controls that reacted as expected. This test was developed and its performance characteristics determined by [facility]. It has not been cleared or approved by the U.S. Food and Drug Administration. The FDA has determined that such clearance or approval is not necessary. This test is used for clinical purposes. It should not be regarded as investigational or for research. [facility] is certified under the Clinical Laboratory Improvement Amendments of 1988 (CLIA) as qualified to perform high complexity clinical laboratory testing. PERFORMING LABORATORY: Technical component was performed by [facility], [address] [place] [address] (CLIA# [id number]). Professional interpretation was performed by [facility], [address] [place] [address] (CLIA#:[id number]). Diagnostician: Gabe Negrete MD Pathologist Electronically Signed 03/07/2023 PATIENT NAME: AURORA YIN PATHOLOGY DATE OF : 59 REPORT #: [id number] PHYSICIAN: KRISTY PATHOLOGY PCP: HIEU FLOWERS REPORT IS CONFIDENTIAL AND NOT TO BE RELEASED WITHOUT AUTHORIZATION [facility] [address] [facility] [place] [address] Signed Copies: ~ PATIENT NAME: AURORA YIN PATHOLOGY DATE OF : 59 REPORT #: [id number] PHYSICIAN: KRISTY HAIR PCP: HIEU FLOWERS REPORT IS CONFIDENTIAL AND NOT TO BE RELEASED WITHOUT AUTHORIZATION
== END 2023-03-03 09:30 | disposition home or self-care (01) ==
LOC: OPS 06:20 → DS 06:20 → OPS 07:30 → DS 08:30 → OPS 09:30
PROVIDERS: ATTEND Surgery
PROC: 0DJD8ZZ Inspection of Lower Intestinal Tract, Via Natural or Artificial Opening Endoscopic (ICD-10-PCS; principal; 2023-03-03 07:30)
PROC: 0DB68ZX Excision of Stomach, Via Natural or Artificial Opening Endoscopic, Diagnostic (ICD-10-PCS; 2023-03-03 07:30)
DX: Z12.11 Encounter for screening for malignant neoplasm of colon (principal); R13.19 Other dysphagia; K21.00 Gastro-esophageal reflux disease with esophagitis, without bleeding; Z90.711 Acquired absence of uterus with remaining cervical stump; Z90.49 Acquired absence of other specified parts of digestive tract; K44.9 Diaphragmatic hernia without obstruction or gangrene
CPT/HCPCS: 99153; G0500; J2250; J3010

== ENCOUNTER 2024-11-01 03:19 | Emergency (ER) | payer BC, OTHER ==
[~2024-11-01] VITALS: Ht 157.5 cm; Wt 69.7 kg
[~2024-11-01 03:19] MED LIST changes: +OXYCODONE-ACET1 EAC1 PO; +PANTOPRAZOLE SO40 MG PO; +TRAZODONE HCL50 MG NG
[2024-11-01] MEDS ORDERED: BELBUCA150 MCG (03:39)
[2024-11-01] MEDS ORDERED: ALENDRONATE SOD35 MG PO (03:40)
[2024-11-01] MEDS ORDERED: DICLOFENAC EPO1 EACH TD (03:40)
[2024-11-01] MEDS ORDERED: ONDANSETRON ODT4 MG PO (03:40)
[2024-11-01] MEDS ORDERED: METHOCARBAMOL750 MG (03:41)
[2024-11-01] MEDS ORDERED: TERBINAFINE HC250 MG PO (03:41)
[2024-11-01 05:18] VITALS: BP 150/95
== END 2024-11-01 05:18 | disposition home or self-care (01) ==
LOC: ED 03:19
DX: F11.23 Opioid dependence with withdrawal (principal); K21.9 Gastro-esophageal reflux disease without esophagitis; Z88.5 Allergy status to narcotic agent; Z88.1 Allergy status to other antibiotic agents; Z79.899 Other long term (current) drug therapy
CPT/HCPCS: 99283